=== PATIENT | female | born 1965 | race Caucasian/White ===

== ENCOUNTER 2019-06-18 14:28 | Inpatient (IN) | payer MEDICARE, SELFPAY ==
[2019-06-07 15:10] VITALS: BP 170/88; PULSE 90; RESP 18; TEMP 36.7; O2SAT 96; BMI 37.0
--- NOTE | 2019-06-17 14:01 | WPDANESEPPF ---
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 Patient Data Age: 54 Gender: F Height: 5 ft 6 in Weight: 104.3 kg Last Vital Signs Temp 98.0 F 06/07/19 15:10 Pulse 90 06/07/19 15:10 Resp 18 06/07/19 15:10 BP 170/88 H 06/07/19 15:10 Pulse Ox 96 06/07/19 15:10 Allergies Allergy/AdvReac Type Severity Reaction Status Date / Time No Known Allergies Allergy Verified 06/07/19 14:12 Home Medications Medication Instructions Recorded Confirmed Type baclofen 40 mg PO BID 04/20/19 06/07/19 History gabapentin 300 mg PO BID 04/20/19 06/07/19 History lisinopril 20 mg PO BID 04/20/19 06/07/19 History metoprolol succinate 100 mg PO DAILY 04/20/19 06/07/19 History warfarin 6 mg PO Q6D 04/20/19 06/07/19 History aspirin [Aspir-81] 81 mg PO DAILY 04/23/19 06/07/19 History erythromycin 500 mg tablet 500 mg PO .COMPLEX #6 tablet 05/10/19 06/07/19 Rx neomycin 500 mg tablet 500 mg PO .COMPLEX #6 tablet 05/10/19 06/07/19 Rx cholecalciferol (vitamin D3) 2,000 unit PO DAILY 06/07/19 06/07/19 History cyanocobalamin (vitamin B-12) 500 mcg PO DAILY 06/07/19 06/07/19 History ferrous sulfate 27 mg PO PRN PRN 06/07/19 06/07/19 History warfarin 8 mg PO WEEKLY 06/07/19 06/07/19 History PMFSH Social History Social History Smoking status: Former smoker Tobacco type: cigarettes Alcohol intake: current Gender identity (if verbalized by the patient): Female Anes - Eval Final PreProcedure Day of Procedure 06/17/19 14:01 Informed Consent: The patient's anesthetic plan and its attendant risks and benefits were discussed with the patient/family/POA. Questions were solicited and answers provided to the satisfaction of the patient/family/POA.
[2019-06-18] VITALS (19 sets, daily range): BP systolic 101–184; BP diastolic 59–104; PULSE 82–168; RESP 12–20; TEMP 36.4–37.1; O2SAT 92–100; BMI 35.2
[2019-06-18] MEDS: LACTATED RINGERS 1,000 ML 30 ML IV CONT ×2 (06:45→12:32)
[2019-06-18] MEDS: ALVIMOPAN 12 MG CAPSULE PO ×2 (07:01→17:45)
--- NOTE | 2019-06-18 07:04 | PM.IMHP ---
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 Patient had a colonoscopy with Dr Bass on 04/23/19 due to a postitive cologuard. Patient reports that last year she had done the colograd but when the stool was recieved it was out of date . Patient reports that she never redid it until this past month. It was noted that in the proximal ascending colon,a sessile polyp 3 mm by 4 mm was seen. The polyp was not bleeding, The polyp was benigm in appearance. The polyp was completely excised by snare. In the mid descending colon a partially obstruction large-size fungating, villous 5 cm x 6 cm mass was seen. There was stigmata of bleeding from the mass. In the rectum, multiple large-size uncomplicated internal hemhorrhoid were seen. The internal hemhorrhoids were no bleeding. Pathology showed tubular adenoma. Fragment tubulovillous adenoma with high-grade dysplasia, may pieces, largest 0.3 cm in greatest dimension. Patient had a CT scan of the abdomen and pelvis with contrast on 04/23/19 at [facility] that showed a 4.4 x 2.9 x 3.1 cm intraluminal mass at the proximal sigmoid colon concerning for primary colon cancer. No evident metastatic disease. Bilateral nephrolithiasis with 6 mm stone at the right ureterovesicular junction but without right hydronephrosis. There is however urothelial thickening at the right renal collecting system and would correlate with urinalysis to exclude associated ascening urinary tract infection. Patient reports she currently has no pain. Other medical history includes a pervious cerebral strokes x4 most recent being Dec 2018. Patient reports she also has thyroid disease, a history of kidney stones, afib and hypertension. Patient is currently taking Aspirin 81 mg and Warfarin daily. Patient reports she has been taking the Warfarin for about 5 years. Patient denies any pervious abdominal surgeries. For her heart issues she is followed by [facility] cardiology here at [place]. She had approval to go off her Coumadin for 5 days prior to procedure. She has had a bowel prep and presents today for her left hemicolectomy. Review of Systems Constitutional: Constitutional: Reports no additional constitutional complaints and Denies frequent falls Eyes: Eyes: Reports as per HPI ENT: Reports Normal hearing present, Denies dizziness and Reports other (Mucous membranes moist.) Cardiovascular: Cardiovascular: Denies chest pain, Denies palpitations, Denies dyspnea and Denies dyspnea on exertion Comments: History of atrial fibrillation and has been on Coumadin. Respiratory: Respiratory: Denies hemoptysis, Denies dyspnea, Denies dyspnea on exertion and Denies wheezing Gastrointestinal: Gastrointestinal: Reports no additional gastrointestinal complaints Genitourinary: Genitourinary: Denies hematuria, Denies urinary frequency and Denies nocturia Musculoskeletal: Musculoskeletal: Denies deformity and Reports other ( no clubbing,cyanosis, or edema) Integumentary/Breasts: Skin/Breast: Denies new lesions, Denies rash and Denies unusual bruising Neurologic: Reports Normal hearing present, Denies dizziness, Denies frequent falls, Denies memory loss and Denies seizure-like activity Comments: History of previous strokes. Psychiatric: Psychiatric: Denies memory loss and Reports other ( normal mood and mental status) Endocrine: Endocrine: Denies cold intolerance and Denies palpitations Hematologic/Lymphatic: Hematologic/Lymphatic: Denies easy bleeding and Denies easy bruising Comments: History of anemia however recent blood count was near normal. Allergic/Immunologic: Allergic/Immunologic: Denies wheezing and Reports other ( no lymphadenopathy) [facility] Past Medical History Medical History (Reviewed 06/18/19 @ 07:06 by Efrain
--- NOTE | 2019-06-18 07:06 | WPDANESEPPF ---
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 Patient Data Age: 54 Gender: F Height: 5 ft 6 in Weight: 99.1 kg Last Vital Signs Temp 36.7 C 06/07/19 15:10 Pulse 90 06/07/19 15:10 Resp 18 06/07/19 15:10 BP 170/88 H 06/07/19 15:10 Pulse Ox 96 06/07/19 15:10 Allergies Allergy/AdvReac Type Severity Reaction Status Date / Time No Known Allergies Allergy Verified 06/18/19 06:35 Home Medications Medication Instructions Recorded Confirmed Type baclofen 40 mg PO BID 04/20/19 06/18/19 History gabapentin 300 mg PO BID 04/20/19 06/18/19 History lisinopril 20 mg PO BID 04/20/19 06/18/19 History metoprolol succinate 100 mg PO DAILY 04/20/19 06/18/19 History warfarin 6 mg PO Q6D 04/20/19 06/18/19 History aspirin [Aspir-81] 81 mg PO DAILY 04/23/19 06/18/19 History cholecalciferol (vitamin D3) 2,000 unit PO DAILY 06/07/19 06/18/19 History cyanocobalamin (vitamin B-12) 500 mcg PO DAILY 06/07/19 06/18/19 History ferrous sulfate 27 mg PO PRN PRN 06/07/19 06/18/19 History warfarin 8 mg PO WEEKLY 06/07/19 06/18/19 History Laboratory Tests 06/18/19 06:50 PT Pending INR Pending Patient hx anesthesia problems: none Family hx anesthesia problems: none PMFSH Past Medical History Medical History Afib Brain aneurysm CVA (cerebral vascular accident) History of stroke x2 History of thyroid disease Hx of migraines Hypertension AMMON (obstructive sleep apnea) Surgical History Surgical History History of colonoscopy Family History Family History Father Lung cancer Mother COPD (chronic obstructive pulmonary disease) Diabetes mellitus Hypertension High cholesterol Unknown Diabetes mellitus Heart disease Cancer Hypertension Social History Social History Smoking status: Former smoker Tobacco type: cigarettes Alcohol intake: current Gender identity (if verbalized by the patient): Female Anes - Eval Final PreProcedure Day of Procedure 06/18/19 07:06 Patient weight: obese Heart: irregular rhythm Lungs: clear to auscultation Airway: Mallampati scale class II Neurological: alert and oriented Last oral intake: >/= 8 hours ASA classification: III Emergent: no Anesthetic plan: proceed Anesthesia type and monitoring: general ETT and standard monitoring Informed Consent: The patient's anesthetic plan and its attendant risks including prolonged ventilation and ICU admission and benefits were discussed with the patient/family/POA. Questions were solicited and answers provided to the satisfaction of the patient/family/POA.
[2019-06-18 07:18] LABS: INR 1.2; Prothrombin Time 15.2 Seconds (11.1-14.7)
[2019-06-18] MEDS: ceFAZolin 2 GM/D5W 50 ML 2 GM/50 ML BAG IVPB (07:36)
--- NOTE | 2019-06-18 08:30 | SUR.OPER ---
Addendum entered by López Melo RN 06/18/19 09:09: PRADIP Christie Original Note: Rectal washout performed at 0755 by PRADIP Stevens. 1500 cc of fluid instilled, 1500cc came out. Smith for rectum inserted at 0800.
[2019-06-18] MEDS: BUPIVACAINE/EPINEPHRINE 0.5% 30 ML VIAL INFILTRATE (08:40)
--- NOTE | 2019-06-18 12:54 | PM.PROC ---
Procedure Note - Detailed Date of procedure: 06/18/19 Pre-op diagnosis: Left Tubulovillous Adenoma W/ High Grade Dysplasia Post-op diagnosis: same Procedure performed: Hand assisted laparoscopic sigmoid colectomy with anastomosis distal descending colon to rectum Description of procedure: Patient was seen in the preop area. The suprapubic area marked for the site of possible hand assist incision. I again went over the risks, benefits, and possible complications of surgery with the patient and her family. We went over the results of the prep. I confirmed the patient had received Entereg. Following this the patient was brought to the operating room and placed on the operating table and secured to the table with a clarke bag padding the back. The patioeit was placed in the low lithotomy position with the legs in Cedrick stirrups. Smith catheter was then placed. An OG tube was then placed. Following this 2 L of NS irrigant was used to irrigate out the rectum using a malenkat catheter. Betadine was then infused into this catheter using approximately 500 cc. This was allowed to run back out. The catheter was then left in place in the distal rectum. Following this the abdomen was prepped and draped in usual sterile fashion sterile fashion. The perineum was prepped with Betadine. An under the buttocks and leg drapes were applied followed by 4 towels and then the laparotomy / laparoscopy drape applied. This exposed nicely the entire abdomen. Following this time-out was performed with the OR staff. This confirmed patient and site of proposed surgery as the abdomen. Following this local anesthetic was infiltrated into a transverse incision marked out 2 fingerbreadths above the level of the pubic bone. This was centered on the midline. It was approximately 8.5 cm in length. Following this an incision was made and carried down to the fascia overlying the rectus sheath in this area. The anterior rectus sheath was incised the length of this incision transversely. Following this three Elsy's were placed on the upper side of the cut edge of the rectus. I then carefully dissected the rectus fascia off the underlying rectus muscles up to about half-way from the incision to the umbilicus. This nicely exposed the fatty midline. Following this I also placed the Allis's on the fascia inferiorly and dissected approximately 3 cm inferiorly underneath the rectus sheath. Following this we tented up the midline fat with two DeBakey forceps and carefully entered the midline under direct vision. I then put my finger in the peritoneum and incised the peritoneum cephalad and inferiorly about an 8 cm length. This was our 1st entry into the abdomen and there was no significant adhesions under this incision. I swept my finger completely circumferentially underneath the abdominal wall and there were no significant adhesions. Following this the wound protector of the laparoscopic hand port was placed into the abdomen and then carefully rotated down to secure the hand port in place and protect the edges of the wound. I then placed my hand through wound protector and placed it up in underneath the area of the umbilicus. There were no adhesions in this area. A vertical incision was outlined in the crease just above the umbilicus and local anesthetic infused. Then an 11 blade knife was made to make a 12 mm incision just superior to the umbilicus and a 12 mm laparoscopic port was placed into the abdomen with my hand underneath the anterior abdominal wall. Once this was adequately in place, we then insufflated the abdomen to 15 mmHg pressure CO2 by connecting the insufflation tubing to this periumbilical port. The cover for the hand port was applied and then we carefully placed the 10 mm surgery laparoscope through the umbilical port and observed the inside the abdomen. I placed my right hand in the abdomen while standing on the patient's left side. Using my right hand I exposed the sigmo
--- NOTE | 2019-06-18 13:38 | SUR.PHASEI ---
1255 - large liquid stool noted. skin 1320 - family updated and sent to room
[2019-06-18] MEDS: LACTATED RINGERS 1,000 ML 100 ML IV CONT ×2 (15:58→21:51)
[2019-06-18] MEDS: SODIUM CHLORIDE 0.9% IV 500 ML 250 ML IV CONT (17:30)
[2019-06-18] MEDS: SODIUM CHLORIDE 0.9% IV 500 ML 250 ML (17:30)
[2019-06-18] MEDS: metroNIDAZOLE 500 MG/ISO 100ML 500 MG/100 ML BAG 100 MG IVPB (17:44)
[2019-06-18] MEDS: DIGOXIN TAB 125 MCG TABLET PO (17:45)
[2019-06-18] MEDS: GABAPENTIN 300 MG CAPSULE PO (17:46)
--- NOTE | 2019-06-18 19:33 | PC.NURSE ---
Discussed transfer with daughter Darlin. Informed of being moved to IMU 212.
--- NOTE | 2019-06-18 19:45 | PC.NURSE ---
This patient, Ana Laura Williamson, was transferred to [ IMU] on 06/18/19 at 1946. Personal belongings sent with patient. Belongings list checked and signed with receiving [ UNIT]. Report given to [IMU RN ]. Appropriate documentation sent with patient.
--- NOTE | 2019-06-18 20:13 | PC.NURSE ---
Pt transferred to IMU room 212 from third floor due to Afib RVR. Known hx of Afib. Pt denies SOB or chest pain at this time. HR up to 168 at times. Leanna Aguirre NP notified. Cardizem gtt to be ordered by Leanna.
--- NOTE | 2019-06-18 20:24 | PC.NURSE ---
2009 DR TERAN RETURNED CALL AND REPORTED PT'S CONDITION AND THAT THE PT WAS TRANSFERED TO IMU 212
[2019-06-18] MEDS: lisinopriL 20 MG TABLET PO (20:56)
[2019-06-18] MEDS: FAMOTIDINE 20 MG/2 ML VIAL IV PUSH (20:56)
--- NOTE | 2019-06-18 23:12 | PM.IMCN ---
Assessment and Plan Assessment and plan (1) Afib: Code(s): I48.91 - Unspecified atrial fibrillation Status: Acute Assessment and Plan: The patient currently on is on a Cardizem drip. May resume metoprolol a once the patient is off the drip. It is on hold at this time. May resume tomorrow for heart rate is stable and start to wean off the drip. Patient had been on Coumadin but is currently on hold possibly due to her surgery. Patient will need to be restarted on Coumadin as soon as surgery allows. Patient had been found to be in AFib with RVR. Her heart rate is now in the 90s. 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 Patient is currently on subcu Lovenox. (3) S/P left hemicolectomy: Code(s): Z90.49 - Acquired absence of other specified parts of digestive tract Status: Acute Assessment and Plan: Postop care and DVT prophylaxis per surgery. Pain management per surgery. (4) Hypertension: Code(s): I10 - Essential (primary) hypertension Status: Chronic Assessment and Plan: Her metoprolol and lisinopril on hold while she is on a Cardizem drip. HPI Data of Consult Consult date: 06/18/19 Requesting Physician: Arun Zhu MD Primary Care Provider: Nate OcampoMD Consult Narrative Narrative: Ana Laura Williamson is a 54 year old female who has a history of atrial fibrillation. Her rate is typically controlled but she went with out her medication for about a day. The patient's heart rate went up to the 130s and 140s even the patient was given her metoprolol. I also gave her p.o. digoxin which did nothing for her. Patient stated she can tell when her heart rate is fast. She is not short of breath or diaphoretic having any chest pain. The patient denied any discomfort at this time. She denied any anxiety. Patient was transferred to the IMU and placed on a Cardizem drip. Her heart rate has come down nicely in the 90s. Surgery is ask the hospitalist group to consult for medical management. The patient had surgery today she had a colectomy for colon adenoma with severe dysplasia. Date of service is 06/18/2019 Review of Systems Review of Systems: All systems reviewed & are unremarkable except as noted in HPI and below Constitutional: Constitutional: Reports as per HPI and Reports no additional constitutional complaints Eyes: Eyes: Reports as per HPI and Reports no additional eye complaints ENT: Reports system reviewed and no additional complaints, except as documented and Reports Normal hearing present Cardiovascular: Cardiovascular: Reports as per HPI and Reports no additional cardiovascular complaints Respiratory: Respiratory: Reports no additional respiratory complaints and Reports no additional respiratory complaints Gastrointestinal: Gastrointestinal: Reports as per HPI and Reports no additional gastrointestinal complaints Musculoskeletal: Musculoskeletal: Reports no additional musculoskeletal complaints Integumentary/Breasts: Skin/Breast: Reports system reviewed and no additional complaints, except as docu and Reports as per HPI Neurologic: Reports system reviewed and no additional complaints, except as documented, Reports as per HPI and Reports Normal hearing present Psychiatric: Psychiatric: Reports no additional psychiatric complaints and Reports as per HPI Endocrine: Endocrine: Reports no additional endocrine complaints Hematologic/Lymphatic: Hematologic/Lymphatic: Reports no additional hematologic/lymphatic complaints Allergic/Immunologic: Allergic/Immunologic: Reports no additional allergic/immunologic complaints [facility] Past Medical History Medical History (Updated 06/18/19 @ 23:24 by Leanna Aguirre NP) Afib Brain aneurysm X2 with repair CVA (cerebral vascular accident) X2 History of stroke x
[2019-06-19] VITALS (17 sets, daily range): BP systolic 121–150; BP diastolic 67–85; PULSE 77–106; RESP 16–20; TEMP 36.3–37.2; O2SAT 94–98
[2019-06-19] MEDS: metroNIDAZOLE 500 MG/ISO 100ML 500 MG/100 ML BAG 100 MG IVPB ×3 (00:18→17:02)
[2019-06-19 04:49] LABS: Basophils Percent Auto 0.3 % (0.2-1.2); Eosinophils Percent Auto 0.1 % (0-4.4); Hematocrit 35.3 % (37.0-47.0); Hemoglobin 11.7 g/dL (12.0-15.0); Immature Granulocyte Absolute 0.05 K/mm3 (0.00-0.031); Immature Granulocyte Percent A 0.4 % (0-0.5); Lymphocytes Percent Auto 9.2 % (18.3-44.2); Mean Corpuscular HGB Conc 33.1 g/dl (32-36); Mean Corpuscular Hemoglobin 31.5 pg (26-34); Mean Corpuscular Volume 94.9 fl (80-100); Mean Platelet Volume 12.4 fl (7.4-10.4); Monocytes Absolute Auto 0.8 K/mm3 (0.1-0.6); Monocytes Percent Auto 6.8 % (2.6-8.5); Neutrophils Absolute Auto 9.9 K/mm3 (1.3-6.7); Neutrophils Percent Auto 83.2 % (45.5-73.1); Platelet Count Result 134 k/mm3 (150-375); Red Blood Count 3.72 M/mm3 (4.2-5.4); Red Cell Distribution Width 13.9 % (11.5-14.5); White Blood Count 11.9 K/mm3 (4.5-10.0)
[2019-06-19 05:40] LABS: Blood Urea Nitrogen 17 mg/dL (7-17); Carbon Dioxide 24 mmol/L (22-30); Chloride 105 mmol/L (98-107); Estimated CRCL calculation 106 ml/min; Estimated Glomerular Filt Rate > 60; Glucose 101 mg/dL (65-105); Potassium 4.3 mmol/L (3.4-5.0); Sodium 135 mmol/L (137-145)
[2019-06-19] MEDS: LACTATED RINGERS 1,000 ML 100 ML IV CONT (09:16)
[2019-06-19] MEDS: FAMOTIDINE 20 MG/2 ML VIAL IV PUSH ×2 (09:17→20:43)
[2019-06-19] MEDS: METOPROLOL SUCCINATE EXT REL 100 MG TABCR PO (09:17)
[2019-06-19] MEDS: lisinopriL 20 MG TABLET PO ×2 (09:17→20:43)
[2019-06-19] MEDS: GABAPENTIN 300 MG CAPSULE PO ×2 (09:17→17:03)
[2019-06-19] MEDS: ALVIMOPAN 12 MG CAPSULE PO ×2 (09:17→20:43)
[2019-06-19] MEDS: ENOXAPARIN 40 MG/0.4 ML SYRINGE SUB-Q (09:17)
[2019-06-19] MEDS: ONDANSETRON INJ 4 MG/2 ML VIAL IV PUSH (09:18)
--- NOTE | 2019-06-19 09:28 | P.PNAN_ITS ---
Anes - Prog Note Post-Op Date/Time: 06/19/19 09:28 Cardiovascular status: normal Respiratory status: normal Airway patency: baseline Mental status: baseline Post-Op hydration status: normal Vital Signs: Last Vital Signs Temp 36.8 C 06/19/19 08:23 Pulse 91 06/19/19 09:17 Resp 20 06/19/19 08:23 BP 145/80 H 06/19/19 08:23 Pulse Ox 96 06/19/19 08:23 I/O: Intake & Output 06/18/19 06/19/19 06/19/19 23:59 07:59 15:59 Intake Total 1350 1323.2 395 Output Total 470 700 Balance 880 623.2 395 Laboratory Tests 06/19/19 04:30 06/19/19 04:30 06/19/19 06/19/19 04:30 04:30 WBC 11.9 H RBC 3.72 L Hgb 11.7 L Hct 35.3 L MCV 94.9 MCH 31.5 MCHC 33.1 RDW 13.9 Plt Count 134 L MPV 12.4 H Immature Gran % (Auto) 0.4 Neut % (Auto) 83.2 H Lymph % (Auto) 9.2 L [place] % (Auto) 6.8 Eos % (Auto) 0.1 Baso % (Auto) 0.3 Lymph # (Auto) 1.10 [place] # (Auto) 0.8 H Eos # (Auto) 0.0 Baso # (Auto) 0.0 Abs Immat Gran (auto) 0.05 H Absolute Neuts (auto) 9.9 H Absolute Nucleated RBC 0.0 Nucleated RBC % 0.0 Sodium 135 L Potassium 4.3 Chloride 105 Carbon Dioxide 24 BUN 17 D Creatinine 0.60 L Estim Creat Clear Calc 106 Estimated GFR > 60 Glucose 101 Calcium 10.0 Post-procedural complaints: none Patient Feedback: Patient satisfied with anesthetic care.
--- NOTE | 2019-06-19 10:10 | PM.PNGS ---
Progress Note: A&P Assessment and Plan (1) High grade dysplasia in colonic adenoma: Code(s): D12.6 - Benign neoplasm of colon, unspecified Status: Chronic Assessment and Plan: Looks good this morning. Will start liquids. Up to chair today. Leave Smith till tomorrow. Recheck labs again tomorrow morning. Continued on monitored bed for rapid atrial fibrillation. (2) CVA (cerebral vascular accident): Code(s): I63.9 - Cerebral infarction, unspecified Status: Chronic (3) Afib: Code(s): I48.91 - Unspecified atrial fibrillation Status: Acute Assessment and Plan: Developed rapid AFib last night. Transferred to IMU. Being managed by hospitalist service. 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 (5) Hypertension: Code(s): I10 - Essential (primary) hypertension Status: Chronic Subjective Subjective Date/Time Seen: 06/19/19 10:10 Post Op day: 1 Patient reports: no new complaints, no flatus, no bowel movement and afebrile Review of Systems Review of Systems: All systems reviewed & are unremarkable except as noted in HPI and below Constitutional: Constitutional: Denies headache(s) ENT: Denies headache(s) Cardiovascular: Cardiovascular: Denies chest pain and Denies dyspnea Respiratory: Respiratory: Denies cough and Denies dyspnea Gastrointestinal: Gastrointestinal: Reports as per HPI Neurologic: Denies confusion and Denies headache(s) Psychiatric: Psychiatric: Denies confusion Exam Const: General: comfortable and no acute distress; No confusion Orientation/consciousness: patient oriented x3 and No confusion Resp: Effort & Inspection: normal respiratory effort Auscultation: clear to auscultation bilaterally Cardio: Rate: regular rate Rhythm: regular rhythm GI: Inspection: non-distended and incision (Incisions dry and healing well) GI Palp: Yes Soft to palpation, Yes Tenderness to palpation present (GI), No Guarding due to palpation present (GI) and No Rebound tenderness present Auscultation: Hypoactive bowel sounds present Neuro: General: patient oriented x3, no focal motor deficits and No confusion Extrem: General: no calf tenderness and no edema Psych: Affect: normal affect Insight: Good insight present (Psych) Judgement: Good judgement present (Psych) Objective Data Vital Signs Vital Signs: Vital Signs - 24 hr 06/18/19 12:32 06/18/19 12:45 06/18/19 13:00 Temperature 36.9 C Pulse Rate 98 102 H 110 H Respiratory Rate 13 20 20 Blood Pressure 110/67 108/85 105/70 Pulse Oximetry 98 100 95 06/18/19 13:15 06/18/19 13:30 06/18/19 13:45 Temperature Pulse Rate 102 H 108 H 113 H Respiratory Rate 14 12 15 Blood Pressure 107/67 106/66 106/78 Pulse Oximetry 95 94 94 06/18/19 14:00 06/18/19 14:15 06/18/19 14:28 Temperature Pulse Rate 104 H 102 H 82 Respiratory Rate 12 12 16 Blood Pressure 101/87 113/88 Pulse Oximetry 94 97 95 06/18/19 14:45 06/18/19 15:00 06/18/19 15:30 Temperature 37.1 C Pulse Rate 92 86 84 Respiratory Rate 16 16 16 Blood Pressure 152/59 H 141/82 H 144/81 H Pulse Oximetry 96 92 95 06/18/19 16:00 06/18/19 16:30 06/18/19 19:55 Temperature 37.0 C 36.6 C Pulse Rate 110 H 82 168 H Respiratory Rate 16 18 Blood Pressure 144/83 H 126/78 Pulse Oximetry 95 94 06/18/19 20:00 06/18/19 22:00 06/18/19 23:49 Temperature 36.4 C Pulse Rate 145 H 101 H 137 H Respiratory Rate 16 Blood Pressure 123/69 Pulse Oximetry 94 06/19/19 00:00 06/19/19 02:00 06/19/19 03:56 Temperature 36.3 C L Pulse Rate 94 90 84 Respiratory Rate 16 Blood Pressure 121/69 Pulse Oximetry 94 06/19/19 04:00 06/19/19 06:00 06/19/19 08:23 Temperature 36.8 C Pulse Rate 87 79 89 Respiratory Rate 20 Blood Pressure 145/80 H Pulse Oximetry 96 06/19/19 09:17 Temp
--- NOTE | 2019-06-19 12:39 | PM.IMPN ---
Progress Note: A&P Assessment and Plan (1) Afib: Qualifiers: Atrial fibrillation type: longstanding persistent Qualified Code(s): I48.11 - Longstanding persistent atrial fibrillation Code(s): I48.91 - Unspecified atrial fibrillation Status: Acute Assessment and Plan: Hospitalist service consulted due to atrial fibrillation with RVR after surgery. Patient with known chronic atrial fibrillation. Regularly sees Dr. Roberto. Placed on IV diltiazem drip overnight. Telemetry reviewed on 06/19/2019 with atrial fibrillation with heart rate now well controlled. Discontinue IV diltiazem as has already received oral metoprolol this morning. Will continue to monitor on telemetry. Home warfarin remains on hold postoperatively. Resume when okay with surgery. For now, on prophylactic Lovenox. If any persistent problems with her atrial fibrillation, will consult [facility]. 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 INR 1.2 yesterday. Resume home warfarin when okay with surgery. (3) S/P left hemicolectomy: Code(s): Z90.49 - Acquired absence of other specified parts of digestive tract Status: Acute Assessment and Plan: Colonoscopy in April 2019 with biopsy of colon polyp revealing adenoma with high-grade dysplasia. Now S/P hand assisted laparoscopic left hemicolectomy with reanastomosis on 06/18/[address] Zhu. POD #1. Postoperative care including pain management per surgery. Clear liquids started today. (4) Hypertension: Qualifiers: Hypertension type: essential hypertension Qualified Code(s): I10 - Essential (primary) hypertension Code(s): I10 - Essential (primary) hypertension Status: Chronic Assessment and Plan: Blood pressure reviewed on 06/19/2019 and controlled. Continue to monitor on her home metoprolol and lisinopril. Will adjust treatment as needed. (5) CVA (cerebral vascular accident): Qualifiers: CVA mechanism: unspecified Qualified Code(s): I63.9 - Cerebral infarction, unspecified Code(s): I63.9 - Cerebral infarction, unspecified Status: Chronic Assessment and Plan: Previous history of CVA with right-sided weakness. (6) DVT prophylaxis: Code(s): Z29.9 - Encounter for prophylactic measures, unspecified Status: Acute Assessment and Plan: Lovenox per surgery. Time Spent With Patient Time with patient: 15 - 25 minutes Subjective Date/time seen: 06/19/19 12:39 Interval history: Date of Service: 06/19/2019. Admitted for laparoscopic left hemicolectomy due to high-grade dysplasia in colonic adenoma on recent colonoscopy. Hospitalist service consulted yesterday due to atrial fibrillation RVR. Patient with known atrial fibrillation does see Dr. Roberto regularly. Was placed on IV diltiazem drip last night. Feels much better today. No chest pain or palpitations. No shortness of breath. No abdominal pain. Has had flatus but no bowel movement. No headache or dizziness. Review of Systems Constitutional: Constitutional: Denies chills and Denies fever(s) ENT: Denies nasal congestion and Denies nasal discharge Cardiovascular: Cardiovascular: Denies chest pain and Denies palpitations Respiratory: Respiratory: Denies dyspnea Gastrointestinal: Gastrointestinal: Denies abdominal pain, Denies nausea and Denies vomiting Genitourinary: Comments: Catheter in place Musculoskeletal: Musculoskeletal: Reports no additional musculoskeletal complaints Integumentary/Breasts: Skin/Breast: Denies rash Neurologic: Denies headache(s) Psychiatric: Psychiatric: Denies anxiety and Denies depression Exam Narrative: Exam Narrative: Awake and alert. Const: General: no acute distress HENMT: Mouth: Yes moist mucous membranes Neck: Neck: supple
--- NOTE | 2019-06-19 14:39 | PC.NURSE ---
This patient, Ana Laura Williamson, was received from [facility] on 06/19/19 at 1439. Personal belongings list checked and signed. Patient/family oriented to unit policies and routines
--- NOTE | 2019-06-19 15:06 | PC.NURSE ---
This patient, Ana Laura Williamson, was transferred to [facility] on 06/19/19 at 1507. Personal belongings sent with patient. Belongings list checked and signed with receiving RN. Report given to BRENDAN Lara. Appropriate documentation sent with patient.
[2019-06-20] VITALS (13 sets, daily range): BP systolic 133–178; BP diastolic 87–98; PULSE 80–150; RESP 18–20; TEMP 37–37.4; O2SAT 95–100
[2019-06-20] MEDS: LACTATED RINGERS 1,000 ML 100 ML IV CONT ×2 (00:57→08:40)
[2019-06-20 06:21] LABS: Hematocrit 38.7 % (37.0-47.0); Hemoglobin 12.4 g/dL (12.0-15.0); Mean Corpuscular Hemoglobin 31.3 pg (26-34); Mean Corpuscular Volume 97.7 fl (80-100); Mean Platelet Volume 12.4 fl (7.4-10.4); Platelet Count Result 124 k/mm3 (150-375); Red Blood Count 3.96 M/mm3 (4.2-5.4); White Blood Count 8.6 K/mm3 (4.5-10.0)
[2019-06-20] MEDS: METOPROLOL SUCCINATE EXT REL 100 MG TABCR PO (08:16)
[2019-06-20] MEDS: ALVIMOPAN 12 MG CAPSULE PO (08:39)
[2019-06-20] MEDS: GABAPENTIN 300 MG CAPSULE PO ×2 (08:40→16:33)
[2019-06-20] MEDS: lisinopriL 20 MG TABLET PO ×2 (08:40→20:32)
[2019-06-20] MEDS: ENOXAPARIN 40 MG/0.4 ML SYRINGE SUB-Q (08:40)
[2019-06-20] MEDS: FAMOTIDINE 20 MG/2 ML VIAL IV PUSH (08:40)
--- NOTE | 2019-06-20 11:24 | PM.PNGS ---
Progress Note: A&P Assessment and Plan (1) High grade dysplasia in colonic adenoma: Code(s): D12.6 - Benign neoplasm of colon, unspecified Status: Chronic Assessment and Plan: Healing well after laparoscopic sigmoidectomy with anastomosis. Will advance to straight regular diet. Smith catheter is out and she is voiding well. She is having some loose stools. I will restart her iron. Progressing nicely. Possibly home tomorrow. (2) Afib: Qualifiers: Atrial fibrillation type: longstanding persistent Qualified Code(s): I48.11 - Longstanding persistent atrial fibrillation Code(s): I48.91 - Unspecified atrial fibrillation Status: Acute Assessment and Plan: Rate controlled and back on regular med surg floor. (3) Chronic anticoagulation: Code(s): Z79.01 - care home (current) use of anticoagulants Status: Chronic Assessment and Plan: will restart normal dose of Coumadin today. (4) CVA (cerebral vascular accident): Qualifiers: CVA mechanism: unspecified Qualified Code(s): I63.9 - Cerebral infarction, unspecified Code(s): I63.9 - Cerebral infarction, unspecified Status: Chronic (5) Hypertension: Qualifiers: Hypertension type: essential hypertension Qualified Code(s): I10 - Essential (primary) hypertension Code(s): I10 - Essential (primary) hypertension Status: Chronic Subjective Subjective Date/Time Seen: 06/20/19 11:24 Post Op day: 2 Patient reports: no new complaints, feels better, tolerating a regular diet, bowel movement and diarrhea Exam GI: Inspection: non-distended and incision ( Healing well. FABIENNE drain shows predominantly serous fluid) GI Palp: Yes Soft to palpation and Yes Tenderness to palpation present (GI) Auscultation: normal bowel sounds Objective Data Vital Signs Vital Signs: Vital Signs - 24 hr 06/19/19 12:00 06/19/19 12:10 06/19/19 12:44 Temperature 37.0 C Pulse Rate 97 103 H Respiratory Rate 20 Blood Pressure 126/67 Pulse Oximetry 98 97 06/19/19 14:07 06/19/19 14:45 06/19/19 16:00 Temperature 36.8 C Pulse Rate 98 86 106 H Respiratory Rate 18 Blood Pressure 150/85 H Pulse Oximetry 96 06/19/19 20:00 06/19/19 22:00 06/20/19 00:00 Temperature 37.2 C Pulse Rate 91 99 103 H Respiratory Rate 16 Blood Pressure 123/74 Pulse Oximetry 96 06/20/19 04:00 06/20/19 07:31 06/20/19 08:00 Temperature 37.2 C Pulse Rate 97 93 130 H Respiratory Rate 18 Blood Pressure 178/98 H Pulse Oximetry 95 06/20/19 08:16 06/20/19 10:19 Temperature Pulse Rate 150 H Respiratory Rate Blood Pressure Pulse Oximetry 97 Intake/Output Intake/Output: Intake & Output 06/17/19 06/18/19 06/19/19 06/20/19 23:59 23:59 23:59 23:59 Intake Total 1500 3198.2 1160 Output Total 920 2095 2160 Balance 580 1103.2 -1000 Meds/Results Medications: Active Medications Generic Name Dose Route Start Last Admin Trade Name Freq PRN Reason Stop Dose Admin Acetaminophen 500 mg 06/18/19 14:28 Tylenol Tablet PO Q6H PRN Mild Pain (1-3) or Fever Hydrocodone Bitart/Acetaminophen 1 tab 06/18/19 14:28 [place] 5-325 Mg PO Q4H PRN Pain Rated 4-6 Hydrocodone Bitart/Acetaminophen 1 tab 06/18/19 14:28 [place] 7.5-325 Mg PO Q6H PRN Pain Rated 7-10 Enoxaparin Sodium 40 mg 06/19/19 09:00 06/20/19 08:40 Lovenox SUB-Q 40 mg DAILY BHASKAR Administration Famotidine 20 mg 06/20/19 21:00 Pepcid PO Q12HR BHASKAR Gabapentin 300 mg 06/18/19 17:00 06/20/19 08:40 Neurontin PO 300 mg BID BHASKAR Administration Lisinopril 20 mg 06/18/19 21:00 06/20/19 08:40 Prinivil PO 20 mg Q12HR BHASKAR Administration Metoprolol Succinate 100 mg 06/19/19 09:00 06/20/19 08:16 Toprol Xl PO 100 mg DAILY BHASKAR Administration Morphine Sulfate 2 mg 06/18/19 14:28 Morphine Sulfate Inj IV P
--- NOTE | 2019-06-20 12:17 | PM.IMPN ---
Progress Note: A&P Assessment and Plan (1) Afib: Qualifiers: Atrial fibrillation type: longstanding persistent Qualified Code(s): I48.11 - Longstanding persistent atrial fibrillation Code(s): I48.91 - Unspecified atrial fibrillation Status: Acute Assessment and Plan: Hospitalist service consulted due to atrial fibrillation with RVR after surgery. Patient with known chronic atrial fibrillation. Regularly sees Dr. Roberto. Placed on IV diltiazem drip initially with heart rate remaining controlled. Unfortunately, telemetry reviewed on 06/20/2019 with heart rate now sustaining 120s to 140s. Telemetry does also show had previous bursts of increased to 120s and return to normal quickly. Patient has noticed the increased heart rate but not symptomatic. Discussed with Cardiology with recommendation to give oral metoprolol tartrate 25 mg now. Will monitor. If heart rate does not return to acceptable range, will need to moved to the intermediate care unit and restart IV diltiazem. If needs to return to IMU on IV diltiazem, will need Cardiology consult officially. Warfarin restarted per surgery today. Will need to follow INR. Telemetry reviewed after patient given oral dose of metoprolol tartrate 20 mg. Heart rate now remaining in the low 100s. Will continue monitor telemetry on the medical floor for now. INR 1.3 today. Total time currently spent in critical care is 35 minutes. 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 INR 1.2 on 06/18/2019. Will check INR today as warfarin is being resumed. Will need to follow INR. (3) S/P left hemicolectomy: Code(s): Z90.49 - Acquired absence of other specified parts of digestive tract Status: Acute Assessment and Plan: Colonoscopy in April 2019 with biopsy of colon polyp revealing adenoma with high-grade dysplasia. Now S/P hand assisted laparoscopic left hemicolectomy with reanastomosis on 06/18/[address] Zhu. POD #2. Postoperative care including pain management per surgery. Advanced to regular diet today. Smith catheter removed. Doing well postoperatively. (4) Hypertension: Qualifiers: Hypertension type: essential hypertension Qualified Code(s): I10 - Essential (primary) hypertension Code(s): I10 - Essential (primary) hypertension Status: Chronic Assessment and Plan: Blood pressure reviewed on 06/20/2019. Some elevated readings but acceptably controlled at this time. Continue to monitor on her home metoprolol and lisinopril. Will adjust treatment as needed. (5) CVA (cerebral vascular accident): Qualifiers: CVA mechanism: unspecified Qualified Code(s): I63.9 - Cerebral infarction, unspecified Code(s): I63.9 - Cerebral infarction, unspecified Status: Chronic Assessment and Plan: Previous history of CVA with right-sided weakness. At baseline. (6) DVT prophylaxis: Code(s): Z29.9 - Encounter for prophylactic measures, unspecified Status: Acute Assessment and Plan: Lovenox per surgery. Warfarin also restarted per surgery today. Time Spent With Patient Time with patient: 15 - 25 minutes Subjective Date/time seen: 06/20/19 12:17 Interval history: Date of Service: 06/20/2019. Admitted for laparoscopic left hemicolectomy due to high-grade dysplasia in colonic adenoma on recent colonoscopy. Hospitalist service consulted due to atrial fibrillation RVR. Patient with known atrial fibrillation and does see Dr. Roberto regularly. Sitting in chair currently. Denies chest pain. Does notice her heart beating faster and reports this tends to happen at this time of day at home. No shortness of breath. No abdominal pain. No nausea or vomiting. Review of Systems Constitutional: Constitutional: Denies chills and Denies f
[2019-06-20] MEDS: METOPROLOL TARTRATE 25 MG TABLET PO ×2 (13:08→20:32)
[2019-06-20 14:00] LABS: INR 1.3
[2019-06-20 14:02] LABS: Blood Urea Nitrogen 14 mg/dL (7-17); Calcium 10.2 mg/dL (8.4-10.2); Carbon Dioxide 26 mmol/L (22-30); Chloride 106 mmol/L (98-107); Estimated CRCL calculation 81 ml/min; Estimated Glomerular Filt Rate > 60; Glucose 164 mg/dL (65-105); Magnesium 1.6 mg/dL (1.6-2.3); Potassium 3.4 mmol/L (3.4-5.0); Sodium 139 mmol/L (137-145)
[2019-06-20] MEDS: BACLOFEN 10 MG TABLET 40 MG PO (16:32)
[2019-06-20] MEDS: WARFARIN (*PBKC) 3 MG TABLET 6 MG PO (16:33)
[2019-06-20] MEDS: FAMOTIDINE 20 MG TABLET PO (20:33)
[2019-06-21] VITALS (7 sets, daily range): BP systolic 132–167; BP diastolic 85; PULSE 70–108; RESP 16–18; TEMP 36.9–37.3; O2SAT 98
[2019-06-21 06:23] LABS: Hematocrit 37.1 % (37.0-47.0); Hemoglobin 12.1 g/dL (12.0-15.0); Mean Corpuscular HGB Conc 32.6 g/dl (32-36); Mean Corpuscular Hemoglobin 31.4 pg (26-34); Mean Corpuscular Volume 96.4 fl (80-100); Mean Platelet Volume 12.7 fl (7.4-10.4); Platelet Count Result 125 k/mm3 (150-375); Red Blood Count 3.85 M/mm3 (4.2-5.4); Red Cell Distribution Width 14.1 % (11.5-14.5); White Blood Count 6.6 K/mm3 (4.5-10.0)
[2019-06-21 06:35] LABS: Blood Urea Nitrogen 12 mg/dL (7-17); Calcium 9.7 mg/dL (8.4-10.2); Carbon Dioxide 28 mmol/L (22-30); Chloride 105 mmol/L (98-107); Estimated CRCL calculation 106 ml/min; Estimated Glomerular Filt Rate > 60; Glucose 88 mg/dL (65-105); Potassium 3.3 mmol/L (3.4-5.0); Sodium 139 mmol/L (137-145)
[2019-06-21 06:53] LABS: INR 1.3; Prothrombin Time 15.8 Seconds (11.1-14.7)
[2019-06-21] MEDS: BACLOFEN 10 MG TABLET 40 MG PO (08:05)
[2019-06-21] MEDS: METOPROLOL SUCCINATE EXT REL 100 MG TABCR PO (08:07)
[2019-06-21] MEDS: FAMOTIDINE 20 MG TABLET PO (08:07)
[2019-06-21] MEDS: lisinopriL 20 MG TABLET PO (08:07)
[2019-06-21] MEDS: POTASSIUM CHLORIDE 20 MEQ TABLET 40 MEQ PO (08:08)
[2019-06-21] MEDS: MAGNESIUM OXIDE 400 MG TABLET PO (08:08)
[2019-06-21] MEDS: GABAPENTIN 300 MG CAPSULE PO (08:08)
[2019-06-21] MEDS: ENOXAPARIN 40 MG/0.4 ML SYRINGE SUB-Q (08:09)
--- NOTE | 2019-06-21 12:23 | PM.IMPN ---
Progress Note: A&P Assessment and Plan (1) Afib: Qualifiers: Atrial fibrillation type: longstanding persistent Qualified Code(s): I48.11 - Longstanding persistent atrial fibrillation Code(s): I48.91 - Unspecified atrial fibrillation Status: Acute Assessment and Plan: Hospitalist service consulted due to atrial fibrillation with RVR after surgery. Patient with known chronic atrial fibrillation. Regularly sees Dr. Roberto. Initially placed on IV diltiazem drip with heart rate remaining controlled with IV diltiazem discontinued by 06/19/2019. Patient resumed on oral metoprolol succinate on 06/19/2019. Patient did have some episodes of increased heart rate yesterday with 2 doses of oral metoprolol tartrate given after I was able to discuss with cardiology. Telemetry reviewed now on 06/21/2019 occasional increase in heart rate but asymptomatic and associated with activity. Heart rate generally in the low 100s. Patient reports has already discussed long-term treatment with Dr. Roberto outpatient with plan to only remain on metoprolol succinate at this time. Does not want ablation at any time. Heart rate adequately controlled on her home metoprolol. Some disruption of electrolytes with surgery with correction as noted below. Home warfarin restarted yesterday per surgery with INR 1.3 today. Medically can be discharged with outpatient follow-up when surgically ready for discharge. Will continue to follow while still here. (2) Hypokalemia: Code(s): E87.6 - Hypokalemia Status: Acute Assessment and Plan: Potassium 3.3 today with oral replacement given. Magnesium at low end of normal at 1.6 with oral replacement given. Advised patient would recommend rechecking as outpatient after discharge. 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 Will need to be followed as outpatient. (4) S/P left hemicolectomy: Code(s): Z90.49 - Acquired absence of other specified parts of digestive tract Status: Acute Assessment and Plan: Colonoscopy in April 2019 with biopsy of colon polyp revealing adenoma with high-grade dysplasia. Now S/P hand assisted laparoscopic left hemicolectomy with reanastomosis on 06/18/[address] Zhu. POD #3. Postoperative care including pain management per surgery. Tolerating regular diet. (5) Hypertension: Qualifiers: Hypertension type: essential hypertension Qualified Code(s): I10 - Essential (primary) hypertension Code(s): I10 - Essential (primary) hypertension Status: Chronic Assessment and Plan: Blood pressure reviewed on 06/21/2019. Some elevated readings but remains acceptably controlled at this time. Continue to monitor on her home metoprolol and lisinopril. (6) CVA (cerebral vascular accident): Qualifiers: CVA mechanism: unspecified Qualified Code(s): I63.9 - Cerebral infarction, unspecified Code(s): I63.9 - Cerebral infarction, unspecified Status: Chronic Assessment and Plan: Previous history of CVA with right-sided weakness. At baseline. (7) DVT prophylaxis: Code(s): Z29.9 - Encounter for prophylactic measures, unspecified Status: Acute Assessment and Plan: Now on warfarin alone with INR as noted above. Time Spent With Patient Time with patient: 15 - 25 minutes Subjective Date/time seen: 06/21/19 12:23 Interval history: Date of Service: 06/21/2019. Admitted for laparoscopic left hemicolectomy due to high-grade dysplasia in colonic adenoma on recent colonoscopy. Hospitalist service consulted due to atrial fibrillation RVR. Patient with known atrial fibrillation and does see Dr. Roberto regularly. Doing well today. Hoping to go home today. No chest pain or palpitations. No shortness of breath. No
--- NOTE | 2019-06-21 13:04 | PM.DS ---
DS: Diagnosis Admitting Diagnosis Admitting Diagnosis: Encounter for other preprocedural examination Discharge Diagnosis (1) High grade dysplasia in colonic adenoma: Code(s): D12.6 - Benign neoplasm of colon, unspecified Status: Chronic Assessment and Plan: PATIENT IS STATUS POST HAND ASSISTED LAPAROSCOPIC SIGMOID COLECTOMY 06/18/[address] ADAME. (2) Afib: Qualifiers: Atrial fibrillation type: longstanding persistent Qualified Code(s): I48.11 - Longstanding persistent atrial fibrillation Code(s): I48.91 - Unspecified atrial fibrillation Status: Acute (3) Chronic anticoagulation: Code(s): Z79.01 - emt intermediate (current) use of anticoagulants Status: Chronic Assessment and Plan: Coumadin restarted. (4) Nephrolithiasis: Code(s): N20.0 - Calculus of kidney Status: Acute (5) Hypertension: Qualifiers: Hypertension type: essential hypertension Qualified Code(s): I10 - Essential (primary) hypertension Code(s): I10 - Essential (primary) hypertension Status: Chronic (6) Hypokalemia: Code(s): E87.6 - Hypokalemia Status: Acute (7) Brain aneurysm: Code(s): I67.1 - Cerebral aneurysm, nonruptured Status: Acute Assessment and Plan: History of x 2. DS: Summary Hospital Course Reason for hospitalization: Ana Laura Williamson is a 54 year old female with a history of stroke, a. fib on chronic anticoagulation, hypertension, and history of kidney stones, that presented to the office in late 2018 at the request of Dr Bass for an evaluation of a colon mass. Patient had a colonoscopy with Dr Bass on 04/23/19 due to a postitive cologuard. Patient reports that last year she had done the cologuard but when the stool was received it was out of date . Patient reports that she never redid it until this past month. It was noted that in the proximal ascending colon,a sessile polyp 3 mm by 4 mm was seen. The polyp was not bleeding, The polyp was benign in appearance. The polyp was completely excised by snare. In the mid descending colon a partially obstructing, large-sized, fungating, villous 5 cm x 6 cm mass was seen. There was stigmata of bleeding from the mass. In the rectum, multiple large-size uncomplicated internal hemhorrhoids were seen with no active bleeding. Pathology showed tubular adenoma. Fragment tubulovillous adenoma with high-grade dysplasia, largest 0.3 cm in greatest dimension. Patient then had a CT scan of the abdomen and pelvis with contrast on 04/23/19 at [facility] that showed a 4.4 x 2.9 x 3.1 cm intraluminal mass at the proximal sigmoid colon concerning for primary colon cancer. No evidence of metastatic disease. Patient was evaluated in the office by Dr. Adame and discussed her treatment options. She had approval to go off her Coumadin for 5 days prior to the procedure. The decision was made to proceed with electively scheduling a left hemicolectomy, which is why she presented to the hospital on 06/18/19. Hospital Course: The patient had a hand-assisted laparoscopic sigmoid colectomy on 06/18/[address] Adame. She has a known history of atrial fibrillation, but post-operatively she went into atrial fibrillation with a rapid ventricular response. Hospitalist service was consulted post-operatively for the uncontrolled atrial fibrillation. She was transferred to the IMU floor and placed on a Cardizem drip. The patient responded well to this. Other than the uncontrolled heart rate, she seemed to recover well otherwise. The patient was slowly advanced on a diet as her bowel function was returning. She is now moving her bowels well without any complaints. Smith was removed and she has been voiding well since. Her labs were monitored post-op and WBC down to normal and her H/H is normal post-operatively. She did have some mild hypokalemia that was treated with oral supplementation and hypomagnesia, which was also t
--- NOTE | 2019-06-21 16:12 | PC.NURSE ---
DR ADAME HERE AND REMOVED J-P DRAIN PT TOLERATED WELL. SERIOUSANGUIOUS COLOR NOTED DRESSING APPLIED AND SUPPLIES GIVEN FOR HOME DRESSING CHANGE D/C BOTH IV SITE CLEAN TOLERATED WELL.
== END 2019-06-21 15:50 | disposition home or self-care (01) | DRG 331 ==
LOC: ANH3MEDSUR 14:32 → ANHIMU 20:02 → ANH3MEDSUR 06-19 14:44
PROVIDERS: Anesthesiology; Hospitalist; Surgery; Admitting Provider Surgery; PCP Family Medicine; Visit Provider Surgery
PROC: 0D1E4Z4 Bypass Large Intestine to Cutaneous, Percutaneous Endoscopic Approach (ICD-10-PCS; principal; 2019-06-18 07:30)
DX: D01.0 Carcinoma in situ of colon (principal); Z87.442 Personal history of urinary calculi; I67.1 Cerebral aneurysm, nonruptured; I48.91 Unspecified atrial fibrillation; Z79.01 Long term (current) use of anticoagulants; Z86.73 Personal history of transient ischemic attack (TIA), and cerebral infarction without residual deficits; G47.33 Obstructive sleep apnea (adult) (pediatric); Z98.84 Bariatric surgery status; Z87.19 Personal history of other diseases of the digestive system; E87.6 Hypokalemia; E83.42 Hypomagnesemia
CPT/HCPCS: 36415; 80048; 83735; 85025; 85027; 85610; 88305; 88307; 88309; A9270; C1729; J0131; J0690; J1100; J1170; J1650; J2001; J2250; J2405; J2704; J2710; J3010; J7030; J7040; J7120

== ENCOUNTER 2019-06-30 17:38 | Outpatient (CLI) | payer MEDICARE, SELFPAY ==
[2019-06-30 18:09] LABS: Hematocrit 38.8 % (37.0-47.0); Hemoglobin 12.6 g/dL (12.0-15.0); Mean Corpuscular HGB Conc 32.5 g/dl (32-36); Mean Corpuscular Hemoglobin 31.1 pg (26-34); Mean Corpuscular Volume 95.8 fl (80-100); Mean Platelet Volume 11.9 fl (7.4-10.4); Platelet Count Result 197 k/mm3 (150-375); Red Blood Count 4.05 M/mm3 (4.2-5.4); Red Cell Distribution Width 13.6 % (11.5-14.5); White Blood Count 6.8 K/mm3 (4.5-10.0)
== END 2019-06-30 17:39 | disposition home or self-care (01) ==
PROVIDERS: PCP Family Medicine; Visit Provider Nurse Practitioner Family
DX: D69.6 Thrombocytopenia, unspecified (principal); Z90.49 Acquired absence of other specified parts of digestive tract
CPT/HCPCS: 36415; 85027

== ENCOUNTER 2019-11-23 11:03 | Outpatient (CLI) | payer MEDICARE, SELFPAY ==
[2019-11-23 11:15] LABS: Basophils Percent Auto 0.7 % (0.2-1.2); Eosinophils Absolute Auto 0.1 K/mm3 (0-0.3); Eosinophils Percent Auto 1.2 % (0-4.4); Hematocrit 40.6 % (37.0-47.0); Hemoglobin 12.8 g/dL (12.0-15.0); Immature Granulocyte Absolute 0.01 K/mm3 (0.00-0.031); Immature Granulocyte Percent A 0.2 % (0-0.5); Lymphocytes Absolute Auto 0.98 K/mm3 (0.9-3.2); Lymphocytes Percent Auto 16.9 % (18.3-44.2); Mean Corpuscular HGB Conc 31.5 g/dl (32-36); Mean Corpuscular Hemoglobin 30.5 pg (26-34); Mean Corpuscular Volume 96.7 fl (80-100); Mean Platelet Volume 11.4 fl (7.4-10.4); Monocytes Absolute Auto 0.4 K/mm3 (0.1-0.6); Monocytes Percent Auto 6.4 % (2.6-8.5); Neutrophils Absolute Auto 4.3 K/mm3 (1.3-6.7); Neutrophils Percent Auto 74.6 % (45.5-73.1); Platelet Count Result 150 k/mm3 (150-375); White Blood Count 5.8 K/mm3 (4.5-10.0)
[2019-11-23 16:58] LABS: Alanine Aminotransferase 19 U/L (4-35); Albumin Level 4.4 g/dL (3.5-5.1); Alkaline Phosphatase 97 U/L (38-126); Aspartate Amino Transferase 29 U/L (14-36); Bilirubin,Total 0.5 mg/dL (0.2-1.3); Blood Urea Nitrogen 17 mg/dL (7-17); Calcium 10.3 mg/dL (8.4-10.2); Carbon Dioxide 29 mmol/L (22-30); Chloride 104 mmol/L (98-107); Estimated Glomerular Filt Rate > 60; Glucose 89 mg/dL (65-105); Sodium 139 mmol/L (137-145)
[2019-11-23 17:29] LABS: Carcinoembryonic Antigen 0.8 ng/mL (0.0-3.0)
== END 2019-11-23 11:04 | disposition home or self-care (01) ==
PROVIDERS: PCP Family Medicine; Visit Provider Internal Medicine Hematology & Oncology
DX: D01.0 Carcinoma in situ of colon (principal)
CPT/HCPCS: 36415; 80053; 82378; 85025

== ENCOUNTER 2020-02-05 07:17 | Outpatient (CLI) | payer MEDICARE, SELFPAY ==
--- NOTE | ~2020-02-05 | MM_ITS ---
EXAMINATION: MM screening jeanne BI w [facility] HISTORY: Screening mammogram TECHNIQUE: Craniocaudal and mediolateral oblique 3-D tomosynthesis images were obtained and synthetic 2-D images were generated. CAD analysis was submitted and interpreted. COMPARISON: 12/26/2018, 12/06/2017, 10/26/2016 bilateral digital screening mammogram examinations BREAST PARENCHYMAL COMPOSITION: The breasts are almost entirely fatty. FINDINGS: There is no evidence of suspicious mass, calcification, or architectural distortion to sugg est malignancy in either breast. There has been no suspicious interval change. IMPRESSION: 1. No mammographic evidence of malignancy. 2. Recommend routine screening mammography in one year. BI-RADS Category 1: Negative Reviewed, dictated and finalized at location A.
== END 2020-02-05 07:18 | disposition home or self-care (01) ==
LOC: ANHIMG 07:25
PROVIDERS: PCP Family Medicine; Visit Provider Family Medicine
DX: Z12.31 Encounter for screening mammogram for malignant neoplasm of breast (principal)
CPT/HCPCS: 77063; 77067

== ENCOUNTER 2020-03-25 07:38 | Outpatient (CLI) | payer MEDICARE, SELFPAY ==
--- NOTE | ~2020-03-25 | US_ITS ---
EXAMINATION: US thyroid EXAM DATE: 03/25/2020 08:18 INDICATION: Nontoxic goiter. TECHNIQUE: Multiple grayscale and Doppler images of the thyroid were obtained (by a technologist who performed the scan) and subsequently reviewed. Individual nodules and recommendations may be reporte d in accordance with TI-RADS system as designated by the 2017 ACR White Paper TI-RADS committee. The re is no prior study for comparison. FINDINGS: The right thyroid lobe measures 4.4 x 1.6 x 1.1 cm, the left measuring 4.1 x 1.8 x 1.5 cm. There is h omogeneous thyroid echogenicity with several subcentimeter nodules, largest in the left thyroid lobe category TR 4 measuring 5 x 8 x 7 mm. These are not likely clinically significant. IMPRESSION: 1. Small thyroid nodules. Return to clinical follow-up and if additional palpable abnormality develops a repeat ultrasound can be obtained. Reviewed, dictated and finalized at location A.
[2020-03-25 09:00] LABS: Alanine Aminotransferase 15 U/L (4-35); Alkaline Phosphatase 71 U/L (38-126); Anion Gap 6 mmol/L (8-16); Aspartate Amino Transferase 24 U/L (14-36); Bilirubin,Total 0.8 mg/dL (0.2-1.3); Blood Urea Nitrogen 18 mg/dL (7-17); Calcium 9.8 mg/dL (8.4-10.2); Carbon Dioxide 30 mmol/L (22-30); Chloride 107 mmol/L (98-107); Estimated Glomerular Filt Rate > 60; Glucose 90 mg/dL (65-105); Phosphorus 2.9 mg/dL (2.5-4.5); Potassium 3.5 mmol/L (3.4-5.0); Sodium 143 mmol/L (137-145)
[2020-03-25 09:10] LABS: Parathyroid Intact 152.5 pg/mL (7.5-53.5)
[2020-03-25 09:46] LABS: Vitamin D 25 Hydroxy 44.9 ng/mL
[2020-03-29 03:30] LABS: Thyroid Peroxidase Antibodies 1 IU/mL (<9)
[2020-03-29 11:13] LABS: DHEA-Sulfate 16 mcg/dL (8-188)
[2020-03-30 14:58] LABS: Testosterone Free 3.3 pg/mL (0.1-6.4); Testosterone Total 29 ng/dL (2-45)
[2020-04-02 11:19] LABS: Renin 0.13 ng/mL/h (0.25-5.82)
== END 2020-03-25 07:39 | disposition home or self-care (01) ==
PROVIDERS: PCP Family Medicine; Visit Provider Internal Medicine Endocrinology, Diabetes & Metabolism
DX: E21.0 Primary hyperparathyroidism (principal); N95.0 Postmenopausal bleeding; E04.2 Nontoxic multinodular goiter
CPT/HCPCS: 36415; 76536; 80053; 82088; 82306; 82627; 83970; 84100; 84244; 84402; 84403; 84439; 84443; 86376

== ENCOUNTER 2020-03-28 12:05 | Outpatient (CLI) | payer MEDICARE, SELFPAY ==
[2020-03-28 13:00] LABS: Creatinine Urine 84.4 mg/dL
[2020-03-28 13:11] LABS: Creatinine 24 Hour Urine 1.4 gm/24 (0.8-1.8); Total Volume 24 Hour Urine 1700 ml
[2020-04-01 00:51] LABS: Total Volume 1700 mL; Urine Calcium 37.2 mg/dL
== END 2020-03-28 12:06 | disposition home or self-care (01) ==
LOC: ANHLAB 12:09
PROVIDERS: PCP Family Medicine; Visit Provider Internal Medicine Endocrinology, Diabetes & Metabolism
DX: E21.0 Primary hyperparathyroidism (principal); I10 Essential (primary) hypertension; E04.9 Nontoxic goiter, unspecified; L68.0 Hirsutism
CPT/HCPCS: 81050; 82340; 82570

== ENCOUNTER 2020-04-15 10:29 | Outpatient (CLI) | payer MEDICARE, SELFPAY ==
--- NOTE | ~2020-04-15 | DEXA_ITS ---
Bone Density Report Name: Ana Laura Garrett Age: 54 Sex: Female Ethnicity: White Date of : 1965 Indication: hyperparathyroidism; height loss; Referring Provider: Juan, Sugar Montiel Study: Bone densitometry was performed. Exam Date: April 15, 2020 Accession number: [id number] Bone Density: Region BMD T-score Z-score Classification Total Forearm (Right) 0.406 -3.1 -2.0 1/3 Forearm (Right) 0.520 -2.8 -1.7 UD Forearm (Right) 0.294 -2.3 -1.5 World Health Organization criteria for BMD impression classify patients as: Normal (T-score at or above -1.0), Osteopenia (T-score between -1.0 and -2.5), or Osteoporosis (T-score at or below -2.5). Clinical Information Provided by Patient: Has used the following medications: Vitamin D Has the following medical conditions: Hyperparathyroidism Patient maximum height was 68 Menopause Age: 43 No regular weight bearing exercise Drinks caffeinated beverages Onset of menses at age 16 Number of children 1 Impression: The patient has osteoporosis, based on the Right Third Radius T-score. Discussion: INCREASED RISK OF FRACTURE. BONE DENSITY IS UNDESIRABLY LOW AT ONE OR MORE SKELETAL SITES, CONSISTENT WITH POSTMENOPAUSAL OSTEOPOROSIS. This patient's lowest T-score meets the World Health Organization's (WHO) criteria for osteoporosis at one or more sites (T-score -2.5 or below). In untreated patients, the risk of osteoporotic fracture increases approximately two-fold for each 1.0 SD decrease in T-score. Low bone density is not the only risk factor for fracture; also consider factors such as patient's age, frailty or poor health, risk of falling, risk of injury, previous osteoporotic fracture, family history of osteoporosis, cigarette smoking, low body weight, etc. Not everyone with low bone mineral density has osteoporosis; osteomalacia and other metabolic bone disorders should also be considered. Patients who have osteoporosis should be evaluated for specific diseases and conditions (secondary causes) that may cause or contribute to bone loss. The [place] Association [employer] Endocrinologists (AACE) and National Osteoporosis Foundation (NOF) recommend pharmacologic intervention for all postmenopausal women whose T-score is in this range. The patient should follow a healthful lifestyle (good nutrition with adequate calcium and vitamin D, and appropriate weight-bearing exercise). Follow-Up: Consider a repeat BMD and Vertebral Fracture Assessment (VFA) exam in 2 years or sooner if medically necessary, to reassess this patient's status. Reported by: [facility] on 04/17/2020 10:04:00 AM. Reviewed, dictated and finalized at location A.
== END 2020-04-15 10:30 | disposition home or self-care (01) ==
LOC: ANHIMG 10:30
PROVIDERS: PCP Family Medicine; Visit Provider Internal Medicine Endocrinology, Diabetes & Metabolism
DX: M81.0 Age-related osteoporosis without current pathological fracture (principal)
CPT/HCPCS: 77081

== ENCOUNTER 2020-05-16 12:53 | Outpatient (CLI) | payer MEDICARE, SELFPAY ==
[2020-05-16 13:15] LABS: Basophils Absolute Auto 0.1 K/mm3 (0.0-0.1); Eosinophils Absolute Auto 0.1 K/mm3 (0-0.3); Eosinophils Percent Auto 1.3 % (0-4.4); Hematocrit 41.2 % (37.0-47.0); Hemoglobin 13.2 g/dL (12.0-15.0); Immature Granulocyte Absolute 0.01 K/mm3 (0.00-0.031); Immature Granulocyte Percent A 0.2 % (0-0.5); Lymphocytes Absolute Auto 1.14 K/mm3 (0.9-3.2); Lymphocytes Percent Auto 18.4 % (18.3-44.2); Mean Corpuscular Volume 93.6 fl (80-100); Mean Platelet Volume 11.7 fl (7.4-10.4); Monocytes Absolute Auto 0.3 K/mm3 (0.1-0.6); Monocytes Percent Auto 4.8 % (2.6-8.5); Neutrophils Absolute Auto 4.6 K/mm3 (1.3-6.7); Neutrophils Percent Auto 74.3 % (45.5-73.1); Platelet Count Result 184 k/mm3 (150-375); Red Cell Distribution Width 13.9 % (11.5-14.5); White Blood Count 6.2 K/mm3 (4.5-10.0)
[2020-05-16 13:19] LABS: Blood Urea Nitrogen 28 mg/dL (8-26); Carbon Dioxide 31 mmol/L (22-30); Chloride 104 mmol/L (98-109); Estimated Glomerular Filt Rate > 60; Glucose 122 mg/dL (70-105); Potassium 3.3 mmol/L (3.5-4.9); Sodium 143 mmol/L (138-146)
[2020-05-16 16:35] LABS: Alanine Aminotransferase 19 U/L (4-35); Albumin Level 4.2 g/dL (3.5-5.1); Alkaline Phosphatase 115 U/L (38-126); Anion Gap 4 mmol/L (8-16); Aspartate Amino Transferase 35 U/L (14-36); Bilirubin,Total 0.5 mg/dL (0.2-1.3); Blood Urea Nitrogen 28 mg/dL (7-17); Calcium 11.3 mg/dL (8.4-10.2); Carbon Dioxide 32 mmol/L (22-30); Chloride 105 mmol/L (98-107); Estimated Glomerular Filt Rate > 60; Glucose 125 mg/dL (65-105); Potassium 3.4 mmol/L (3.4-5.0); Sodium 141 mmol/L (137-145)
[2020-05-16 17:06] LABS: Carcinoembryonic Antigen 1.1 ng/mL (0.0-3.0)
== END 2020-05-16 12:54 | disposition home or self-care (01) ==
PROVIDERS: PCP Family Medicine; Visit Provider Internal Medicine Hematology & Oncology
DX: D01.0 Carcinoma in situ of colon (principal)
CPT/HCPCS: 36415; 80048; 80053; 82378; 85025

== ENCOUNTER 2020-07-11 07:22 | Outpatient (CLI) | payer MEDICARE, SELFPAY ==
--- NOTE | ~2020-07-11 | US_ITS ---
EXAMINATION: US FNA w image guidance DATE: 07/11/2020 09:15 INDICATION: Nontoxic single thyroid nodule. TECHNIQUE: The procedure and its benefits, risks, and benefits were discussed with the patient. Risks specifical ly discussed included bleeding. The patient verbalized understanding of the risks and agreed to proce ed. The neck was prepped and draped in the usual sterile manner. 1% lidocaine was used for local ane sthesia. 5 passes were made with a 25G needle into the lesion. Appropriate needle location was docu mented with continuous sonographic guidance. There were no immediate complications. The patient unde rstood to call the ordering physician for results after a week and a half and verbalized that underst anding. FINDINGS: Grayscale ultrasound images demonstrate needles advanced into an 8 mm nodule in left thyroid lobe for biopsy. IMPRESSION: 1. Ultrasound-guided fine needle aspiration of a left thyroid nodule. Reviewed, dictated and finalized at location A. 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
[2020-07-11 08:21] LABS: Basophils Percent Auto 0.8 % (0.2-1.2); Eosinophils Absolute Auto 0.1 K/mm3 (0-0.3); Eosinophils Percent Auto 1.4 % (0-4.4); Hemoglobin 12.7 g/dL (12.0-15.0); Immature Granulocyte Absolute 0.01 K/mm3 (0.00-0.031); Immature Granulocyte Percent A 0.2 % (0-0.5); Lymphocytes Absolute Auto 1.07 K/mm3 (0.9-3.2); Lymphocytes Percent Auto 20.8 % (18.3-44.2); Mean Corpuscular HGB Conc 32.6 g/dl (32-36); Mean Corpuscular Hemoglobin 31.1 pg (26-34); Mean Corpuscular Volume 95.6 fl (80-100); Mean Platelet Volume 11.3 fl (7.4-10.4); Monocytes Absolute Auto 0.3 K/mm3 (0.1-0.6); Neutrophils Absolute Auto 3.6 K/mm3 (1.3-6.7); Neutrophils Percent Auto 70.8 % (45.5-73.1); Platelet Count Result 147 k/mm3 (150-375); Red Blood Count 4.08 M/mm3 (4.2-5.4); White Blood Count 5.1 K/mm3 (4.5-10.0)
[2020-07-11 08:31] LABS: INR 1.1; Prothrombin Time 14.8 Seconds (11.1-14.7)
[2020-07-11 08:40] LABS: Alanine Aminotransferase 17 U/L (4-35); Albumin Level 3.9 g/dL (3.5-5.1); Alkaline Phosphatase 67 U/L (38-126); Anion Gap 4 mmol/L (8-16); Aspartate Amino Transferase 28 U/L (14-36); Bilirubin,Total 0.8 mg/dL (0.2-1.3); Blood Urea Nitrogen 21 mg/dL (7-17); Calcium 10.3 mg/dL (8.4-10.2); Carbon Dioxide 31 mmol/L (22-30); Chloride 106 mmol/L (98-107); Estimated Glomerular Filt Rate > 60; Glucose 92 mg/dL (65-105); Sodium 141 mmol/L (137-145)
[2020-07-11 08:44] LABS: Potassium 3.6 mmol/L (3.4-5.0)
[2020-07-11 08:59] LABS: Parathyroid Intact 108.8 pg/mL (7.5-53.5)
[2020-07-11 09:15] LABS: Vitamin D 25 Hydroxy 43.9 ng/mL
== END 2020-07-11 07:23 | disposition home or self-care (01) ==
PROVIDERS: PCP Family Medicine; Visit Provider Internal Medicine Endocrinology, Diabetes & Metabolism
DX: E04.1 Nontoxic single thyroid nodule (principal); E21.0 Primary hyperparathyroidism; R82.994 Hypercalciuria
CPT/HCPCS: 10005; 36415; 80053; 82306; 83970; 85025; 85610; 88173; 88305

== ENCOUNTER 2020-07-13 14:09 | Outpatient (NON) | payer MEDICARE, SELFPAY ==
[2020-07-13 18:24] LABS: Creatinine Urine 117.1 mg/dL
[2020-07-13 18:25] LABS: Creatinine 24 Hour Urine 1.2 gm/24 (0.8-1.8); Total Volume 24 Hour Urine 1100 ml
[2020-07-19 21:23] LABS: Total Volume 1000 mL; Urine Calcium 27.5 mg/dL
== END 2020-07-13 14:10 ==
PROVIDERS: PCP Family Medicine; Visit Provider Internal Medicine Endocrinology, Diabetes & Metabolism
DX: E21.0 Primary hyperparathyroidism (principal); R82.994 Hypercalciuria
CPT/HCPCS: 81050; 82340; 82570

== ENCOUNTER 2020-10-14 07:20 | Outpatient (CLI) | payer MEDICARE, SELFPAY ==
[2020-10-14 08:32] LABS: Anion Gap 6 mmol/L (8-16); Blood Urea Nitrogen 20 mg/dL (7-17); Calcium 11.3 mg/dL (8.4-10.2); Carbon Dioxide 32 mmol/L (22-30); Chloride 105 mmol/L (98-107); Estimated Glomerular Filt Rate > 60; Glucose 87 mg/dL (65-105); Sodium 143 mmol/L (137-145)
== END 2020-10-14 07:21 | disposition home or self-care (01) ==
PROVIDERS: PCP Family Medicine; Visit Provider Family Medicine
DX: E87.6 Hypokalemia (principal)
CPT/HCPCS: 36415; 80048

== ENCOUNTER 2020-10-21 07:12 | Outpatient (CLI) | payer MEDICARE, SELFPAY ==
[2020-10-21 08:23] LABS: Alanine Aminotransferase 18 U/L (4-35); Albumin Level 3.7 g/dL (3.5-5.1); Alkaline Phosphatase 76 U/L (38-126); Anion Gap 2 mmol/L (8-16); Aspartate Amino Transferase 27 U/L (14-36); Bilirubin,Total 0.5 mg/dL (0.2-1.3); Blood Urea Nitrogen 21 mg/dL (7-17); Calcium 9.9 mg/dL (8.4-10.2); Carbon Dioxide 32 mmol/L (22-30); Chloride 107 mmol/L (98-107); Estimated Glomerular Filt Rate > 60; Glucose 87 mg/dL (65-105); Phosphorus 2.8 mg/dL (2.5-4.5); Potassium 3.6 mmol/L (3.4-5.0); Sodium 141 mmol/L (137-145)
[2020-10-21 08:29] LABS: Parathyroid Intact 153.3 pg/mL (7.5-53.5)
[2020-10-21 09:16] LABS: Vitamin D 25 Hydroxy 47.3 ng/mL
[2020-10-25 04:13] LABS: Thyroid Peroxidase Antibodies <1 IU/mL (<9)
[2020-10-25 16:03] LABS: Calcitonin <2 pg/mL (<=5)
[2020-10-26 08:04] LABS: Triiodothyronine T3 Free 2.7 pg/mL (2.3-4.2)
== END 2020-10-21 07:13 | disposition home or self-care (01) ==
PROVIDERS: PCP Family Medicine; Referring Provider Otolaryngology; Visit Provider Internal Medicine Endocrinology, Diabetes & Metabolism
DX: E21.0 Primary hyperparathyroidism (principal); E04.1 Nontoxic single thyroid nodule
CPT/HCPCS: 36415; 80053; 82306; 82308; 83970; 84100; 84439; 84443; 84481; 86376

== ENCOUNTER 2020-10-31 13:20 | Outpatient (CLI) | payer MEDICARE, SELFPAY ==
--- NOTE | ~2020-10-31 | US_ITS ---
EXAMINATION: US thyroid DATE: 10/31/2020 14:07 INDICATION: Thyroid nodule. TECHNIQUE: Multiple ultrasound images of the thyroid were obtained. COMPARISON: Ultrasound 03/25/2020 FINDINGS: The right thyroid lobe measures 4.3 x 1.5 x 1.0 cm. The left thyroid lobe measures 4.2 x 1.7 x 1.2 c m. In the right thyroid lobe, there is a 5 mm solid, hypoechoic, lbhsr-mxev-ljan nodule with smooth margin without echogenic foci (TI-RADS TR4). In the right thyroid lobe, there is a 2.3 cm solid, hypo echoic, hldbr-xhsg-ehbv nodule with smooth margin without echogenic foci (TR4), not seen on 03/25/20. In the left thyroid lobe, there is a 7 mm solid, hypoechoic, kaebp-dgkm-hlot nodule with smooth kimberly in without echogenic foci (TR4), stable from 07/11/2020 when fine-needle aspiration demonstrated benign pathology. IMPRESSION: 1. Thyroid nodules. Ultrasound-guided fine-needle aspiration of the 2.3 cm right thyroid nodule is re commended. Reviewed, dictated and finalized at location A. IMPRESSION: 1. Thyroid nodules. Ultrasound-guided fine-needle aspiration of the 2.3 cm righ t thyroid nodule is recommended.
== END 2020-10-31 13:21 | disposition home or self-care (01) ==
PROVIDERS: PCP Family Medicine; Visit Provider Internal Medicine Endocrinology, Diabetes & Metabolism
DX: E04.2 Nontoxic multinodular goiter (principal)
CPT/HCPCS: 76536

== ENCOUNTER 2021-01-05 07:44 | Outpatient (CLI) | payer MEDICARE, SELFPAY ==
[2021-01-05 08:09] LABS: Basophils Percent Auto 0.8 % (0.2-1.2); Eosinophils Absolute Auto 0.1 K/mm3 (0-0.3); Eosinophils Percent Auto 1.5 % (0-4.4); Hematocrit 39.5 % (37.0-47.0); Hemoglobin 12.6 g/dL (12.0-15.0); Immature Granulocyte Absolute 0.01 K/mm3 (0.00-0.031); Immature Granulocyte Percent A 0.2 % (0-0.5); Lymphocytes Absolute Auto 1.16 K/mm3 (0.9-3.2); Lymphocytes Percent Auto 24.6 % (18.3-44.2); Mean Corpuscular HGB Conc 31.9 g/dl (32-36); Mean Corpuscular Volume 97.1 fl (80-100); Mean Platelet Volume 11.9 fl (7.4-10.4); Monocytes Absolute Auto 0.3 K/mm3 (0.1-0.6); Monocytes Percent Auto 5.3 % (2.6-8.5); Neutrophils Absolute Auto 3.2 K/mm3 (1.3-6.7); Neutrophils Percent Auto 67.6 % (45.5-73.1); Platelet Count Result 175 k/mm3 (150-375); Red Blood Count 4.07 M/mm3 (4.2-5.4); Red Cell Distribution Width 13.7 % (11.5-14.5); White Blood Count 4.7 K/mm3 (4.5-10.0)
[2021-01-05 08:21] LABS: Alanine Aminotransferase 20 U/L (4-35); Albumin Level 3.9 g/dL (3.5-5.1); Alkaline Phosphatase 76 U/L (38-126); Anion Gap 4 mmol/L (8-16); Aspartate Amino Transferase 26 U/L (14-36); Bilirubin,Total 0.6 mg/dL (0.2-1.3); Blood Urea Nitrogen 21 mg/dL (7-17); Calcium 10.7 mg/dL (8.4-10.2); Carbon Dioxide 30 mmol/L (22-30); Chloride 108 mmol/L (98-107); Cholesterol 136 mg/dL (0-200); Estimated Glomerular Filt Rate > 60; Glucose 79 mg/dL (65-110); HDL Direct 55 mg/dL; Hemoglobin A1C 5.3 % (<5.7); Magnesium 1.7 mg/dL (1.6-2.3); Potassium 3.6 mmol/L (3.4-5.0); Sodium 142 mmol/L (137-145); Triglycerides 107 mg/dL (<150); Uric Acid 5.7 mg/dL (2.5-7.5)
[2021-01-05 08:32] LABS: LDL Cholesterol Direct 54 mg/dL
[2021-01-05 09:00] LABS: Vitamin D 25 Hydroxy 52.6 ng/mL
[2021-01-05 09:26] LABS: Folic Acid 10.8 ng/mL (2.76->20); Vitamin B12 > 1000.0 pg/mL (239-931)
== END 2021-01-05 07:45 | disposition home or self-care (01) ==
LOC: ANHLAB 07:45
PROVIDERS: PCP Family Medicine; Visit Provider Family Medicine
DX: M17.9 Osteoarthritis of knee, unspecified (principal); I48.91 Unspecified atrial fibrillation; E55.9 Vitamin D deficiency, unspecified; I10 Essential (primary) hypertension; Z51.81 Encounter for therapeutic drug level monitoring; Z79.899 Other long term (current) drug therapy
CPT/HCPCS: 36415; 80053; 80061; 82306; 82607; 82746; 83036; 83735; 84443; 84550; 85025

== ENCOUNTER → 2021-02-10 09:03 | Outpatient (CLI) | payer MEDICARE, SELFPAY ==
--- NOTE | ~2021-02-10 | MM_ITS ---
EXAMINATION: MM screening [facility] HISTORY: Screening TECHNIQUE: Craniocaudal and mediolateral oblique 3-D tomosynthesis images were obtained and synthetic 2-D images were generated. CAD analysis was submitted and interpreted. COMPARISON: Comparison to multiple prior studies sequentially, with oldest reviewed study dated 04/02. BREAST PARENCHYMAL COMPOSITION: There are scattered areas of fibroglandular density. FINDINGS: There is no evidence of suspicious mass, calcification, or architectural distortion to sugg est malignancy in either breast. There has been no suspicious interval change. IMPRESSION: 1. No mammographic evidence of malignancy. 2. Recommend routine screening mammography in one year. BI-RADS Category 1: Negative Reviewed, dictated and finalized at location A.
== END ==
PROVIDERS: PCP Family Medicine; Visit Provider Family Medicine
DX: Z12.31 Encounter for screening mammogram for malignant neoplasm of breast (principal)
CPT/HCPCS: 77063; 77067

== ENCOUNTER 2021-04-06 01:02 | Day surgery (SDC) | payer MEDICARE, SELFPAY ==
[2021-03-19 13:21] VITALS: BMI 37.3
[2021-04-06] MEDS: LACTATED RINGERS 1,000 ML 150 ML IV CONT (10:27)
[2021-04-06 10:29] VITALS: BP 124/79; PULSE 106; RESP 20; TEMP 37.1; O2SAT 99; BMI 36.6
--- NOTE | 2021-04-06 10:52 | WPDGICN ---
Assessment and Plan Assessment and plan (1) History of colon cancer: Code(s): Z85.038 - Personal history of other malignant neoplasm of large intestine Status: Acute Assessment and Plan: Patient has history of partial colectomy for colon cancer April 2019. She presents today for surveillance examination. Anticipate follow-up colonoscopy at 3 year intervals. High-fiber diet advised. Anticoagulation will be helped briefly prior to procedure. (2) Chronic anticoagulation: Code(s): Z79.01 - penitentiary (current) use of anticoagulants Status: Chronic (3) Brain aneurysm: Code(s): I67.1 - Cerebral aneurysm, nonruptured Status: Acute GI Consult Note Consult date/time: 04/06/21 10:52 HPI: Ana Laura Williamson is a 55 year old female Presents for colonoscopy. Patient was found to have colon cancer in April 2019. She presents today for follow-up examination. She states that her current weight appetite and bowel movements are normal. She denies abdominal pain. She has had no bleeding. Family history noncontributory. She does have a history of gastric banding for weight control. Review of Systems Review of Systems: All systems reviewed & are unremarkable except as noted in HPI and below PMFSH Past Medical History Medical History (Updated 04/06/21 @ 10:54 by Jorje Bass MD) Afib Brain aneurysm X2 with repair CVA (cerebral vascular accident) X2 History of stroke x2 History of thyroid disease Hyperparathyroidism Hypertension AMMON (obstructive sleep apnea) intolerable of a CPAP machine Surgical History Surgical History (System 08/11/19 @ 13:39 by Denice Sierra) H/O lithotripsy H/O rectal polypectomy History of colonoscopy History of parathyroidectomy Hx of laparoscopic gastric banding S/P left hemicolectomy Family History Family History Father Lung cancer Mother COPD (chronic obstructive pulmonary disease) Diabetes mellitus Hypertension High cholesterol Unknown Diabetes mellitus Heart disease Cancer Hypertension Social History Social History Social History: The patient is . She has 1 daughter. She is disabled. She desires to be a full code. The daughters durable power commercial attorney for healthcare. Smoking status: Former smoker Tobacco type: cigarettes Alcohol intake: current Drinks per week: 5 Substance use: never Living arrangements: alone Gender identity (if verbalized by the patient): Female Spiritual care concerns: No Meds Home Medications and Allergies Home Medications Medication Instructions Recorded Confirmed Type lisinopril 10 mg PO DAILY 04/20/19 03/19/21 History metoprolol succinate 100 mg PO DAILY 04/20/19 03/19/21 History warfarin 7.5 mg PO 6XW 04/20/19 03/19/21 History aspirin [Aspir-81] 81 mg PO DAILY 04/23/19 03/19/21 History cholecalciferol (vitamin D3) 2,000 unit PO DAILY 06/07/19 03/19/21 History cyanocobalamin (vitamin B-12) 500 mcg PO DAILY 06/07/19 03/19/21 History ferrous sulfate 27 mg PO PRN PRN 06/07/19 03/19/21 History baclofen 20 mg tablet 20 mg PO DAILY 10/19/20 03/19/21 History hydrochlorothiazide 25 mg tablet 25 mg PO DAILY 10/19/20 03/19/21 History warfarin 11.5 mg PO WEEKLY 03/19/21 03/19/21 History Allergies Allergy/AdvReac Type Severity Reaction Status Date / Time No Known Allergies Allergy Verified 04/06/21 10:28 Vital Signs Vital Signs - 24 hr 04/06/21 10:29 Temperature 98.8 F Pulse Rate 106 H Respiratory Rate 20 Blood Pressure 124/79 Pulse Oximetry 99 Exam Narrative: Physical exam reveals patient be alert. Vital signs stable. HEENT exam is unremarkable. Patient is anicteric. Lungs are clear to auscultation and percussion. Heart is without murmur or extra sounds. Abdominal exam bowel sounds present soft nontender
--- NOTE | 2021-04-06 10:52 | SUR.PREOP ---
Pt noted to have HR ranging from upper 80's to low 120's. hx of afib. took am meds. denies complaints, anesthesia made aware.
--- NOTE | 2021-04-06 10:59 | WPDANESEPPF ---
Anes - Initial Pre Proc Eval Procedure: Operation Date: 04/06/21 11:15 Proposed Procedures p Screening Colonoscopy - Jorje Bass MD Date/Time: 04/06/21 10:59 Surgeon: Jorje Bass MD Pre Op Diagnosis: hx of colon ca Patient Data Age: 55 Gender: F Height: 1.68 m Weight: 103 kg Last Vital Signs Temp 37.1 C 04/06/21 10:29 Pulse 106 H 04/06/21 10:29 Resp 20 04/06/21 10:29 BP 124/79 04/06/21 10:29 Pulse Ox 99 04/06/21 10:29 Allergies Allergy/AdvReac Type Severity Reaction Status Date / Time No Known Allergies Allergy Verified 04/06/21 10:28 Home Medications Medication Instructions Recorded Confirmed Type lisinopril 10 mg PO DAILY 04/20/19 03/19/21 History metoprolol succinate 100 mg PO DAILY 04/20/19 03/19/21 History warfarin 7.5 mg PO 6XW 04/20/19 03/19/21 History aspirin [Aspir-81] 81 mg PO DAILY 04/23/19 03/19/21 History cholecalciferol (vitamin D3) 2,000 unit PO DAILY 06/07/19 03/19/21 History cyanocobalamin (vitamin B-12) 500 mcg PO DAILY 06/07/19 03/19/21 History ferrous sulfate 27 mg PO PRN PRN 06/07/19 03/19/21 History baclofen 20 mg tablet 20 mg PO DAILY 10/19/20 03/19/21 History hydrochlorothiazide 25 mg tablet 25 mg PO DAILY 10/19/20 03/19/21 History warfarin 11.5 mg PO WEEKLY 03/19/21 03/19/21 History Laboratory Tests 04/06/21 10:16 PT Pending INR Pending Patient hx anesthesia problems: none Family hx anesthesia problems: none Results Review: All pre-operative results and documents have been reviewed as part of the pre-operative evaluation. [facility] Past Medical History Medical History Afib Brain aneurysm X2 with repair CVA (cerebral vascular accident) X2 History of stroke x2 History of thyroid disease Hyperparathyroidism Hypertension AMMON (obstructive sleep apnea) intolerable of a CPAP machine Surgical History Surgical History H/O lithotripsy H/O rectal polypectomy History of colonoscopy History of parathyroidectomy Hx of laparoscopic gastric banding S/P left hemicolectomy Family History Family History Father Lung cancer Mother COPD (chronic obstructive pulmonary disease) Diabetes mellitus Hypertension High cholesterol Unknown Diabetes mellitus Heart disease Cancer Hypertension Social History Social History Social History: The patient is . She has 1 daughter. She is disabled. She desires to be a full code. The daughters durable power securities attorney for healthcare. Smoking status: Former smoker Tobacco type: cigarettes Alcohol intake: current Drinks per week: 5 Substance use: never Living arrangements: alone Gender identity (if verbalized by the patient): Female Spiritual care concerns: No Anes - Eval Final PreProcedure Day of Procedure 04/06/21 10:59 Patient weight: obese Heart: regular rate and rhythm Lungs: clear to auscultation Airway: Mallampati scale class II Neurological: hemiparesis and other (alert) Last oral intake: >/= 8 hours ASA classification: III Emergent: no Anesthetic plan: proceed Anesthesia type and monitoring: general GIVS and standard monitoring Results Review: All pre-operative results and documents have been reviewed as part of the pre-operative evaluation. Informed Consent: The patient's anesthetic plan and its attendant risks and benefits were discussed with the patient/family/POA. Questions were solicited and answers provided to the satisfaction of the patient/family/POA.
[2021-04-06 11:05] LABS: INR 1.1; Prothrombin Time 14.5 Seconds (11.1-14.7)
[2021-04-06 11:16] VITALS: BP 108/53; PULSE 98; RESP 16; O2SAT 99
[2021-04-06 11:26] VITALS: BP 113/84; PULSE 100; RESP 18; O2SAT 100
[2021-04-06 11:36] VITALS: BP 130/75; PULSE 98; RESP 20; O2SAT 100
== END 2021-04-06 11:50 | disposition home or self-care (01) ==
PROVIDERS: PCP Family Medicine; Visit Provider Internal Medicine Gastroenterology
PROC: 0DJD8ZZ Inspection of Lower Intestinal Tract, Via Natural or Artificial Opening Endoscopic (ICD-10-PCS; CPT 45378; principal; 2021-04-06 11:15)
DX: Z12.11 Encounter for screening for malignant neoplasm of colon (principal); K64.8 Other hemorrhoids; Z85.038 Personal history of other malignant neoplasm of large intestine; Z79.01 Long term (current) use of anticoagulants; Z79.82 Long term (current) use of aspirin; I48.91 Unspecified atrial fibrillation; Z86.73 Personal history of transient ischemic attack (TIA), and cerebral infarction without residual deficits; E21.3 Hyperparathyroidism, unspecified; G47.33 Obstructive sleep apnea (adult) (pediatric); Z87.891 Personal history of nicotine dependence; E66.9 Obesity, unspecified; Z68.36 Body mass index [BMI] 36.0-36.9, adult; Z51.81 Encounter for therapeutic drug level monitoring; I67.1 Cerebral aneurysm, nonruptured
CPT/HCPCS: G0105; 36415; 85610; J2704; J7120

== ENCOUNTER 2021-11-28 09:12 | Day surgery (SDC) | payer MEDICARE, SELFPAY ==
--- NOTE | 2021-11-15 13:27 | SUR.PREOP ---
1315; CALLED DR MONTSERRAT MORENO'S OFFICE, LEFT A VM REGARDING WHAT MEDICATION INSTRUCTIONS WERE GIVEN TO THE PATIENT. MAINLY REGARDING WARFARIN. 1320; CALLED PT FOR PREOP INTERVIEW. LEFT VM
--- NOTE | 2021-11-15 13:55 | SUR.PREOP ---
5405; SPOKE WITH JOSE ALBERTO AT DR MORENO'S OFFICE. SHE STATED PT'S ARE ALLOWED TO TAKE ALL HOME MEDICATIONS DOS WITH A SIP OF WATER, EXCEPT DIABETIC MEDS. DUE TO NPO AFTER MN STATUS. NO LAB WORK ORDERED.
[2021-11-16 08:26] VITALS: BMI 37.3
--- NOTE | 2021-11-28 08:56 | WPDHPUPDATE1 ---
History and Physical Update Update Date/Time: 11/28/21 08:56 History and Physical has been reviewed, including an updated exam of the patient. There are NO changes in the patient's condition. Risks, benefits, and alternatives have been discussed and questions answered. Patient agrees to proceed with procedure.
--- NOTE | 2021-11-28 08:59 | WPDHPUPDATE1 ---
History and Physical Update Update Date/Time: 11/28/21 08:59 History and Physical has been reviewed, including an updated exam of the patient. There are NO changes in the patient's condition. Risks, benefits, and alternatives have been discussed and questions answered. Patient agrees to proceed with procedure.
[2021-11-28 09:30] VITALS: BP 166/90; PULSE 87; RESP 18; TEMP 36.9; O2SAT 100
--- NOTE | 2021-11-28 09:53 | WPDANESEPPF ---
Anes - Initial Pre Proc Eval Procedure: Operation Date: 11/28/21 10:45 Proposed Procedures p Cataract Extraction with Lens Implant-Left Eye - Prasad Lieberman MD Date/Time: 11/28/21 09:53 Surgeon: Prasad Lieberman MD Pre Op Diagnosis: Cataract - Left Eye Patient Data Age: 56 Gender: F Height: 1.68 m Weight: 107 kg Last Vital Signs Temp 36.9 C 11/28/21 09:30 Pulse 87 11/28/21 09:30 Resp 18 11/28/21 09:30 BP 166/90 H 11/28/21 09:30 Pulse Ox 100 11/28/21 09:30 O2 Del Method Room Air 11/28/21 09:30 Allergies Allergy/AdvReac Type Severity Reaction Status Date / Time No Known Allergies Allergy Verified 11/28/21 09:36 Home Medications Medication Instructions Recorded Confirmed Type lisinopril 20 mg tablet 10 mg PO DAILY 04/20/19 11/28/21 History metoprolol succinate 100 mg 100 mg PO DAILY 04/20/19 11/28/21 History tablet,extended release 24 hr aspirin 81 mg tablet,delayed 81 mg PO DAILY 04/23/19 11/28/21 History release (Aspir-) cholecalciferol (vitamin D3) 50 2,000 unit PO DAILY 06/07/19 11/28/21 History mcg (2,000 unit) tablet cyanocobalamin (vitamin B-12) 500 500 mcg PO DAILY 06/07/19 11/28/21 History mcg tablet ferrous sulfate 27 mg iron tablet 27 mg PO DAILY 06/07/19 11/28/21 History baclofen 20 mg tablet 20 mg PO DAILY 10/19/20 11/28/21 History hydrochlorothiazide 25 mg tablet 25 mg PO DAILY 10/19/20 11/28/21 History trazodone 100 mg tablet 200 mg PO PRN PRN Sleep 11/16/21 11/28/21 History warfarin 7.5 mg tablet 7.5 tablet PO 6XW 11/16/21 11/28/21 History Patient hx anesthesia problems: none Family hx anesthesia problems: none Results Review: All pre-operative results and documents have been reviewed as part of the pre-operative evaluation. [facility] Past Medical History Medical History Afib Brain aneurysm X2 with repair CVA (cerebral vascular accident) X2 History of stroke x2 History of thyroid disease Hyperparathyroidism Hypertension AMMON (obstructive sleep apnea) intolerable of a CPAP machine Surgical History Surgical History H/O lithotripsy H/O rectal polypectomy History of colonoscopy History of parathyroidectomy Hx of laparoscopic gastric banding S/P left hemicolectomy Family History Family History Father Lung cancer Mother COPD (chronic obstructive pulmonary disease) Diabetes mellitus Hypertension High cholesterol Unknown Diabetes mellitus Heart disease Cancer Hypertension Social History Social History Social History: The patient is . She has 1 daughter. She is disabled. She desires to be a full code. The daughters durable power managing attorney for healthcare. Smoking status: Never smoker Tobacco type: cigarettes Alcohol intake: current Drinks per week: 5 Alcohol use details: socially Substance use: never Living arrangements: alone Gender identity (if verbalized by the patient): Female Spiritual care concerns: No Anes - Eval Final PreProcedure Day of Procedure 11/28/21 09:53 Patient weight: obese Heart: irregular rhythm Lungs: decreased breath sounds Neurological: other (alert) Last oral intake: >/= 8 hours ASA classification: III Emergent: no Anesthetic plan: proceed Anesthesia type and monitoring: monitored anesthesia care and standard monitoring Results Review: All pre-operative results and documents have been reviewed as part of the pre-operative evaluation. Informed Consent: The patient's anesthetic plan and its attendant risks and benefits were discussed with the patient/family/POA. Questions were solicited and answers provided to the satisfaction of the patient/family/POA.
[2021-11-28] MEDS: OFLOXACIN 0.3% OPHTH SOLN 5 ML BTL 1 DROP AFFCTD EYE (10:06)
[2021-11-28] MEDS: TETRACAINE HCL 0.5% OPHTH SOLN 4 ML BTL 1 DROP AFFCTD EYE ×3 (10:06→10:16)
[2021-11-28] MEDS: LIDOCAINE HCL 2% JELLY 5 ML TUBE 1 APPLIC AFFCTD EYE (10:06)
--- NOTE | 2021-11-28 11:42 | WPDANESPN ---
Anes - Prog Note Post-Op Date/Time: 11/28/21 11:42 Cardiovascular status: normal Respiratory status: normal Airway patency: baseline Mental status: baseline Post-Op hydration status: normal Vital Signs: Last Vital Signs Temp 36.9 C 11/28/21 09:30 Pulse 87 11/28/21 09:30 Resp 18 11/28/21 09:30 BP 166/90 H 11/28/21 09:30 Pulse Ox 100 11/28/21 09:30 O2 Del Method Room Air 11/28/21 09:30 Pain Score (VAS): 0 Patient Feedback: Patient satisfied with anesthetic care.
[2021-11-28 11:43] VITALS: BP 144/92; PULSE 85; RESP 20; O2SAT 99
[2021-11-28] MEDS: acetaZOLAMIDE TAB 250 MG TABLET PO (11:52)
--- NOTE | 2021-11-28 12:17 | P.OP_ITS ---
Procedure Note - Detailed Date of Procedure 11/28/21 Pre-op Diagnosis Cataract - Left Eye Post-op Diagnosis Same Procedure Performed Cataract Extraction (by Phacoemulsification) and lntraocular Lens Implant Surgeon Prasad Lieberman MD Description of Procedure The eye was anesthetized with topical 0.75% bupivacaine. After intravenous sedat ion and placement of monitors, the patient was prepped and draped in the usual sterile manner. A lid speculum was placed. A paracentesis was made, and preservative free 1% lidocaine was instilled in the anterior chamber. The anterior chamber was then filled with Viscoat viscoelastic. A jose keratome was used to create the wound. Continuous tear anterior capsulotomy was performed. The lens was hydro dissected before being removed with phacoemulsification. The remaining lenticular cortex was removed with aspiration. The capsular bag was polished and filled with viscoelastic material. An intraocular lens was chosen, inspected, irrigated and placed within the capsular bag where it was seen to be centered and stable. The viscoelastic material was aspirated. The wound was closed and found to be watertight. Ciloxan drops were placed in the eye. The speculum was removed. A Conner shield was applied. The patient tolerated the procedure well and left the operating room in satisfactory condition. Implants See chart Complications None Condition Stable Disposition Same day
== END 2021-11-28 12:13 | disposition home or self-care (01) ==
PROVIDERS: PCP Family Medicine
PROC: (CPT 66983; principal; 2021-11-28 10:45)
DX: H25.12 Age-related nuclear cataract, left eye (principal)
CPT/HCPCS: 66984

== ENCOUNTER → 2022-04-03 13:23 | Outpatient (CLI) | payer MEDICARE, SELFPAY ==
--- NOTE | ~2022-04-03 | MM_ITS ---
EXAMINATION: MM screening [facility] HISTORY: Screening TECHNIQUE: Craniocaudal and mediolateral oblique 3-D tomosynthesis images were obtained and synthetic 2-D images were generated. CAD analysis was submitted and interpreted. COMPARISON: Comparison to multiple prior studies sequentially, with oldest reviewed study dated 10/26. BREAST PARENCHYMAL COMPOSITION: The breasts are almost entirely fatty. FINDINGS: There is no evidence of suspicious mass, calcification, or architectural distortion to sugg est malignancy in either breast. There has been no suspicious interval change. IMPRESSION: 1. No mammographic evidence of malignancy. 2. Recommend routine screening mammography in one year. BI-RADS Category 1: Negative Reviewed, dictated and finalized at location D.
== END ==
PROVIDERS: PCP Family Medicine; Visit Provider Family Medicine
DX: Z12.31 Encounter for screening mammogram for malignant neoplasm of breast (principal)
CPT/HCPCS: 77063; 77067

== ENCOUNTER 2022-11-11 09:45 | Outpatient (CLI) | payer MEDICARE, SELFPAY ==
--- NOTE | ~2022-11-11 | XR_ITS ---
XR knee RT min 4V 11/11/2022 10:18 Indication: Knee pain Procedure: 4 views right knee Comparison: No prior studies for comparison. Findings: No fracture, subluxation or dislocation. No significant joint effusion. No foreign bodies. There is anatomic alignment. No joint space narrowing. Impression: 1: No significant bone or joint abnormality. Reviewed, dictated and finalized at location [] Impression: 1: No significant bone or joint abnormality.
--- NOTE | ~2022-11-11 | XR_ITS ---
EXAMINATION: XR knee LT min 4V DATE: 11/11/2022 10:18 INDICATION: Left knee pain TECHNIQUE: Four views of the left knee were obtained. COMPARISON: 05/13/2019 FINDINGS: Alignment is normal. No fracture or osteochondral lesion. There is mild tricompartmental os teoarthritis characterized by tiny marginal osteophytes. No joint effusion/synovitis. Soft tissues a re unremarkable. IMPRESSION: 1. Unchanged mild osteoarthritis without acute osseous abnormality. Reviewed, dictated and finalized at location A.
== END 2022-11-11 09:46 | disposition home or self-care (01) ==
PROVIDERS: PCP Family Medicine; Visit Provider Family Medicine
DX: M25.561 Pain in right knee (principal); M17.12 Unilateral primary osteoarthritis, left knee
CPT/HCPCS: 73564

== ENCOUNTER 2023-01-23 08:45 | Outpatient (CLI) | payer MEDICARE, SELFPAY ==
[2023-01-23 09:25] LABS: Basophils Percent Auto 0.6 % (0.2-1.2); Eosinophils Absolute Auto 0.1 K/mm3 (0-0.3); Hemoglobin 11.9 g/dL (12.0-15.0); Immature Granulocyte Absolute 0.02 K/mm3 (0.00-0.031); Immature Granulocyte Percent A 0.3 % (0-0.5); Lymphocytes Absolute Auto 1.52 K/mm3 (0.9-3.2); Lymphocytes Percent Auto 22.7 % (18.3-44.2); Mean Corpuscular HGB Conc 30.5 g/dl (32-36); Mean Corpuscular Hemoglobin 29.2 pg (26-34); Mean Corpuscular Volume 95.6 fl (80-100); Mean Platelet Volume 12.1 fl (7.4-10.4); Monocytes Absolute Auto 0.4 K/mm3 (0.1-0.6); Monocytes Percent Auto 5.4 % (2.6-8.5); Neutrophils Absolute Auto 4.7 K/mm3 (1.3-6.7); Platelet Count Result 199 k/mm3 (150-375); Red Blood Count 4.08 M/mm3 (4.2-5.4); Red Cell Distribution Width 15.9 % (11.5-14.5); White Blood Count 6.7 K/mm3 (4.5-10.0)
[2023-01-23 09:38] LABS: Alanine Aminotransferase 28 U/L (6-35); Albumin Level 4.1 g/dL (3.5-5.1); Alkaline Phosphatase 93 U/L (38-126); Anion Gap 3 mmol/L (8-16); Aspartate Amino Transferase 30 U/L (14-36); Bilirubin,Total 0.4 mg/dL (0.2-1.3); Blood Urea Nitrogen 26 mg/dL (7-17); Calcium 10.5 mg/dL (8.4-10.2); Carbon Dioxide 33 mmol/L (22-30); Chloride 104 mmol/L (98-107); Cholesterol 166 mg/dL (0-200); Estimated Glomerular Filt Rate > 60; Glucose 89 mg/dL (65-110); HDL Direct 60 mg/dL; Magnesium 1.9 mg/dL (1.6-2.3); Potassium 3.8 mmol/L (3.4-5.0); Sodium 140 mmol/L (137-145); Triglycerides 109 mg/dL (<150)
[2023-01-23 09:49] LABS: LDL Cholesterol Direct 83 mg/dL
[2023-01-23 10:38] LABS: Appearance Urine Cloudy (Clear); Bacteria Urine 4+ /hpf; Bilirubin Urine Negative (Negative); Blood Urine 1+ (Negative); Color Urine Yellow (Yellow); Glucose Urine UA Negative (Negative); Ketones Urine Negative (Negative); Leukocyte Esterase Ur 2+ LEU/UL (Negative); Nitrate Urine Negative (Negative); Non Pathogenic Casts 0-2; Protein Urine Negative (Negative); Specific Grav Ur 1.019 (1.001-1.035); Squamous Epithelial Cell Urine Moderate /hpf (Few); WBC Urine 21-50 /hpf; pH Urine 7.5 (5.0-9.0)
[2023-01-23 10:39] LABS: Add Urine Microscopic? YES
[2023-01-23 10:47] LABS: Folic Acid > 20.0 ng/mL (2.76->20)
[2023-01-23 11:02] LABS: Vitamin D 25 Hydroxy 42.6 ng/mL
== END 2023-01-23 08:46 | disposition home or self-care (01) ==
LOC: ANHLAB 08:47
PROVIDERS: PCP Family Medicine; Visit Provider Family Medicine
DX: I10 Essential (primary) hypertension (principal); G89.29 Other chronic pain; M10.09 Idiopathic gout, multiple sites; E66.9 Obesity, unspecified; I63.9 Cerebral infarction, unspecified; I48.91 Unspecified atrial fibrillation; E55.9 Vitamin D deficiency, unspecified
CPT/HCPCS: 36415; 80053; 80061; 81001; 82306; 82607; 82746; 83735; 84443; 84550; 85025; 87077; 87086; 87186

== ENCOUNTER 2023-03-03 11:05 | Outpatient (CLI) | payer MEDICARE, SELFPAY ==
[2023-03-03 11:54] LABS: Appearance Urine Clear (Clear); Bacteria Urine 2+ /hpf; Bilirubin Urine Negative (Negative); Blood Urine 1+ (Negative); Color Urine Yellow (Yellow); Glucose Urine UA Negative (Negative); Ketones Urine Negative (Negative); Leukocyte Esterase Ur 1+ LEU/UL (Negative); Nitrate Urine Negative (Negative); Non Pathogenic Casts 0-2; Protein Urine Negative (Negative); Specific Grav Ur 1.019 (1.001-1.035); Squamous Epithelial Cell Urine Occasional /hpf (Few); pH Urine 6.5 (5.0-9.0)
[2023-03-03 11:57] LABS: Add Urine Microscopic? YES
== END 2023-03-03 11:06 | disposition home or self-care (01) ==
PROVIDERS: PCP Family Medicine; Visit Provider Family Medicine
DX: R31.29 Other microscopic hematuria (principal); R82.71 Bacteriuria
CPT/HCPCS: 81001; 87077; 87086; 87186; 88108

== ENCOUNTER 2023-05-20 09:45 | Outpatient (CLI) | payer MEDICARE, SELFPAY ==
--- NOTE | 2023-06-11 10:36 | WPDHOMESLEEP ---
Sleep Study - Home Unattended Date of Study: 05/20/23 Ordering Provider: Nate Ocampo, Interpreting Provider: Alia Sullivan MD Home Sleep Study Type: Watch PAT Height: 1.68 m Weight: 113.398 kg Body Mass Index: 40.3 Neck Circumference (inches): 15.5 Sharon: 2 Reason for Sleep Study History of sleep apnea, used CPAP, stopped using it, wants reassessment Has had insomnia Sleep History Ana Laura Williamson is a 58-year-old woman with history of obstructive sleep apnea, use CPAP in the past. She now has difficulty falling asleep and staying asleep. She wakes up during the night.. She never awakens from sleep short of breath. She never wakes at night with heartburn, belching or coughing.??She occasionally snores, rarely snores loudly enough that others complain. She occasionally has trouble sleeping when she has a cold. She rarely wakes up gasping for breath during the night. She occasionally has breathing problems at night. She rarely sweats excessively at night. She frequently notices her heart pounding or beating irregularly during the night, has atrial fibrillation. She frequently falls asleep during the day. She rarely falls asleep involuntarily, never falls asleep while driving. She never experiences loss of muscle tone with strong emotion. She never feels paralyzed on waking or falling asleep. She occasionally experiences vivid dreams upon waking or falling asleep. She occasionally feels afraid of going to sleep. She never has nightmares. She occasionally recalls her dreams. She occasionally has thoughts racing through her mind. She never feels sad or depressed. She never feels anxiety. She never notices parts of her body jerk. She never kicks during the night. She never feels crawling or aching feelings in her legs. She never feels leg pain at night. She never has morning jaw pain, and never grinds her teeth at night. She occasionally feels bothered by pain during the day, and she attributes this to a stroke 25 years ago. She rarely is awakened by pain at night. She never wakes up feeling stiff in the morning or wakes up with sore achy muscles. She rarely wakes up with pain in the neck and spine.She has fatigue. Normal bedtime is 6:00 p.m., falling asleep in a variable amount of time. She wakes up during the night but not a consistent number of times. She may stay awake a short amount of time or longer, it is unpredictable. She wakes up after 11:00 p.m. and stays awake for much of the time after that. She takes naps in the afternoon or evening. She may feel refreshed after a short nap lasting 10-15 minutes. She is usually drowsy for an hour after waking. She feels better in the morning compared to other times of day. Habits:??Tobacco: quit 25 years ago Caffeine: tea Alcohol: 3 beers on Fridays Recreational substances: none PMFSH Past Medical History Medical History (Updated 06/11/23 @ 10:57 by Alia Sullivan MD) Afib Brain aneurysm X2 with repair CVA (cerebral vascular accident) X2 History of stroke x2 History of thyroid disease Hyperparathyroidism Hypertension AMMON (obstructive sleep apnea) intolerable of a CPAP machine Surgical History Surgical History H/O lithotripsy H/O rectal polypectomy History of colonoscopy History of parathyroidectomy Hx of laparoscopic gastric banding S/P left hemicolectomy Family History Family History Father Lung cancer Mother COPD (chronic obstructive pulmonary disease) Diabetes mellitus Hypertension High cholesterol Unknown Diabetes mellitus Heart disease Cancer Hypertension Social History Social History Social History: The patient is . She has 1 daughter. She is disabled. She desires to be a full code. The daughters durable power collections attorney for healthcare.
[2023-06-11 10:58] VITALS: BMI 40.3
== END 2023-05-21 08:00 | disposition home or self-care (01) ==
LOC: ANHCSM 09:47
PROVIDERS: PCP Family Medicine; Visit Provider Family Medicine
DX: G47.33 Obstructive sleep apnea (adult) (pediatric) (principal); G47.22 Circadian rhythm sleep disorder, advanced sleep phase type
CPT/HCPCS: 95800

== ENCOUNTER 2023-06-24 10:33 | Outpatient (CLI) | payer MEDICARE, SELFPAY ==
[2023-06-24 11:10] LABS: Appearance Urine Clear (Clear); Bacteria Urine Rare /hpf; Bilirubin Urine Negative (Negative); Blood Urine Negative (Negative); Color Urine Yellow (Yellow); Glucose Urine UA Negative (Negative); Ketones Urine Negative (Negative); Leukocyte Esterase Ur Trace LEU/UL (NEGATIVE); Nitrate Urine Negative (Negative); Non Pathogenic Casts 0-2; Protein Urine Negative (Negative); RBC Urine 0-2 /hpf (0-2); Specific Grav Ur 1.022 (1.001-1.035); Squamous Epithelial Cell Urine Occasional /hpf (Few); pH Urine 5.5 (5.0-9.0)
[2023-06-24 11:48] LABS: Add Urine Microscopic? YES
== END 2023-06-24 10:34 | disposition home or self-care (01) ==
LOC: ANHLAB 10:38
PROVIDERS: PCP Family Medicine; Visit Provider Urology
DX: R31.29 Other microscopic hematuria (principal)
CPT/HCPCS: 81001

== ENCOUNTER 2023-07-01 08:28 | Outpatient (CLI) | payer MEDICARE, SELFPAY ==
--- NOTE | 2023-07-10 20:34 | WPDSLEEPSTUD ---
Sleep Study Date of Study: 07/01/23 Ordering Provider: Nate Ocampo, Interpreting Physician: Alia Sullivan MD Sleep Study Type: BiPAP Titration Height: 1.68 m Weight: 115.666 kg Body Mass Index: 41.1 Neck Circumference (inches): 20 [place]: 2 Reason for Sleep Study * Homes sleep test 05/20/2023 - obstructive sleep apnea with AHI 11.9 snoring and desaturation to 84%. Sleep History History of sleep apnea, used CPAP, stopped using it, has a home sleep test 05/20/2023 showing need for PAP titration. Ana Laura Williamson is a 58-year-old woman with history of obstructive sleep apnea, use CPAP in the past.? She now has difficulty falling asleep and staying asleep.? She wakes up during the night..? She never awakens from sleep short of breath.? She never wakes at night with heartburn, belching or coughing.??She occasionally snores, rarely snores loudly enough that others complain. She occasionally has trouble sleeping when she has a cold.? She rarely wakes up gasping for breath during the night. She occasionally has breathing problems at night. She rarely sweats excessively at night. She frequently notices her heart pounding or beating irregularly during the night,? has atrial fibrillation.? She frequently falls asleep during the day.? She rarely falls asleep involuntarily, never falls asleep while driving. She never experiences loss of muscle tone with strong emotion.? She never feels paralyzed on waking or falling asleep. She occasionally experiences vivid dreams upon waking or falling asleep. She occasionally feels afraid of going to sleep. She? never has nightmares. She occasionally? recalls her dreams. She occasionally has thoughts racing through her mind. She never feels sad or depressed. She never feels anxiety. She never notices parts of her body jerk.? She never kicks during the night. She never feels crawling or aching feelings in her legs. She never feels leg pain at night. She never has morning jaw pain, and? never grinds her teeth at night.? She occasionally feels bothered by pain during the day,? and she attributes this to a stroke 25 years ago.? She rarely is awakened by pain at night.? She never wakes up feeling stiff in the morning or wakes up with sore achy muscles.? She rarely wakes up with pain in the neck and spine.She has fatigue. Normal bedtime is 6:00 p.m., falling asleep in a variable amount of time.? She wakes up during the night but not a consistent number of times.? She may stay awake a short amount of time or longer, it is unpredictable. She wakes up after 11:00 p.m. and stays awake for much of the time after that.? She takes naps in the afternoon or evening.? She may feel refreshed after a short nap lasting 10-15 minutes.? She is usually drowsy for an hour after waking.? She feels better in the morning compared to other times of day. Habits:??Tobacco: quit 25 years ago? ? ? Caffeine: tea ? Alcohol: 3 beers on Fridays ? ? Recreational substances: none PMFSH Past Medical History Medical History Afib Brain aneurysm X2 with repair CVA (cerebral vascular accident) X2 History of stroke x2 History of thyroid disease Hyperparathyroidism Hypertension AMMON (obstructive sleep apnea) Surgical History Surgical History H/O lithotripsy H/O rectal polypectomy History of colonoscopy History of parathyroidectomy Hx of laparoscopic gastric banding S/P left hemicolectomy Family History Family History Father Lung cancer Mother COPD (chronic obstructive pulmonary disease) Diabetes mellitus Hypertension High cholesterol Unknown Diabetes mellitus Heart disease Cancer Hypertension Social History Social History Social History: The patient is . She has 1 daughter. She is disabled. She d
[2023-07-10 21:19] VITALS: BMI 41.1
--- NOTE | 2023-07-31 11:48 | SLEEP ---
updated call back in [facility]. pt called back and she was informed the results were sent to her Dr and to [facility] on 07/11/23. She was informed of the process that the DME completes before they call the patient. She states her dr does not have results. They were faxed and they are also sent by mail/fax from medical records.
== END 2023-07-02 06:29 | disposition home or self-care (01) ==
LOC: ANHCSM 08:31
PROVIDERS: PCP Family Medicine; Visit Provider Family Medicine
DX: G47.33 Obstructive sleep apnea (adult) (pediatric) (principal); Z68.41 Body mass index [BMI] 40.0-44.9, adult
CPT/HCPCS: 95811

== ENCOUNTER → 2023-07-07 06:57 | Outpatient (CLI) | payer MEDICARE, SELFPAY ==
--- NOTE | ~2023-07-07 | MM_ITS ---
EXAMINATION: MM screening [facility] HISTORY: Screening mammogram TECHNIQUE: Craniocaudal and mediolateral oblique 3-D tomosynthesis images were obtained and synthetic 2-D images were generated. CAD analysis was submitted and interpreted. COMPARISON: 04/03/2022, 02/10/2021, 02/05/2020 BREAST PARENCHYMAL COMPOSITION: The breasts are almost entirely fatty. FINDINGS: No suspicious mass, calcification, or architectural distortion are identified in either aretha ast to suggest malignancy. There has been no suspicious interval change. IMPRESSION: 1. No mammographic evidence of malignancy. 2. Recommend routine screening mammography in one year. BI-RADS Category 1: Negative Reviewed, dictated and finalized at location A. COMMISSIONER
== END ==
PROVIDERS: PCP Family Medicine; Visit Provider Family Medicine
DX: Z12.31 Encounter for screening mammogram for malignant neoplasm of breast (principal)
CPT/HCPCS: 77063; 77067

== ENCOUNTER 2023-08-06 06:53 | Outpatient (CLI) | payer MEDICARE, SELFPAY ==
[2023-08-06 07:49] LABS: Basophils Percent Auto 0.2 % (0.2-1.2); Hematocrit 35.2 % (37.0-47.0); Hemoglobin 10.7 g/dL (12.0-15.0); Immature Granulocyte Absolute 0.05 K/mm3 (0.00-0.031); Immature Granulocyte Percent A 0.4 % (0-0.5); Lymphocytes Absolute Auto 1.16 K/mm3 (0.9-3.2); Mean Corpuscular HGB Conc 30.4 g/dl (32-36); Mean Corpuscular Hemoglobin 27.7 pg (26-34); Mean Corpuscular Volume 91.2 fl (80-100); Mean Platelet Volume 12.9 fl (7.4-10.4); Monocytes Absolute Auto 0.5 K/mm3 (0.1-0.6); Neutrophils Absolute Auto 9.9 K/mm3 (1.3-6.7); Neutrophils Percent Auto 85.4 % (45.5-73.1); Platelet Count Result 196 k/mm3 (150-375); Red Blood Count 3.86 M/mm3 (4.2-5.4); Red Cell Distribution Width 16.1 % (11.5-14.5); White Blood Count 11.6 K/mm3 (4.5-10.0)
[2023-08-06 08:05] LABS: Alanine Aminotransferase 25 U/L (6-35); Alkaline Phosphatase 98 U/L (38-126); Anion Gap 4 mmol/L (8-16); Aspartate Amino Transferase 31 U/L (14-36); Bilirubin,Total 0.4 mg/dL (0.2-1.3); Blood Urea Nitrogen 24 mg/dL (7-17); Calcium 10.9 mg/dL (8.4-10.2); Carbon Dioxide 26 mmol/L (22-30); Chloride 109 mmol/L (98-107); Cholesterol 156 mg/dL (0-200); Estimated Glomerular Filt Rate > 60; Glucose 111 mg/dL (65-110); HDL Direct 57 mg/dL; Potassium 3.7 mmol/L (3.4-5.0); Sodium 139 mmol/L (137-145); Triglycerides 86 mg/dL (<150)
[2023-08-06 08:16] LABS: LDL Cholesterol Direct 84 mg/dL
[2023-08-06 08:34] LABS: Thyroid Stimulating Hormone 0.247 uIU/mL (0.465-4.680)
[2023-08-06 08:35] LABS: Vitamin D 25 Hydroxy 43.3 ng/mL
[2023-08-06 09:35] LABS: Hemoglobin A1C 5.6 % (<5.7)
[2023-08-06 11:38] LABS: Iron 34 ug/dL (37-170)
[2023-08-06 11:48] LABS: Percent Iron Saturation 7 % (20-50)
== END 2023-08-06 06:54 | disposition home or self-care (01) ==
PROVIDERS: PCP Family Medicine
DX: Z01.818 Encounter for other preprocedural examination (principal); R63.5 Abnormal weight gain; Z98.84 Bariatric surgery status; R73.03 Prediabetes; D50.8 Other iron deficiency anemias
CPT/HCPCS: 36415; 80053; 80061; 82306; 83036; 83540; 83550; 84443; 85025

== ENCOUNTER 2023-08-11 15:22 | Outpatient (CLI) | payer MEDICARE, SELFPAY ==
--- NOTE | ~2023-08-11 | XR_ITS ---
AP and oblique views of the right ribs, and PA chest radiograph Clinical History: Pain Findings: No rib fracture is seen. Osseous alignment is anatomic. Lungs are clear, without focal cons olidation or pleural effusion. Cardiomediastinal contour is within normal limits. Soft tissues are un remarkable. Impression: No rib fracture is seen. Reviewed, dictated and finalized at [facility]. Impression: No rib fracture is seen.
--- NOTE | ~2023-08-11 | XR_ITS ---
EXAM: XR thoracic spine 3V DATE: 08/11/2023 15:48 HISTORY: CHRONIC THORACIC BACK PAIN . COMPARISON: X-ray chest 01/08/2019. FINDINGS: Hilar node calcification. Surgical clip over the GE junction. Vertebral body alignment inta ct. Stable mild anterior wedge deformity and superior endplate deformity at T7. Stable superior endpl ate deformity at T8. Multilevel moderate disc space narrowing and marginal osteophytosis including la rge bridging lateral osteophytes. No traumatic malalignment or fracture. Visualized lung parenchyma i s clear. IMPRESSION: Stable mild multilevel anterior wedge compression fractures. Multilevel moderate degenera tive disc disease. Reviewed, dictated and finalized at location K. IMPRESSION: Stable mild multilevel anterior wedge compression fractures. Multil evel moderate degenerative disc disease.
== END 2023-08-11 15:23 | disposition home or self-care (01) ==
LOC: ANHIMG 15:23
PROVIDERS: PCP Family Medicine; Visit Provider Family Medicine
DX: M51.34 Other intervertebral disc degeneration, thoracic region (principal); S22.060A Wedge compression fracture of T7-T8 vertebra, initial encounter for closed fracture; X58.XXXA Exposure to other specified factors, initial encounter
CPT/HCPCS: 71101; 72072

== ENCOUNTER 2023-08-30 10:50 | Outpatient (CLI) | payer MEDICARE, SELFPAY ==
--- NOTE | ~2023-08-30 | MR_ITS ---
MRI of the lumbar spine Clinical History: Back pain Technique: Axial T2-weighted images, and sagittal T1-weighted, T2-weighted, and T2 fat-sat images wer e acquired. Findings: There is no fracture or subluxation of the lumbar spine. Vertebral bodies maintain normal h eight and alignment. No suspicious bone marrow signal abnormality seen. At L1-L2, there is no significant disc bulge or herniation. There is mild facet arthropathy. No centr al canal stenosis or neural foraminal narrowing. At L2-L3, there is minimal disc bulge and mild facet arthropathy. No central canal stenosis or neural foraminal narrowing. L3-L4, there is minimal disc bulge and mild facet arthropathy. No central canal stenosis or neural fo raminal narrowing. At L4-L5, there is mild to moderate degenerative disc narrowing. There is disc bulge and moderate fac et arthropathy. There is no central canal stenosis. There is moderate left neural foraminal narrowing , and minimal right neural foraminal narrowing. At L5-S1, there is minimal disc bulge and moderate to advanced facet arthropathy. No central canal st enosis. There is mild left neural foraminal narrowing. Right neural foramen preserved. Paravertebral soft tissues are unremarkable. Impression: Mild degenerative spondylosis, as above. Reviewed, dictated and finalized at location . Impression: Mild degenerative spondylosis, as above.
== END 2023-08-30 10:51 ==
LOC: MICIMG 10:51
PROVIDERS: PCP Family Medicine; Visit Provider Nurse Practitioner Family
DX: M54.50 Low back pain, unspecified (principal); M43.06 Spondylolysis, lumbar region
CPT/HCPCS: 72148

== ENCOUNTER 2023-09-23 06:48 | Outpatient (CLI) | payer MEDICARE, SELFPAY ==
[2023-09-23 07:19] LABS: INR 1.2; Prothrombin Time 15.5 Seconds (11.1-14.7)
== END 2023-09-23 06:49 | disposition home or self-care (01) ==
LOC: ANHLAB 06:51
PROVIDERS: PCP Family Medicine; Visit Provider Pain Medicine Pain Medicine
DX: Z79.01 Long term (current) use of anticoagulants (principal)
CPT/HCPCS: 36415; 85610

== ENCOUNTER 2023-10-31 12:38 | Outpatient (CLI) | payer MEDICARE, SELFPAY ==
--- NOTE | ~2023-10-31 | DEXA_ITS ---
Bone Density Report Name: TOSHIA WADE Age: 58 Sex: Female Ethnicity: White Date of : 1965 Indication: postmenopausal; screening for osteoporosis; height loss; history of glucocorticoids; Referring Provider: BRICE, [employer] Study: Bone densitometry was performed. Exam Date: October 31, 2023 Accession number: [id number] Bone Density: Region BMD T-score Z-score Classification AP Spine(L1-L4) 1.059 0.1 1.6 Normal Femoral Neck (Left) 0.734 -1.0 0.3 Normal Total Hip (Left) 0.910 -0.3 0.7 Normal Femoral Neck (Right) 0.690 -1.4 -0.1 Osteopenia Total Hip (Right) 0.909 -0.3 0.7 Normal Total Hip Mean 0.910 -0.3 0.7 Normal World Health Organization criteria for BMD impression classify patients as: Normal (T-score at or above -1.0), Osteopenia (T-score between -1.0 and -2.5), or Osteoporosis (T-score at or below -2.5). 10-year Fracture Risk(1): Major Osteoporotic Fracture 11% Hip Fracture 0.9% Reported Risk Factors: [place] (), Neck BMD=0.690, BMI=41.2, glucocorticoids (1) FRAX(R) Version 3.08. Fracture probability calculated for an untreated patient. Fracture probability may be lower if the patient has received treatment. Clinical Information Provided by Patient: Has taken Glucocorticoids Has used the following medications: Vitamin D, Calcium Patient maximum height was 68 Menopause Age: 43 No regular weight bearing exercise Onset of menses at age 16 Number of children 2 Impression: The patient has low bone mass, based on the Right Femoral Neck T-score. The patient has an estimated ten-year risk of hip fracture of 0.9% and an estimated ten-year risk of major fracture of 11%, based on the WHO FRAX algorithm. The patient has risk factors, including: history of glucocorticoid therapy. Discussion: BONE DENSITY IS LOW AT ONE OR MORE SKELETAL SITES. This patient's lowest T-score is low at one or more skeletal sites. It meets the World Health Organization's (WHO) criteria for ?low bone mass? (T-score between -1.0 and -2.5). The patient's 10-year risk of fracture as calculated by FRAX is less than the threshold where pharmacological therapy is recommended by the National Osteoporosis Foundation (NOF). However, all treatment decisions require clinical judgment and consideration of individual patient factors, including patient preferences, comorbidities, previous drug use, risk factors not captured in the FRAX model (e.g., frailty, falls, vitamin D deficiency, increased bone turnover, interval significant decline in bone density) and possible under or overestimation of fracture risk by FRAX. The patient should follow a healthful lifestyle (good nutrition with adequate calcium and vitamin D, and appropriate weight-bearing exercise). Follow-Up: Consider repeating this study
== END 2023-10-31 12:39 | disposition home or self-care (01) ==
LOC: ANHIMG 12:39
PROVIDERS: PCP Family Medicine; Visit Provider Family Medicine
DX: M85.89 Other specified disorders of bone density and structure, multiple sites (principal); Z13.820 Encounter for screening for osteoporosis
CPT/HCPCS: 77080

== ENCOUNTER 2024-01-29 12:27 | Outpatient (CLI) | payer MEDICARE, SELFPAY ==
--- NOTE | ~2024-01-29 | US_ITS ---
EXAMINATION: US thyroid DATE: 01/29/2024 13:24 INDICATION: Thyroid nodule. TECHNIQUE: Multiple ultrasound images of the thyroid were obtained. COMPARISON: Ultrasound 10/31/2020, 03/25/20 FINDINGS: The right thyroid lobe measures 4.5 x 3.3 x 3.7 cm. The left thyroid lobe measures 4.2 x 2.5 x 1.2 c m. In the left thyroid lobe, there is 11 mm solid, hypoechoic, wider than tall nodule with smooth ma rgin without echogenic foci (TI-RADS TR4) that measured 8 mm on 03/25/20. Biopsy on 07/11/2020 was jessika gn. In the right thyroid lobe, there is a 4.2 cm mixed cystic and solid, isoechoic, wider than tall n odule with smooth margins without echogenic foci (TR2). In the right thyroid lobe, there is a 3 mm no dule. IMPRESSION: 1. Thyroid nodules, likely not clinically significant. Reviewed, dictated and finalized at location A.
== END 2024-01-29 12:28 | disposition home or self-care (01) ==
LOC: ANHIMG 12:29
PROVIDERS: PCP Family Medicine; Visit Provider Family Medicine
DX: E04.2 Nontoxic multinodular goiter (principal)
CPT/HCPCS: 76536

== ENCOUNTER 2024-04-09 10:37 | Outpatient (CLI) | payer MEDICARE, SELFPAY ==
--- NOTE | ~2024-04-09 | US_ITS ---
EXAMINATION: US soft tissue head and neck DATE: 04/09/2024 11:00 INDICATION: Localized swelling, mass and lump, neck. TECHNIQUE: Multiple ultrasound images of the thyroid were obtained. COMPARISON: Ultrasound 01/29/2024 FINDINGS: The right thyroid lobe measures 5.7 x 3.9 x 3.7 cm. The left thyroid lobe measures 4.7 x 2.1 x 1.3 c m. In the left thyroid lobe, there is an 8 mm solid, hypoechoic, wider than tall nodule with smooth margin without echogenic foci (TI-RADS TR4). In the right thyroid lobe, there is a 4.4 cm mixed cysti c and solid, isoechoic, wider than tall nodule with ill-defined margin without echogenic foci (TR2), which correlates with the patient's palpable abnormality. IMPRESSION: 1. Stable thyroid nodules, likely not clinically significant. No follow-up is needed. Reviewed, dictated and finalized at location A. HERIZATION AND HOUSING INSPECTOR IMPRESSION: 1. Stable thyroid nodules, likely not clinically significant. No follow-up is n eeded.
== END 2024-04-09 10:38 | disposition home or self-care (01) ==
LOC: MICIMG 10:38
PROVIDERS: PCP Family Medicine; Visit Provider Family Medicine
DX: R22.1 Localized swelling, mass and lump, neck (principal); E04.2 Nontoxic multinodular goiter
CPT/HCPCS: 76536

== ENCOUNTER 2024-05-19 10:16 | Outpatient (CLI) | payer MEDICARE, SELFPAY ==
--- NOTE | ~2024-05-19 | XR_ITS ---
XR knee RT 3V Ordering provider: Nate Ocampo, History: . PAIN OF R KNEE AND R LOWER LIMB . Comparison: None. FINDINGS: BONES: No acute fracture or dislocation. JOINT SPACES: Normal. SOFT TISSUES: Normal. IMPRESSION: No acute osseous abnormality right knee. Reviewed, dictated and finalized at location A. MOTIVE SERVICE ASSISTANT
--- NOTE | ~2024-05-19 | XR_ITS ---
XR tibia fibula RT 2V Ordering provider: Nate Ocampo, History: . PAIN OF R KNEE AND R LOWER LIMB . Comparison: None. FINDINGS: BONES: No acute fracture or dislocation. JOINT SPACES: Normal. SOFT TISSUES: Normal. IMPRESSION: No acute osseous abnormality right leg. Reviewed, dictated and finalized at location A. RWEAR FINISHER
== END 2024-05-19 10:17 | disposition home or self-care (01) ==
PROVIDERS: PCP Family Medicine; Visit Provider Family Medicine
DX: M25.561 Pain in right knee (principal); M79.604 Pain in right leg
CPT/HCPCS: 73562; 73590

== ENCOUNTER 2024-07-09 00:31 | Day surgery (SDC) | payer MEDICARE, SELFPAY ==
[2024-07-02 10:45] VITALS: BMI 38.7
--- NOTE | 2024-07-02 11:01 | SUR.PREOP ---
Spoke with patient regarding medication Warfarin. Patient verbalizes understanding that the last dose is to be taken on 07/03/2024 and the Endoscopist will instruct them when to restart after the procedure.
--- OUTSIDE RECORDS SUMMARY | 2024-07-09 00:34 | XMS_ITS | Referral Summary ---
Author Organization [facility] [address] [place] [address] [address] [facility] [address] [place] [address] Care Team Providers Care Lamp Shade Sewer Name Role Phone Fran Roberto MD Unavailable [phone] Nate Ocampo MD Primary Care Provider [phone] Encounters Date Type Department Care Team Description 06/30/2024 Telephone [facility] Cardiology [address] [place] [address] Fran Roberto MD cardiac clearance 06/24/2024 Anticoagulation Visit [facility] Cardiology [address] [place] [address] Syed Ochoa RN Atrial fibrillation (CMS/HCC) [I48.91] (Primary Dx) 06/10/2024 Documentation [facility] Gastroenterology [address] [place] [address] Medical [address] [place] [address] Miryam Liu CRTT Patient requested next 2 planned return office visits to be 06/08/2024 Anticoagulation Visit [facility] Cardiology [address] [facility] [address] [place] [address] Norah Elliott RN Atrial fibrillation (CMS/HCC) [I48.91] (Primary Dx) 04/23/2024 Anticoagulation Visit [facility] Cardiology [address] [place] [address] Syed Ochoa RN Atrial fibrillation (CMS/HCC) [I48.91] (Primary Dx) from Last 3 Months Allergies Active Allergy Reactions Criticality Noted Date Comments Gabapentin Mental status changes High 05/16/2020 Medications pyridoxine (vitamin B-6) 25 mg tablet 25 mg. 0 2 Active cyanocobalamin (Vitamin B-12) 500 mcg tabletIndicatio ns:Prevention of Vitamin B12 Deficiency Take 1 tablet (500 mcg total) by mouth daily Active cholecalciferol (VITAMIN D-3) 1,000 unit Take 1 tablet/capsule (1,000 Units total) by mouth 2 (two) times a day Active metoprolol XL (TOPROL-XL) 100 mg 24 hr tablet Take 1 tablet (100 mg total) by mouth daily 9 Active aspirin 81 mg chewable tablet Take 1 tablet (81 mg total) by mouth daily Active potassium chloride ER 10 mEq CR capsule 1 Active allopurinoL (ZYLOPRIM) 100 mg tablet 2 Active lisinopril-hydr oCHLOROthiazide (ZESTORETIC) 20-25 mg per tablet Take 1 tablet by mouth daily 4 Active omeprazole (PriLOSEC) 40 mg capsuleIndicati ons:Treatment of Non-Bleeding Gastric Disorder Take 1 capsule (40 mg total) by mouth 2 (two) times a day before breakfast and dinner 60 capsule 2 4 Active warfarin (COUMADIN) 7.5 mg tablet Take 1 tablet (7.5 mg total) by mouth as directed Take one tab PO every day of the week EXCEPT FRIDAY 72 tablet 2 4 Active warfarin (COUMADIN) 4 mg tablet TAKE 1 TABLET BY MOUTH ON MONDAYS 10 tablet 4 4 Active Active Problems Problem Noted Date Diagnosed Date Class 3 severe obesity in adult 10/30/2023 History of weight loss surgery 06/05/2023 Atrial fibrillation (CMS/HCC) [I48.91] 7 Social History Tobacco Use Types Packs/Day Years Used Date Smoking Tobacco: Former Smokeless Tobacco: Never Alcohol Use Standard Drinks/Week Comments Yes 0 (1 standard drink = 0.6 oz pur e alcohol) AUDIT-C Answer Date Recorded Q1: How often do you have a drink containing alc ohol? 2-4 times a month 12/25/2023 Q2: How many drinks containi ng alcohol do you have on a typical day when you are drinking? 1 or 2 12/25/2023 Q3: How often do you have si x or more drinks on one occasion? Never 12/25/2023 Personal Safety Answer Date Recorded Have you ever been in or are you currently in a harmful physical or emotional relationship or is someone making you feel afraid or unsafe? 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 Gender Identity Not on file Sexual Orientation Not on file Last Filed Vital Signs Vital Sign Reading Time Taken Comments Blood Pressure 105/80 12/25/2023 10:58 AM CDT Pulse 71 12/25/2023 10:58 AM CDT Temperature 36 C (96.8 F) 12/25/2023 8:38 AM CDT Respiratory Rate 16 12/25/2023 10:58 AM CDT Oxygen Saturation 95% 12/25/2023 10:58 AM CDT Inhaled Oxygen Concentration - - Weight 109.3 kg (241 lb) 02/04/2024 2:16 PM CDT Height 167.6 cm (5' 6 ) 12/25/2023 7:30 AM CDT Body Mass Index 38.9 12/25/2023 7:30 AM CDT Plan of Treatment Not on file Procedures Procedure Name Priority Date/Time Associated Diagnosis Comments PROTIME-INR Routine 06/24/2024 PROTIME-INR Routine 06/05/2024 PROTIME-INR Routine 04/23/2024 from Last 3 Months Results * (ABNORMAL) Protime-INR (06/24/2024) INR 1.80(A) 0.90 - 1.10 EXTERNAL LAB Blood Historical Provider MD LAB BLOOD ORDERABLES Rosa l Result EXTERNAL LAB * (ABNORMAL) Protime-INR (06/05/2024) INR 3.30(A) 0.90 - 1.10 EXTERNAL LAB Blood Historical Provider MD LAB BLOOD ORDERABLES Rosa l Result EXTERNAL LAB * (ABNORMAL) Protime-INR (04/23/2024) INR 2.50(A) 0.90 - 1.10 EXTERNAL LAB Blood [facility] Provider MD LAB BLOOD ORDERABLES Rosa l Result EXTERNAL LAB from Last 3 Months Insurance MEDICARE SOLUTIONS MEDICARE SOLUTIONS MEDICARE SOLUTIONS Advance Directives For more information, please contact: [phone] * Full Code (Latest Code Status on File) Date Activated Date Inactivated Comments 12/25/2023 7:14 AM 12/25/2023 3:27 PM * Full Code Date Activated Date Inactivated Comments 07/22/2023 10:16 AM 07/22/2023 4:01 PM Care Teams Lamp Shade Sewer Relationship Specialty Start Date End Date Nate Ocampo MD [address] [address] PCP - General Family Medicine 02/05/19 Fran Roberto MD [address] [facility] [address] [place] [address] Cardiology 11/06/16
--- OUTSIDE RECORDS SUMMARY | 2024-07-09 00:34 | XMS_ITS | Clinical Summary ---
Author Organization [facility] [address] [place] [address] Care Team Providers Care Sand Bobber Name Role Phone Fran Roberto MD Unavailable Nate Ocampo MD Primary Care Provider [phone] Allergies Active Allergy Reactions Criticality Noted Date [...] surgery 06/05/2023 Atrial fibrillation (CMS/HCC) [I48.91] 7 Encounters Date Type Department Care Team Description 06/30/2024 Telephone [facility] Cardiology [address] [place] [address] Fran Roberto MD cardiac clearance 06/24/2024 Anticoagulation Visit [address] [address] Syed Ochoa RN Atrial fibrillation (CMS/HCC) [I48.91] (Primary Dx) 06/10/2024 Documentation [facility] Gastroenterology [address] [place] [address] [address] [place] [address] Miryam Liu, SCHOOL COUNSELOR Patient requested next 2 planned return office visits to be 06/08/2024 Anticoagulation Visit [address] [address] Norah Elliott RN Atrial fibrillation (CMS/HCC) [I48.91] (Primary Dx) 04/23/2024 Anticoagulation Visit [address] [address] Syed Ochoa RN Atrial fibrillation (CMS/HCC) [I48.91] (Primary Dx) from Last 3 Months Surgical History Surgery Date Site/Laterality Comments COLONOSCOPY POLYPECTOMY STOMACH SURGERY COLON SURGERY BRAIN SURGERY aneursym Medical History Medical History Date Comments Hypertension Hypertension Hx Other Medical 1998 CVA hemorrhagic stroke Sleep apnea Sleep Apnea Hyperlipidemia Colon polyp Atrial fibrillation (CMS/HCC) (HCC) Idiopathic parathyroidism (HCC) Stroke (HCC) Family History Medical History Relation Name Comments Heart attack Maternal Grandfather 2 Myoca rdial Infarction; Cause of : Myocardial Infarction Heart attack Maternal Grandmother 2 Myoca rdial Infarction; Cause of : Myocardial Infarction Relation Name Status Comments Maternal Grandfather 1 (Age 50) Maternal Grandfather 2 Maternal Grandmother 1 (Age 52) Maternal Grandmother 2 Social History Tobacco Use Types Packs/Day Years [...] on file Legal Sex Female 1:57 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 Gender Identity Not on file Sexual Orientation Not on file Obstetrics History Last Filed Vital Signs Vital Sign Reading [...] 12/25/2023 7:30 AM CDT Plan of Treatment Health Maintenance Due Date Last Done Comments Cervical Cancer Screening 1965 Colon Cancer Screening-Colonoscopy 1965 Depression Screening 1965 Hepatitis C Screening 1965 Hepatitis B Screening 1981 Regular Well Visit/Exam 18-64 1981 Zoster Vaccine (2 of 2) 05/03/2023 03/08/2023 Covid-19 Vaccine (2023- season) 2024 03/08/2023, 05/01/2022, 05/03/2021, Additional history exists Breast Cancer Screening-Mammogram 07/07/2024 07/07/2023, 04/03/2022, 02/12/2021 DTaP/Tdap/Td Vaccine (4 - Td or Tdap) 01/03/2030 01/04/2020, 03/17/2010, 06/02/2009 Pneumococcal vaccine <65 Aged Out 10/16/2023, 06/03 No longer eligible based on patient's age to complete this topic Influenza Vaccine Completed 04/06/2024, , 04/22/2022, Additional history exists Procedures Procedure Name Priority Date/Time Associated Diagnosis [...] 2.50(A) 0.90 - 1.10 EXTERNAL LAB Blood Historical Provider MD LAB BLOOD ORDERABLES Rosa l Result EXTERNAL LAB from Last 3 Months Insurance MEDICARE SOLUTIONS MEDICARE SOLUTIONS MEDICARE SOLUTIONS Advance Directives For more information, please contact: [phone] * Full Code (Latest Code Status on File) Date Activated Date Inactivated Comments 12/25/2023 7:14 AM 12/25/2023 3:27 PM * Full Code Date Activated Date Inactivated Comments 07/22/2023 10:16 AM 07/22/2023 4:01 PM Care Teams Sand Bobber Relationship Specialty Start Date End Date Nate Ocampo MD [address] [address] PCP - General Family Medicine 02/05/19 Fran Roberto MD [address] [facility] [address] [place] [address] Cardiology 11/06/16
--- OUTSIDE RECORDS SUMMARY | 2024-07-09 00:34 | XMS_ITS | Continuity of Care Document ---
Author Organization [id number] - [facility],[place] Address [address] [place] [address] Phone Care Team Providers Care Balance Wheel Arm Burnisher Name Role Phone Maya Neal Unavailable Unavailable Procedures Procedure Date POSTOP FOLLOW UP VISIT RELATED TO ORIGIN AL PX POSTOP FOLLOW UP VISIT RELATED TO ORIGIN AL PX HOSPITAL INITIAL EM DETAILED/STRFWD OR L OW 30 MINS HOSPITAL SUBSQ EM EXP PROB FOCUS/MODERAT E 25 MINS LAPAROSCOPY GASTRIC RESTRICTIVE PRC RMV DEVC& PORT LAPARSCP RPR PARAESPHGL HRNA INCL FUNDPL STY BIOPSY LIVER NEEDLE DURING OTHR MAJOR CT CSEP Laparoscopy surgicla gastric restrictive procedure INSERT DRUG IMPLANT DEVICE OFFICE/OUTPT EM EST DETAILED/MODERATE 25 MINS OFFICE/OUTPT EM EST DETAILED/MODERATE 25 MINS OFFICE/OUTPT EM EST DETAILED/MODERATE 25 MINS OFFICE/OUTPT EM EST PROB FOCUS/STRFWD 10 MINS UNLISTED PROCEDURE STOMACH UNLISTED PROCEDURE STOMACH OFFICE/OUTPT EM NEW COMPREH/MODERATE 45 MINS Advance Directives Directive Yes / No Effective Date File Name No Information Encounters Encounter Description Practice Location Reason(s) For Visit Diagnoses Date Provider Providers Copied on Encounter [id number] - [facility], [address], [place], [address], [place] tel:[phone] [facility] No Information Geremias Trejo. [address] , [address], [place], [place], [id number], [place]. tel:[phone] Referring Provider: Maya Geremias Acosta, [address], [place], [address] . tel:[phone] [id number] - [facility], [address] [facility] [address], [place], [address], [place] tel:[phone] [facility] No Information Leeroy Allen. [facility], [address] [facility] [address], [place], [place], [address]. tel:[phone] Referring Provider: Alejandro Becerra, [facility] [address] [facility] [address], [place], [address] . tel:[phone] HOSPITAL INITIAL EM DETAILED/STRF WD OR LOW 30 MINS [id number] - [facility], [address] [facility] [address], [place], [address], [place] tel:[phone] PMS Cardiology No Information 5 Aleah Phillips. [address] [facility], [place], [place], [place], [address]. tel:[phone] Referring Provider: Alejandro Becerra, [facility] [address] [facility] [address], [place], [address] . tel:[phone] [id number] - [facility], [address] [facility] [address], [place], [address], [place] tel:[phone] [facility] No Information 5 Leeroy Allen. [facility], [address] [facility] [address], [place], [place], [address]. tel:[phone] Referring Provider: Alejandro Becerra, [facility] [address] [facility] [address], [place], [address] . tel:[phone] [id number] - [facility], [address], [place], [address], [place] tel:[phone] [facility] No Information 5 Leeroy Allen. [facility], [address], [place], [place], [address]. tel:[phone] Referring Provider: Alejandro Becerra, [facility] [address], [place], [address] . tel:[phone] OFFICE/OUTPT EM EST DETAILED/MODE RATE 25 MINS [id number] - [facility], [address], [place], [address], [place] tel:[phone] [facility] No Information 5 Leeroy Alejandro. [facility], [address], [place], [place], [address]. tel:[phone] Referring Provider: Alejandro Becerra, [facility] [address], [place], [address] . tel:[phone] OFFICE/OUTPT EM EST DETAILED/MODE RATE 25 MINS [id number] - [facility], [address], [place], [address], [place] tel:[phone] [facility] No Information 4 Leeroy Allen. [facility], [address], [place], [place], [address]. tel:[phone] Referring Provider: Alejandro Becerra, [facility] [address], [place], [address] . tel:[phone] OFFICE/OUTPT EM EST DETAILED/MODE RATE 25 MINS [id number] - [facility], [address], [place], [address], [place] tel:[phone] [facility] No Information 4 Leeroy Allen. [facility], [address], [place], [place], [address]. tel:[phone] Referring Provider: Alejandro Becerra, [facility] [address], [place], [address] . tel:[phone] OFFICE/OUTPT EM EST PROB FOCUS/STRFWD 10 MINS [id number] - [facility], [address], [place], [address], [place] tel:[phone] [facility] No Information 4 Leeroy Allen. [facility], [address], [place], [place], [address]. tel:[phone] Referring Provider: Alejandro Becerra, [facility] [address] [facility] [address], [place], [address] . tel:[phone] [id number] - [facility], [address], [place], [address], [place] tel:[phone] P[facility] No Information 4 Leeroy Allen. [facility], [address], [place], [place], [address]. tel:[phone] Referring Provider: Alejandro Becerra, [facility] [address] [facility] [address], [place], [address] . tel:[phone] [id number] - [facility], [address], [place], [address], [place] tel:[phone] [facility] No Information 4 Leeroy Allen. [facility], [address], [place], [place], [address]. tel:[phone] Referring Provider: Alejandro Becerra, [facility] [address] [facility] [address], [place], [address] . tel:[phone] OFFICE/OUTPT EM NEW COMPREH/MODER ATE 45 MINS [id number] - [facility], [address], [place], [address], [place] tel:[phone] [facility] No Information 201 4 Leeroy Allen. [facility], [address], [place], [place], [address]. tel:[phone] Referring Provider: Alejandro Becerra, [facility] [address], [place], [address] . tel:[phone] Family History Family Member Type Diagnosis Age At Onset No Information Payers Payer name Insurance type Covered republican ID Authoriza mehreen(s) [place] [id number] Social History Type Description Quantity Date Captured Comments Sex Female Smoking Status No Information Chief Complaint And Reason For Visit No Information Reason For Referral Reason For Referral No Information History Of Present Illness Encounter Date Complaint History Of Prese nt Illness No Information Functional Status Date Functional Assessmen t No Information Instructions Date Instruction Additional Infor mation No Information Assessments Type Assessment Date No Information Patient Care Teams Name Effective Dates (start - stop) Status Members No Information
--- OUTSIDE RECORDS SUMMARY | 2024-07-09 00:34 | XMS_ITS | Clinical Summary ---
Author Organization [facility] Address [facility] [place] [address] Care Team Providers Care Operator Weapon Locating Radar Name Role Phone Nate Ocampo MD Primary Care Provider [phone] Allergies No known active allergies Medications warfarin 6 MG tablet Take 6 mg by mouth Every /// at 5pm. Active warfarin 7.5 MG tabletIndicati ons:Friday and Take 7.5 mg by mouth see administration instructions. Indications: Friday and 0 Active lisinopril 40 MG tablet Take 40 mg by mouth daily. Active metoprolol succinate ER 100 MG 24 hr tablet Take 100 mg by mouth daily. Active aspirin 81 MG chewable tablet Chew 81 mg by mouth daily. Active vitamin B-12 500 MCG tablet Take 500 mcg by mouth daily. Active vitamin D3, cholecalcifero l, 75 MCG (3000 UT) Tab tablet Take 2,000 Units by mouth daily. Active ferrous sulfate, 65 mg elemental, 325 (65 FE) MG tablet Take 27 mg by mouth daily with breakfast. Active baclofen 20 MG tablet Take 20 mg by mouth daily. Active traZODone 50 MG tablet Take 50 mg by mouth nightly at bedtime. Active atorvastatin 10 MG tablet Take 10 mg by mouth nightly at bedtime. Active Family History Medical History Relation Comments COPD Mother Relation Status Comments Mother Social History Tobacco Use Types Packs/Day Years Used Date Smoking Tobacco: Never Smokeless Tobacco: Never Alcohol Use Standard Drinks/Week Comments Yes 0 (1 standard drink = 0.6 oz pur e alcohol) occasional Comments Unknown Sex and Gender Information Value Date Recorded Sex Assigned at Not on file Legal Sex Female 5:13 PM CDT Gender Identity Not on file Sexual Orientation Not on file Last Filed Vital Signs Vital Sign Reading Time Taken Comments Blood Pressure 115/74 12/30/2021 10:30 PM CDT Pulse 69 12/30/2021 10:30 PM CDT Temperature 36.7 C (98 F) 12/30/2021 6:02 PM CDT Respiratory Rate 17 12/30/2021 10:30 PM CDT Oxygen Saturation 98% 12/30/2021 10:30 PM CDT Inhaled Oxygen Concentration - - Weight 108 kg (238 lb) 12/30/2021 6:02 PM CDT Height 167.6 cm (5' 6 ) 12/30/2021 6:02 PM CDT Body Mass Index 38.41 12/30/2021 6:02 PM CDT Plan of Treatment Health Maintenance Due Date Last Done Comments Cervical Cancer Screening Pap Smear (Age 30 to 64) Every 3 Years 1963 Colorectal Cancer Screening Colonoscopy (10 Years) 1963 Annual Physical 1966 Hepatitis C 1981 Cervical Cancer Screening Pap with HPV Testing (Age 30 to 64) Every 5 Years 1993 Cervical Cancer Screening with HPV 1993 Mammogram Screening 2003 Zoster Vaccines (1 of 2) 2013 COVID-19 Vaccine (2023- season) 2024 Influenza Adult (#1) 2024 03/15/2021, 04/17/2020, 03/25/2019, Additional history exists DTaP, Tdap and Td Vaccines (4 - Td or Tdap) 01/03/2030 01/04/2020, 03/17/2010, 03/17/2010 RSV Immunization or 60+ Years (1 - 1-dose 75+ series) 2038 Pneumococcal Vaccine: Pediatrics (0 to 5 Years) and At-Risk Patients (6 to 64 Years) Aged Out 06/22/2018 No longer eligible based on patient's age to complete this topic Meningococcal B Vaccine Aged Out No l onger eligible based on patient's age to complete this topic Meningococcal Vaccine Aged Out No tesfaye anais eligible based on patient's age to complete this topic RSV Immunizations Under 20 Months Aged Out No longer eligible based on patient's age to complete this topic Insurance [facility] Care Teams Operator Weapon Locating Radar Relationship Specialty Start Date End Date Nate Ocampo MD PCP - General FAMILY PRACTICE 01/30/20
--- OUTSIDE RECORDS SUMMARY | 2024-07-09 00:34 | XMS_ITS | Clinical Summary ---
Author Organization [facility] Amber Samano Address [address] [place] [address] Care Team Providers Care Mechanic Foreman Name Role Phone Nate Ocampo MD Primary Care Provider Allergies Active Allergy Reactions Criticality Noted Date Comments Gabapentin Confusion High 05/16/2020 Medications warfarin (COUMADIN) 6 mg tablet every 24 hours. Acti ve metoprolol succinate (TOPROL XL) 100 mg Extended Release 24 hour tablet metoprolol succinate ER 100 mg tablet,extended release 24 hr 02/02/20 19 Active lisinopriL (PRINIVIL) 40 mg tablet lisinopril 40 mg tablet Active Iron Amino Acid [id number] A 27-100-400 mg-mcg-mcg Capsule Take by mouth. Activ e cyanocobalami n (VITAMIN B-12) 500 mcg tablet Take 500 mcg by mouth. Active cholecalcifer ol, Vitamin D3, (VITAMIN D3) 25 mcg (1,000 unit) Capsule every 24 hours. Acti ve baclofen (LIORESAL) 20 mg tablet baclofen 20 mg tablet TAKE 1 TABLET BY MOUTH EVERY 8 HOURS DIRECTED NEEDED. 12/30/19 19 Active aspirin (JANETTE CHEWABLE) 81 mg Tablet, Chewable every 24 hours. Acti ve hydroCHLOROth iazide 25 mg tablet hydrochlorothiazide 25 mg tablet Active ferrous sulfate 325 mg (65 mg iron) tablet Take 27 mg by mouth. 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 Family History Medical History Relation Name Comments Cancer Father Heart Disease Mother Relation Name Status Comments Father Mother Social History Tobacco Use Types Packs/Day Years Used Date Smoking Tobacco: Former Cigarettes 2 20 0 11/22/1977 - 11/22/1997 Smokeless Tobacco: Never Tobacco Cessation:Counseling Given: No Alcohol Use Standard Drinks/Week Comments Yes 0 (1 standard drink = 0.6 oz pur e alcohol) OCCASSIONLLY Comments No Sex and Gender Information Value Date Recorded Sex Assigned at Not on file Legal Sex Female 7:51 AM HUMAN RESOURCES FILE CLERK Gender Identity Not on file Sexual Orientation Not on file Last Filed Vital Signs Vital Sign Reading Time Taken Comments Blood Pressure 154/93 11/23/2019 10:05 AM CDT 1ST BP TAKE 168/101 HR 94 Pulse 86 11/23/2019 10:05 AM CDT Temperature 36.7 C (98.1 F) 11/23/2019 10:05 AM CDT Respiratory Rate - - Oxygen Saturation 97% 11/23/2019 10: 05 AM CDT Inhaled Oxygen Concentration - - Weight 101.6 kg (223 lb 14.4 oz) 05/16/2020 1:42 PM HUMAN RESOURCES FILE CLERK Height 167.6 cm (5' 6 ) 05/16/2020 1:42 PM HUMAN RESOURCES FILE CLERK Body Mass Index 36.14 05/16/2020 1:42 PM HUMAN RESOURCES FILE CLERK Plan of Treatment Health Maintenance Due Date Last Done Comments CERVICAL CANCER SCREENING 1993 BREAST CANCER SCREENING 2003 COLORECTAL SCREENING 2008 Colorectal Cancer Screening 2008 FIT-DNA Q 3 years 2008 FIT/FOBT Q 1 year 2008 Flex Sig/CT Colonography Q 5 years 2008 ZOSTER VACCINE (1 of 2) 2013 INFLUENZA VACCINE (#1) 2024 0, 03/25/2019, 03/09/2018, Additional history exists DTAP/TDAP/TD VACCINES (3 - T d or Tdap) 01/03/2030 01/04/2020, 03/17/2010 RSV VACCINE (60+ or ) (1 - 1-dose 75+ series) 2038 Care Teams Mechanic Foreman Relationship Specialty Start Date End Date Nate Ocampo MD PCP - General Student in an Organized Health Care Education/Training Program 07/05/19
--- OUTSIDE RECORDS SUMMARY | 2024-07-09 00:34 | XMS_ITS | Encounter Summary ---
Author Organization [facility] Healthcare Address [address] [place] [address] Care Team Providers Care Dozer Operator Name Role Phone Fran Roberto MD Unavailable [phone] Nate Ocampo MD Primary Care Provider [phone] Encounter Details Date Type Department Care Team (Late st Contact Info) Description 07/31/2023 Orders Only [facility] [place] Information Management [address] [place] [address] Scanning, Provider Social History Tobacco Use Types Packs/Day Years Used Date Smoking Tobacco: Former Smokeless Tobacco: Never Alcohol Use Standard Drinks/Week Comments Yes 0 (1 standard drink = 0.6 oz pur e alcohol) AUDIT-C Answer Date Recorded Q1: How often do you have a drink containing alc ohol? Monthly or less 07/22/2023 Q2: How many drinks containi ng alcohol do you have on a typical day when you are drinking? 3 or 4 07/22/2023 Q3: How often do you have si x or more drinks on one occasion? Never 07/22/2023 Personal Safety Answer Date Recorded Have you ever been in or are you currently in a harmful physical or emotional relationship or is someone making you feel afraid or unsafe? 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 Gender Identity Not on file Sexual Orientation Not on file documented as of this encounter Plan of Treatment Not on file documented as of this encounter Procedures Procedure Name Priority Date/Time Associated Diagnosis Comments SCAN - LABS 07/31/2023 documented in this encounter Results * SCAN - LABS (07/31/2023) us Provider Scanning Final Result documented in this encounter Visit Diagnoses Not on filedocumented in this encounter Care Teams Dozer Operator Relationship Specialty Start Date End Date Nate Ocampo MD [address] [address] PCP - General Family Medicine 02/05/19 Fran Roberto MD [address] [id number] Cardiology 11/06/16 documented as of this encounter
--- OUTSIDE RECORDS SUMMARY | 2024-07-09 00:34 | XMS_ITS | Encounter Summary ---
Author Organization [facility] Healthcare Address [address] [place] [address] Care Team Providers Care Track Repair Supervisor Name Role Phone Fran Roberto MD Unavailable [phone] Nate Ocampo MD Primary Care Provider [phone] Reason for Visit * Reason Onset Date Comments cardiac clearance 06/30/2024 Encounter Details Date Type Department Care Team (Late st Contact Info) Description 06/30/2024 Telephone [facility] Medical Group Cardiology [address] [place] [address] Fran Roberto MD [address] [place] [address] cardiac clearance Social History Tobacco Use Types Packs/Day Years [...] on file Legal Sex Female 1:57 AM STRATEGIC COMMUNICATIONS MANAGER Gender Identity Not on file Sexual Orientation Not on file documented as of this encounter Miscellaneous Notes * Telephone Encounter - Syed Ochoa RN - 06/30/2024 2:32 PM STRATEGIC COMMUNICATIONS MANAGER Spoke with Ling. Informed that SERGIO is in the [place] office this week and that the clearance has been faxed over to him for his review. TEGIC COMMUNICATIONS MANAGER * Telephone Encounter - Kendy Archuleta - 06/30/2024 2:12 PM CST Inés brothers Archie Endo calling to get a status on the cardiac clearance sent on 06/25. Please advise. Thank you. Contact [phone] TEGIC COMMUNICATIONS MANAGER documented in this encounter Plan of Treatment Not on file documented as of this encounter Visit Diagnoses Not on filedocumented in this encounter Care Teams Track Repair Supervisor Relationship Specialty Start Date End Date Nate Ocampo MD [address] [facility] [address] [place] [address] PCP - General Family Medicine 02/05/19 Fran Roberto MD [address] [address] Cardiology 11/06/16 documented as of this encounter
--- OUTSIDE RECORDS SUMMARY | 2024-07-09 00:34 | XMS_ITS | Continuity of Care Document ---
Author Organization [facility] Address [address] [place] [address] Phone Care Team Providers Care Valve Inspector Name Role Phone Onofre Low Unavailable Unavailable Advance Directives Directive Yes / No Effective Date File Name No Information Encounters Encounter Description Practice Location Reason(s) For Visit Diagnoses Date Provider Providers Copied on Encounter [facility], [address], [place], [place], [address], [place] tel:[phone] [facility] No Information Dec-0 5-200 3 Doisy Edward. [address] , [address], [place], [address], [place]. tel:[phone] Family History Family Member Type Diagnosis Age At Onset No Information Payers Payer name Insurance type Covered democrat ID Authoriza tion(s) No Information Social History Type Description Quantity Date Captured [...]
--- OUTSIDE RECORDS SUMMARY | 2024-07-09 00:34 | XMS_ITS | Encounter Summary ---
Author Organization 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 Gender Identity Not on file Sexual Orientation Not on file documented as of this encounter Plan of Treatment Not on file documented as of this encounter Procedures Procedure Name Priority Date/Time Associated Diagnosis Comments SCAN - LABS 08/18/2023 documented in this encounter Results * SCAN - LABS (08/18/2023) us Provider Scanning Final Result documented in this encounter Visit Diagnoses Not on filedocumented in this encounter Care Teams Terrazzo Mechanic Helper Relationship Specialty Start Date End Date Nate Ocampo MD [address] [address] PCP - General Family Medicine 02/05/19 Fran Roberto MD [address] [facility] [address] [place], [place] [id number] Cardiology 11/06/16 documented as of this encounter
--- OUTSIDE RECORDS SUMMARY | 2024-07-09 00:34 | XMS_ITS | Encounter Summary ---
Author Organization [facility] Address [address] [place] [address] Phone Care Team Providers Care Brim Stretching Machine Operator Name Role Phone Fran Roberto MD Unavailable [phone] Nate Ocampo MD Primary Care Provider [phone] Encounter Details Date Type Department Care Team (Latest Contact Info) Description 08/06/2023 Orders Only [facility] Scanning, Provider Social History Tobacco Use Types [...] on file Legal Sex Female 1:57 AM TRAFFIC I MANAGER Gender Identity Not on file Sexual Orientation Not on file documented as of this encounter Plan of Treatment Not on file documented as of this encounter Procedures Procedure Name Priority Date/Time Associated Diagnosis Comments SCAN - LABS 08/06/2023 documented in this encounter Results * SCAN - LABS (08/06/2023) us Provider Scanning Final Result documented in this encounter Visit Diagnoses Not on filedocumented in this encounter Care Teams Brim Stretching Machine Operator Relationship Specialty Start Date End Date Nate Ocampo MD [address] [address] PCP - General Family Medicine 02/05/19 Fran Roberto MD [address] [facility] [address] [place] [address] Cardiology 11/06/16 documented as of this encounter
--- OUTSIDE RECORDS SUMMARY | 2024-07-09 00:34 | XMS_ITS | Encounter Summary ---
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 Gender Identity Not on file Sexual Orientation Not on file documented as of this encounter Plan of Treatment Not on file documented as of this encounter Procedures Procedure Name Priority Date/Time Associated Diagnosis Comments SCAN - LABS 08/03/2023 documented in this encounter Results * SCAN - LABS (08/03/2023) us Provider Scanning Final Result documented in this encounter Visit Diagnoses Not on filedocumented in this encounter Care Teams Ordnance Keeper Relationship Specialty Start Date End Date Nate Ocampo MD [address] [address] PCP - General Family Medicine 02/05/19 Fran Roberto MD [address] [id number] Cardiology 11/06/16 documented as of this encounter
--- OUTSIDE RECORDS SUMMARY | 2024-07-09 00:35 | XMS_ITS | Data Portability ---
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 Recorded Body height Body mass index (BMI) Body weight Body temperature Systolic blood pressure Diastolic blood pressure Provider Name and Address Organization Details Last Updated DateTime 4 167.64 cm 38.5 kg/m2 891456. 43 g 97.6 [degF] 120 mm[Hg] 76 mm[Hg] Pippa Zamarripa RN [facility] [employer] [facility] 4 09:55:18 Date Recorded Oxygen saturation Oxygen saturation in Arterial blood by Pulse oximetry Heart rate Provider Name and Address Organization Details Last Updated DateTime 05/05/2024 95 % 95 % 90 /min Nate Ocampo MD [address] [place] [address], [address], [facility] [employer] [facility] 05/05/2024 10:48:13 Date Recorded Body height Body mass index (BMI) Body weight Body temperature Oxygen saturation Oxygen saturation in Arterial blood by Pulse oximetry Heart rate Systolic blood pressure Diastolic blood pressure Provider Name and Address Organization Details Last Updated DateTime 5 167.64 cm 39.1 kg/m2 128558. 35 g 97.5 [degF] 98 % 98 % 73 /min 130 mm[Hg] 80 mm[Hg] Pippa Zamarripa RN [facility] [employer] [facility] 5 09:10:29 Social History Question Answer Notes LastModified by Organization Details LastModified Time Tobacco Smoking Status Former Smoker Quin Jaciel segura, [facility] [employer] [facility] 12/12/2022 09:45:18 Do You Have An Advance Directive? Yes Has A Living Will [id number] Information not available 07/31/2022 What Is Your Level Of Alcohol Consumption? Occasional [id number] Information not available 07/31/2022 Do You Wear A Helmet When Biking? No Information not available 12/12/2022 Is Blood Transfusion Acceptable In An Emergency? Yes Information not available 12/12/2022 What Is Your Level Of Caffeine Consumption? Heavy [id number] Information not available 07/31/2022 How Much Tobacco Do You Chew? None [id number] Information not available 07/31/2022 In The 14 Days Before Symptom Onset, Have You Had Close Contact With A Laboratory-confi rmed COVID-19 While That Case Was Ill? No Information not available 12/12/2022 In The 14 Days Before Symptom Onset, Have You Had Close Contact With A Person Who Is Under Investigation For COVID-19 While That Person Was Ill? No Information not available 12/12/2022 What Type Of Diet Are You Following? CARDIAC Baked Food Instead Of Fried [id number] Information not available 07/31/2022 Which Illicit Or Recreational Drugs Have You Used? None Information not available 12/12/2022 Do You Or Have You Ever Used E-cigarettes Or Vape? Never Used Electronic Cigarettes Information not available 12/12/2022 What Is The Highest Grade Or Level Of School You Have Completed Or The Highest Degree You Have Received? [id number] Information not available 12/12/2022 Do You Have An Electrostatic Air Filter? No [email or web address] Information not available 02/25/2024 What Is Your Occupation? Disabled Information not available 12/12/2022 Have There Been Any Changes To Your Family Or Social Situation? No Information not available 12/12/2022 What Is The Fluoride Status Of Your Home? Fluoridated Information not available 12/12/2022 Are There Any Guns Present In Your Home? Yes Information not available 12/12/2022 Do You Have A Humidifier? No [email or web address] Information not available 02/25/2024 Do You Use Insect Repellent Routinely? Yes Information not available 12/12/2022 Where Do You Live? SingleLevelHouse Information not available 12/12/2022 Do You Have A Medical Power Of Supervisory Training Specialist? No Information not available 12/12/2022 Do You Have Moisture Problems In Your Home? No [email or web address] Information not available 02/25/2024 Have You Ever Been Counseled For Unhealthy Alcohol Use? No Information not available 12/12/2022 Do You Have Any Pets? Yes Information not available 12/12/2022 What Is Your Relationship Status? [id number] Information not available 07/31/2022 Do You Use Your Seat Belt Or Car Seat Routinely? Yes Information not available 12/12/2022 Do You Have Smoke And Carbon Monoxide Detectors In Your Home? Yes Information not available 12/12/2022 Are You Passively Exposed To Smoke? No Information not available 12/12/2022 Are There Any Smokers In Your House? No Information not available 12/12/2022 Do You Participate In Social Media? Yes Information not available 12/12/2022 Do You Feel Stressed (tense, Restless, Nervous, Or Anxious, Or Unable To Sleep At Night)? [id number] Information not available 12/12/2022 Do You Use Any Illicit Or Recreational Drugs? No Information not available 12/12/2022 Do You Use Sunscreen Routinely? Yes Information not available 12/12/2022 Has Tobacco Cessation Counseling Been Provided? No [email or web address] Information not available 02/25/2024 Have You Recently Traveled Abroad? No Information not available 12/12/2022 Are You Currently In School? No Information not available 12/12/2022 Do You Have Any Dietary Restrictions? Yes Nothing Fried Information not available 12/12/2022 Do You Or Have You Ever Used Any Other Forms Of Tobacco Or Nicotine? No Information not available 02/25/2024 Sex: Female Functional Status Question Answer Note LastModified by Organizat ion Details LastModified Time What is your exercise level? Occasional [id number] Information not available 07/31/2022 Mental Status None recorded. Family History Relationship Description Onset Age of this Age Resolved Age Notes LastModified by Organization Details LastModified Time Mother Hypertensive disorder [email or web address] Not available 11/30 10:02:10 Mother Diabetes mellitus [email or web address] Not available 11/30 10:02:20 Medical History Condition Response ARTHRITIS Y CANCER: SPECIFY Y USE OF BLOOD THINNERS Y OBESITY Y ANEMIA/BLOOD DISORDER Y BLOOD CLOTS Y ATRIAL FIBRILLATION Y HEART DISEASE/HEART PROBLEMS Y HYPERTENSION Y STROKE/TIA Y Gynecological History Statement/Question Response Date of Last Pap Smear Date of Last Colonoscopy 03/02/2022 Most Recent Mammogram Most Recent Bone Density Obstetrics History GPAL:G 1 P 1 0 0 1 Type Value Full Term 1 Living 1 Total 1 Immunizations Vaccine Type Date Status Note Provider Nam e and Address Organization Details Recorded Time zoster recombinant 3 completed Nate Ocampo MD [address], [address], [place], [address], [facility] [employer] [facility] 05/22/2023 14:18:38 COVID-19, mRNA, LNP-S, PF, alejandro-sucrose, 30 mcg/0.3 mL 3 completed Nate Ocampo MD [address], [address], [place], [address], [facility] [employer] [facility] 05/22/2023 14:18:38 Influenza, split virus, quadrivalent, PF 3 completed Ben Connolly null, [facility] [employer] [facility] 02/12/2023 08:37:56 pneumococcal polysaccharide PPV23 4 completed Ben segura, [facility] [employer] [facility] 10/16/2023 12:10:39 COVID-19, mRNA, LNP-S, bivalent, PF, 30 mcg/0.3 mL dose 2 completed Nate Ocampo MD [address], [address], [place], [address], [facility] [employer] [facility] 05/22/2023 14:18:38 Influenza, split virus, trivalent, preservative 5 completed Nate Ocampo MD [address], [address], [place], [address], [facility] [employer] [facility] 05/22/2023 14:18:38 Influenza, split virus, trivalent, preservative 4 completed Nate Ocampo MD [address], [address], [place], [address], [facility] [employer] [facility] [employer] [facility] 05/22/2023 14:18:38 DTaP 0 completed Nate Ocampo MD [address], [address], [place], [address], [facility] [employer] [facility] [employer] [facility] 05/22/2023 14:18:38 Influenza, split virus, quadrivalent, PF 1 completed Nate Ocampo MD [address], [address], [place], [address], [facility] [employer] [facility] [employer] [facility] 05/22/2023 14:18:38 Influenza, split virus, quadrivalent, PF 0 completed Nate Ocampo MD [address], [address], [place], [address], [facility] [employer] [facility] [employer] [facility] 05/22/2023 14:18:38 Tdap 0 completed Nate Ocampo MD [address], [place], [address], [facility] [employer] [facility] [employer] [facility] 05/22/2023 14:18:38 Influenza, split virus, quadrivalent, PF 9 completed Nate Ocampo MD [address], [place], [address], [facility] [employer] [facility] [employer] [facility] 05/22/2023 14:18:38 pneumococcal polysaccharide PPV23 9 completed Nate Ocampo MD [address], [place], [address], [facility] [employer] [facility] [employer] [facility] 05/22/2023 14:18:38 Influenza, split virus, quadrivalent, PF 8 completed Nate Ocampo MD [address], [place], [address], [facility] [employer] [facility] [employer] [facility] 05/22/2023 14:18:38 Influenza, split virus, quadrivalent, PF 2 completed Nate Ocampo MD [address], [place], [address], [facility] [employer] [facility] [employer] 05/22/2023 14:18:38 COVID-19 IV Non-US Vaccine (COVAXIN) 1 completed Nate Ocampo MD [address] [facility], [address], [place], [address], [facility] [employer] [facility] [employer] [facility] 05/22/2023 14:18:38 COVID-19, mRNA, LNP-S, PF, 30 mcg/0.3 mL dose 1 completed Nate Ocampo MD [address], [address], [place], [address], [facility] [employer] [facility] [employer] 05/22/2023 14:18:38 Influenza, split virus, trivalent, PF 4 completed Pippa Zamarripa RN [facility], [employer] [facility] [employer] 04/06/2024 13:48:16 Past Encounters Encounter ID Performer Location Encounter Start Date Encounter Closed Date Diagnosis/Indication Diagnosis SNOMED-CT Code Diagnosis ICD10 Code Diagnosis Note [id number] [facility] [address] [address] 08/02/2020 00:00:00 08/02/2020 14:46:20 [id number] [facility] [address] [place] [address] 09/25/2020 00:00:00 09/25/2020 17:38:59 [id number] [facility] [address] [address] 11/01/2020 00:00:00 11/01/2020 17:58:41 [id number] [facility] [address] [address] 01/03/2021 00:00:00 01/03/2021 17:59:56 [id number] [facility] [address] [address] 01/09/2021 00:00:00 01/09/2021 17:47:59 [id number] [facility] [address] [place] [address] 03/15/2021 00:00:00 03/15/2021 14:08:21 [id number] [facility] [address] [place] [address] 04/11/2021 00:00:00 04/11/2021 11:07:42 [id number] [facility] [address] [place] [address] 08/08/2021 00:00:00 08/08/2021 11:00:14 [id number] [facility] [address] [place] [address] 09/19/2021 00:00:00 09/19/2021 11:10:10 [id number] [facility] [address] [place] [address] 11/21/2021 00:00:00 11/21/2021 11:04:06 [id number] [facility] [address] [place] [address] 01/01/2022 00:00:00 01/01/2022 15:03:37 [id number] [facility] [address] [place] [address] 01/16/2022 00:00:00 01/16/2022 11:02:11 [id number] [facility] [address] [place] [address] 02/07/2022 00:00:00 02/07/2022 12:43:29 [id number] [facility] [address] [place] [address] 04/22/2022 00:00:00 04/22/2022 17:46:35 [id number] [facility] [address] [place] [address] 05/02/2022 00:00:00 05/02/2022 14:04:[id number] [address] 05/14/2022 00:00:00 05/14/2022 16:18:40 [id number] Nate Ocampo MD [address] [address] 08/12/2022 10:00:13 08/12/2022 10:32:54 Chronic back pain 261336423 G89.29 Gouty arthropathy 421258 008 M10.09 Hypertensive disorder 38 899144 I10 Obesity 815683793 E66.9 Hypokalemia 90208979 E87 .6 [id number] Nate Ocampo MD [address] [address] 11/11/2022 09:54:09 11/11/2022 10:21:30 Hypertensive disorder 11288426 I10 Chronic back pain 753466 002 G89.29 Gouty arthropathy 930432 008 M10.09 Obesity 454790570 E66.9 Hypokalemia 28678331 E87 .6 Pain of bi lateral knee joints 6763459752 75692 M25.561 Coronary arteriosclerosis 99763468 I25.10 Cerebrovas cular accident 686239407 I63.9 Atrial fibrillation 4943 6004 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 69918365 M47.817 [id number] Nate Ocampo MD [address] [address] 12/04/2022 09:37:02 12/04/2022 10:00:59 Hypertensive disorder 30084402 I10 Chronic back pain 550254 002 G89.29 Gouty arthropathy 794981 008 M10.09 Obesity 777502638 E66.9 Hypokalemia 28144381 E87 .6 Pain of bi lateral knee joints 1797127449 96231 M25.561 Coronary arteriosclerosis 90874698 I25.10 Cerebrovas cular accident 136492822 I63.9 Atrial fibrillation 4943 6004 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 58083983 M47.817 [id number] Johny Jimenez MD [facility] [address] [place] [address] 12/12/2022 09:43:06 12/12/2022 11:07:55 Pain of bilateral knee joints 3365811664 64874 M25.561 M25.562 [id number] Nate Ocampo MD [address] [address] 01/20/2023 09:47:58 01/20/2023 10:19:26 Pain of bilateral knee joints 6739483187 05634 M25.561 Hypertensive disorder 38 870889 I10 Chronic back pain 673321 002 G89.29 Gouty arthropathy 488563 008 M10.09 Obesity 611499025 E66.9 Hypokalemia 25612998 E87 .6 Coronary arteriosclerosis 80028941 I25.10 Cerebrovas cular accident 341335201 I63.9 Atrial fibrillation 4943 6004 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 45628556 M47.817 Vitamin D deficiency 347 07600 E55.9 [id number] Nate Ocampo MD [address] [address] 02/11/2023 09:48:02 02/11/2023 10:30:18 Pain of bilateral knee joints 5173235721 57611 M25.561 Hypertensive disorder 38 489150 I10 Chronic back pain 111734 002 G89.29 Gouty arthropathy 191534 008 M10.09 Obesity 199558628 E66.9 Hypokalemia 64502765 E87 .6 Coronary arteriosclerosis 95896875 I25.10 Cerebrovas cular accident 916391453 I63.9 Atrial fibrillation 4943 6004 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 01699025 M47.817 Vitamin D deficiency 347 76356 E55.9 Microscopic hematuria 19 2792453 R31.29 Administra tion of influenza vaccine 69384431 Z23 Idiopathic hypercalcemia 698283705 E83.52 [id number] Nate Ocampo MD [address] [place] [address] 03/18/2023 10:50:11 03/18/2023 12:22:03 Pain of bilateral knee joints 8721615165 32911 M25.561 Hypertensive disorder 38 994691 I10 Chronic back pain 477884 002 G89.29 Gouty arthropathy 770405 008 M10.09 Obesity 972865420 E66.9 Hypokalemia 92239964 E87 .6 Coronary arteriosclerosis 53752094 I25.10 Cerebrovas cular accident 013001202 I63.9 Atrial fibrillation 4943 6004 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 72963538 M47.817 Microscopic hematuria 19 1895577 R31.29 Idiopathic hypercalcemia 391048545 E83.52 Screening mammography 24 932154 Z12.31 [id number] Nate Ocampo MD [address] [address] 05/22/2023 14:00:29 05/22/2023 14:32:13 Sensation of irritation of eye proper 259456653 H57.89 Lt Blephariti s of left eyelid 6892172234 95975 H01.725 [id number] Nate Ocampo MD [address] [address] 06/18/2023 10:45:06 06/18/2023 11:19:30 Microscopic hematuria 923538244 R31.29 Pain of bi lateral knee joints 2911095199 68576 M25.561 Hypertensive disorder 38 887576 I10 Chronic back pain 564992 002 G89.29 Gouty arthropathy 712866 008 M10.09 Obesity 188077095 E66.9 Hypokalemia 77633413 E87 .6 Coronary arteriosclerosis 10017927 I25.10 Cerebrovas cular accident 653312089 I63.9 Atrial fibrillation 4943 6004 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 09267459 M47.817 Idiopathic hypercalcemia 553212377 E83.52 Sleep apnea 97367622 G47 .30 [id number] Nate Ocampo MD [address] [place] [address] 08/11/2023 15:42:07 08/11/2023 16:10:05 Chronic thoracic back pain 9419518741 92590 M54.6 Rib pain 806926504 R07.8 1 Rt Obesity 129018421 E66.9 [id number] Nate Ocampo MD [address] [address] 10/16/2023 10:44:47 10/16/2023 11:12:38 Hypertensive disorder 96876076 I10 Microscopic hematuria 19 7489633 R31.29 Pain of bi lateral knee joints 3960650558 58082 M25.561 Chronic back pain 357844 002 G89.29 Gouty arthropathy 516451 008 M10.09 Obesity 506741298 E66.9 Hypokalemia 36910528 E87 .6 Coronary arteriosclerosis 41539787 I25.10 Cerebrovas cular accident 384813208 I63.9 Atrial fibrillation 4943 6004 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 48669647 M47.817 Idiopathic hypercalcemia 502329346 E83.52 Sleep apnea 45057708 G47 .30 Screening for osteoporosis 633177120 Z13.820 Active or passive immunization 476060735 Z23 Osteoporosis 71470335 M8 1.0 [id number] Nate Ocampo MD [address] [address] 01/21/2024 08:51:52 01/21/2024 09:42:40 Gouty arthropathy 392142345 M10.09 Pain of bi lateral knee joints 2588742448 06085 M25.561 Hypertensive disorder 38 169948 I10 Microscopic hematuria 19 6155067 R31.29 Chronic back pain 190517 002 G89.29 Obesity 381956886 E66.9 Hypokalemia 41527327 E87 .6 Coronary arteriosclerosis 03550967 I25.10 Cerebrovas cular accident 059135291 I63.9 Atrial fibrillation 4943 6004 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 69359332 M47.817 Idiopathic hypercalcemia 995546107 E83.52 Sleep apnea 33083454 G47 .30 Osteopenia 746398364 M85 .80 Thyroid nodule 425613593 E04.1 [id number] Nate Ocampo MD [address] [address] 02/10/2024 08:46:29 02/10/2024 09:25:42 Hypertensive disorder 47255034 I10 Chronic back pain 074509 002 G89.29 Gouty arthropathy 608147 008 M10.09 Pain of bi lateral knee joints 9035916018 74770 M25.561 Microscopic hematuria 19 9268607 R31.29 Obesity 552699041 E66.9 Hypokalemia 15903192 E87 .6 Coronary arteriosclerosis 66802298 I25.10 Cerebrovas cular accident 186207466 I63.9 Atrial fibrillation 4943 6004 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 00205549 M47.817 Idiopathic hypercalcemia 119701745 E83.52 Sleep apnea 51265155 G47 .30 Osteopenia 681490170 M85 .80 Thyroid nodule 580202824 E04.1 [id number] Nate Ocampo MD [address] [address] 02/17/2024 13:59:36 02/17/2024 14:53:09 Gouty arthropathy 589467069 M10.09 Hypertensive disorder 38 376823 I10 Chronic back pain 108494 002 G89.29 Pain of bi lateral knee joints 1398976063 46450 M25.561 Microscopic hematuria 19 8437325 R31.29 Obesity 447449897 E66.9 Hypokalemia 43961426 E87 .6 Coronary arteriosclerosis 04809913 I25.10 Cerebrovas cular accident 540679255 I63.9 Atrial fibrillation 4943 6004 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 95448843 M47.817 Idiopathic hypercalcemia 102297054 E83.52 Sleep apnea 35325151 G47 .30 Osteopenia 336389430 M85 .80 Thyroid nodule 771454659 E04.1 [id number] Niya Egan NP [facility] [address], [address] [address] 02/25/2024 11:16:31 02/26/2024 14:52:04 Obstructive sleep apnea syndrome 41491602 G47.33 G47.37 Patient has Airsense 11-since 07/2022, [facility] with use of greater than 4 hoursPAP is set at 7 cm U0DXxjm/sl eep study while on PAP reviewed-s he benefits from CPAPAHI was 9.7 with Central apnea of 2.1-will change setting to auto 7 to 15 cm B2K-btvaud s made today-will follow-up in 1 monthCongertrude chaidez 100% compliance with all sleepFollo w with Primary for labsDiscus sed sleep hygeineAdv ised good sleep habits and patterns:- Set a goal for at least 7 to 8 hours of sleep time per day-Use the bed mainly for sleep and to go to bed only when tired. If unable to fall asleep after 30 minutes, patient should get out of bed but should not engage in any activity that requires sustained mental alertness. -Maintain a regular bedtime and wake-up time even on weekends or day off of work.-Avoi d excessive naps during the daytime. If a nap is necessary, limit to no more than 30 minutes.-M inimize enviroment al noise, bright lights, and extremitie s in bedroom temperatur es.-Avoid alcohol, caffeinate d beverages, and nicotine products for at least 6 hours prior to bedtime.-A void strenuous exercise and large meals for at least 4 hours prior to bedtime.-D iscussed reportable signs and symptoms of concernRec ommend new machine at 5 year sue, plans to repeat home sleep study as needed with changes in condition. Body mass index 30+ - obesity 002329333 Z68.39 Encourage healthy diet and exercise to improve weightdisc ussed weight effect on sleep and sleep apnea [id number] ERNESTINA [facility] [address], [address] [address] 03/25/2024 09:10:32 03/25/2024 11:57:00 Obstructive sleep apnea syndrome 37674002 G47.33 G47.37 ESS-2Patie nt has Airsense 11-since own load shows 100% compliance with use of greater than 4 hoursPAP is set at 7-15 cm W1MHglo/sl eep study while on PAP reviewed-s he benefits from CPAPAHI was 4.9-will continue setting to auto 7 to 15 cm S0OLsjywgv benefits from CPAPContin ue 100% compliance with all sleepFollo w with Primary for labsDiscus sed sleep hygeineAdv ised good sleep habits and patterns:- Set a goal for at least 7 to 8 hours of sleep time per day-Use the bed mainly for sleep and to go to bed only when tired. If unable to fall asleep after 30 minutes, patient should get out of bed but should not engage in any activity that requires sustained mental alertness. -Maintain a regular bedtime and wake-up time even on weekends or day off of work.-Avoi d excessive naps during the daytime. If a nap is necessary, limit to no more than 30 minutes.-M inimize enviroment al noise, bright lights, and extremitie s in bedroom temperatur es.-Avoid alcohol, caffeinate d beverages, and nicotine products for at least 6 hours prior to bedtime.-A void strenuous exercise and large meals for at least 4 hours prior to bedtime.-D iscussed reportable signs and symptoms of concernRec ommend new machine at 5 year sue, plans to repeat home sleep study as needed with changes in condition. Follow-up in one year-soone r if any new concerns or issues discussed [id number] Nate Ocampo MD [facility] [address] [place] [address] 04/06/2024 10:57:10 04/06/2024 12:06:57 Cyst of neck [id number] R22.1 Rt Administra tion of influenza vaccine 12484002 Z23 Thyroid nodule 183604490 E04.1 History of parathyroidectomy 8813255487 99199 Z90.89 Advised pt to contact her ENT about this too. [id number] Nate Ocampo MD [address] [place] [address] 04/15/2024 11:50:10 04/15/2024 12:11:23 Cyst of neck 791293000 R22.1 Rt Thyroid nodule 879346590 E04.1 B/L History of parathyroidectomy 2549194704 16433 Z90.89 [id number] Nate Ocampo MD [address] [address] 05/05/2024 09:44:31 05/05/2024 10:19:52 Pain of right knee joint 4544766717 38524 M25.561 Use OTC knee sleeve as directed prn. Pain in ri ght lower limb 581768793 M79.604 Obesity 149660279 E66.9 [id number] Nate Ocampo MD [facility]_[address] [address] 06/29/2024 08:56:30 06/29/2024 09:20:49 Sleep apnea 30202410 G47.30 Gouty arthropathy 146824 008 M10.09 Hypertensive disorder 38 280733 I10 Chronic back pain 548480 002 G89.29 Pain of bi lateral knee joints 1233769952 53654 M25.561 Microscopic hematuria 19 8231906 R31.29 Obesity 173610083 E66.9 Hypokalemia 14157170 E87 .6 Coronary arteriosclerosis 31655163 I25.10 Cerebrovas cular accident 594465242 I63.9 Atrial fibrillation 4943 6004 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 38899311 M47.817 Idiopathic hypercalcemia 593280148 E83.52 Osteopenia 293824238 M85 .80 Thyroid nodule 385407650 E04.1 B/L Screening mammography 24 122707 Z12.31 Health Concerns Section Related Observation LastModified by Organization Detai ls LastModified Time None Recorded Concern Status LastModified by Organization Details LastModified Time None Recorded Advance Directives Directive Y: has a living will Payers Encounter Date Sequence Insurance Name Policy Number Policy Leija Covered Member ID Leija Member ID Guarantor Name 03/25/2024 1 [employer] (MEDICARE REPLACEMENT/A DVANTAGE - HMO) [id number] Ana Laura Williamson [id number] Ana Laura Williamson 04/06/2024 1 [facility] (MEDICARE REPLACEMENT/A DVANTAGE - HMO) [id number] Ana Laura Williamson [id number] Ana Laura Williamson 04/15/2024 1 [facility] (MEDICARE REPLACEMENT/A DVANTAGE - HMO) [id number] Ana Laura Kingthomas [id number] Ana Laura Williamson 05/05/2024 1 [facility] (MEDICARE REPLACEMENT/A DVANTAGE - HMO) [id number] Ana Laura Williamson [id number] Ana Laura Williamson 06/29/2024 1 [facility] (MEDICARE REPLACEMENT/A DVANTAGE - HMO) [id number] Ana Laura Kingthomas [id number] Ana Laura Williamson Notes Date Note Type Note Provider Name and Address Organization Details Recorded Time text/html Sleep ProblemsReported bypatient.Hand Dominance:left General Sleep:not sleepy during the day (daytime somnolence); 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;snoring;sleep apnea;witnessed apnea;insomnia: awakening in the middle of the night; naps Onset/Timing:improved with CPAP Severity:does not interfere with daily activities; no drowsiness while driving; drowsiness not affecting work Quality:no loud snoring; no gasping for air; no hyponasal speech; no frequent breathing through the mouth; improving (with CPAP) Location of sleep apnea:no enlarged tonsils; no nasal passage blockage; no throat pain; no feeling of tightness in throat; no dryness of mouth; no chest congestion; mallampati 3 Narcolepsy Symptoms:no cataplexy Prescribed sleep medications:not taking medication to help sleep CPAP:uses CPAP every night Associated Symptoms:no sleep problems; no hypertension; no history of stroke; no heart disease; no automobile accidents as a result of sleepiness; no increased motor activity at night; does not act out dreams; no history of sleep disorder; no family history of sleep disorder; no restless leg symptoms; good sleep hygiene;hypertension;his tory of stroke;heart disease; epworth sleepiness scale total score (6)Notes:last visit [facility] 9.7-made adjustments to 7-15cm L6H-mew notes she feels her sleep is even better and more energy since changes Niya Egan NP [address], [address], [place], [address], [employer] [facility] [employer] 03/25/2024 09:48:06 4 text/html ACV: C/o Rt anterior lower neck area lump for last 2 days. Since today morning, its getting smaller. Denies any neck trauma. No sore throat/congestion/swallo wing issue/sob/fever/chills. Pt has h/o thyroid nodules and 1 of her parathyroid gland was removed several years ago. Pt was seeing ENT for this, but has not seen them for last few yrs. Pt wants flushot today. No other concern. Nate Ocampo MD [address], [facility] [address], [place], [address], [employer] [facility] [employer] 04/06/2024 11:48:31 4 text/html Pt is here for f/u on her US. Feeling overall better. Denies any new concern. C/o Rt anterior lower neck area lump for last 2 days. Since today morning, its getting smaller. Denies any neck trauma. No sore throat/congestion/swallo wing issue/sob/fever/chills. Pt has h/o thyroid nodules and 1 of her parathyroid gland was removed several years ago. Pt was seeing ENT for this, but has not seen them for last few yrs. Nate Ocampo MD [address] [facility] [address], [place], [address], [employer] 04/15/2024 12:11:08 4 text/html ACV: C/o Rt lower knee area clicking sound when she walks, started couple days ago. Denies any fall/trauma/injury. Denies any pain with walking/wt bearing. No other concern. Nate Ocampo MD [address], [facility] [address], [place], [address], [employer] [facility] [employer] 05/05/2024 10:50:49 5 text/html Pt is here for f/u on her x-rays, meds and chronic conditions. Doing overall better. Denies any problem with meds. Denies any new concern. Pt is f/u with Wt loss clinic at [place] and got the revision surgery done with them in 12/23. Pt is f/u with Pain clinic at [place] for her chronic back pain and got 2 rounds of epidural shots with them. Pt will be seeing Neurosurgeon by them. Still c/o chronic low back pain as before. Denies any fall/trauma. No incontinence. Pt got s/e from Gabapentin in the past. Lyrica is too costly for pt.Pt has talked with her Endo and ENT about her thyroid nodule and hyperparathyroidism and nothing extra to be done as per them.Pt is f/u with Endo and had biopsy of her thyroid nodule done and it came back benign as per pt.Pt is f/u with colorectal surgeon at [place] and got about 2 feet of her colon removed. Doing overall well with it.Pt says her Insomnia is improved now. She is able to sleep about 6-7 hrs per night.Pt has b/l kidney stones and is f/u with Uro at [place].Pt is on Coumadin by her Cardio and they are managing its dose and f/u on INR results. Nate Ocampo MD [address] [place] [address], [place] [address], [place], [address], [place] [facility] [employer] 06/29/2024 09:19:32 OBGyn Episode No OBEpisode recorded.
[2024-07-09 10:10] VITALS: BP 140/99; PULSE 87; RESP 20; TEMP 36.6; O2SAT 100; BMI 38.5
--- NOTE | 2024-07-09 10:33 | SUR.PREOP ---
Notified of patient having cabbage yesterday at 1100, dr will proceed with procedure
--- NOTE | 2024-07-09 10:36 | PM.IMHP ---
H&P: [facility] History of Present Illness Date/Time: 07/09/24 10:36 Chief Complaint: history of malignant polyp Narrative: Pt had sigmoid colectomy with anastomosis distal descending colon to rectum on 06/18/19. 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 She is here for her 3 year interval colonoscopy. Review of Systems Review of Systems: All systems reviewed & are unremarkable except as noted in HPI and below PMFSH Past Medical History Medical History Afib Brain aneurysm X2 with repair CVA (cerebral vascular accident) X2 History of stroke x2 History of thyroid disease Hyperparathyroidism Hypertension AMMON (obstructive sleep apnea) Surgical History Surgical History H/O lithotripsy H/O rectal polypectomy History of colonoscopy History of parathyroidectomy Hx of laparoscopic gastric banding S/P left hemicolectomy Family History Family History Father Lung cancer Mother COPD (chronic obstructive pulmonary disease) Diabetes mellitus Hypertension High cholesterol Unknown Diabetes mellitus Heart disease Cancer Hypertension Social History Social History (Updated 05/06/24 @ 10:00 by Mireya Mao CMA) Social History: The patient is . She has 1 daughter. She is disabled. She desires to be a full code. The daughters durable power workers compensation defense attorney for healthcare. Smoking status: Never smoker Tobacco type: cigarettes Smoking end date: 01/31/98 Alcohol intake: current Drinks per week: 5 Alcohol use details: beer socially Substance use: never Do You Feel Safe in your Home?: Yes Lack of Transportation: No Lack of Food: Never True Current Housing: I Have Housing Concerned About Future Housing: No Difficulty Paying Gas/Electric Bills: No Difficulty Paying for Meds: No Currently Unemployed: No Education: Associate Degree Difficulty w/ Childcare or Family Care: No Living arrangements: alone Occupation/Education: other Gender identity (if verbalized by the patient): Female Spiritual care concerns: No Meds Home Medications and Allergies Home Medications ?Medication ?Instructions ?Recorded ?Confirmed ?Type lisinopril 20 mg tablet 10 mg PO DAILY 04/20/19 07/09/24 History metoprolol succinate 100 mg 100 mg PO DAILY 04/20/19 07/09/24 History tablet,extended release 24 hr aspirin 81 mg tablet,delayed 81 mg PO DAILY 04/23/19 07/09/24 History release (Aspir-) cholecalciferol (vitamin D3) 50 2,000 unit PO DAILY 06/07/19 07/09/24 History mcg (2,000 unit) tablet cyanocobalamin (vitamin B-12) 500 500 mcg PO DAILY 06/07/19 07/09/24 History mcg tablet ferrous sulfate 27 mg iron tablet 27 mg PO DAILY 06/07/19 07/09/24 History baclofen 20 mg tablet 20 mg PO DAILY 10/19/20 11/28/21 History trazodone 100 mg tablet 200 mg PO PRN PRN Sleep 11/16/21 07/02/24 History warfarin 7.5 mg tablet 7.5 tablet PO 6XW 11/16/21 07/09/24 History allopurinol 100 mg tablet 100 mg PO DAILY 05/06/24 07/09/24 History atorvastatin 10 mg tablet 10 mg PO DAILY 05/06/24 07/09/24 History flaxseed oil 1,000 mg capsule 1,000 mg PO DAILY 05/06/24 History meloxicam 7.5 mg tablet 7.5 mg PO DAILY 05/06/24 07/02/24 History lxezbawychpq-mniuhyck-ahsslr tablet 1 tablet PO DAILY 05/06/24 07/09/24 History omega-3s 300 mu-ltg-gke-other 2 cap PO DAILY 05/06/24 07/09/24 History aidar6j-wtli oil 1,000 mg capsule (Slater-3 Fish Oil) potassium chloride 10 mEq 10 meq PO DAILY 05/06/24 07/09/24 History tablet,extended release(part/cryst) Allergies Allergy/AdvReac Type Severity Reaction Status Date / Time No Known Allergies Allergy Verified 07/09/24 10:20 Vital Signs Vital Signs - 24 hr 07/09/24 10:10 Temperature 97.9 F Pulse Rate 87 Respiratory Rate 20 Blood Pressure 140/99 H Pulse Oximetry 100 Oxygen Delivery Room Air Exam Const: General: cooperative and healthy appearing Resp: Effort & Inspection: normal respiratory effort and able to speak in complete sentences Auscultation: clear to auscultation bilaterally Cardio: Rate: regular rate Rhythm: regular rhythm GI: Inspection: normal to inspection GI Palp: No No hepatosplenomegaly present Auscultation: normal bowel sounds Rectal Exam: deferred Skin: General skin exam: normal color Psych: Appearance: grossly normal Mental Status: mental status grossly normal Assessment and Plan Assessment and plan (1) High grade dysplasia in colonic adenoma: Code(s): D12.6 - Benign neoplasm of colon, unspecified Status: Chronic Assessment and Plan: The patient is deemed a good candidate for the procedure. Consent signed. Will proceed.
[2024-07-09] MEDS: LACTATED RINGERS 1,000 ML 150 ML IV CONT (10:52)
--- NOTE | 2024-07-09 11:23 | WPDANESEPPF ---
Anes - Initial Pre Proc Eval Procedure: Operation Date: 07/09/24 11:00 Proposed Procedures p Colonoscopy - Michael Rosen MD Date/Time: 07/09/24 11:23 Surgeon: Michael Rosen MD Pre Op Diagnosis: Personal history of other malignant neoplasm Patient Data Age: 59 Gender: F Height: 1.68 m Weight: 108.2 kg Last Vital Signs Temp 36.6 C 07/09/24 10:10 Pulse 87 07/09/24 10:10 Resp 20 07/09/24 10:10 BP 140/99 H 07/09/24 10:10 Pulse Ox 100 07/09/24 10:10 O2 Del Method Room Air 07/09/24 10:10 Allergies Allergy/AdvReac Type Severity Reaction Status Date / Time No Known Allergies Allergy Verified 07/09/24 10:20 Home Medications ?Medication ?Instructions ?Recorded ?Confirmed ?Type lisinopril 20 mg tablet 10 mg PO DAILY 04/20/19 07/09/24 History metoprolol succinate 100 mg 100 mg PO DAILY 04/20/19 07/09/24 History tablet,extended release 24 hr aspirin 81 mg tablet,delayed 81 mg PO DAILY 04/23/19 07/09/24 History release (Aspir-) cholecalciferol (vitamin D3) 50 2,000 unit PO DAILY 06/07/19 07/09/24 History mcg (2,000 unit) tablet cyanocobalamin (vitamin B-12) 500 500 mcg PO DAILY 06/07/19 07/09/24 History mcg tablet ferrous sulfate 27 mg iron tablet 27 mg PO DAILY 06/07/19 07/09/24 History baclofen 20 mg tablet 20 mg PO DAILY 10/19/20 11/28/21 History trazodone 100 mg tablet 200 mg PO PRN PRN Sleep 11/16/21 07/02/24 History warfarin 7.5 mg tablet 7.5 tablet PO 6XW 11/16/21 07/09/24 History allopurinol 100 mg tablet 100 mg PO DAILY 05/06/24 07/09/24 History atorvastatin 10 mg tablet 10 mg PO DAILY 05/06/24 07/09/24 History flaxseed oil 1,000 mg capsule 1,000 mg PO DAILY 05/06/24 History meloxicam 7.5 mg tablet 7.5 mg PO DAILY 05/06/24 07/02/24 History wwgtyygjhtpc-povfxgxa-fffbng tablet 1 tablet PO DAILY 05/06/24 07/09/24 History omega-3s 300 kp-hxh-eex-other 2 cap PO DAILY 05/06/24 07/09/24 History tmles7s-niag oil 1,000 mg capsule (Lincoln-3 Fish Oil) potassium chloride 10 mEq 10 meq PO DAILY 05/06/24 07/09/24 History tablet,extended release(part/cryst) Patient hx anesthesia problems: none Family hx anesthesia problems: none Results Review: All pre-operative results and documents have been reviewed as part of the pre-operative evaluation. [facility] Past Medical History Medical History Hyperparathyroidism History of thyroid disease History of stroke x2 Brain aneurysm X2 with repair AMMON (obstructive sleep apnea) Hypertension CVA (cerebral vascular accident) X2 Afib Surgical History Surgical History Hx of laparoscopic gastric banding H/O lithotripsy History of parathyroidectomy H/O rectal polypectomy S/P left hemicolectomy History of colonoscopy Family History Family History Father Lung cancer Mother COPD (chronic obstructive pulmonary disease) Diabetes mellitus Hypertension High cholesterol Unknown Diabetes mellitus Heart disease Cancer Hypertension Social History Social History Social History: The patient is . She has 1 daughter. She is disabled. She desires to be a full code. The daughters durable power patent prosecution attorney for healthcare. Smoking status: Never smoker Tobacco type: cigarettes Smoking end date: 01/31/98 Alcohol intake: current Drinks per week: 5 Alcohol use details: beer socially Substance use: never Do You Feel Safe in your Home?: Yes Lack of Transportation: No Lack of Food: Never True Current Housing: I Have Housing Concerned About Future Housing: No Difficulty Paying Gas/Electric Bills: No Difficulty Paying for Meds: No Currently Unemployed: No Education: Associate Degree Difficulty w/ Childcare or Family Care: No Living arrangements: alone Occupation/Education: other Gender identity (if verbalized by the patient): Female Spiritual care concerns: No Anes - Eval Final PreProcedure Day of Procedure 07/09/24 11:23 Patient weight: obese Heart: regular rate and rhythm Lungs: clear to auscultation Airway: Mallampati scale class III Neurological: alert and oriented Last oral intake: >/= 8 hours ASA classification: IV Emergent: no Anesthetic plan: proceed Anesthesia type and monitoring: general GIVS and standard monitoring Results Review: All pre-operative results and documents have been reviewed as part of the pre-operative evaluation. Informed Consent: The patient's anesthetic plan and its attendant risks and benefits were discussed with the patient/family/POA. Questions were solicited and answers provided to the satisfaction of the patient/family/POA.
[2024-07-09 11:52] VITALS: BP 101/62; PULSE 86; RESP 21; O2SAT 99
[2024-07-09 12:02] VITALS: BP 122/65; PULSE 91; RESP 20; O2SAT 100
[2024-07-09 12:12] VITALS: BP 132/91; PULSE 84; RESP 20; O2SAT 100
== END 2024-07-09 12:32 | disposition home or self-care (01) ==
PROVIDERS: PCP Family Medicine; Referring Provider Internal Medicine Gastroenterology; Visit Provider Internal Medicine Gastroenterology
PROC: 0DJD8ZZ Inspection of Lower Intestinal Tract, Via Natural or Artificial Opening Endoscopic (ICD-10-PCS; CPT 45378; principal; 2024-07-09 11:00)
DX: Z08 Encounter for follow-up examination after completed treatment for malignant neoplasm (principal); D12.2 Benign neoplasm of ascending colon; Z90.49 Acquired absence of other specified parts of digestive tract; Z98.0 Intestinal bypass and anastomosis status; Z85.038 Personal history of other malignant neoplasm of large intestine; E66.9 Obesity, unspecified; Z68.38 Body mass index [BMI] 38.0-38.9, adult
CPT/HCPCS: 45385; 88305; J2003; J2704; J7120

== ENCOUNTER 2024-09-01 13:27 | Outpatient (CLI) | payer MEDICARE, SELFPAY ==
--- NOTE | ~2024-09-01 | MM_ITS ---
EXAMINATION: MM screening jeanne BI w mey HISTORY: Screening TECHNIQUE: Craniocaudal and mediolateral oblique 3-D tomosynthesis images were obtained and synthetic 2-D images were generated. CAD analysis was submitted and interpreted. COMPARISON: Comparison to multiple prior studies sequentially, with oldest reviewed study dated 11/2017. BREAST PARENCHYMAL COMPOSITION: Not dense: There are scattered areas of fibroglandular density. FINDINGS: There is no evidence of suspicious mass, calcification, or architectural distortion to sugg est malignancy in either breast. There has been no suspicious interval change. IMPRESSION: 1. No mammographic evidence of malignancy. 2. Recommend routine screening mammography in one year. BI-RADS Category 1: Negative Reviewed, dictated and finalized at location A.
== END 2024-09-01 13:28 | disposition home or self-care (01) ==
LOC: MICIMG 13:27
PROVIDERS: PCP Family Medicine; Visit Provider Family Medicine
DX: Z12.31 Encounter for screening mammogram for malignant neoplasm of breast (principal)
CPT/HCPCS: 77063; 77067

== ENCOUNTER 2024-10-14 10:47 | Outpatient (CLI) | payer MEDICARE, SELFPAY ==
--- NOTE | ~2024-10-14 | XR_ITS ---
XR abdomen/kub 1V 10/14/2024 11:05 Indication: Ureteral stone Procedure: KUB Comparison: 05/13/2019 Findings: There are bilateral renal stones, largest in the lower pole the right kidney measuring 8 mm . There are left pelvic phleboliths. Bowel gas pattern nonobstructive. There are surgical changes in the epigastric region. Moderate lumbar spondylosis. Mild osteoarthritis of the hips. Impression: 1: Bilateral nephrolithiasis. Reviewed, dictated and finalized at location A. Impression: 1: Bilateral nephrolithiasis.
--- OUTSIDE RECORDS SUMMARY | 2024-10-14 10:53 | XMS_ITS | Clinical Summary ---
Author Organization [facility] Amber Samano Address [address] [place] [address] Care Team Providers Care Larriman Name Role Phone Nate Ocampo MD Primary Care Provider [phone] Allergies Active Allergy Reactions Criticality Noted Date Comments Gabapentin Confusion High 05/16/2020 Medications warfarin (COUMADIN) 6 mg tablet every 24 hours. Acti ve metoprolol succinate (TOPROL XL) 100 mg Extended Release 24 hour tablet metoprolol succinate ER 100 mg tablet,extended release 24 hr 02/02/20 19 Active lisinopriL (PRINIVIL) 40 mg tablet lisinopril 40 mg tablet Active Iron Amino Acid Gkgvyrj-S74-L A 27-100-400 mg-mcg-mcg Capsule Take by mouth. 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 Gender Identity Not on file Sexual Orientation [...] (223 lb 14.4 oz) 05/16/2020 1:42 PM CIGAR SORTER Height 167.6 cm (5' 6 ) 05/16/2020 1:42 PM CIGAR SORTER Body Mass Index 36.14 05/16/2020 1:42 PM CIGAR SORTER Plan of Treatment Health Maintenance Due Date Last Done Comments HPV/Cotest (21-29) 1984 CERVICAL CANCER SCREENING 1993 HPV/Cotest (30-65) 1993 PAP SMEAR 1993 BREAST CANCER SCREENING 2003 COLORECTAL SCREENING [...] - 1-dose 75+ series) 2038 Care Teams Larriman Relationship Specialty Start Date End Date Nate Ocampo MD PCP - General Student in an Organized Health Care Education/Training Program 07/05/19
--- OUTSIDE RECORDS SUMMARY | 2024-10-14 10:53 | XMS_ITS | Clinical Summary ---
Author Organization [facility] [address] Address [address] [place] [address] Care Team Providers Care Narrow Fabric Calenderer Name Role Phone Fran Roberto MD Unavailable [phone] Nate Ocampo MD Primary Care Provider [phone] Allergies Active Allergy Reactions Criticality Noted Date [...] Encounters Date Type Department Care Team Description 09/20/2024 Anticoagulation Visit [facility] Cardiology [address] [place] [address] Arely Asencio RN Atrial fibrillation (CMS/HCC) [I48.91] (Primary Dx) 08/27/2024 Anticoagulation Visit [facility] Cardiology [address] [place] [address] Arely Asencio RN 08/04/2024 Anticoagulation Visit [facility] Cardiology [address] [facility] [address] [place] [address] Syed Ochoa RN Atrial fibrillation (CMS/HCC) [I48.91] (Primary Dx) from Last 3 Months Surgical History Surgery Date Site/Laterality Comments COLONOSCOPY POLYPECTOMY STOMACH SURGERY COLON SURGERY BRAIN SURGERY aneursym Medical History Medical History Date Comments Hypertension Hypertension Hx Other Medical 1998 CVA hemorrhagic stroke Sleep apnea Sleep Apnea Hyperlipidemia Colon polyp Atrial fibrillation (HCC) Idiopathic parathyroidism Stroke (HCC) Family History Medical History Relation [...] on file 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 Gender Identity Not on file Sexual Orientation [...] (2 of 2) 05/03/2023 03/08/2023 Covid-19 Vaccine ( season) 2024 03/08/2023, 05/01/2022, 05/03/2021, Additional history exists Breast Cancer Screening-Mammogram 07/07/2024 07/07/2023, 04/03/2022, 02/12/2021 DTaP/Tdap/Td Vaccine (4 - Td or Tdap) 01/03/2030 01/04/2020, 03/17/2010, 06/02/2009 Pneumococcal vaccine <65 Aged Out 10/16/2023, 06/03 No longer eligible based on patient's age to complete this topic Influenza Vaccine Completed 04/06/2024, , 04/22/2022, Additional history exists Procedures Procedure Name Priority Date/Time Associated Diagnosis Comments PROTIME-INR Routine 09/18/2024 PROTIME-INR Routine 08/27/2024 PROTIME-INR Routine 08/04/2024 from Last 3 Months Results * (ABNORMAL) Protime-INR (09/18/2024) INR 2.50(A) 0.90 - 1.10 EXTERNAL LAB Blood Result [facility] Provider MD LAB BLOOD ORDERABLES Rosa l Result EXTERNAL LAB * (ABNORMAL) Protime-INR (08/27/2024) INR 1.90(A) 0.90 - 1.10 EXTERNAL LAB Blood Result [facility] Provider MD LAB BLOOD ORDERABLES Rosa l Result EXTERNAL LAB * (ABNORMAL) Protime-INR (08/04/2024) INR 2.00(A) 0.90 - 1.10 EXTERNAL LAB Blood 08/04/2024 Result [facility] Historical Provider MD LAB BLOOD ORDERABLES Rosa l Result EXTERNAL LAB from Last 3 Months Insurance [facility] Address: [address] [address] [place] [address] [facility] Address: [address] [address] [place] [address] [facility] Address: [facility] [address] [place] [address] Advance Directives For more information, please contact: [phone] * Full Code (Latest Code Status on File) Date Activated Date Inactivated Comments 12/25/2023 7:14 AM 12/25/2023 3:27 PM * Full Code Date Activated Date Inactivated Comments 07/22/2023 10:16 AM 07/22/2023 4:01 PM Care Teams Narrow Fabric Calenderer Relationship Specialty Start Date End Date Nate Ocampo MD [address] [address] PCP - General Family Medicine 02/05/19 Fran Roberto MD [address] [facility] [address] [place] [address] Cardiology 11/06/16
--- OUTSIDE RECORDS SUMMARY | 2024-10-14 10:53 | XMS_ITS | Encounter Summary ---
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
--- OUTSIDE RECORDS SUMMARY | 2024-10-14 10:53 | XMS_ITS | Referral Summary ---
Author Organization [facility] [address] [place] [address] [address] [facility] [address] [place] [address] Care Team Providers Care Tube Builder Name Role Phone Fran Roberto MD Unavailable [phone] Nate Ocampo MD Primary Care Provider [phone] Encounters Date Type Department Care Team Description 09/20/2024 Anticoagulation Visit [facility] Cardiology [address] [place] [address] Arely Asencio RN Atrial fibrillation ([facility]/HCC) [I48.91] (Primary Dx) 08/27/2024 Anticoagulation Visit [facility] Cardiology [address] [facility] [address] [place] [address] Arely Asencio RN 08/04/2024 Anticoagulation Visit [facility] Cardiology [address] [place] [address] [address] [place] [address] Syed Ochoa RN Atrial fibrillation ([facility]/HCC) [I48.91] (Primary Dx) from Last 3 Months [...] on file Legal Sex Female 1:57 AM [employer] Gender Identity Not on file Sexual Orientation [...] 1.90(A) 0.90 - 1.10 EXTERNAL LAB Blood Historical Provider MD LAB BLOOD ORDERABLES Rosa l Result EXTERNAL LAB * (ABNORMAL) Protime-INR (08/04/2024) INR 2.00(A) 0.90 - 1.10 EXTERNAL LAB Blood 08/04/2024 us Historical Provider LAB BLOOD ORDERABLES Rosa johnny Result EXTERNAL LAB from Last 3 Months Insurance [facility] [employer] Advance Directives For more information, please contact: [phone] * Full Code (Latest Code Status on File) Date Activated Date Inactivated Comments 12/25/2023 7:14 AM 12/25/2023 3:27 PM * Full Code Date Activated Date Inactivated Comments 07/22/2023 10:16 AM 07/22/2023 4:01 PM Care Teams Tube Builder Relationship Specialty Start Date End Date Nate Ocampo MD [address] [address] PCP - General Family Medicine 02/05/19 Fran Roberto MD [address] [facility] [address] [place] [address] Cardiology 11/06/16
--- OUTSIDE RECORDS SUMMARY | 2024-10-14 10:53 | XMS_ITS | Clinical Summary ---
Author Organization [facility] Address [facility] [place] [address] Care Team Providers Care Director Of Student Aid Name Role Phone Nate Ocampo MD Primary Care Provider [phone] Allergies No known active allergies Medications warfarin [...] Date Last Done Comments Cervical Cancer Screening Pa p Smear (Age 30 to 64) Every 3 Years 1963 Colorectal Cancer Screening Colonoscopy (10 Years) 1963 Annual Physical 1966 Hepatitis C 1981 Cervical Cancer Screening Pa p with HPV Testing (Age 30 to 64) Every 5 Years 1993 Cervical Cancer Screening wi th HPV 1993 Mammogram Screening 2003 Zoster Vaccines (1 of 2) 2013 Pneumococcal Vaccine: 50+ Years (2 of 2 - PCV) 06/22/2019 06/22/2018 COVID-19 Vaccine ( - 2023-2 5 season) 2024 DTaP, Tdap and Td Vaccines ( 4 - Td or Tdap) 01/03/2030 01/04/2020, 03/17/2010, 03/17/2010 RSV Immunization or 60+ Years (1 - 1-dose 75+ series) 2038 Meningococcal B Vaccine Aged Out No l onger eligible based on patient's age to complete this topic Meningococcal Vaccine Aged Out No tesfaye anais eligible based on patient's age to complete this topic RSV Immunizations Under 20 Months Aged Out No longer eligible b ased on patient's age to complete this topic Insurance [facility] Member Subscriber Plan / Payer (Ef fective 2020-Present) Name:TOSHIA WADE Relation to Subscriber:Self Name:Toshia Isaac Payer ID:[id number] (NAIC) Type:Not on file Address: [place] [phone] Care Teams Director Of Student Aid Relationship Specialty Start Date End Date Nate Ocampo MD PCP - General FAMILY PRACTICE 01/30/20
--- OUTSIDE RECORDS SUMMARY | 2024-10-14 10:54 | XMS_ITS | Data Portability ---
Author Organization [place] [facility], Main Office Address [address] [place] [address] Care Team Providers Care Marketing Producer Name Role Phone OCAMPOONIELNATE Primary Care Provider Assessment Encounter Date Assessment Date Assessment LastModified by Organization Details LastModified Time 04/15/2024 04/15/2024 Advised pt to f/ u with her ENT (Dr. Senior) if any concern with her thyroid nodule. [email or web address] Not available 04/15/2024 12:10:34 06/29/2024 06/29/2024 59 [...] per schedule. Cont f/u with ENT at [facility] as per schedule. Cont f/u with Endo as per schedule. Cont f/u with Colorectal Surg at [facility] as per schedule. Cont f/u with GI as per schedule. Cont f/u with Uro at [facility] as per schedule. Cont f/u with Neuro at [facility] as per schedule. Cont f/u with Cardio at [facility] as per schedule. Cont f/u with Pulmo at as per schedule. Cont f/u with Ophtho as per schedule. Cont f/u with Gyne at [facility] as per schedule. Cont f/u with Wt loss clinic at [place] as per schedule. Advised to refer to [...] months. Annual labs, US thyroid in 01/24. [email or web address] Not available 06/29/2024 09:18:54 09/29/2024 09/29/2024 59 yo F with - CHRONIC LOW [...] Coumadin education given to pt. F/u with Derm as per schedule. Cont f/u with Spine surgeon as per schedule. Cont f/u with Uro as per schedule. Cont f/u with Pain clinic as per schedule. Cont f/u with Ortho as per schedule. Cont f/u with ENT at [facility] as per schedule. Cont f/u with Endo as per schedule. Cont f/u with Colorectal Surg at [facility] as per schedule. Cont f/u with GI as per schedule. Cont f/u with Uro at [facility] as per schedule. Cont f/u with Neuro at [facility] as per schedule. Cont f/u with Cardio at [facility] as per schedule. Cont f/u with Pulmo at as per schedule. Cont f/u with Ophtho as per schedule. Cont f/u with Gyne at [facility] as per schedule. Cont f/u with Wt loss clinic at [place] as per schedule. Advised to refer to PT; but pt declined. Pt got s/e from Gabapentin in the past. Pt's insurance did not approve Lidocaine patch, Wegovy. Celebrex, Lyrica are too costly for pt. HM: WWE - 2 yrs ago, normal as per pt. Cont f/u with Gyne as per schedule. Mammo - 09/01/24, normal. Colonoscopy - 07/09/24, normal as per pt. S/p colectomy in 06/21. Cont to f/u with Surg as per their recommendations. DEXA - 10/31/23, osteopenia ++. Tdap - 01/04/20. Flu - 04/25. Pneumo - 06/22/18, 10/16/23. Shingrix - At [facility]. F/u in 4 months. Annual labs, US thyroid in 01/24. [email or web address] Not available 09/29/2024 09:19:21 Plan of Treatment Reminders Order Date Submit Date Provider Last Modified By Organization Details Last Modified Time Details Appointments Physical/ Annual Wellness 2024 08:15A Dave Ocampo MD Not available Not available Not available Lab None recorded. Referral None recorded. Procedures None recorded. Surgeries None recorded. Imaging MAMMO, screening , bilateral - Please call patient to schedule. 2024 025 [facility], [facility] [address] [place] [address], [address], 09/01/2024 16:12:40 XR, knee, 3 view [address] (Imaging), [address] [place] [address] [place] [address], [phone], 05/19/2024 08:59:58 XR, tibia + fibula, 2 view [address] (Imaging), [address] [place] [address] [address], [address], 05/19/2024 08:59:58 US, neck, soft tissue - Rt anterior neck cyst for last few days that is getting bigger. [email or web address] [place] [address] (Imaging), [address] [facility] [address], [place], [address], 05/06/2024 08:58:14 Medication Orders lisinopri l 20 mg-hydroc hlorothia zide 25 mg tablet 2024 025 [facility], [address], [address], [place], [place], [id number], 09/29/2024 09:20:03 metoprolo l succinate ER 100 mg tablet,ex tended release 24 hr 2024 025 [facility], [address], [address], [place], [place], [id number], 09/29/2024 09:20:02 diclofena c sodium 75 mg tablet,de layed release 2024 025 SHIM[facility], [address], [address], [place], [place], [id number], 09/29/2024 09:20:04 allopurin ol 100 mg tablet 2024 025 [email or web address] [facility], [address], [address], [place], [id number], 09/29/2024 09:20:20 Wegovy 0.25 mg/0.5 mL subcutane ous pen injector 2024 025 [email or web address] [id number], [address] [facility], [place], [place], [id number], 09/29/2024 09:10:49 lisinopri l 20 mg-hydroc hlorothia zide 25 mg tablet 2024 025 SHIMA [facility], [address], [address], [place], [place], [id number], 06/29/2024 09:15:49 metoprolo l succinate ER 100 mg tablet,ex tended release 24 hr 2024 025 SHIMA [facility], [address], [address], [place], [place], [id number], 06/29/2024 09:15:49 diclofena c sodium 75 mg tablet,de layed release 2024 025 [email or web address], [address], [address], [place], [place], [id number], 09/29/2024 09:11:33 allopurin ol 100 mg tablet 2024 025 SHIMA [facility], [address] [place] [address], [address], [place], [place], [id number], 06/29/2024 09:15:52 Patient TargetsNo targets recorded. Patient Instructions Encounter Date Encounter Id Patient Instructions Last Modified By Organization Details Last Modified Time 05/05/2024 [id number] When You Want to Lose Weight: Care Instructions [email or web address] Not available 05/05/2024 10:50:07 09/29/2024 [id number] When You Want to Lose Weight: Care Instructions [email or web address] Not available 09/29/2024 09:27:40 Reason for Referral None Reported. Results Created Date Observation Date Name Description Value Unit Range Abnormal Flag Note LastModifiedBy Organization Detail LastModifiedTime 03/25/2003/23/2024 CPAP compl iance * No observ ation record ed. [email or web address] [facility] [address] [facility] [address], [place], [address], 03/25/2024 15:04:05 04/09/2004/09/2024 US, thyro id No observ ation record ed. [email or web address] [facility] [address] [facility] [address], [place], [address], 04/15/2024 11:57:57 05/19/2005/19/2024 XR, knee, 3 view No observ ation record ed. [email or web address] [facility] [address], [place], [address], 06/29/2024 09:17:57 05/19/20 24 05/19/2024 XR, tibia + fibul a, 2 view No observ ation record ed. [email or web address] [facility] [address], [place], [address], 06/29/2024 09:17:57 09/02/19 25 09/01/2024 MAMMO , scree kiera, bilat eral No observ ation record ed. [email or web address] [place] [address] Imaging [address], [place], [address], 09/29/2024 09:16:50 Result Notes None recorded. Problems Name Problem SNOMED Code Status Onset Date Resolution Date Notes Provider Name and Address Organization Details Recorded Time Chronic back pain 951914754 Active 2021 Not Available [facility] 3 11:58:13 Gouty arthropat hy 845935545 Active 2021 Not Available [facility] 3 11:58:13 Idiopathi c hypercalc emia 877458472 Active 2017 Not Available [facility] 3 11:58:13 Persisten t insomnia 124595562 Active 2018 Not Available [facility] 3 11:58:13 Cataract 410554475 Active 2021 Not Available [facility] 3 11:58:13 Cerebrova scular accident 790401136 Active Not Available [facility] 3 11:58:13 Thyroid nodule 639214722 Active 2020 Not Available [facility] 3 11:58:13 Osteoarth ritis of knee 781248404 Active 2018 Not Available [facility] 3 11:58:13 Syncope 763967895 Active 2021 Not Available [facility] 3 11:58:13 Eruption 461837395 Completed Not Available [facility] 3 01:10:15 Disturban ce in speech 37830828 Active 2021 Not Available [facility] 3 11:58:13 Rib pain 613145337 Completed Nate Ocampo MD [address] [facility], [address], [place], [address] , [facility] [employer] [facility] 4 16:03:13 Excessive growth of facial hair 574915380 Active 2021 Not Available [facility] 3 11:58:13 Blood in urine 78863704 Completed Not Available [facility] 3 01:10:16 Vitamin D deficienc y 39317438 Active Not Available [facility] 3 11:58:13 Seasonal allergic rhinitis 753551632 Active 2019 Not Available [facility] 3 11:58:13 Hypertens jada disorder 18014855 Active Not Available [facility] 3 11:58:13 Hordeolum 784633657 Completed Not Available [facility] 3 01:10:16 Obesity 219002975 Active 2017 Not Available [facility] 3 11:58:13 Mass of colon 285388516 Active 2018 Not Available [facility] 3 11:58:13 Hypokalem ia 16966359 Active Not Available [facility] 3 11:58:13 Microcalc ification s of the breast 14417294 Completed Not Available [facility] 3 01:10:17 Low blood pressure 26095259 Completed Not Available [facility] 3 01:10:17 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 26376190 Active 2017 Not Available [facility] 3 11:58:13 Atrial fibrillat ion 45985019 Active Not Available [facility] 3 11:58:13 Coronary arteriosc lerosis 74088214 Active Not Available [facility] 3 11:58:13 Essential hypertens ion 07978671 Completed Not Available [facility] 3 01:10:18 Hyperpara thyroidis m 02117451 Active Not Available [facility] 3 11:58:13 Colorecta l cancer detected by DNA-based stool screening 702626935 Active 2018 Not Available [facility] 3 11:58:13 Obstructi ve sleep apnea syndrome 44974609 Active Not Available [facility] 3 11:58:13 Postgastr ic surgery syndrome 86022453 Active Not Available [facility] 3 11:58:13 Ex-smoker 9080978 Active 2017 Not Available [facility] 3 11:58:13 Kidney stone 06057986 Active 2018 Not Available [facility] 3 11:58:13 Bilateral cataracts 81216387 Active 2021 Not Available [facility] 3 11:58:13 Pain of bilateral knee joints 69878959298 4104 Active 2022 Not Available [facility] 3 11:58:13 Microscop ic hematuria 169206248 Active 2022 Not Available [facility] 3 11:58:13 Urinary tract infectiou s disease 49790101 Active 2022 Not Available [facility] 3 11:58:13 Sleep apnea 89305882 Active 2022 Nate Ocampo MD [address], [address], [place], [address] , [facility] 3 15:39:27 Sensation of irritatio n of eye proper 764683431 Active 2022 Nate Ocampo MD [address], [address], [place], [address] , [facility] 3 14:14:40 Blepharit is of left eyelid 22571764860 9102 Active 2022 Nate Ocampo MD [address], [address], [place], [address] , [employer] 3 14:15:05 Chronic thoracic back pain 67379117887 9103 Active 2023 Nate Ocampo MD [address], [address], [place], [address] , [facility] 4 16:02:43 Rib pain 877253076 Active 2023 Nate Ocampo MD [address], [address], [place], [address] , [facility] 4 16:03:12 Osteoporo sis 12674907 Active 2023 Nate Ocampo MD [address], [address], [place], [address] , [facility] 4 09:00:10 Osteopeni a 387961855 Active 2023 Nate Ocampo MD [address], [address], [place], [address] , [facility] 4 09:02:07 Hypersomn ia with sleep apnea 02838909 Active 2023 Niya Egan NP [address], [address], [place], [address] , [facility] 4 13:02:11 Hypersomn ia 96755850 Active 2023 Niya Egan NP [address], [address], [place], [address] , [facility] 4 13:02:11 Cyst of neck 574126942 Active 2023 Nate Ocampo MD [address], [address], [place], [address] , [facility] 4 11:32:29 Pain of right knee joint 93071198288 4100 Active 2023 Nate Ocampo MD [address], [address], [place], [address] , [facility] 4 10:03:24 Pain in right lower limb 042015084 Active 2023 Nate Ocampo MD [address] [facility] [address], [place], [address] , [email or web address] [facility] [employer] [facility] 10:03:39 Problem Notes None recorded. Procedures Surgical History Date Name Laterality Status Provider Name and Address Organization Details Recorded Time Ortho - Cortisone Injection completed Johny Jimenez MD [address], [facility] [address], [place], [address], [facility] [employer] [facility] [employer] [facility] 12/12/2022 11:08:53 Date of Last Colonoscopy completed Sagrario Booth [facility] [employer] [facility] 08/12/2022 10:13:22 Cataract Surgery completed Sagrario Booth [facility] [employer] [facility] 08/12/2022 10:12:30 Colon Surgery completed Not Available [facility] 07/31/2022 00:55:17 colonoscopy completed Not Available [facility] 07/31/2022 00:55:17 parathyroidectomy completed Not Available [facility] 07/31/2022 00:55:17 Gastric Bypass completed Not Available [facility] 07/31/2022 00:55:17 Kidney Stones completed Not Available [facility] 07/31/2022 00:55:17 Brain Surgery completed Not Available [facility] 07/31/2022 00:55:17 Imaging Results Imaging Date Name Status LastModified by Organiz ation Details LastModified Time 03/23/2024 CPAP compliance* completed [email or web address] [facility] [address] [facility] [address], [place], [address], 03/25/2024 15:04:05 04/09/2024 US, thyroid completed [email or web address] [facility] [address] [facility] [address], [place], [address], 04/15/2024 11:57:57 05/19/2024 XR, knee, 3 view completed [email or web address] [facility] [address], [place], [address], 06/29/2024 09:17:57 05/19/2024 XR, tibia + fibula, 2 view completed [email or web address] [facility] [address], [place], [address], 06/29/2024 09:17:57 09/01/2024 MAMMO, screening, bilateral completed [facility] [address], [place], [address], 09/29/2024 09:16:50 Procedure Notes None recorded. Medical Equipment None Reported. Allergies Allergen ID Allergen Name Allergen Category Reaction Reaction Severity Criticality Documentation Date Start Date Code Code System Note Provider Name and Address Organization Details Recorded Time 2656 gabapenti n medicatio n confusion severe Not available 07/31/2022 64267 RxNorm Not Available [facility] 01:32:14 Medications Name Sig Start Date Stop [...] 1 tablet every day by oral route. 09/29 completed Not Available Not Available Not Available atorvasta tin 10 mg tablet Take [...] 1 tablet every day by oral route. 09/29 completed Not Available Not Available Not Available warfarin 6 mg tablet Take 1 [...] mg by injectio n route. 01/20 completed [facility]: [phone] 4-20 Not Available Not Available Not [...] e 50 mcg/actua tion nasal spray,lash[employer] pension [place] 2 sprays every day by intranas al route as directed for 30 days. active Use into both nostrils , as needed. Not Available Not Available Not Available enoxapari n 60 mg/0.6 mL subcutane ous syringe INJECT CONTENTS OF SYRINGE SUBCUTAN EOUS BID FOR 5 DAYS.06/02 11/14-2 015 08/01 completed Not Available Not Available Not [...] active Not Available Not Available No t Availab [id number]|2024-10-14 10:57:00|2024-10-14 10:56:00|XMS_ITS|ACACIA MATHEW|External Medical Summaries|[id number]|" Continuity of Care Document (C-CDA R2.1) (Encounter date: 03/22/2010 09:45 AM) Created on: October 14, 2024 Jerica Benito : 02/17/1944 Sex: Female Author Organization [employer] [facility] Address [address] [place] [address] Phone Care Team Providers Care Marketing Producer Name Role Phone Perez OD, Jorje Unavailable Unavailable Procedures Procedure Date Office/outpatient Visit, Est Eye Exam Established Pt Visual Field Examination-Professional Oc Visual Field Examination(s) Office/outpatient Visit, Est Post-op Follow-up Visit Laser Surgery Of Eye No Charge Screening Visit Office/outpatient Visit, Est Optic Nerve Head Eval IOP Red Less Than 15% W Plan Of Care Jul Office/outpatient Visit, Est Optic Nerve Head Eval IOP Red Less Than 15% W Plan Of Care Mar IOP Red Less That 15% W Plan Of Care Mar - Dilated Retinal Exam W Interpretation Oc No Script Fundus Photography W/ Report Visual Field Examination-Professional Ju Visual Field Examination(s) Eye Exam Established Pt Optic Nerve Head Eval Script Printed/Phoned Pt Requ Or Pharm N ot Availab Office/outpatient Visit, Est Optic Nerve Head Eval Dilated Retinal Exam W Interpretation Oc Fundus Photography W/ Report Office/outpatient Visit, Est Optic Nerve Head Eval Eye Exam Established Pt Optic Nerve Head Eval Visual Field Examination-Professional Ap -2007 Visual Field Examination(s) Office/outpatient Visit, Est Optic Nerve Head Eval Refraction Office/outpatient Visit, Est Optic Nerve Head Eval Visual Functional Status Assessed Optic Nerve Topography Optic Nerve Topography Office/outpatient Visit, Est Corneal Pachymetry Fundus Photography W/ Report Advance Directives Directive Yes / No Effective Date File Name No Information Encounters Encounter Description Practice Location Reason(s) For Visit Diagnoses Date Provider Providers Copied on Encounter Office/outpat ient Visit, [facility], [id number] [place] [address] [address], [place], [place], [address], [place] tel:[phone] [facility] No Information Oct-2 1-201 0 Perez OD Jorje. [address] [facility] , [address], [place], [place], Formerly named [facility], . tel:[phone] [facility], [address], [place], [place], [address], [place] tel:[phone] [facility] No Information Oct-1 5-201 0 Perez OD Jorje. [address] , [address], [place], Formerly named [facility], [place]. tel:[phone] [facility], [address], [place], [place], [address], [place] tel:[phone] [facility] No Information Oct-0 6-201 0 Maranda Adhikari. [address] , [address], [place], Formerly named [facility], [place]. tel:[phone] Referring Provider: Onofre Paulino, [address], [place], Formerly named [facility]. tel:[phone] [facility], [address], [place], [place], [address], [place] tel:[phone] [facility] No Information Sep-2 7-201 0 Maranda Adhikari. [address] [facility] , [address], [place], Formerly named [facility], [place]. tel:[phone] Referring Provider: Onofre Paulino, [address] [facility] [address], [place], Formerly named [facility]. tel:[phone] Office/outpat ient Visit, [facility], [address], [place], [place], [address], [place] tel:[phone] [facility] No Information 2 6-201 0 Maranda Adhikari. [address] [facility] , [address], [place], Formerly named [facility], [place]. tel:[phone] [facility], [address], [place], [place], [address], [place] tel:[phone] [facility] No Information 2-201 0 Maranda Adhikari. [address] [facility] , [address], [place], Formerly named [facility], [place]. tel:[phone] [facility], [address], [place], [place], [address], [place] tel:[phone] [facility] No Information September-0 4-201 0 Maranda Adhikari. [address] [facility] [address], [address], [place], Formerly named [facility], [place]. tel:[phone] [facility], [address], [place], [place], [address], [place] tel:[phone] [facility] No Information 9-201 0 Maranda Adhikari. [address] [facility] , [address], [place], [address], [place]. tel:[phone] Office/outpat ient Visit, Est [facility], [address], [place], [place], [address], [place] tel:[phone] [facility] No Information 5-201 0 Maranda Adhikari. [address] , [address], [place], [address], [place]. tel:[phone] Office/outpat ient Visit, Est [facility], [address], [place], [place], [address], [place] tel:[phone] [facility] No Information 6-200 9 Maranda Adhikari. [address] , [address], [place], [address], [place]. tel:[phone] Referring Provider: Onofre Paulino, [address], [place], Formerly named [facility]. tel:[phone] [facility], [address], [place], [place], [address], [place] tel:[phone] [facility] No Information 4-200 9 Maranda Adhikari. [address], [address], [place], [address], [place]. tel:[phone] Referring Provider: Onofre Paulino, [address], [place], Formerly named [facility]. tel:[phone] [facility], [address], [place], [place], [address], [place] tel:[phone] [facility] No Information 2 2-200 9 Maranda Adhikari. [address], [address], [place], [address], [place]. tel:[phone] Referring Provider: [address], [place], Formerly named [facility]. tel:[phone] [facility], [address], [place], [place], [address], [place] tel:[phone] [facility] No Information 9[address] 9 Maranda Adhikari. [address] , [address], [place], [address], [place]. tel:[phone] Office/outpat ient Visit, [facility], [address], [place], [place], [address], [place] tel:[phone] [facility] No Information 3-200 8 Maranda Adhikari. [address], [address], [place], Formerly named [facility], [place]. tel:[phone] Referring Provider: Onofre Paulino, [address], [place], [place], Formerly named [facility]. tel:[phone] Office/outpat ient Visit, [facility], [address] [place] [address] [address], [place], [place], [id number], [place] tel:[phone] [facility] No Information 8-200 8 Maranda Adhikari. [facility] [address], [address], [place], [address], [place]. tel:[phone] [facility], [address], [place], [place], [address], [place] tel:[phone] [facility] No Information 1-200 8 Maranda Adhikari. [address], [address], [place], [address], [place]. tel:[phone] [facility], [address], [place], [place], [address], [place] tel:[phone] [facility] No Information 3 0-200 8 Maranda Adhikari. [address], [address], [place], [address], [place]. tel:[phone] Referring Provider: Onofre Paulino, [address], [place], [address]. tel:[phone] [facility], [address], [place], [place], [id number], [place] tel:[phone] [facility] No Information 2 2-200 8 Maranda Adhikari. [address] , [address], [place], [address], [place]. tel:[phone] Referring Provider: Onofre Paulino, [facility] [address], [place], Formerly named [facility]. tel:[phone] [facility], [address], [place], [place], [id number], [place] tel:[phone] [facility] No Information Melvin-0 9-200 8 Maranda Adhikari. [address] , [address], [place], Formerly named [facility], [place]. tel:[phone] Office/outpat ient Visit, [facility], [address], [place], [place], [address], [place] tel:[phone] [facility] No Information 1 7-200 7 Maranda Adhikari. [facility] [address] , [address], [place], Formerly named [facility], [place]. tel:[phone] [facility], [address], [place], [place], [address], [place] tel:[phone] [facility] No Information Nov-1 0-200 7 Maranda Adhikari. [address] , [address], [place], [address], [place]. tel:[phone] Referring Provider: Onofre Paulino, [address], [place], [address]. tel:[phone] Office/outpat ient Visit, [facility], [address], [place], [place], [id number], tel:[phone] [facility] No Information 7 Maranda Adhikari. [facility] [place] , [address], [place], [address], [place]. tel:[phone] Referring Provider: Onofre Paulino [address] [facility] [address], [place], [address]. tel:[phone] Family History Family Member Type Diagnosis Age At Onset No Information Payers Payer name Insurance type Covered libertarian ID Authoriza tion(s) [place] [id number] [place] [id number] Social History Type Description Quantity Date Captured [...] (start - stop) Status Members No Information "
== END 2024-10-14 10:48 | disposition home or self-care (01) ==
PROVIDERS: PCP Family Medicine; Visit Provider Urology
DX: N20.0 Calculus of kidney (principal)
CPT/HCPCS: 74018

== ENCOUNTER 2024-11-22 11:08 | Outpatient (CLI) | payer MEDICARE, SELFPAY ==
--- NOTE | 2024-11-22 11:25 | ECG_ITS ---
Test Date: 2024-11-22 11:32:11 Measurements Intervals [place] Rate: 84 P: 0 AL: 0 QRS: 19 QRSD: 89 T: 17 QT: 331 QTc: 391 Interpretive Statements ATRIAL FIBRILLATION BASELINE ARTIFACT- I, II, III, AVL, AVF ABNORMAL ECG No previous ECG available for comparison Electronically Signed On 11-22-2024 11:52:26 CDT by Cayetano Baldwin D.O.
[2024-11-22 11:45] LABS: Hematocrit 39.9 % (37.0-47.0)
== END 2024-11-22 11:09 | disposition home or self-care (01) ==
LOC: ANHLAB 11:09
PROVIDERS: PCP Family Medicine; Visit Provider Anesthesiology
DX: Z01.818 Encounter for other preprocedural examination (principal); R94.31 Abnormal electrocardiogram [ECG] [EKG]; N20.0 Calculus of kidney; D64.9 Anemia, unspecified
CPT/HCPCS: 36415; 85014; 85018; 87086; 93005

== ENCOUNTER 2024-11-26 00:15 | Day surgery (SDC) | payer MEDICARE, SELFPAY ==
--- NOTE | 2024-11-16 07:38 | P.HP_ITS ---
History of Present Illness History of Present Illness Consent: Risks, benefits, and alternatives have been discussed and questions answered. Patient agrees to proceed with procedure. Chief complaint: right kidney stone Narrative: Ana Laura Williamson is a 59 year old female has had no flank pain but KUB shows a stone in her right kidney has grown from 5 mm ( by renal ultrasound last fall ) to 8 mm. ?I see no stones in her left kidney. ?After discussion of opt ions she would like to proceed with right ESWL but defer until after school returns (as she watches her grandchildren during the summer) Review of Systems Review of Systems: All systems reviewed & are unremarkable except as noted in HPI and below PMFSH Past Medical History Medical History Hyperparathyroidism History of thyroid disease History of stroke x2 Brain aneurysm X2 with repair AMMON (obstructive sleep apnea) Hypertension CVA (cerebral vascular accident) X2 Afib Surgical History Surgical History Hx of laparoscopic gastric banding H/O lithotripsy History of parathyroidectomy H/O rectal polypectomy S/P left hemicolectomy History of colonoscopy Family History Family History Father Lung cancer Mother COPD (chronic obstructive pulmonary disease) Diabetes mellitus Hypertension High cholesterol Unknown Diabetes mellitus Heart disease Cancer Hypertension Social History Social History Social History: The patient is . She has 1 daughter. She is disabled. She desires to be a full code. The daughters durable power civil litigation attorney for healthcare. Smoking status: Never smoker Tobacco type: cigarettes Smoking end date: 01/31/98 Alcohol intake: current Drinks per week: 5 Alcohol use details: beer socially Substance use: never Substance use type: does not use Do You Feel Safe in your Home?: Yes Lack of Transportation: No Lack of Food: Never True Current Housing: I Have Housing Concerned About Future Housing: No Difficulty Paying Gas/Electric Bills: No Difficulty Paying for Meds: No Currently Unemployed: No Education: Associate Degree Difficulty w/ Childcare or Family Care: No Living arrangements: alone Occupation/Education: other Gender identity (if verbalized by the patient): Female Spiritual care concerns: No Meds Home Medications and Allergies Home Medications ?Medication ?Instructions ?Recorded ?Confirmed ?Type lisinopril 20 mg tablet 10 mg PO DAILY 04/20/19 07/09/24 History metoprolol succinate 100 mg 100 mg PO DAILY 04/20/19 07/09/24 History tablet,extended release 24 hr aspirin 81 mg tablet,delayed 81 mg PO DAILY 04/23/19 07/09/24 History release (Aspir-) cholecalciferol (vitamin D3) 50 2,000 unit PO DAILY 06/07/19 07/09/24 History mcg (2,000 unit) tablet cyanocobalamin (vitamin B-12) 500 500 mcg PO DAILY 06/07/19 07/09/24 History mcg tablet ferrous sulfate 27 mg iron tablet 27 mg PO DAILY 06/07/19 07/09/24 History baclofen 20 mg tablet 20 mg PO DAILY 10/19/20 11/28/21 History trazodone 100 mg tablet 200 mg PO PRN PRN Sleep 11/16/21 07/02/24 History warfarin 7.5 mg tablet 7.5 tablet PO 6XW 11/16/21 07/09/24 History allopurinol 100 mg tablet 100 mg PO DAILY 05/06/24 07/09/24 History atorvastatin 10 mg tablet 10 mg PO DAILY 05/06/24 07/09/24 History flaxseed oil 1,000 mg capsule 1,000 mg PO DAILY 05/06/24 History meloxicam 7.5 mg tablet 7.5 mg PO DAILY 05/06/24 07/02/24 History cznakcqyenzn-dffudkqn-sosqsf tablet 1 tablet PO DAILY 05/06/24 07/09/24 History omega-3s 300 ku-ngj-vbi-other 2 cap PO DAILY 05/06/24 07/09/24 History fqxvk9w-wocs oil 1,000 mg capsule ([place]-3 Fish Oil) potassium chloride 10 mEq 10 meq PO DAILY 05/06/24 07/09/24 History tablet,extended release(part/cryst) Allergies Allergy/AdvReac Type Severity Reaction Status Date / Time No Known Allergies Allergy Verified 07/09/24 10:20 Exam Const: General: no acute distress Resp: Effort & Inspection: normal respiratory effort GI: Inspection: non-distended GI Palp: No abdominal tenderness and No Guarding due to palpation present (GI) Auscultation: normal bowel sounds Assessment and Plan Assessment and plan (1) Nephrolithiasis: Code(s): N20.0 - Calculus of kidney Status: Acute Assessment and Plan: * Right ESWL
[2024-11-22 09:58] VITALS: BMI 40.0
--- NOTE | 2024-11-22 10:36 | PC.NURSE ---
Report to the Outpatient Waiting Room, entrance under the green pavilion located off [facility], at time _0800 on date _11/26/24 . Planned Procedure Time: _1000 .? Time changes happen often and if your time is changed the preop area will call you the afternoon before. - You and your visitor will be asked to self-screen and do not enter if you have any COVID symptoms. Please call surgeon if you need to reschedule. - A mask is optional within the hospital at this time. Patients may have clear liquids (water, carbonated beverages, clear teas, apple juice) until 3 hours prior to surgery with a maximum of 20 ounces. - No food from midnight until time of surgery and no smoking, or chewing tobacco (or any form of nicotine). No chewing gum, candy or mints. - Infants may have breast milk until 4 hours before surgery, infant formula 6 hours prior to surgery. - Children will be allowed to drink immediately following surgery.? If applicable, please bring a bottle or sippy cup to assist with drinking. Juice, water, soda, and popsicles are readily available.? For infants on formula, please bring formula the day of surgery.? Pacifiers are allowed. Take only the following medications with a SIP of water on the morning of surgery: ___Metoprolol DO NOT STOP ANY OF YOUR OTHER PRESCRIPTION MEDICATIONS PRIOR TO SURGERY EXCEPT THE FOLLOWING Hold all vitamins and supplements for 3 days per anesthesiologist. Medications to discontinue per physician _Patients states stop Warfarin and Aspirin [address] Hicks Please no make-up, nail russian, hairspray, perfume, deodorant, or body powder the day of surgery.? No jewelry (including any body piercings) or valuables the day of surgery, leave them at home.? Please take a shower or bath the night before, or the morning of, surgery with an antibacterial soap.? Wear comfortable, loose fitting clothing.? Children are encouraged to wear pajamas. - Jewelry must be removed prior to entering the operating room.? Rings and piercings that are not removed may be cut off. - The hospital will not accept responsibility for valuables.? - Please leave all valuables, including medications, at home the day of surgery. If you are going home after surgery, a licensed front end loader driver must drive you home.? - NO public transportation without another adult if you receive anesthesia. - We recommend that an adult stay with you for 24 hours following discharge. - We also recommend that you do not drive, make important decision, drink alcoholic beverages, or take any drugs that were not prescribed by your health care provider for at least 24 hours after your discharge time. For Pediatric surgeries, we recommend two adults accompany the child home. Follow any additional instructions given to you from your surgeon. Telephone instructions given to __Ana Laura Garza and asked if any additional questions and then verbalized understanding. Patient advised to call surgeon office or pre surgery nurse liaison [phone] if any additional questions.
[2024-11-26] VITALS (7 sets, daily range): BP systolic 107–150; BP diastolic 65–90; PULSE 67–86; RESP 16–24; TEMP 36.1–36.5; O2SAT 95–100
--- NOTE | ~2024-11-26 | XR_ITS ---
XR abdomen/kub 1V Ordering provider: Kelvin Hicks MD History: . ESWL . Comparison: None. FINDINGS: BOWEL: Nonobstructive bowel gas pattern. ORGANOMEGALY: None. SIGNIFICANT PATHOLOGIC CALCIFICATIONS: Stone is seen in the right kidney lower pole measuring 1 cm. P ossible tiny stones in the left kidney lower pole. OTHER: No free air is seen under the diaphragm. Degenerative changes of the spine. IMPRESSION: NO ACUTE ABDOMINAL FINDINGS. Stone in the right kidney lower pole. Possible tiny stone in the left kidney lower pole. Reviewed, dictated and finalized at location A. IMPRESSION: NO ACUTE ABDOMINAL FINDINGS. Stone in the right kidney lower pole. Possible tiny stone in the left kidney lo wer pole.
--- NOTE | 2024-11-26 06:21 | WPDHPUPDATE1 ---
History and Physical Update Update Date/Time: 11/26/24 06:21 History and Physical has been reviewed, including an updated exam of the patient. There are NO changes in the patient's condition. Risks, benefits, and alternatives have been discussed and questions answered. Patient agrees to proceed with procedure.
[2024-11-26] MEDS: LACTATED RINGERS 1,000 ML 30 ML IV CONT (08:40)
--- NOTE | 2024-11-26 08:56 | P.PNAN_ITS ---
Anes - Initial Pre Proc Eval Procedure: Operation Date: 11/26/24 10:00 Proposed Procedures p Right Extracorporeal Shock Wave Lithotripsy - Kelvin Hicks MD Date/Time: 11/26/24 08:56 Surgeon: Kelvin Hicks MD Pre Op Diagnosis: right kidney stone Patient Data Age: 59 Gender: F Height: 1.68 m Weight: 112.1 kg Last Vital Signs Temp 36.1 C L 11/26/24 08:30 Pulse 81 11/26/24 08:30 Resp 18 11/26/24 08:30 BP 150/90 H 11/26/24 08:30 Pulse Ox 99 11/26/24 08:30 O2 Del Method Room Air 11/26/24 08:30 Allergies Allergy/AdvReac Type Severity Reaction Status Date / Time No Known Allergies Allergy Verified 11/26/24 08:51 Home Medications ?Medication ?Instructions ?Recorded ?Confirmed ?Type lisinopril 20 mg tablet 10 mg PO DAILY 04/20/19 11/26/24 History metoprolol succinate 100 mg 100 mg PO DAILY 04/20/19 11/26/24 History tablet,extended release 24 hr aspirin 81 mg tablet,delayed 81 mg PO DAILY 04/23/19 11/26/24 History release (Aspir-) cholecalciferol (vitamin D3) 50 2,000 unit PO DAILY 06/07/19 11/26/24 History mcg (2,000 unit) tablet cyanocobalamin (vitamin B-12) 500 500 mcg PO DAILY 06/07/19 11/26/24 History mcg tablet warfarin 7.5 mg tablet 7.5 tablet PO 6XW 11/16/21 11/22/24 History allopurinol 100 mg tablet 100 mg PO DAILY 05/06/24 11/26/24 History dfyuvpuhcyro-gvflwgcg-fpysuk tablet 1 tablet PO DAILY 05/06/24 11/26/24 History omega-3s 300 rm-iie-ocv-other 2 cap PO DAILY 05/06/24 11/26/24 History jvyao5k-hwjl oil 1,000 mg capsule ([place]-3 Fish Oil) potassium chloride 10 mEq 10 meq PO DAILY 05/06/24 11/26/24 History tablet,extended release(part/cryst) Laboratory Tests 11/26/24 08:30 PT Pending INR Pending APTT Pending Patient hx anesthesia problems: none Family hx anesthesia problems: none Results Review: All pre-operative results and documents have been reviewed as part of the pre- operative evaluation. [facility] Past Medical History Medical History Hyperparathyroidism History of thyroid disease History of stroke x2 Brain aneurysm X2 with repair AMMON (obstructive sleep apnea) Hypertension CVA (cerebral vascular accident) X2 Afib Surgical History Surgical History Hx of laparoscopic gastric banding H/O lithotripsy History of parathyroidectomy H/O rectal polypectomy S/P left hemicolectomy History of colonoscopy Family History Family History Father Lung cancer Mother COPD (chronic obstructive pulmonary disease) Diabetes mellitus Hypertension High cholesterol Unknown Diabetes mellitus Heart disease Cancer Hypertension Social History Social History Social History: The patient is . She has 1 daughter. She is disabled. She desires to be a full code. The daughters durable power admitted attorneys for healthcare. Smoking status: Former smoker Tobacco type: cigarettes Smoking end date: 01/31/98 Alcohol intake: current Drinks per week: 5 Alcohol use details: beer socially Substance use: never Substance use type: does not use Do You Feel Safe in your Home?: Yes Lack of Transportation: No Lack of Food: Never True Current Housing: I Have Housing Concerned About Future Housing: No Difficulty Paying Gas/Electric Bills: No Difficulty Paying for Meds: No Currently Unemployed: No Education: Associate Degree Difficulty w/ Childcare or Family Care: No Living arrangements: alone Occupation/Education: other Gender identity (if verbalized by the patient): Female Spiritual care concerns: No Anes - Eval Final PreProcedure Day of Procedure 11/26/24 08:56 Patient weight: morbidly obese Heart: irregular rhythm Lungs: decreased breath sounds Airway: Mallampati scale class III Neurological: other (alert) Last oral intake: >/= 8 hours ASA classification: IV Emergent: no Anesthetic plan: proceed Anesthesia type and monitoring: general LMA and standard monitoring Results Review: All pre-operative results and documents have been reviewed as part of the pre- operative evaluation. Informed Consent: The patient's anesthetic plan and its attendant risks and benefits were discussed with the patient/family/POA. Questions were solicited and answers provided to the satisfaction of the patient/family/POA.
[2024-11-26 08:57] LABS: INR 1.2; Prothrombin Time 14.8 Seconds (11.1-14.7)
[2024-11-26 08:58] LABS: Partial Thromboplastin Time 25.8 Seconds (22.3-36.8)
[2024-11-26] MEDS: ceFAZolin 2 GM/D5W 50 ML 2 GM/50 ML BAG IVPB (09:36)
--- NOTE | 2024-11-26 09:57 | W.PM.PROC2 ---
Procedure Note - Detailed Date of Procedure 11/26/24 Pre-op Diagnosis Right kidney stone Post-op Diagnosis Same Procedure Performed Right ESWL Surgeon Kelvin Hicks MD Anesthesia General Description of Procedure The patient was brought to the operative suite where she was placed in the supine position on the Dornier lithotripsy table. The focal point of the lithotripter was placed at a 8-9mm right renal calculus. A total of 2500 shocks were delivered at a power setting of 4. There appeared to be good fragmentation of the stone. The patient tolerated the procedure well and was taken to the recovery room in good condition. Drains No Packing No Pathology None sent Complications No immediate complications Condition Stable
== END 2024-11-26 11:54 | disposition home or self-care (01) ==
PROVIDERS: PCP Family Medicine; Visit Provider Urology
PROC: (CPT 50590; principal; 2024-11-26 10:00)
DX: N20.0 Calculus of kidney (principal); I10 Essential (primary) hypertension; E21.3 Hyperparathyroidism, unspecified; G47.33 Obstructive sleep apnea (adult) (pediatric); I48.91 Unspecified atrial fibrillation; E66.01 Morbid (severe) obesity due to excess calories; Z68.39 Body mass index [BMI] 39.0-39.9, adult; Z79.82 Long term (current) use of aspirin; Z79.01 Long term (current) use of anticoagulants; Z98.890 Other specified postprocedural states; Z98.84 Bariatric surgery status; Z90.49 Acquired absence of other specified parts of digestive tract; Z87.891 Personal history of nicotine dependence; Z86.79 Personal history of other diseases of the circulatory system; Z86.73 Personal history of transient ischemic attack (TIA), and cerebral infarction without residual deficits; Z80.1 Family history of malignant neoplasm of trachea, bronchus and lung; Z82.49 Family history of ischemic heart disease and other diseases of the circulatory system
CPT/HCPCS: 50590; 36415; 74018; 85610; 85730; J0690; J2003; J2405; J2704; J3010; J7120

== ENCOUNTER 2024-12-03 11:51 | Emergency (ER) | payer MEDICARE, SELFPAY ==
[2024-12-03] VITALS (9 sets, daily range): BP systolic 129–160; BP diastolic 86–116; PULSE 87–98; RESP 11–29; TEMP 36.7–36.9; O2SAT 95–99
--- NOTE | ~2024-12-03 | XR_ITS ---
CHEST RADIOGRAPH CLINICAL HISTORY: confusion . COMPARISON: 01/08/2019 TECHNIQUE: Single portable view of the chest. FINDINGS The cardiomediastinal silhouette is unremarkable. The lungs are clear. IMPRESSION: No focal infiltrate or effusion. Reviewed, dictated and finalized at location A.
--- NOTE | ~2024-12-03 | CT_ITS ---
History: Confusion, history of CVA and TIA PROCEDURE: CT head without contrast. COMPARISON: 01/08/2019 TECHNIQUE: Axial imaging of the head performed from the skull base to the vertex without IV contrast. Sagittal a nd coronal reformations obtained. DLP: 681 mGy-cm FINDINGS: The ventricles are enlarged. The dilatation of the ventricles is proportional to the degree of sulcal prominence, not uncommon in the senescent brain. Decreased attenuation is identified within the periventricular white matter, likely secondary to micr ovascular ischemic disease, in a patient of this age. Decreased attenuation with encephalomalacia and gliosis in the left frontoparietal lobe with ex vacuo dilatation of the anterior horn of the left lateral ventricle, consistent with patient's history of prior cerebral infarction, largely unchanged from 2019. Left frontoparietal postcraniotomy change as well as multiple aneurysm clips projecting over the left suprasellar cistern and left sylvian fissure, unchanged from 2019. Interval development of a focus of acute intraparenchymal hemorrhage within the right posterior parie robson lobe, within the distribution of the posterior branches of the right middle cerebral artery measu ring 2.9 x 2.6 x 3.1 cm, with surrounding vasogenic edema and mass effect on the posterior horn of th e right lateral ventricle. Decreased attenuation within the posterior lobe of the right cerebellum, unchanged from 2019 examinat ion, likely secondary to prior cerebral infarction within the distribution of the posterior inferior cerebellar artery (PICA). There is no midline shift at this time. Visualized paranasal sinuses are clear. The mastoid air cells are well aerated. Impression: Acute intracranial hemorrhage within the right posterior parietal lobe, within the distribution of th e posterior branches of the right middle cerebral artery with surrounding vasogenic edema and mass ef fect on the posterior horn of the right lateral ventricle. No midline shift is identified at this time. Prior cerebral infarction within the distribution of the left middle cerebral artery as well as right PICA, unchanged from prior. These findings were discussed with Dr. Hernandes at 12:22 PM on 12/03/2024 Reviewed, dictated and finalized at location A. Impression: Acute intracranial hemorrhage within the right posterior parietal lobe, within the distribution of the posterior branches of the right middle cerebral artery with surrounding vasogenic edema and mass effect on the posterior horn of the r ight lateral ventricle. No midline shift is identified at this time. Prior cerebral infarction within the distribution of the left middle cerebral a rtery as well as right PICA, unchanged from prior. These findings were discussed with Dr. Hernandes at 12:22 PM on 12/03/2024
--- OUTSIDE RECORDS SUMMARY | 2024-12-03 11:54 | XMS_ITS | Clinical Summary ---
Author Organization [facility] Address [facility] [place] [address] Care Team Providers Care Golf Tournament Consultant Name Role Phone Nate Ocampo MD Primary Care Provider [phone] Allergies No known active allergies Medications warfarin [...] 6:02 PM CDT Height 167.6 cm (5' 6) 12/30/2021 6:02 PM CDT Body Mass Index [...] patient's age to complete this topic Insurance [facility] Member Subscriber Plan / Payer (Ef fective 2020-Present) Name:TOSHIA WADE Relation to Subscriber:Self Name:Toshia Isaac Payer ID:[id number] (NAIC) Type:Not on file Address: [place] [id number] Care Teams Golf Tournament Consultant Relationship Specialty Start Date End Date Nate Ocampo MD PCP - General FAMILY PRACTICE 01/30/20
--- OUTSIDE RECORDS SUMMARY | 2024-12-03 11:55 | XMS_ITS | Referral Summary ---
Author Organization [facility] [address] [facility] [address] Address [address] [place] [address] Care Team Providers Care Communications Administrator Name Role Phone Fran Roberto MD Unavailable [phone] Nate Ocampo MD Primary Care Provider Encounters Date Type Department Care Team Description 11/23/2024 Anticoagulation Visit [facility] Card[facility] [address] [place] [address] Dyan Lacy RN Atrial fibrillation ([facility]) [I48.91] (Primary Dx) 10/26/2024 Anticoagulation Visit [facility] [address] [place] [address] Syed Ochoa RN Atrial fibrillation ([facility]) [I48.91] (Primary Dx) 09/20/2024 Anticoagulation Visit [facility] Cardiology [address] [place] [address] Arely Asencio RN Atrial fibrillation ([facility]) [I48.91] (Primary Dx) from Last 3 Months [...] on file Legal Sex Female 1:57 AM 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 Gender Identity Not on file Sexual [...] 2:16 PM CDT Height 167.6 cm (5' 6) 12/25/2023 7:30 AM CDT Body Mass Index 38.9 12/25/2023 7:30 AM CDT Plan of Treatment Not on file Procedures Procedure Name Priority Date/Time Associated Diagnosis Comments PROTIME-INR Routine 11/23/2024 PROTIME-INR Routine 10/23/2024 PROTIME-INR Routine 09/18/2024 from Last 3 Months Results * (ABNORMAL) Protime-INR (11/23/2024) INR 2.30(A) 0.90 - 1.10 EXTERNAL LAB Blood Historical Provider MD LAB BLOOD ORDERABLES Rosa l Result EXTERNAL LAB * (ABNORMAL) Protime-INR (10/23/2024) INR 2.00(A) 0.90 - 1.10 EXTERNAL LAB Blood 10/23/2024 Historical Provider LAB BLOOD ORDERABLES Rosa l Result EXTERNAL LAB * (ABNORMAL) Protime-INR (09/18/2024) INR 2.50(A) 0.90 - 1.10 EXTERNAL LAB Blood Historical Provider MD LAB BLOOD ORDERABLES Rosa johnny Result EXTERNAL LAB from Last 3 Months Insurance [facility] MEDICARE ADVANTAGE [facility] MEDICARE ADVANTAGE [facility] MEDICARE ADVANTAGE Advance Directives For more information, please contact: [phone] * Full Code (Latest Code Status on File) Date Activated Date Inactivated Comments 12/25/2023 7:14 AM 12/25/2023 3:27 PM * Full Code Date Activated Date Inactivated Comments 07/22/2023 10:16 AM 07/22/2023 4:01 PM Care Teams Communications Administrator Relationship Specialty Start Date End Date Nate Ocampo MD [address] [address] PCP - General Family Medicine 02/05/19 Fran Roberto MD [address] [facility] [address] [place] [address] Cardiology 11/06/16
--- OUTSIDE RECORDS SUMMARY | 2024-12-03 11:55 | XMS_ITS | Data Portability ---
Author Organization [place] - [place] [employer], Main Office Address [address] [place] [address] Care Team Providers Care Clean Room Technician Name Role Phone NATE OCAMPO Primary Care Provider [phone] Assessment Encounter Date Assessment Date Assessment LastModified by Organization Details LastModified Time 04/15/2024 04/15/2024 Advised pt to f/ u with her ENT (Dr. Senior) if any concern with her thyroid nodule. [email or web address] Not available 04/15/2024 12:10:34 06/29/2024 06/29/2024 59 [...] per schedule. Cont f/u with ENT at [place] as per schedule. Cont f/u with Endo as per schedule. Cont f/u with Colorectal Surg at [place] as per schedule. Cont f/u with GI as per schedule. Cont f/u with Uro at [place] as per schedule. Cont f/u with Neuro at [place] as per schedule. Cont f/u with Cardio at [facility] as per schedule. Cont f/u with Pulmo at as per schedule. Cont f/u with Ophtho as per schedule. Cont f/u with Gyne at [facility] as per schedule. Cont f/u with Wt loss clinic at [place] as per schedule. Advised to refer to [...] months. Annual labs, US thyroid in 01/24. Not available 06/29/2024 09:18:54 09/29/2024 09/29/2024 59 [...] per schedule. Cont f/u with ENT at [place] as per schedule. Cont f/u with Endo as per schedule. Cont f/u with Colorectal Surg at [place] as per schedule. Cont f/u with GI as per schedule. Cont f/u with Uro at [place] as per schedule. Cont f/u with Neuro at [place] as per schedule. Cont f/u with Cardio at [facility] as per schedule. Cont f/u with Pulmo at as per schedule. Cont f/u with Ophtho as per schedule. Cont f/u with Gyne at [facility] as per schedule. Cont f/u with Wt loss clinic at [place] as per schedule. Advised to refer to [...] months. Annual labs, US thyroid in 01/24. [email or web address] Not available 09/29/2024 09:19:21 Plan of Treatment Reminders Order Date Submit Date Provider Last Modified By Organization Details Last Modified Time Details Appointments Physical/ Annual Wellness 2024 08:15A M Nate Ocampo MD Not available Not available Not available Lab None recorded. Referral None recorded. Procedures None recorded. Surgeries None recorded. Imaging MAMMO, screening , bilateral - Please call patient to schedule. 2024 025 [facility], [facility] [address] [place] [address], [address], 09/01/2024 16:12:40 XR, knee, 3 view [address] (Imaging), [address] [place] [address] [place] [address], [address], 05/19/2024 08:59:58 XR, tibia + fibula, 2 view [address] (Imaging), [address] [place] [address] [address], [place], [address], 05/19/2024 08:59:58 US, neck, soft tissue - Rt anterior neck cyst for last few days that is getting bigger. [address] [place] [address] (Imaging), [address], [place], [address], 05/06/2024 08:58:14 Medication Orders lisinopri l 20 mg-hydroc hlorothia zide 25 mg tablet 2024 025 [facility], [address], [address], [place], [place], [id number], 09/29/2024 09:20:03 metoprolo l succinate ER 100 mg tablet,ex tended release 24 hr 2024 025 [facility], [address], [address], [place], [place], [id number], 09/29/2024 09:20:02 diclofena c sodium 75 mg tablet,de layed release 2024 025 [facility], [address], [address], [place], [place], [id number], 09/29/2024 09:20:04 allopurin ol 100 mg tablet 2024 025 [email or web address] [facility], [address], [address], [place], [place], [id number], 09/29/2024 09:20:20 Wegovy 0.25 mg/0.5 mL subcutane ous pen injector 2024 025 [email or web address] [id number], [address] [place], [place], [id number], 09/29/2024 09:10:49 lisinopri l 20 mg-hydroc hlorothia zide 25 mg tablet 2024 025 [facility], [address], [address], [place], [place], [id number], 06/29/2024 09:15:49 metoprolo l succinate ER 100 mg tablet,ex tended release 24 hr 2024 025 [facility], [address], [address], [place], [place], [id number], 06/29/2024 09:15:49 diclofena c sodium 75 mg tablet,de layed release 2024 025 [email or web address] [facility], [address], [address], [place], [place], [id number], 09/29/2024 09:11:33 allopurin ol 100 mg tablet 2024 025 [facility], [address] [place] [address], [address], [place], [place], [id number], 06/29/2024 09:15:52 Patient TargetsNo targets recorded. Patient Instructions Encounter Date Encounter Id Patient Instructions Last Modified By Organization Details Last Modified Time 05/05/2024 [id number] When You Want to Lose Weight: Care Instructions [email or web address] Not available 05/05/2024 10:50:07 09/29/2024 [id number] When You Want to Lose Weight: Care Instructions [email or web address] Not available 09/29/2024 09:27:40 Reason for Referral None Reported. Results Created Date Observation Date Name Description Value Unit Range Abnormal Flag Note LastModifiedBy Organization Detail LastModifiedTime 03/25/2003/23/2024 CPAP compl iance * No observ ation record ed. [email or web address] [facility] [address] [facility] [address], [place], [address], 03/25/2024 15:04:05 04/09/2004/09/2024 US, thyro id No observ ation record ed. [email or web address] [facility] [address] [facility] [address], [place], [address], 04/15/2024 11:57:57 05/19/202024 XR, knee, 3 view No observ ation record ed. [address], [place], [address], 06/29/2024 09:17:57 05/19/20 24 05/19/2024 XR, tibia + fibul a, 2 view No observ ation record ed. [id number] [facility] [address], [place], [address], 06/29/2024 09:17:57 09/02/19 25 09/01/2024 MAMMO , scree kiera, bilat eral No observ ation record ed. [address], [place], [address], 09/29/2024 09:16:50 10/15/19 25 10/14/2024 XR, kidne y + urete r + bladd er No observ ation record ed. [address], [place], [address], 10/14/2024 15:03:05 Result Notes None recorded. Problems Name Problem SNOMED Code Status Onset Date Resolution Date Notes Provider Name and Address Organization Details Recorded Time Chronic back pain 403811353 Active 2021 Not Available [facility] 3 11:58:13 Gouty arthropat hy 555291201 Active 2021 Not Available [employer] 3 11:58:13 Idiopathi c hypercalc emia 524460835 Active 2017 Not Available [employer] 3 11:58:13 Persisten t insomnia 647017616 Active 2018 Not Available [facility] 3 11:58:13 Cataract 158931808 Active 2021 Not Available [facility] 3 11:58:13 Cerebrova scular accident 614631087 Active Not Available [facility] 3 11:58:13 Thyroid nodule 195165838 Active 2020 Not Available [facility] 3 11:58:13 Osteoarth ritis of knee 726933402 Active 2018 Not Available [facility] 3 11:58:13 Syncope 126302030 Active 2021 Not Available [facility] 3 11:58:13 Eruption 647877884 Completed Not Available [facility] 3 01:10:15 Disturban ce in speech 16692531 Active 2021 Not Available [facility] 3 11:58:13 Rib pain 778712900 Completed Nate Ocampo MD [address] [facility], [address] [address], [place], [address] , [facility] [employer] [facility] 4 16:03:13 Excessive growth of facial hair 786838027 Active 2021 Not Available [facility] 3 11:58:13 Blood in urine 30943339 Completed Not Available [facility] 3 01:10:16 Vitamin D deficienc y 82361326 Active Not Available [facility] 3 11:58:13 Seasonal allergic rhinitis 439269667 Active 2019 Not Available [facility] 3 11:58:13 Hypertens jada disorder 73018071 Active Not Available [facility] 3 11:58:13 Hordeolum 462587911 Completed Not Available [facility] 3 01:10:16 Obesity 849071008 Active 2017 Not Available [facility] 3 11:58:13 Mass of colon 243761265 Active 2018 Not Available [facility] 3 11:58:13 Hypokalem ia 50726326 Active Not Available [facility] 3 11:58:13 Microcalc ification s of the breast 76760148 Completed Not Available [facility] 3 01:10:17 Low blood pressure 37614562 Completed Not Available [facility] 3 01:10:17 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 94048872 Active 2017 Not Available [facility] 3 11:58:13 Atrial fibrillat ion 18373210 Active Not Available [facility] 3 11:58:13 Coronary arteriosc lerosis 25083669 Active Not Available [facility] 3 11:58:13 Essential hypertens ion 08861947 Completed Not Available [facility] 3 01:10:18 Hyperpara thyroidis m 91676771 Active Not Available [facility] 3 11:58:13 Colorecta l cancer detected by DNA-based stool screening 757868851 Active 2018 Not Available [facility] 3 11:58:13 Obstructi ve sleep apnea syndrome 12423933 Active Not Available [facility] 3 11:58:13 Postgastr ic surgery syndrome 66056936 Active Not Available [facility] 3 11:58:13 Ex-smoker 1048408 Active 2017 Not Available [facility] 3 11:58:13 Kidney stone 95415675 Active 2018 Not Available [facility] 3 11:58:13 Bilateral cataracts 28468176 Active 2021 Not Available [facility] 3 11:58:13 Pain of bilateral knee joints 50706145157 4104 Active 2022 Not Available [facility] 3 11:58:13 Microscop ic hematuria 243035609 Active 2022 Not Available [facility] 3 11:58:13 Urinary tract infectiou s disease 88968518 Active 2022 Not Available [facility] 3 11:58:13 Sleep apnea 33515183 Active 2022 Nate Ocampo MD [address], [place], [address] , [employer] [facility] [employer] 3 15:39:27 Sensation of irritatio n of eye proper 124483504 Active 2022 Nate Ocampo MD [address], [place], [address] , [employer] [facility] 3 14:14:40 Blepharit is of left eyelid 58693867635 9102 Active 2022 Nate Ocampo MD [address], [address], [place], [address] , [facility] 3 14:15:05 Chronic thoracic back pain 14017248368 9103 Active 2023 Nate Ocampo MD [address], [address], [place], [address] , [employer] [facility] [email or web address] [facility] 4 16:02:43 Rib pain 680075179 Active 2023 Nate Ocampo MD [address], [address], [place], [address] , [facility] [employer] [facility] 4 16:03:12 Osteoporo sis 07942067 Active 2023 Nate Ocampo MD [address], [address], [place], [address] , [facility] [employer] [facility] [email or web address] [facility] 4 09:00:10 Osteopeni a 598676312 Active 2023 Nate Ocampo MD [address], [place], [address] , [facility] [employer] [facility] 4 09:02:07 Hypersomn ia with sleep apnea 69154032 Active 2023 Niya Egan NP [address], [place], [address] , [facility] [employer] [facility] 4 13:02:11 Hypersomn ia 39561117 Active 2023 Niya Egan NP [address], [address], [place], [address] , [facility] [employer] [facility] 4 13:02:11 Cyst of neck 777528456 Active 2023 Nate Ocampo MD [address], [place], [address] , [facility] [employer] [facility] [employer] [facility] 4 11:32:29 Pain of right knee joint 56758713739 4100 Active 2023 Nate Ocampo MD [address], [address] , [facility] [employer] [facility] 4 10:03:24 Pain in right lower limb 172154462 Active 2023 Nate Ocampo MD [address], [address] , [facility] [employer] [facility] [employer] [facility] 4 10:03:39 Problem Notes None recorded. Procedures Surgical History Date Name Laterality Status Provider Name and Address Organization Details Recorded Time Ortho - Cortisone Injection completed Johny Jimenez MD [address] [address], [place], [address], [facility] [employer] [facility] 12/12/2022 11:08:53 Date of Last Colonoscopy completed Sagrario Booth [facility] [employer] [facility] 08/12/2022 10:13:22 022 Cataract Surgery completed Sagrarioperi Booth [facility] [employer] [facility] 08/12/2022 10:12:30 Colon Surgery completed Not Available [facility] 07/31/2022 00:55:17 colonoscopy completed Not Available [facility] 07/31/2022 00:55:17 parathyroidectomy completed Not Available [facility] 07/31/2022 00:55:17 Gastric Bypass completed Not Available [facility] 07/31/2022 00:55:17 Kidney Stones completed Not Available [facility] 07/31/2022 00:55:17 Brain Surgery completed Not Available [facility] 07/31/2022 00:55:17 Imaging Results None recorded. Procedure Notes None recorded. Medical Equipment None Reported. Allergies Allergen ID Allergen Name Allergen Category Reaction Reaction Severity Criticality Documentation Date Start Date Code Code System Note Provider Name and Address Organization Details Recorded Time 265 gabapenti n medicatio n confusion severe Not available 07/31/2022 95185 RxNorm Not Available [facility] 01:32:14 Medications Name Sig Start Date Stop [...] mg by injectio n route. 01/20 completed [facility]: [id number] 4-20 Not Available Not [...] e 50 mcg/actua tion nasal spray,[employer] [place] 2 sprays every day by intranas al route as directed for 30 days. active Use into both nostrils , as needed. Not Available Not Available Not Available enoxapari n 60 mg/0.6 mL subcutane ous syringe INJECT CONTENTS OF SYRINGE SUBCUTAN EOUS BID FOR 5 DAYS.06/02 11/14-2 08/01 completed Not Available Not Available Not [...] mg by injectio n route. 02/09 completed [facility] [id number] 08-31 Not Available Not Available Not Available [...] mg/0.5 mL subcutane ous pen injector Inject 0.25 mg every week by subcutan eous route as directed for 30 days. 09/29 completed Not Available Not Available Not Available Vitals Date Recorded Body height Body mass index (BMI) Body weight Body temperature Oxygen saturation Oxygen saturation in Arterial blood by Pulse oximetry Heart rate Systolic And Diastolic Provider Name and Address Organization Details Last Updated DateTime 167.64 cm 39.1 kg/m2 835163. 35 g 97.5 [degF] 98 % 98 % 73 /min 130/80 mm[Hg] Pippa Zamarripa RN [facility] [employer] [facility] 5 09:10:29 Date Recorded Body height Body mass index (BMI) Body weight Body temperature Heart rate Oxygen saturation Oxygen saturation in Arterial blood by Pulse oximetry Systolic And Diastolic Provider Name and Address Organization Details Last Updated DateTime 5 167.64 cm 39.7 kg/m2 597707. 72 g 97.4 [degF] 90 /min 95 % 95 % 126/80 mm[Hg] Lucrecia Roth Lora [facility] [employer] [facility] 5 09:15:11 Date Recorded Body height Body mass index (BMI) Body weight Body temperature Oxygen saturation Oxygen saturation in Arterial blood by Pulse oximetry Heart rate Systolic And Diastolic Provider Name and Address Organization Details Last Updated DateTime 4 167.64 cm 38.7 kg/m2 027603. 52 g 97.3 [degF] 99 % 99 % 69 /min 130/80 mm[Hg] Pippa Zamarripa RN [facility] [employer] [facility] 4 11:14:41 Date Recorded Body height Body mass index (BMI) Body weight Body temperature Heart rate Oxygen saturation Oxygen saturation in Arterial blood by Pulse oximetry Systolic And Diastolic Provider Name and Address Organization Details Last Updated DateTime 4 167.64 cm 38.8 kg/m2 737566. 25 g 97.5 [degF] 75 /min 96 % 96 % 132/80 mm[Hg] Deb Rodriguez RN [facility] [employer] [facility] 4 11:56:10 Date Recorded Oxygen saturation Oxygen saturation in Arterial blood by Pulse oximetry Heart rate Provider Name and Address Organization Details Last Updated DateTime 05/05/2024 95 % 95 % 90 /min Nate Ocampo MD [address] [facility], [address] [address], [place], [address], [facility] [employer] [facility] 05/05/2024 10:48:13 Date Recorded Body height Body mass index (BMI) Body weight Body temperature Systolic And Diastolic Provider Name and Address Organization Details Last Updated DateTime 05/05/2024 167.64 cm 38.5 kg/m2 899924. 43 g 97.6 [degF] 120/76 mm[Hg] Pippa Zamarripa RN [place] [facility] [employer] 09:55:18 Social History Question Answer Notes LastModified by Organization Details LastModified Time Tobacco Smoking Status Former Smoker Quin Jaciel segura [employer] 12/12/2022 09:45:18 Do You Have An Advance Directive? Yes Has A Living Will [id number] Information not available 07/31/2022 Do You Wear A Helmet When Biking? No Information not available 12/12/2022 Is Blood Transfusion Acceptable In An Emergency? Yes Information not available 12/12/2022 What Is Your Level Of Caffeine Consumption? Heavy [id number] [id number] Information not available 07/31/2022 How Much Tobacco Do You Chew? None [id number] Information not available 07/31/2022 In The 14 [...] CARDIAC Baked Food Instead Of Fried [id number].[id number] [id number] Information not available 07/31/2022 Which Illicit Or Recreational Drugs Have You Used? None Information not available 12/12/2022 What Is The Highest Grade Or Level Of School You Have Completed Or The Highest Degree You Have Received? [id number] Information not available 12/12/2022 Do You Have An Electrostatic Air Filter? No [email or web address] Information not available 02/25/2024 Have There Been Any Changes To Your Family Or Social Situation? No Information not available 12/12/2022 What Is The Fluoride Status Of Your Home? Fluoridated Information not available 12/12/2022 Are There Any Guns Present In Your Home? Yes Information not available 12/12/2022 Do You Have A Humidifier? No [email or web address] Information not available 02/25/2024 Do You Use Insect Repellent Routinely? Yes Information not available 12/12/2022 Where Do You Live? SingleLevelHouse Information not available 12/12/2022 Do You Have A Medical Power Of Tire Buster? No Information not available 12/12/2022 Do You Have Moisture Problems In Your Home? No [email or web address] Information not available 02/25/2024 Have You Ever Been Counseled For Unhealthy Alcohol Use? No Information not available 12/12/2022 Do You Have Any Pets? Yes Information not available 12/12/2022 What Is Your Relationship Status? [id number].[id number] [id number] Information not available 07/31/2022 Do You Use [...] Yes Information not available 12/12/2022 Do You Use Sunscreen Routinely? Yes Information not available 12/12/2022 Has Tobacco Cessation Counseling Been Provided? No [email or web address] Information not available 02/25/2024 Have You Recently Traveled Abroad? No Information not available 12/12/2022 Are You Currently In School? No Information not available 12/12/2022 Do You Have Any Dietary Restrictions? Yes Nothing Fried Information not available 12/12/2022 Sex: Female Functional Status Question Answer Note LastModified by Organizat ion Details LastModified Time Do you use any illicit or recreational drugs? No Information not available 12/12/2022 Do you or have you ever used any other forms of tobacco or nicotine? No [email or web address] Information not available 02/25/2024 What is your level of alcohol consumption? Occasional [id number] Information not available 07/31/2022 What is your occupation? disabled Information not available 12/12/2022 Do you or have you ever used e-cigarettes or vape? Never used electronic cigarettes Information not available 12/12/2022 What is your exercise level? Occasional [id number] Information not available 07/31/2022 Mental Status Question Answer Note LastModified by Organization D etails LastModified Time Do you feel stressed (tense, restless, nervous, or anxious, or unable to sleep at night)? [id number] Information not available 12/12/2022 Family History Relationship Description Onset Age of this Age Resolved Age Notes LastModified by Organization Details LastModified Time Mother Hypertensive disorder [email or web address] Not available 11/30 10:02:10 Mother Diabetes mellitus [email or web address] Not available 11/30 10:02:20 Medical History Condition Response STROKE/TIA Y OBESITY Y ARTHRITIS Y USE OF BLOOD THINNERS Y BLOOD CLOTS Y HEART DISEASE/HEART PROBLEMS Y HYPERTENSION Y CANCER: SPECIFY Y ANEMIA/BLOOD DISORDER Y ATRIAL FIBRILLATION Y Gynecological History Statement/Question Response Date of Last Pap Smear Date of Last Colonoscopy 03/02/2022 Most Recent Mammogram Most Recent Bone Density Obstetrics History GPAL:G 1 P 1 0 0 1 Type Value Full Term 1 Living 1 Total 1 Immunizations Vaccine Type Date Status Note Provider Nam e and Address Organization Details Recorded Time zoster recombinant 3 completed Nate Ocampo MD [address] [address], [place], [address], [facility] [employer] [facility] 05/22/2023 14:18:38 COVID-19, mRNA, LNP-S, PF, alejandro-sucrose, 30 mcg/0.3 mL 3 completed Nate Ocampo MD [address] [facility], [facility] [address], [place], [address], [facility] [employer] [facility] 05/22/2023 14:18:38 Influenza, split virus, quadrivalent, PF 3 completed [facility] [facility] 02/12/2023 08:37:56 pneumococcal polysaccharide PPV23 4 completed [facility] [facility] 10/16/2023 12:10:39 COVID-19, mRNA, LNP-S, bivalent, PF, 30 mcg/0.3 mL dose 2 completed Nate Ocampo MD [address], [place], [address], [employer] [facility] [employer] [facility] 05/22/2023 14:18:38 Influenza, split virus, trivalent, preservative 5 completed Nate Ocampo MD [address], [place], [address], [employer] [facility] [employer] [facility] 05/22/2023 14:18:38 Influenza, split virus, trivalent, preservative 4 completed Nate Ocampo MD [address], [place], [address], [employer] [facility] [employer] [facility] 05/22/2023 14:18:38 DTaP 0 completed Nate Ocampo MD [address], [place], [address], [employer] [facility] [employer] [facility] 05/22/2023 14:18:38 Influenza, split virus, quadrivalent, PF 1 completed Nate Ocampo MD [address], [place], [address], [employer] [facility] [employer] [facility] 05/22/2023 14:18:38 Influenza, split virus, quadrivalent, PF 0 completed Nate Ocampo MD [address], [place], [address], [employer] [facility] [employer] [facility] 05/22/2023 14:18:38 Tdap 0 completed Nate Ocampo MD [address], [place], [address], [employer] [facility] [employer] [facility] 05/22/2023 14:18:38 Influenza, split virus, quadrivalent, PF 9 completed Nate Ocampo MD [address], [place], [address], [employer] [facility] [employer] [facility] 05/22/2023 14:18:38 pneumococcal polysaccharide PPV23 9 completed Nate Ocampo MD [address], [place], [address], [facility] [employer] [facility] 05/22/2023 14:18:38 Influenza, split virus, quadrivalent, PF 8 completed Nate Ocampo MD [address], [place], [address], [facility] [employer] [facility] [employer] [facility] 05/22/2023 14:18:38 Influenza, split virus, quadrivalent, PF 2 completed Nate Ocampo MD [address], [place], [address], [facility] [employer] [facility] 05/22/2023 14:18:38 COVID-19 IV Non-US Vaccine (COVAXIN) 1 completed Nate Ocampo MD [address], [place], [address], [facility] [employer] [facility] [employer] [facility] 05/22/2023 14:18:38 COVID-19, mRNA, LNP-S, PF, 30 mcg/0.3 mL dose 1 completed Nate Ocampo MD [address], [place], [address], [facility] [employer] [facility] 05/22/2023 14:18:38 Influenza, split virus, trivalent, PF 4 completed Pippa Zamarripa RN [facility], [facility] [employer] [facility] 04/06/2024 13:48:16 Past Encounters Encounter ID Performer Location Encounter Start Date Encounter Closed Date Diagnosis/Indication Diagnosis SNOMED-CT Code Diagnosis ICD10 Code Diagnosis Note [id number] Nate Ocampo MD S_[address] [address] 08/02/2020 00:00:00 08/02/2020 14:46:20 [id number] Sugar Martinez MD [facility] End[facility] Darinel Sorto [address] [place] [address] 09/25/2020 00:00:00 09/25/2020 17:38:59 [id number] Nate Ocampo MD [facility] [address] [place] [address] 11/01/2020 00:00:00 11/01/2020 17:58:41 [id number] Nate Ocampo MD [facility] [address] [place] [address] 01/03/2021 00:00:00 01/03/2021 17:59:56 [id number] Nate Ocampo MD [facility] [address] [place] [address] 01/09/2021 00:00:00 01/09/2021 17:47:59 [id number] Nate Ocampo MD [facility] [address] [place] [address] 03/15/2021 00:00:00 03/15/2021 14:08:21 [id number] Nate Ocampo MD [facility] [address] [place] [address] 04/11/2021 00:00:00 04/11/2021 11:07:42 [id number] Nate Ocampo MD [facility] [address] [place] [address] 08/08/2021 00:00:00 08/08/2021 11:00:14 [id number] Nate Ocampo MD [facility] [address] [place] [address] 09/19/2021 00:00:00 09/19/2021 11:10:10 [id number] Nate Ocampo MD [facility] [address] [place] [address] 11/21/2021 00:00:00 11/21/2021 11:04:06 [id number] Nate Ocampo MD [facility] [address] [place] [address] 01/01/2022 00:00:00 01/01/2022 15:03:37 [id number] Nate Ocampo MD [facility] [address] [place] [address] 01/16/2022 00:00:00 01/16/2022 11:02:11 [id number] Nate Ocampo MD [facility] [address] [place] [address] 02/07/2022 00:00:00 02/07/2022 12:43:29 [id number] Nate Ocampo MD [facility] [address] [facility] [place] [address] 04/22/2022 00:00:00 04/22/2022 17:46:35 [id number] Nate Ocampo MD [facility] [address] [facility] [place] [address] 05/02/2022 00:00:00 05/02/2022 14:04:35 [id number] Nate Ocampo MD [facility] [address] [facility] [place] [address] 05/14/2022 00:00:00 05/14/2022 16:18:40 [id number] Nate Ocampo MD [facility] [address] [facility] [place] [address] 08/12/2022 10:00:13 08/12/2022 10:32:54 Chronic back pain 485896825 G89.29 Gouty arthropathy 722405 008 M10.09 Hypertensive disorder 38 682966 I10 Obesity 640096330 E66.9 Hypokalemia 14515808 E87 .6 [id number] Nate Ocampo MD [facility] [address] [place] [address] 11/11/2022 09:54:09 11/11/2022 10:21:30 Hypertensive disorder 14239373 I10 Chronic back pain 583966 002 G89.29 Gouty arthropathy 877427 008 M10.09 Obesity 857014887 E66.9 Hypokalemia 54640813 E87 .6 Pain of bi lateral knee joints 4174961655 72353 M25.561 Coronary arteriosclerosis 14072590 I25.10 Cerebrovas cular accident 892650210 I63.9 Atrial fibrillation 4943 6004 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 55003806 M47.817 [id number] Nate Ocampo MD [facility] [address] [place] [address] 12/04/2022 09:37:02 12/04/2022 10:00:59 Hypertensive disorder 07549938 I10 Chronic back pain 891454 002 G89.29 Gouty arthropathy 562008 008 M10.09 Obesity 311054000 E66.9 Hypokalemia 15708320 E87 .6 Pain of bi lateral knee joints 2765897547 61929 M25.561 Coronary arteriosclerosis 64915964 I25.10 Cerebrovas cular accident 432028989 I63.9 Atrial fibrillation 4943 6004 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 62754236 M47.817 [id number] Johny Jimenez MD [facility] [address] [facility] [address] [place] [address] 12/12/2022 09:43:06 12/12/2022 11:07:55 Pain of bilateral knee joints 6761192619 49111 M25.561 M25.562 [id number] Nate Ocampo MD [facility] [address] [place] [address] 01/20/2023 09:47:58 01/20/2023 10:19:26 Pain of bilateral knee joints 5992910627 99631 M25.561 Hypertensive disorder 38 537222 I10 Chronic back pain 801975 002 G89.29 Gouty arthropathy 571850 008 M10.09 Obesity 517018572 E66.9 Hypokalemia 22106525 E87 .6 Coronary arteriosclerosis 57220046 I25.10 Cerebrovas cular accident 246373768 I63.9 Atrial fibrillation 4943 6004 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 87074172 M47.817 Vitamin D deficiency 347 13749 E55.9 [id number] Nate Ocampo MD [address] [address] 02/11/2023 09:48:02 02/11/2023 10:30:18 Pain of bilateral knee joints 1103602647 78304 M25.561 Hypertensive disorder 38 433920 I10 Chronic back pain 566820 002 G89.29 Gouty arthropathy 606858 008 M10.09 Obesity 729595163 E66.9 Hypokalemia 47373945 E87 .6 Coronary arteriosclerosis 30475597 I25.10 Cerebrovas cular accident 643629817 I63.9 Atrial fibrillation 4943 6004 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 32733702 M47.817 Vitamin D deficiency 347 29207 E55.9 Microscopic hematuria 19 0726501 R31.29 Administra tion of influenza vaccine 45446723 Z23 Idiopathic hypercalcemia 302636427 E83.52 [id number] Nate Ocampo MD [address] [address] 03/18/2023 10:50:11 03/18/2023 12:22:03 Pain of bilateral knee joints 3404083000 12147 M25.561 Hypertensive disorder 38 618524 I10 Chronic back pain 504704 002 G89.29 Gouty arthropathy 614386 008 M10.09 Obesity 193221275 E66.9 Hypokalemia 86994737 E87 .6 Coronary arteriosclerosis 22352867 I25.10 Cerebrovas cular accident 170312393 I63.9 Atrial fibrillation 4943 6004 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 52350942 M47.817 Microscopic hematuria 19 3298956 R31.29 Idiopathic hypercalcemia 332922670 E83.52 Screening mammography 24 936782 Z12.31 [id number] Nate Ocampo MD [address] [address] 05/22/2023 14:00:29 05/22/2023 14:32:13 Sensation of irritation of eye proper 681680307 H57.89 Lt Blephariti s of left eyelid 4341081074 12843 H01.754 [id number] Nate Ocampo MD [address] [address] 06/18/2023 10:45:06 06/18/2023 11:19:30 Microscopic hematuria 137876401 R31.29 Pain of bi lateral knee joints 2403266730 04557 M25.561 Hypertensive disorder 38 308305 I10 Chronic back pain 307336 002 G89.29 Gouty arthropathy 701422 008 M10.09 Obesity 744527933 E66.9 Hypokalemia 78698907 E87 .6 Coronary arteriosclerosis 10972158 I25.10 Cerebrovas cular accident 439046647 I63.9 Atrial fibrillation 4943 6004 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 18524908 M47.817 Idiopathic hypercalcemia 923864739 E83.52 Sleep apnea 42420470 G47 .30 [id number] Nate Ocampo MD [address] [address] 08/11/2023 15:42:07 08/11/2023 16:10:05 Chronic thoracic back pain 2935011864 88200 M54.6 Rib pain 450799408 R07.8 1 Rt Obesity 480841167 E66.9 [id number] Nate Ocampo MD [address] [address] 10/16/2023 10:44:47 10/16/2023 11:12:38 Hypertensive disorder 39828246 I10 Microscopic hematuria 19 5029233 R31.29 Pain of bi lateral knee joints 2193905878 21523 M25.561 Chronic back pain 219798 002 G89.29 Gouty arthropathy 202962 008 M10.09 Obesity 570576356 E66.9 Hypokalemia 52853244 E87 .6 Coronary arteriosclerosis 70781659 I25.10 Cerebrovas cular accident 322174155 I63.9 Atrial fibrillation 4943 6004 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 58111044 M47.817 Idiopathic hypercalcemia 350874828 E83.52 Sleep apnea 19823524 G47 .30 Screening for osteoporosis 270956026 Z13.820 Active or passive immunization 669152614 Z23 Osteoporosis 09931086 M8 1.0 [id number] Nate Ocampo MD [address] [address] 01/21/2024 08:51:52 01/21/2024 09:42:40 Gouty arthropathy 860633377 M10.09 Pain of bi lateral knee joints 6398253963 73611 M25.561 Hypertensive disorder 38 807430 I10 Microscopic hematuria 19 1147650 R31.29 Chronic back pain 387602 002 G89.29 Obesity 214424867 E66.9 Hypokalemia 48576552 E87 .6 Coronary arteriosclerosis 53324524 I25.10 Cerebrovas cular accident 392889201 I63.9 Atrial fibrillation 4943 6004 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 29948342 M47.817 Idiopathic hypercalcemia 670254129 E83.52 Sleep apnea 11678332 G47 .30 Osteopenia 383902684 M85 .80 Thyroid nodule 377612083 E04.1 [id number] Nate Ocampo MD [address] [address] 02/10/2024 08:46:29 02/10/2024 09:25:42 Hypertensive disorder 30276553 I10 Chronic back pain 072746 002 G89.29 Gouty arthropathy 209377 008 M10.09 Pain of bi lateral knee joints 8154422395 36232 M25.561 Microscopic hematuria 19 1596124 R31.29 Obesity 140384790 E66.9 Hypokalemia 39701685 E87 .6 Coronary arteriosclerosis 22146411 I25.10 Cerebrovas cular accident 302106595 I63.9 Atrial fibrillation 4943 6004 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 25295544 M47.817 Idiopathic hypercalcemia 705497363 E83.52 Sleep apnea 05419135 G47 .30 Osteopenia 949639565 M85 .80 Thyroid nodule 073477840 E04.1 [id number] Nate Ocampo MD [facility] [address] [address] 02/17/2024 13:59:36 02/17/2024 14:53:09 Gouty arthropathy 176608021 M10.09 Hypertensive disorder 38 408053 I10 Chronic back pain 349732 002 G89.29 Pain of bi lateral knee joints 2467048499 20778 M25.561 Microscopic hematuria 19 1084670 R31.29 Obesity 700450006 E66.9 Hypokalemia 24143840 E87 .6 Coronary arteriosclerosis 21436412 I25.10 Cerebrovas cular accident 308422993 I63.9 Atrial fibrillation 4943 6004 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 70929879 M47.817 Idiopathic hypercalcemia 102393622 E83.52 Sleep apnea 12218552 G47 .30 Osteopenia 433142773 M85 .80 Thyroid nodule 242200972 E04.1 [id number] Niya Egan NP [facility] Pulmonolo gy [address] [address] 02/25/2024 11:16:31 02/26/2024 14:52:04 Obstructive sleep apnea syndrome 78538396 G47.33 G47.37 Patient has Airsense 11-since 07/2022, [facility] with use of greater than 4 hoursPAP is set at 7 cm K6FOsbi/sl eep study while on PAP reviewed-s he benefits from CPAPAHI was 9.7 with Central apnea of 2.1-will change setting to auto 7 to 15 cm I5G-xuzzvx s made today-will follow-up in 1 monthConti gunnare 100% compliance with all sleepFollo w with [...] iscussed reportable signs and symptoms of concernRec omcedric new machine at 5 year sue, plans to repeat home sleep study as needed with changes in condition. Body mass index 30+ - obesity 318284583 Z68.39 Encourage healthy diet and exercise to improve weightdisc ussed weight effect on sleep and sleep apnea [id number] Niya Egan NP [facility] [address] [address] 03/25/2024 09:10:32 03/25/2024 11:57:00 Obstructive sleep apnea syndrome 85962939 G47.33 G47.37 ESS-2Patie nt has Airsense 11-since 3Down load shows 100% compliance with use of greater than 4 hoursPAP is set at 7-15 cm Y5FQmpl/sl eep study while on PAP reviewed-s he benefits from CPAPAHI was 4.9-will continue setting to auto 7 to 15 cm J6YOrpwkff benefits from CPAPContin ue 100% compliance with [...] if any new concerns or issues discussed [id number] Nate Ocampo MD [address] [address] 04/06/2024 10:57:10 04/06/2024 12:06:57 Cyst of neck 105924054 R22.1 Rt Administra tion of influenza vaccine 59422287 Z23 Thyroid nodule 445808740 E04.1 History of parathyroidectomy 3106190433 86070 Z90.89 Advised pt to contact her ENT about this too. [id number] Nate Ocampo MD [address] [address] 04/15/2024 11:50:10 04/15/2024 12:11:23 Cyst of neck 053443613 R22.1 Rt Thyroid nodule 294171207 E04.1 B/L History of parathyroidectomy 7574081487 38415 Z90.89 [id number] Nate Ocampo MD [address] [address] 05/05/2024 09:44:31 05/05/2024 10:19:52 Pain of right knee joint 9476271899 18212 M25.561 Use OTC knee sleeve as directed prn. Pain in ri ght lower limb 643409787 M79.604 Obesity 390030364 E66.9 [id number] Nate Ocampo MD [address] [address] 06/29/2024 08:56:30 06/29/2024 09:20:49 Sleep apnea 69658811 G47.30 Gouty arthropathy 924737 008 M10.09 Hypertensive disorder 38 907349 I10 Chronic back pain 282961 002 G89.29 Pain of bi lateral knee joints 0338408966 08216 M25.561 Microscopic hematuria 19 8120016 R31.29 Obesity 283961771 E66.9 Hypokalemia 65584661 E87 .6 Coronary arteriosclerosis 36289301 I25.10 Cerebrovas cular accident 309741084 I63.9 Atrial fibrillation 4943 6004 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 24427701 M47.817 Idiopathic hypercalcemia 620495066 E83.52 Osteopenia 680299211 M85 .80 Thyroid nodule 952815102 E04.1 B/L Screening mammography 24 536583 Z12.31 [id number] Nate Ocampo MD [facility] [address] [address] 09/29/2024 09:01:45 09/29/2024 09:23:30 Gouty arthropathy 573229325 M10.09 Hypertensive disorder 38 582361 I10 Sleep apnea 70320900 G47 .30 Chronic back pain 023042 002 G89.29 Pain of bi lateral knee joints 5873413605 53101 M25.561 Microscopic hematuria 19 8942579 R31.29 Obesity 639743754 E66.9 Hypokalemia 33604523 E87 .6 Coronary arteriosclerosis 94133182 I25.10 Cerebrovas cular accident 618643928 I63.9 Atrial fibrillation 4943 6004 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 23295433 M47.817 Idiopathic hypercalcemia 820692785 E83.52 Osteopenia 841978231 M85 .80 Thyroid nodule 948826566 E04.1 B/L Health Concerns Section Related Observation LastModified by Organization Detai ls LastModified Time None Recorded Concern Status LastModified by Organization Details LastModified Time None Recorded Advance Directives Directive Y: has a living will Payers Insurance Date Sequence Insurance Name Policy Number Policy Leija Covered Member ID Leija Member ID Guarantor Name 09/30/2024 1 [facility] (MEDICARE REPLACEMENT/ ADVANTAGE - HMO) [id number] Ana Laura Williamson [id number] Ana Laura Williamson Notes Date Note Type Note Provider Name and Address Organization Details Recorded Time 4 text/html ACV: C/o Rt anterior lower [...] other concern. Nate Ocampo MD [address] [place] [address], [place], [address], [facility] 04/06/2024 11:48:31 4 text/html Pt is here [...] yrs. Nate Ocampo MD [address] [place] [address], [place], [address], [facility] 04/15/2024 12:11:08 4 text/html ACV: C/o Rt lower knee area clicking sound when she walks, started couple days ago. Denies any fall/trauma/injury. Denies any pain with walking/wt bearing. No other concern. Nate Ocampo MD [address] [place] [address], [place], [address], [facility] 05/05/2024 10:50:49 5 text/html Pt is here for f/u on her x-rays, meds and chronic conditions. Doing overall better. Denies any problem with meds. Denies any new concern. Pt is f/u with Wt loss clinic at [place] and got the revision surgery done with them in 12/23. Pt is f/u with Pain clinic at [place] for her chronic back pain and got [...] pt.Pt is f/u with colorectal surgeon at [place] and got about 2 feet of her colon removed. Doing overall well with it.Pt says her Insomnia is improved now. She is able to sleep about 6-7 hrs per night.Pt has b/l kidney stones and is f/u with Uro at [place].Pt is on Coumadin by her Cardio and they are managing its dose and f/u on INR results. Nate Ocampo MD [address] [facility], [facility] [address], [place], [address], [facility] [email or web address] 06/29/2024 09:19:32 5 text/html Pt is here for f/u on her meds and chronic conditions. Doing overall well. Denies any problem with meds. Denies any new concern. Pt is f/u with Wt loss clinic at [place] and got the revision surgery done with them in 12/23. Pt is f/u with Pain clinic at [place] for her chronic back pain and got 2 rounds of epidural shots with them. Pt has seen Neurosurgeon by them too and no need for any surgery as per pt.Pt has talked with her Endo and ENT about her thyroid nodule and hyperparathyroidism and nothing extra to be done as per them.Pt is f/u with Endo and had biopsy of her thyroid nodule done and it came back benign as per pt.Pt is f/u with colorectal surgeon at [place] and got about 2 feet of her colon removed. Doing overall well with it.Pt says her Insomnia is improved now. She is able to sleep about 6-7 hrs per night.Pt has b/l kidney stones and is f/u with Uro at [place].Pt is on Coumadin by her Cardio and they are managing its dose and f/u on INR results. Nate Ocampo MD [address] [place] [address], [facility] [address], [place], [address], [facility] 09/29/2024 09:28:21 OBGyn Episode No OBEpisode recorded.
--- OUTSIDE RECORDS SUMMARY | 2024-12-03 11:55 | XMS_ITS | Encounter Summary ---
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
--- OUTSIDE RECORDS SUMMARY | 2024-12-03 11:55 | XMS_ITS | Clinical Summary ---
Author Organization [facility] [address] Address [address] [place] [address] Care Team Providers Care Dairy Cattle Farm Worker Name Role Phone Fran Roberto MD Unavailable [phone] Nate Ocampo MD Primary Care Provider [phone] Allergies Active Allergy Reactions Criticality Noted Date [...] Department Care Team Description 11/23/2024 Anticoagulation Visit [facility] Cardiology [address] [place] [address] Dyan Lacy RN Atrial fibrillation (CMS/HCC) [I48.91] (Primary Dx) 10/26/2024 Anticoagulation Visit [facility] Cardiology [address] [place] [address] Syed Ochoa RN Atrial fibrillation (CMS/HCC) [I48.91] (Primary Dx) 09/20/2024 Anticoagulation Visit 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 Gender Identity Not on file Sexual Orientation [...] Breast Cancer Screening-Mammogram 07/07/2024 07/07/2023, 04/03/2022, 02/12/2021 Influenza Vaccine (#1) 2025 , 02/12/2023, 04/22/2022, Additional history exists DTaP/Tdap/Td Vaccine (4 - Td or Tdap) 01/03/2030 01/04/2020, 03/17/2010, 06/02/2009 Pneumococcal vaccine <65 Aged Out 10/16/2023, 06/03 No longer eligible based on patient's age to complete this topic Procedures Procedure Name Priority Date/Time Associated Diagnosis Comments PROTIME-INR Routine 11/23/2024 PROTIME-INR Routine 10/23/2024 PROTIME-INR Routine 09/18/2024 from Last 3 Months Results * (ABNORMAL) Protime-INR (11/23/2024) INR 2.30(A) 0.90 - 1.10 EXTERNAL LAB Blood Result [facility] Historical Provider MD LAB BLOOD ORDERABLES Rosa l Result EXTERNAL LAB * (ABNORMAL) Protime-INR (10/23/2024) INR 2.00(A) 0.90 - 1.10 EXTERNAL LAB Blood 10/23/2024 Result [facility] Historical Provider MD LAB BLOOD ORDERABLES Rosa l Result EXTERNAL LAB * (ABNORMAL) Protime-INR (09/18/2024) INR 2.50(A) 0.90 - 1.10 EXTERNAL LAB Blood Historical Provider MD LAB BLOOD ORDERABLES Rosa l Result EXTERNAL LAB from Last 3 Months Insurance [facility] MEDICARE ADVANTAGE [facility] MEDICARE ADVANTAGE [place] [id number] [facility] MEDIC[facility] ADV[facility]AGE Advance Directives For more information, please contact: [phone] * Full Code (Latest Code Status on File) Date Activated Date Inactivated Comments 12/25/2023 7:14 AM 12/25/2023 3:27 PM * Full Code Date Activated Date Inactivated Comments 07/22/2023 10:16 AM 07/22/2023 4:01 PM Care Teams Dairy Cattle Farm Worker Relationship Specialty Start Date End Date Nate Ocampo MD [address] [address] PCP - General Family Medicine 02/05/19 Fran Roberto MD [address] [address] Cardiology 11/06/16
--- OUTSIDE RECORDS SUMMARY | 2024-12-03 11:55 | XMS_ITS | Clinical Summary ---
Author Organization [facility] Amber Samano Address [address] [place] [address] Care Team Providers Care Extractor Puller Name Role Phone Nate Ocampo MD Primary Care Provider [phone] Allergies Active Allergy Reactions Criticality Noted Date Comments Gabapentin Confusion High 05/16/2020 Medications warfarin (COUMADIN) 6 mg tablet every 24 hours. Acti ve metoprolol succinate (TOPROL XL) 100 mg Extended Release 24 hour tablet metoprolol succinate ER 100 mg tablet,extended release 24 hr 02/02/20 19 Active lisinopriL (PRINIVIL) 40 mg tablet lisinopril 40 mg tablet Active Iron Amino Acid [id number] A 27-100-400 mg-mcg-mcg Capsule Take by mouth. 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
--- NOTE | 2024-12-03 12:01 | ECG_ITS ---
Test Date: 2024-12-03 12:25:28 Measurements Intervals [place] Rate: 93 P: 0 LA: 0 QRS: 10 QRSD: 90 T: 18 QT: 346 QTc: 431 Interpretive Statements ATRIAL FIBRILLATION ABNORMAL RHYTHM ECG Compared to ECG 11/22/2024 11:32:11 No significant changes Electronically Signed On 12-03-2024 12:53:22 CDT by Ciro Higginbotham M.D.
--- NOTE | 2024-12-03 12:07 | ED.AMS ---
HPI - Altered Mental Status General Chief Complaint: Altered Mental Status Stated Complaint: CONFUSION SINCE LAST NIGHT Time Seen by Provider: 12/03/24 12:06 Source: patient and family Mode of arrival: ambulatory History of Present Illness HPI narrative: 59 years old white female came to the ED from home with her daughter complaining of confusion, not feeling well, does not make sense, 1-2 days. She denies any fever, chills, nausea, vomiting, chest pain or shortness of breath or headache. History of CVA and cerebral aneurysm home with right hemiplegia and right facial drooping and a aphasia. History of atrial fibrillation on Coumadin. Patient denies any trauma. Related Data Home Medications ?Medication ?Instructions ?Recorded ?Confirmed ?Last Taken ?Type lisinopril 20 mg tablet 10 mg PO DAILY 04/20/19 11/26/24 11/25/24 History metoprolol succinate 100 mg 100 mg PO DAILY 04/20/19 11/26/24 11/26/24 History tablet,extended release 24 hr aspirin 81 mg tablet,delayed 81 mg PO DAILY 04/23/19 11/26/24 11/20/24 History release (Aspir-) cholecalciferol (vitamin D3) 50 2,000 unit PO DAILY 06/07/19 11/26/24 11/23/24 History mcg (2,000 unit) tablet cyanocobalamin (vitamin B-12) 500 500 mcg PO DAILY 06/07/19 11/26/24 11/23/24 History mcg tablet warfarin 7.5 mg tablet 7.5 tablet PO 6XW 11/16/21 11/22/24 11/20/24 History allopurinol 100 mg tablet 100 mg PO DAILY 05/06/24 11/26/24 11/25/24 History pkvydhuuooff-juvysamy-updhtv tablet 1 tablet PO DAILY 05/06/24 11/26/24 11/23/24 History omega-3s 300 wf-prw-axh-other 2 cap PO DAILY 05/06/24 11/26/24 11/23/24 History shube8l-mvij oil 1,000 mg capsule ([place]-3 Fish Oil) potassium chloride 10 mEq 10 meq PO DAILY 05/06/24 11/26/24 11/23/24 History tablet,extended release(part/cryst) Allergies Allergy/AdvReac Type Severity Reaction Status Date / Time No Known Allergies Allergy Verified 12/03/24 12:02 Review of Systems Review of Systems: All systems reviewed & are unremarkable except as noted in HPI and below PMFSH Past Medical History Medical History Hyperparathyroidism History of thyroid disease History of stroke x2 Brain aneurysm X2 with repair AMMON (obstructive sleep apnea) Hypertension CVA (cerebral vascular accident) X2 Afib Surgical History Surgical History Hx of laparoscopic gastric banding H/O lithotripsy History of parathyroidectomy H/O rectal polypectomy S/P left hemicolectomy History of colonoscopy Family History Family History Father Lung cancer Mother COPD (chronic obstructive pulmonary disease) Diabetes mellitus Hypertension High cholesterol Unknown Diabetes mellitus Heart disease Cancer Hypertension Social History Social History Social History: The patient is . She has 1 daughter. She is disabled. She desires to be a full code. 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 Smoking status: Former smoker Tobacco type: cigarettes Smoking end date: 01/31/98 Alcohol intake: current Drinks per week: 5 Alcohol use details: beer socially Substance use: never Substance use type: does not use Do You Feel Safe in your Home?: Yes Lack of Transportation: No Lack of Food: Never True Current Housing: I Have Housing Concerned About Future Housing: No Difficulty Paying Gas/Electric Bills: No Difficulty Paying for Meds: No Currently Unemployed: No Education: Associate Degree Difficulty w/ Childcare or Family Care: No Living arrangements: alone Occupation/Education: other Gender identity (if verbalized by the patient): Female Spiritual care concerns: No Exam Narrative: General appearance: Well-developed, well-nourished Skin: Normal color Head: Normocephalic, nontraumatic Eyes: Clear conjunctiva ENT: Oropharynx normal, ears normal, nose normal Neck: Supple, nontender Chest and respiratory: Airway patent, no respiratory distress, no accessory muscle use Heart: Regular rate/rhythm Abdomen: Soft, nontender, no organomegaly, quiet bowel sounds Vascular: Normal peripheral pulses, normal capillary refill. Musculoskeletal: Normal range of motion, nontender back Neurologic: Alert and oriented ?3, BUSINESS MANAGEMENT CONSULTANT is normal as tested, no gross motor deficit Course Consultations Consultation #1: [facility] AT [facility] WHO ACCEPTED PATIENT TRANSFER Date: 12/03/24 Vital Signs Vital signs: Vital Signs Temperature 36.7 C 12/03/24 11:57 Pulse Rate 98 12/03/24 11:57 Respiratory Rate 18 12/03/24 11:57 Blood Pressure 158/98 H 12/03/24 11:57 Pulse Oximetry 97 12/03/24 11:57 Oxygen Delivery Room Air 12/03/24 11:57 Temperature 36.8 C 12/03/24 16:27 Pulse Rate 92 12/03/24 16:27 Respiratory Rate 22 H 12/03/24 16:27 Blood Pressure 159/86 H 12/03/24 16:27 Pulse Oximetry 99 12/03/24 16:27 Oxygen Delivery Room Air 12/03/24 11:57 MDM - Altered Mental Status Lab Data 12/03/24 12:20 12/03/24 12:20 Labs: Lab Results 12/03/24 12/03/24 12/03/24 Range/Units 12:20 12:20 13:04 WBC 7.7 (4.5-10.0) K/mm3 RBC 4.04 L (4.2-5.4) M/mm3 Hgb 12.8 (12.0-15.0) g/dL Hct 40.0 (37.0-47.0) % MCV 99.0 (80-100) fl MCH 31.7 (26-34) pg MCHC 32.0 (32-36) g/dl RDW 14.0 (11.5-14.5) % Plt Count 168 (150-375) k/mm3 MPV 11.9 H (7.4-10.4) fl Immature Gran % (Auto) 0.3 (0-0.5) % Neut % (Auto) 73.3 H (45.5-73.1) % Lymph % (Auto) 18.0 L (18.3-44.2) % [place] % (Auto) 6.4 (2.6-8.5) % Eos % (Auto) 1.2 (0-4.4) % Baso % (Auto) 0.8 (0.2-1.2) % Lymph # (Auto) 1.38 (0.9-3.2) K/mm3 [place] # (Auto) 0.5 (0.1-0.6) K/mm3 Eos # (Auto) 0.1 (0-0.3) K/mm3 Baso # (Auto) 0.1 (0.0-0.1) K/mm3 Abs Immat Gran (auto) 0.02 (0.00-0.031) K/mm3 Absolute Neuts (auto) 5.6 (1.3-6.7) K/mm3 Absolute Nucleated RBC 0.000 (0.0-0.012) K/mm3 Nucleated RBC % 0.0 (0.0-0.2) % PT 24.5 H (11.1-14.7) Seconds INR 2.3 APTT 33.1 (22.3-36.8) Seconds Sodium 141 (137-145) mmol/L Potassium 3.9 (3.4-5.0) mmol/L Chloride 108 H (98-107) mmol/L Carbon Dioxide 25 (22-30) mmol/L Anion Gap 8 (4-12) mmol/L BUN 15 D (7-17) mg/dL Creatinine 0.65 L (0.7-1.0) mg/dL Estim Creat Clear Calc Not Reportable Estimated GFR > 60 (59 - ) Glucose 96 (65-110) mg/dL Calcium 10.5 H (8.4-10.2) mg/dL Total Bilirubin 0.6 (0.2-1.3) mg/dL AST 32 (14-36) U/L ALT 21 (6-35) U/L Alkaline Phosphatase 91 (38-126) U/L Ammonia 15 (9-30) umol/L Total Creatine Kinase 39 Cancelled (30-135) U/L Troponin I < 0.012 (0.000-0.034) ng/mL Total Protein 7.2 (6.3-8.2) g/dL Albumin 3.9 (3.5-5.1) g/dL Urine Color (Yellow) Urine Appearance (Clear) Urine pH (5.0-9.0) Ur Specific [place] (1.001-1.035) Urine Protein (Negative) mg/dL Urine Glucose (UA) (Negative) mg/dL Urine Ketones (Negative) mg/dL Ur Blood (Man) (Negative) Urine Nitrate (Negative) Urine Bilirubin (Negative) Urine Urobilinogen (<2.0) mg/dL Add Ur Microanalysis Leukocyte Esterase Rfl (Negative) ROSAURA/UL Urine RBC (0-2) /hpf Urine WBC (0-3) /hpf Ur Squamous Epith Cells (Few) /hpf Urine Bacteria /hpf Urine Casts Blood Type O Positive Antibody Screen Negative 12/03/24 Range/Units 13:06 WBC (4.5-10.0) K/mm3 RBC (4.2-5.4) M/mm3 Hgb (12.0-15.0) g/dL Hct (37.0-47.0) % MCV (80-100) fl MCH (26-34) pg MCHC (32-36) g/dl RDW (11.5-14.5) % Plt Count (150-375) k/mm3 MPV (7.4-10.4) fl Immature Gran % (Auto) (0-0.5) % Neut % (Auto) (45.5-73.1) % Lymph % (Auto) (18.3-44.2) % [place] % (Auto) (2.6-8.5) % Eos % (Auto) (0-4.4) % Baso % (Auto) (0.2-1.2) % Lymph # (Auto) (0.9-3.2) K/mm3 [place] # (Auto) (0.1-0.6) K/mm3 Eos # (Auto) (0-0.3) K/mm3 Baso # (Auto) (0.0-0.1) K/mm3 Abs Immat Gran (auto) (0.00-0.031) K/mm3 Absolute Neuts (auto) (1.3-6.7) K/mm3 Absolute Nucleated RBC (0.0-0.012) K/mm3 Nucleated RBC % (0.0-0.2) % PT (11.1-14.7) Seconds INR APTT (22.3-36.8) Seconds Sodium (137-145) mmol/L Potassium (3.4-5.0) mmol/L Chloride (98-107) mmol/L Carbon Dioxide (22-30) mmol/L Anion Gap (4-12) mmol/L BUN (7-17) mg/dL Creatinine (0.7-1.0) mg/dL Estim Creat Clear Calc Estimated GFR (59 - ) Glucose (65-110) mg/dL Calcium (8.4-10.2) mg/dL Total Bilirubin (0.2-1.3) mg/dL AST (14-36) U/L ALT (6-35) U/L Alkaline Phosphatase (38-126) U/L Ammonia (9-30) umol/L Total Creatine Kinase (30-135) U/L Troponin I (0.000-0.034) ng/mL Total Protein (6.3-8.2) g/dL Albumin (3.5-5.1) g/dL Urine Color Yellow (Yellow) Urine Appearance Clear (Clear) Urine pH 6.5 (5.0-9.0) Ur Specific [place] 1.017 (1.001-1.035) Urine Protein Negative (Negative) mg/dL Urine Glucose (UA) Negative (Negative) mg/dL Urine Ketones Negative (Negative) mg/dL Ur Blood (Man) Negative (Negative) Urine Nitrate Negative (Negative) Urine Bilirubin Negative (Negative) Urine Urobilinogen 1.0 (<2.0) mg/dL Add Ur Microanalysis Reviewed Leukocyte Esterase Rfl 1+ H (Negative) ROSAURA/UL Urine RBC 0-2 (0-2) /hpf Urine WBC 0-5 (0-3) /hpf Ur Squamous Epith Cells Occasional (Few) /hpf Urine Bacteria None seen /hpf Urine Casts 0-2 Blood Type Antibody Screen Imaging Data Radiologist's impression: Impressions Head CT 12/03/24 12:20 Impression: Acute intracranial hemorrhage within the right posterior parietal lobe, within the distribution of the posterior branches of the right middle cerebral artery with surrounding vasogenic edema and mass effect on the posterior horn of the right lateral ventricle. No midline shift is identified at this time. Prior cerebral infarction within the distribution of the left middle cerebral artery as well as right PICA, unchanged from prior. These findings were discussed with Dr. Hernandes at 12:22 PM on 12/03/2024 Critical Care Time Critical Care Time Critical Care Time: No Discharge Plan Discharge Clinical Impression: Intracranial hemorrhage Patient Disposition: Acute Care Hospital Condition: Stable Patient Language: Dominican Prescriptions: No Action icrdpfenejad-rselravg-mnjepa Tablet 1 tablet PO DAILY potassium chloride 10 mEq tablet,ER particles/crystals 10 meq PO DAILY allopurinol 100 mg tablet 100 mg PO DAILY [place]-3 Fish Oil 300-1,000 mg capsule 2 cap PO DAILY hydrocodone-acetaminophen 5-325 mg tablet 1 - 2 tablet PO Q6H PRN (Reason: pain) Qty: 20 0RF lisinopril 20 mg tablet 10 mg PO DAILY metoprolol succinate 100 mg tablet extended release 24 hr 100 mg PO DAILY aspirin [Aspir-81] 81 mg Tablet,Delayed Release (Dr/Ec) 81 mg PO DAILY cyanocobalamin (vitamin B-12) 500 mcg Tablet 500 mcg PO DAILY cholecalciferol (vitamin D3) 2,000 unit Tablet 2,000 unit PO DAILY warfarin 7.5 mg tablet 7.5 tablet PO 6XW Rx Instructions: 7.5 MG Fri / 4 MG Fri Follow-up/Referrals: Terrence,MD Nate [Primary Care Provider] -
[2024-12-03 12:26] LABS: Hematocrit 40.0 % (37.0-47.0); Hemoglobin 12.8 g/dL (12.0-15.0); Immature Granulocyte Percent A 0.3 % (0-0.5); Lymphocytes Absolute Auto 1.38 K/mm3 (0.9-3.2); Mean Corpuscular HGB Conc 32.0 g/dl (32-36); Mean Corpuscular Hemoglobin 31.7 pg (26-34); Mean Corpuscular Volume 99.0 fl (80-100); Nucleated Red Blood Cells Absolute Auto 0.000 K/mm3 (0.0-0.012); Nucleated Red Blood Cells Perc 0.0 % (0.0-0.2); Platelet Count Result 168 k/mm3 (150-375); Red Blood Count 4.04 M/mm3 (4.2-5.4); White Blood Count 7.7 K/mm3 (4.5-10.0)
[2024-12-03 12:35] LABS: Alanine Aminotransferase 21 U/L (6-35); Albumin Level 3.9 g/dL (3.5-5.1); Alkaline Phosphatase 91 U/L (38-126); Anion Gap 8 mmol/L (4-12); Aspartate Amino Transferase 32 U/L (14-36); Bilirubin,Total 0.6 mg/dL (0.2-1.3); Blood Urea Nitrogen 15 mg/dL (7-17); Calcium 10.5 mg/dL (8.4-10.2); Carbon Dioxide 25 mmol/L (22-30); Chloride 108 mmol/L (98-107); Creatine Kinase 39 U/L (30-135); Estimated Glomerular Filt Rate > 60; Glucose 96 mg/dL (65-110); Potassium 3.9 mmol/L (3.4-5.0); Sodium 141 mmol/L (137-145); Total Protein 7.2 g/dL (6.3-8.2)
[2024-12-03 12:39] LABS: INR 2.3; Prothrombin Time 24.5 Seconds (11.1-14.7)
[2024-12-03 12:40] LABS: Partial Thromboplastin Time 33.1 Seconds (22.3-36.8)
[2024-12-03 12:46] LABS: Troponin I < 0.012 ng/mL (0.000-0.034)
[2024-12-03] MEDS: PHYTONADIONE 5 MG TABLET 10 MG PO (13:04)
[2024-12-03] MEDS: levETIRAcetam 500MG/NACL 100ML 500 MG/100 ML BAG 400 MG IVPB (13:06)
[2024-12-03] MEDS: HUMAN PROTHROMBIN COMPLEX(PCC) 500 UNITS, HUMAN PROTHROMBIN COMPLEX(PCC) 2,000 UNITS in... 504 UNITS IV CONT (13:16)
[2024-12-03 13:24] LABS: Ammonia 15 umol/L (9-30)
[2024-12-03 13:27] LABS: Add Urine Microscopic? YES; Appearance Urine Clear (Clear); Glucose Urine UA Negative (Negative); Leukocyte Esterase Ur 1+ LEU/UL (Negative); Need Manual Microscopic Reviewed; Nitrate Urine Negative (Negative); Non Pathogenic Casts 0-2; Specific Grav Ur 1.017 (1.001-1.035)
--- NOTE | 2024-12-03 13:27 | PC.NURSE ---
Spoke with [facility] transfer. Pt has been accepted to neuro ICU. They will call when bed becomes available.
[2024-12-03] MEDS: SODIUM CHLORIDE 0.9% IV 250 ML 30 ML IV CONT (14:50)
[2024-12-03] MEDS: TUBING, BLOOD SET 1 EACH XX (14:50)
== END 2024-12-03 16:30 | disposition short-term general hospital (02) ==
PROVIDERS: Emergency Provider Emergency Medicine; PCP Family Medicine
DX: I62.9 Nontraumatic intracranial hemorrhage, unspecified (principal); I48.91 Unspecified atrial fibrillation; Z79.01 Long term (current) use of anticoagulants; I69.351 Hemiplegia and hemiparesis following cerebral infarction affecting right dominant side; I69.392 Facial weakness following cerebral infarction; I69.320 Aphasia following cerebral infarction; Z79.82 Long term (current) use of aspirin; E21.3 Hyperparathyroidism, unspecified; G47.33 Obstructive sleep apnea (adult) (pediatric); I10 Essential (primary) hypertension; Z87.891 Personal history of nicotine dependence
CPT/HCPCS: 36415; 36430; 70450; 71045; 80053; 81001; 82140; 82550; 84484; 85025; 85610; 85730; 86850; 86900; 86901; 87086; 93005; 96365; 99285; A9270; J1953; J7050; J7168; P9034

== ENCOUNTER 2024-12-18 09:51 | Outpatient (CLI) | payer MEDICARE, SELFPAY ==
--- NOTE | ~2024-12-18 | XR_ITS ---
XR abdomen/kub 1V 12/18/2024 11:04 INDICATION: Renal stone TECHNIQUE: KUB COMPARISON: 11/26/2024 FINDINGS: Bowel gas pattern is normal. There is no evidence of free air, mass, organomegaly, ascites or obstruction. Stable appearance to stone in the lower pole of the right kidney. There are smaller bilateral renal stones. The bones appear intact. IMPRESSION: 1: Bilateral nephrolithiasis. Reviewed, dictated and finalized at location A.
--- OUTSIDE RECORDS SUMMARY | 2024-12-18 09:55 | XMS_ITS | Encounter Summary ---
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
--- OUTSIDE RECORDS SUMMARY | 2024-12-18 09:55 | XMS_ITS | Clinical Summary ---
Author Organization [facility] Address [address] [place] [address] Care Team Providers Care Assistant Director Of Financial Aid Name Role Phone Nate Ocampo MD Primary Care Provider [phone] Allergies Active Allergy Reactions Criticality Noted Date Comments Gabapentin Confusion High 05/16/2020 Medications warfarin (COUMADIN) 6 mg tablet every 24 hours. Acti ve metoprolol succinate (TOPROL XL) 100 mg Extended Release 24 hour tablet metoprolol succinate ER 100 mg tablet,extended release 24 hr 02/02/20 19 Active lisinopriL (PRINIVIL) 40 mg tablet lisinopril 40 mg tablet Active Iron Amino Acid Athicou-T65-X A 27-100-400 mg-mcg-mcg Capsule Take by mouth. 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
--- OUTSIDE RECORDS SUMMARY | 2024-12-18 09:55 | XMS_ITS | Clinical Summary ---
Author Organization [facility] Address [facility] [place] [address] Care Team Providers Care Drafting Detailer Name Role Phone Nate Ocampo MD Primary Care Provider [phone] Allergies No known active allergies Medications warfarin [...] patient's age to complete this topic Insurance [facility] Member Subscriber Plan / Payer (Ef fective 2020-Present) Name:TOSHIA WADE Relation to Subscriber:Self Name:Toshia Isaac Payer ID:[id number] (NAIC) Type:Not on file Address: [place] [id number] Care Teams Drafting Detailer Relationship Specialty Start Date End Date Nate Ocampo MD PCP - General FAMILY PRACTICE 01/30/20
--- OUTSIDE RECORDS SUMMARY | 2024-12-18 09:55 | XMS_ITS | Clinical Summary ---
Author Organization [facility] [address] Address [address] [place] [address] Care Team Providers Care Galley Cook Name Role Phone Fran Roberto MD Unavailable [phone] Nate Ocampo MD Primary Care Provider [phone] Allergies No known active allergies Medications cyanocobalamin (Vitamin B-12) 500 mcg tabletIndicatio ns:Prevention of Vitamin B12 Deficiency Take 1 tablet (500 mcg total) by mouth daily Active cholecalciferol (VITAMIN D-3) 1,000 unit Take 2 tablet/capsul e (2,000 Units total) by mouth daily Active metoprolol XL (TOPROL-XL) 100 mg 24 hr tablet Take 1 tablet (100 mg total) by mouth daily 9 Active potassium chloride ER 10 mEq CR capsule 1 Active allopurinoL (ZYLOPRIM) 100 mg tablet 2 Active lisinopriL (PRINIVIL,ZESTR IL) 20 mg tablet Take 1 tablet (20 mg total) by mouth daily Active multivitamin tabletIndicatio ns:Vitamin Deficiency Prevention Take 1 tablet by mouth daily Active omega 9-jbl-lwv-fish oil 300-1,000 mg capsule Take 2 capsules by mouth daily Active pyridoxine (vitamin B-6) 25 mg tablet 25 mg. 0 2 12/04/19 25 Discontinu ed(Error) aspirin 81 mg chewable tablet Take 1 tablet (81 mg total) by mouth daily 12/06/19 Discontinu ed(Stop Taking at Discharge) lisinopril-hydr oCHLOROthiazide (ZESTORETIC) 20-25 mg per tablet Take 1 tablet by mouth daily 4 12/04/19 25 Discontinu ed(Error) omeprazole (PriLOSEC) 40 mg capsuleIndicati ons:Treatment of Non-Bleeding Gastric Disorder Take 1 capsule (40 mg total) by mouth 2 (two) times a day before breakfast and dinner 60 capsule 2 4 12/04/19 25 Discontinu ed(Error) warfarin (COUMADIN) 7.5 mg tablet Take 1 tablet (7.5 mg total) by mouth as directed Take one tab PO every day of the week EXCEPT FRIDAY 72 tablet 2 4 12/06/19 25 Discontinu ed(Stop Taking at Discharge) warfarin (COUMADIN) 4 mg tablet TAKE 1 TABLET BY MOUTH ON MONDAYS 10 tablet 4 4 12/04/19 25 Discontinu ed(Error) apixaban (ELIQUIS) 5 mg tablet Take 1 tablet (5 mg total) by mouth 2 (two) times a day 60 tablet 5 12/06/19 Discontinu ed(Stop Taking at Discharge) Active Problems Problem Noted Date Diagnosed Date Brain bleed 12/03/2024 Class 3 severe obesity in adult 10/30/2023 History of weight loss surgery 06/05/2023 Atrial fibrillation (CMS/HCC) [I48.91] 7 Encounters Date Type Department Care Team Description 12/13/2024 12:48 PM CDT - 12/13/2024 11:59 PM CDT Hospital Encounter [facility] [address] [place] [address] Pb Cook MD Brain bleed (HCC) Discharge Disposition: Discharge to home or self care 12/10/2024 [facility] Post Discharge Follow up phone call [facility] [address] [place] [address] Adriel Lee RN 12/03/2024 5:12 PM CDT - 12/05/2024 6:57 PM CDT Hospital Encounter [facility] [address] [place] [address] Pb Cook MD Brain bleed (HCC) (Primary Dx) Discharge Disposition: Discharge to home or self care 11/23/2024 Orders Only [facility] [place] Health Information Management [address] [place] [address] Scanning, Provider 11/23/2024 Anticoagulation Visit [facility] [address] [place] [id number] Dyan Lacy RN Atrial fibrillation (CMS/HCC) [I48.91] (Primary Dx) 10/26/2024 Anticoagulation Visit [facility] [address] [place] [address] Syed Ochoa RN Atrial fibrillation (CMS/HCC) [I48.91] (Primary Dx) 09/20/2024 Anticoagulation Visit [facility] [address] [place] [address] Arely Asencio RN Atrial fibrillation (CMS/HCC) [I48.91] (Primary Dx) from Last 3 Months Surgical History Surgery Date Site/Laterality Comments COLONOSCOPY POLYPECTOMY STOMACH SURGERY COLON SURGERY BRAIN SURGERY aneursym PARATHYROIDECTOMY COLON SURGERY Left left hemicolectomy LAPAROSCOPIC GASTRIC BANDING Medical History Medical History Date Comments Hypertension Hypertension Hx 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 Gender Identity Not on file Sexual Orientation Not on file Obstetrics History Last Filed Vital Signs Vital Sign Reading Time Taken Comments Blood Pressure 134/88 12/05/2024 3:42 PM CDT Pulse 90 12/05/2024 3:42 PM CDT Temperature 36.6 C (97.9 F) 12/05/2024 3:42 PM CDT Respiratory Rate 16 12/05/2024 3:42 PM CDT Oxygen Saturation 95% 12/05/2024 3:42 PM CDT Inhaled Oxygen Concentration - - Weight 112.9 kg (248 lb 14.4 oz) 12/03/2024 5:18 PM CDT Height 167.6 cm (5' 6) 12/03/2024 5:18 PM CDT Body Mass Index 40.17 12/03/2024 5:18 PM CDT Plan of Treatment Health Maintenance [...] on patient's age to complete this topic Medical Devices Implanted Type Area Seam Sewer Device Identifier Shelf Expiration Date Model / Serial / Lot Yasagril Clip 11mm-02/08/1998 Implanted:02/08 (Quantity not on file) Clip Brain virtual tweens [employer] Yasargil 7mm Clip-02/08/1998 Implanted:02/08 by Fran Gomez MD (Quantity not on file) Clip Brain [employer] Yasargil Aneurysm Clip 15mm-02/08/1998 Implanted:02/08 by Fran Gomez MD (Quantity not on file) Brain virtual tweens [employer] Procedures Procedure Name Priority Date/Time Associated Diagnosis Comments MRI BRAIN W WO CONTRAST Schedule Routine, Read Routine (OP Routine) 12/13/2024 4:01 PM CDT Brain bleed (HCC) EGFR Timed 12/04/2024 8:10 PM CDT CBC WITHOUT DIFFERENTIAL Routine 12/04/2024 8:10 PM CDT PHOSPHORUS Timed 12/04/2024 8:10 PM CDT MAGNESIUM Timed 12/04/2024 8:10 PM CDT COMPREHENSIVE METABOLIC PANEL Timed 12/04/2024 8:10 PM CDT CTA HEAD NECK W WO CONTRAST ED Urgent/IP Urgent 12/03/2024 10:55 PM CDT EGFR Timed 12/03/2024 8:31 PM CDT PHOSPHORUS Timed 12/03/2024 8:31 PM CDT MAGNESIUM Timed 12/03/2024 8:31 PM CDT COMPREHENSIVE METABOLIC PANEL Timed 12/03/2024 8:31 PM CDT XR CHEST 1 VIEW IP Routine 12/03/2024 6:59 PM CDT B CHECK SAMPLE STAT 12/03/2024 6:19 PM CDT EGFR STAT 12/03/2024 5:36 PM CDT TROPONIN I HIGH-SENSITIVITY SERIES (BASELINE, 2HR, 4HR, 6HR) Routine 12/03/2024 5:36 PM CDT PROTIME-INR STAT 12/03/2024 5:36 PM CDT APTT STAT 12/03/2024 5:36 PM CDT TYPE AND SCREEN STAT 12/03/2024 5:36 PM CDT CBC WITHOUT DIFFERENTIAL STAT 12/03/2024 5:36 PM CDT PHOSPHORUS STAT 12/03/2024 5:36 PM CDT MAGNESIUM STAT 12/03/2024 5:36 PM CDT COMPREHENSIVE METABOLIC PANEL STAT 12/03/2024 5:[address] OUTSIDE CONSULT Routine 12/03/2024 5:29 PM CDT ECG 12-LEAD STAT 12/03/2024 5:23 PM CDT POCT GLUCOSE DEVICE Routine 12/03/2024 5 :20 PM CDT SCAN - LABS 11/23/2024 PROTIME-INR Routine 11/23/2024 PROTIME-INR Routine 10/23/2024 PROTIME-INR Routine 09/18/2024 from Last 3 Months Results * MRI Brain W WO Contrast (12/13/2024 4:01 PM CDT) Anatomical Region Laterality Modality Head and Neck N/A Magnetic Resonan ce 12/13/2024 4:59 PM CDT Impressions 12/13/2024 5:10 PM CDT 1. Evolving subacute hematoma in the right parietal lobe with perilesional edema and mild mass effect on the right lateral ventricle. No underlying mass lesion or other etiology for hemorrhage. Recommend follow-up imaging. 2. Encephalomalacia in the left frontal lobe. Dictated by: Ira Duckworth M.D. The radiology attending physician has personally reviewed this study, and had reviewed and/or edited this written report and agrees with it. Electronically signed by: Alan Ramirez M.D. Narrative 12/13/2024 5:10 PM CDT EXAMINATION: Magnetic resonance imaging (MRI) of the brain and brainstem without and with contrast HISTORY: Evolving intraparenchymal hemorrhage. Patient on warfarin TECHNIQUE: Multiplanar multi-weighted MRI of the brain and brainstem was performed without and with intravenous contrast using the general brain protocol. Contrast information: 20 mL Gadoterate Meglumine IV COMPARISON: CTA dated 12/19/2024 FINDINGS: There is a evolving intraparenchymal hematoma in the right parietal lobe which measures 3 x 3 cm and demonstrate susceptibility and T1 hyperintensity. Additionally there are areas of T1 hyperintensity in the adjacent right parietal lobe. There is surrounding edema with mass effect on the posterior horn of right lateral ventricle. Evaluation for enhancement is suboptimal due to precontrast T1 hyperintense signal. Area of encephalomalacia in the left frontal lobe. Aneurysm clip in the left frontal lobe is causing artifact with suboptimal visualization. Confluent and scattered hyperintensities in periventricular white matter consistent with chronic microvascular ischemic changes. The scalp and calvarium are normal. The superior sagittal sinus demonstrates normal venous flow. The corpus callosum is normal in shape and signal intensity. The posterior fossa is unremarkable. The pituitary and sella are normal. The brainstem and craniocervical junction are unremarkable. Diffusion weighted images reveal no hyperintensities to suggest acute cerebral infarction. The susceptibility weighted sequences reveal no evidence of acute or chronic hemorrhage. The ventricles are normal in size and position without evidence of hydrocephalus. The paranasal sinuses are normal. The visualized portions of the mastoids are unremarkable. The orbits appear normal. Normal flow voids are demonstrated in the carotid arteries and basilar artery. Procedure Note Alan Ramirez III, MD PhD - 12/13/2024 EXAMINATION: Magnetic resonance imaging (MRI) of the brain and brainstem without and with contrast HISTORY: Evolving intraparenchymal hemorrhage. Patient on warfarin TECHNIQUE: Multiplanar multi-weighted MRI of the brain and brainstem was performed without and with intravenous contrast using the general brain protocol. Contrast information: 20 mL Gadoterate Meglumine IV COMPARISON: CTA dated 12/19/2024 FINDINGS: There is a evolving intraparenchymal hematoma in the right parietal lobe which measures 3 x 3 cm and demonstrate susceptibility and T1 hyperintensity. Additionally there are areas of T1 hyperintensity in the adjacent right parietal lobe. There is surrounding edema with mass effect on the posterior horn of right lateral ventricle. Evaluation for enhancement is suboptimal due to precontrast T1 hyperintense signal. Area of encephalomalacia in the left frontal lobe. Aneurysm clip in the left frontal lobe is causing artifact with suboptimal visualization. Confluent and scattered hyperintensities in periventricular white matter consistent with chronic microvascular ischemic changes. The scalp and calvarium are normal. The superior sagittal sinus demonstrates normal venous flow. The corpus callosum is normal in shape and signal intensity. The posterior fossa is unremarkable. The pituitary and sella are normal. The brainstem and craniocervical junction are unremarkable. Diffusion weighted images reveal no hyperintensities to suggest acute cerebral infarction. The susceptibility weighted sequences reveal no evidence of acute or chronic hemorrhage. The ventricles are normal in size and position without evidence of hydrocephalus. The paranasal sinuses are normal. The visualized portions of the mastoids are unremarkable. The orbits appear normal. Normal flow voids are demonstrated in the carotid arteries and basilar artery. IMPRESSION: 1. Evolving subacute hematoma in the right parietal lobe with perilesional edema and mild mass effect on the right lateral ventricle. No underlying mass lesion or other etiology for hemorrhage. Recommend follow-up imaging. 2. Encephalomalacia in the left frontal lobe. Dictated by: Ira Gucci, M.D. The radiology attending physician has personally reviewed this study, and had reviewed and/or edited this written report and agrees with it. Electronically signed by: Alan Ramirez M.D. us Pb Cook MD IMG MRI PROCEDURES Final R esult * eGFR (12/04/2024 8:10 PM CDT) eGFR 79 >=60 mL/min/1. 73 m2 Comment: Interpretive Data Reference Interval Normal >/= 90 mL/min/1.73m2 Mildly decreased* 60 - 89 mL/min/1.73m2 Mildly to moderately decreased 45 - 59 mL/min/1.73m2 Moderately to severely decreased 30 - 44 mL/min/1.73m2 Severely decreased 15 - 29 mL/min/1.73m2 Kidney Failure < 15 mL/min/1.73m2 *Relative to young adult level Estimated glomerular filtration rate is determined by the 2020 CKD-EPI equation recommended by the National Kidney Foundation (A Unifying Approach to GFR Estimation: Recommendations of the NKF-ASK Task Force on Reassessing the Inclusion of Race in Diagnosing Kidney Disease, JASN 2020). The CKD-EPI equation should not be used for patients with unstable renal function and has not been validated in children and those over 70. Current interpretive data was last reviewed 2021. Blood 12/04/2024 8:10 PM CDT 12/04/2024 8:18 PM CDT Isabel Queen NP LAB BLOOD ORDERABLES Final R esult [facility] Department [place] [address] * (ABNORMAL) CBC without differential (12/04/2024 8:10 PM CDT) WBC 6.59 3.80 - 9.90 K/cumm Hgb 11.1(L) 11.9 - 15.5 g/dL [facility] Hct 34.0(L) 35.6 - 45.5 % [facility] Plt 191 150 - 400 K/cumm [facility] MPV 11.6 9.1 - 12.3 fL [facility] RBC 3.50(L) 3.90 - 5.20 M/cumm [facility] MCV 97.1(H) 81.3 - 96.4 fL [facility] MCH 31.7 27.1 - 33.3 pg [facility] MCHC 32.6 32.3 - 35.7 g/dL [facility] RDW CV 14.1 11.1 - 14.9 % [facility] RDW SD 50.1(H) 35.7 - 48.1 fL [facility] NRBC abs 0.00 0.00 - 0.01 K/cumm [facility] Blood 12/04/2024 8:10 PM CDT 12/04/2024 8:18 PM CDT Pb Cook MD LAB BLOOD ORDERABLES Final Result Performing Organization Address City/[facility]/ZIP Co de Phone Number [facility] Department [place] [address] * (ABNORMAL) Phosphorus (12/04/2024 8:10 PM CDT) Phosphorus, pl 2.1(L) 2.3 - 4.5 mg/dL Blood 12/04/2024 8:10 PM CDT 12/04/2024 8:18 PM CDT Isabel Queen NP LAB BLOOD ORDERABLES Final R esult [facility] [place] [address] * Magnesium (12/04/2024 8:10 PM CDT) Magnesium 1.8 1.4 - 2.5 mg/dL Blood 12/04/2024 8:10 PM CDT 12/04/2024 8:18 PM CDT us Isabel Kaylenlazaro Queen SOCIAL SERVICE ASSISTANT LAB BLOOD ORDERABLES Final R esult [facility] [place] [address] * (ABNORMAL) Comprehensive metabolic panel (12/04/2024 8:10 PM CDT) Sodium 143 135 - 145 mmol/L Potassium, pl 3.9 3.3 - 4.9 mmol/L [facility] Chloride 110 97 - 110 mmol/L [facility] CO2 25 22 - 32 mmol/L [facility] Anion gap 8 2 - 15 mmol/L [facility] BUN 16 6 - 25 mg/dL [facility] Creatinine 0.84 0.60 - 1.10 mg/dL [facility] Glucose 200(H) 70 - 199 mg/dL [facility] Comment: Interpretive Data Fasting glucose >/= 126 mg/dl is diagnostic for diabetes. Fasting is defined as no caloric intake for at least 8 hours. Fasting glucose between 100 mg/dl to 125 mg/dl is diagnostic of prediabetes. In a patient with classic symptoms of hyperglycemia or hyperglycemic crisis, a random glucose >/= 200 mg/dl is diagnostic for diabetes. In the absence of unequivocal hyperglycemia, results should be confirmed by repeat testing. The classification and Diagnosis of Diabetes Diabetes Care 202; 46: S19-S40. Current interpretive data was last revised 2022. Calcium 10.8(H) 8.5 - 10.3 mg/dL [facility] Bilirubin, total 0.4 0.1 - 1.2 mg/dL [facility] Protein, pl 7.0 6.5 - 8.5 g/dL [facility] Albumin 3.9 3.5 - 5.0 g/dL [facility] Alk phos 96 40 - 130 Units/L [facility] ALT 15 7 - 45 Units/L [facility] AST 27 10 - 45 Units/L [facility] Blood 12/04/2024 8:10 PM CDT 12/04/2024 8:18 PM CDT us Isabel Abdullahi Medinamehreen ERNESTINA LAB BLOOD ORDERABLES Final R esult YANI Marmolejo [facility] Department [place] [address] * CTA Head Neck W WO Contrast (12/03/2024 10:55 PM CDT) Anatomical Region Laterality Modality Head and Neck N/A Computed Tomogra phy 12/04/2024 1:57 AM CDT Impressions 12/04/2024 8:43 AM CDT 1. Stable 2.9 cm right parietal intraparenchymal hemorrhage with associated vasogenic edema and trace subarachnoid blood products. No CT evidence of active arterial extravasation is seen associated with this lesion. 2. No new intracranial aneurysms identified. Postsurgical changes of prior aneurysm clipping in the suprasellar region and left M1 distribution. 3. Mild atherosclerotic calcifications of the carotid bulbs. Otherwise unremarkable CT angiogram of the neck. Recommend follow up of the incidental thyroid nodule Additional Imaging less than 1 month (when clinically appropriate)with thyroid US. Dictated by: Prachi Martinez M.D. The radiology attending physician has personally reviewed this study, and had reviewed and/or edited this written report and agrees with it. Electronically signed by: Jovita Dallas M.D. Narrative 12/04/2024 8:43 AM CDT EXAMINATION: 1. Computed tomography angiography (CTA) of the head without and with contrast 2. Computed tomography angiography (CTA) of the neck with contrast HISTORY: Intraparenchymal hemorrhage TECHNIQUE: CT of the head was performed with images acquired from skull base to vertex without intravenous contrast. Computed tomographic angiography was obtained from the aortic arch to the vertex following the uneventful administration of intravenous contrast. 3D images of the CTA were generated on a dedicated workstation/senior sql server dba. Contrast information: 93 mL Optiray-350 IV COMPARISON: Same-day head CT without contrast at 12:14 PM. FINDINGS: HEAD: Again seen is intraparenchymal hemorrhage in the right parietal lobe measuring 2.3 x 2.6 x 2.9 cm, unchanged from same date comparison at 12:14 PM. There is associated edema with subjacent mass effect on the posterior horn of the right lateral ventricle. There are trace associated subarachnoid blood products. No new foci of intracranial hemorrhage are appreciated. Redemonstrated region of encephalomalacia in the left frontal and left temporal lobes, with aneurysm clip in the suprasellar region. Unchanged encephalomalacia in the right occipital lobe. Scattered foci of intraparenchymal calcification in the right frontal lobe. Ventricles are of normal size and morphology. No mass effect or midline shift is present. The woodward-white matter differentiation is normal. The visualized portions of the orbits are normal. The visualized portions of the mastoids are normal. The visualized portions of the paranasal sinuses are normal. No fractures are identified. NECK: Scattered subcentimeter lymph nodes are seen in the neck. None are pathologically enlarged. The muscles of the neck are normal. Fascial planes are preserved and the deep spaces of the neck are normal. The visualized airway is widely patent. The base of the skull and the temporal bones are normal. Limited views of the brain including the cerebellum and brainstem are normal. The visualized portions of the orbits are normal. The spinal canal is normal in caliber. Intervertebral disk heights are normal. Neural foramina are normal. Limited examination of the superior thorax shows no pulmonary infiltrate, suspicious nodules, or pleural effusions. Large, 4.3 cm right thyroid nodule with mass effect on the trachea. CTA: Streak artifact from aneurysm clips in the left M1 and suprasellar region evaluation. No CT evidence of active extravasation is seen associated with the right parietal intraparenchymal hemorrhage. The visualized aortic arch appears normal with normal configuration of the great vessels. The innominate artery and both subclavian arteries are normal in course and caliber. The common carotid arteries are normal in course and caliber with normal carotid bifurcations bilaterally. The course and caliber of the internal carotid arteries in the neck are normal. The visualized course and caliber of the internal carotid arteries in the head are normal. Scattered areas of multifocal narrowing, in keeping with atherosclerotic calcification. The left vertebral artery is dominant.. The basilar artery is normal. The posterior cerebral arteries are normal. There is no aneurysm or vascular malformation identified. Procedure Note Jovita Dallas MD - 12/04/2024 EXAMINATION: 1. Computed tomography angiography (CTA) of the head without and with contrast 2. Computed tomography angiography (CTA) of the neck with contrast HISTORY: Intraparenchymal hemorrhage TECHNIQUE: CT of the head was performed with images acquired from skull base to vertex without intravenous contrast. Computed tomographic angiography was obtained from the aortic arch to the vertex following the uneventful administration of intravenous contrast. 3D images of the CTA were generated on a dedicated workstation/senior sql server [email or web address]. Contrast information: 93 mL Optiray-350 IV COMPARISON: Same-day head CT without contrast at 12:14 PM. FINDINGS: HEAD: Again seen is intraparenchymal hemorrhage in the right parietal lobe measuring 2.3 x 2.6 x 2.9 cm, unchanged from same date comparison at 12:14 PM. There is associated edema with subjacent mass effect on the posterior horn of the right lateral ventricle. There are trace associated subarachnoid blood products. No new foci of intracranial hemorrhage are appreciated. Redemonstrated region of encephalomalacia in the left frontal and left temporal lobes, with aneurysm clip in the suprasellar region. Unchanged encephalomalacia in the right occipital lobe. Scattered foci of intraparenchymal calcification in the right frontal lobe. Ventricles are of normal size and morphology. No mass effect or midline shift is present. The woodward-white matter differentiation is normal. The visualized portions of the orbits are normal. The visualized portions of the mastoids are normal. The visualized portions of the paranasal sinuses are normal. No fractures are identified. NECK: Scattered subcentimeter lymph nodes are seen in the neck. None are pathologically enlarged. The muscles of the neck are normal. Fascial planes are preserved and the deep spaces of the neck are normal. The visualized airway is widely patent. The base of the skull and the temporal bones are normal. Limited views of the brain including the cerebellum and brainstem are normal. The visualized portions of the orbits are normal. The spinal canal is normal in caliber. Intervertebral disk heights are normal. Neural foramina are normal. Limited examination of the superior thorax shows no pulmonary infiltrate, suspicious nodules, or pleural effusions. Large, 4.3 cm right thyroid nodule with mass effect on the trachea. CTA: Streak artifact from aneurysm clips in the left M1 and suprasellar region evaluation. No CT evidence of active extravasation is seen associated with the right parietal intraparenchymal hemorrhage. The visualized aortic arch appears normal with normal configuration of the great vessels. The innominate artery and both subclavian arteries are normal in course and caliber. The common carotid arteries are normal in course and caliber with normal carotid bifurcations bilaterally. The course and caliber of the internal carotid arteries in the neck are normal. The visualized course and caliber of the internal carotid arteries in the head are normal. Scattered areas of multifocal narrowing, in keeping with atherosclerotic calcification. The left vertebral artery is dominant.. The basilar artery is normal. The posterior cerebral arteries are normal. There is no aneurysm or vascular malformation identified. IMPRESSION: 1. Stable 2.9 cm right parietal intraparenchymal hemorrhage with associated vasogenic edema and trace subarachnoid blood products. No CT evidence of active arterial extravasation is seen associated with this lesion. 2. No new intracranial aneurysms identified. Postsurgical changes of prior aneurysm clipping in the suprasellar region and left M1 distribution. 3. Mild atherosclerotic calcifications of the carotid bulbs. Otherwise unremarkable CT angiogram of the neck. Recommend follow up of the incidental thyroid nodule Additional Imaging less than 1 month (when clinically appropriate)with thyroid US. Dictated by: Prachi Martinez M.D. The radiology attending physician has personally reviewed this study, and had reviewed and/or edited this written report and agrees with it. Electronically signed by: Jovita Dallas M.D. Isabel Queen NP IMG CT PROCEDURES Final Resu lt * eGFR (12/03/2024 8:31 PM CDT) eGFR >90 >=60 mL/min/1. 73 m2 Comment: Interpretive Data Reference Interval Normal >/= 90 mL/min/1.73m2 Mildly decreased* 60 - 89 mL/min/1.73m2 Mildly to moderately decreased 45 - 59 mL/min/1.73m2 Moderately to severely decreased 30 - 44 mL/min/1.73m2 Severely decreased 15 - 29 mL/min/1.73m2 Kidney Failure < 15 mL/min/1.73m2 *Relative to young adult level Estimated glomerular filtration rate is determined by the 2020 CKD-EPI equation recommended by the National Kidney Foundation (A Unifying Approach to GFR Estimation: Recommendations of the NKF-ASK Task Force on Reassessing the Inclusion of Race in Diagnosing Kidney Disease, JASN 2020). The CKD-EPI equation should not be used for patients with unstable renal function and has not been validated in children and those over 70. Current interpretive data was last reviewed 2021. Blood 12/03/2024 8:31 PM CDT 12/03/2024 9:56 PM CDT Isabel Queen NP LAB BLOOD ORDERABLES Final R esult Performing Organization Address City/[facility] Co de Phone Number [facility] [place] [address] * (ABNORMAL) Phosphorus (12/03/2024 8:31 PM CDT) Phosphorus, pl 2.0(L) 2.3 - 4.5 mg/dL Blood 12/03/2024 8:31 PM CDT 12/03/2024 9:56 PM CDT Isabel Queen NP LAB BLOOD ORDERABLES Final R esult Performing Organization Address [facility] [place] [address] * Magnesium (12/03/2024 8:31 PM CDT) Magnesium 1.7 1.4 - 2.5 mg/dL Blood 12/03/2024 8:31 PM CDT 12/03/2024 9:56 PM CDT Isabel Queen NP LAB BLOOD ORDERABLES Final R esult Performing Organization Address [facility] Co de Phone Number [place] [address] * (ABNORMAL) Comprehensive metabolic panel (12/03/2024 8:31 PM CDT) Sodium 143 135 - 145 mmol/L Potassium, pl 3.5 3.3 - 4.9 mmol/L [facility] Chloride 106 97 - 110 mmol/L [facility] CO2 29 22 - 32 mmol/L [facility] Anion gap 8 2 - 15 mmol/L [facility] BUN 11 6 - 25 mg/dL [facility] Creatinine 0.62 0.60 - 1.10 mg/dL [facility] Glucose 89 70 - 199 mg/dL [facility] Comment: Interpretive Data Fasting glucose >/= 126 mg/dl is diagnostic for diabetes. Fasting is defined as no caloric intake for at least 8 hours. Fasting glucose between 100 mg/dl to 125 mg/dl is diagnostic of prediabetes. In a patient with classic symptoms of hyperglycemia or hyperglycemic crisis, a random glucose >/= 200 mg/dl is diagnostic for diabetes. In the absence of unequivocal hyperglycemia, results should be confirmed by repeat testing. The classification and Diagnosis of Diabetes Diabetes Care 2021; 46: S19-S40. Current interpretive data was last revised 2022. Calcium 10.6(H) 8.5 - 10.3 mg/dL [facility] Bilirubin, total 0.6 0.1 - 1.2 mg/dL [facility] Protein, pl 7.2 6.5 - 8.5 g/dL [facility] Albumin 3.9 3.5 - 5.0 g/dL [facility] Alk phos 93 40 - 130 Units/L [facility] ALT 18 7 - 45 Units/L [facility] AST 23 10 - 45 Units/L [facility] Blood 12/03/2024 8:31 PM CDT 12/03/2024 9:56 PM CDT us Isabel Queen NP LAB BLOOD ORDERABLES Final R esult [facility] [place] [address] * XR chest 1 view (Portable) (12/03/2024 6:59 PM CDT) Anatomical Region Laterality Modality Body, Chest N/A Computed Radiogr aphy 12/03/2024 8:49 PM CDT Impressions 12/03/2024 8:49 PM CDT There are no prior chest radiographs for comparison. The heart is moderately enlarged but there is no mass or lymphadenopathy There is no pneumothorax.. No definite effusions. Tiny portion of the left costophrenic angle not imaged Electronically signed by: Taylor Trevino M.D. Narrative 12/03/2024 8:49 PM CDT EXAMINATION: 1 view chest radiograph Procedure Note Taylor Trevino MD - 12/03/2024 EXAMINATION: 1 view chest radiograph IMPRESSION: There are no prior chest radiographs for comparison. The heart is moderately enlarged but there is no mass or lymphadenopathy There is no pneumothorax.. No definite effusions. Tiny portion of the left costophrenic angle not imaged Electronically signed by: Taylor Trevino M.D. Isabel Queen NP IMG XR PROCEDURES Final Resu lt * Check Sample (12/03/2024 6:19 PM CDT) ABO Rh O Positive [facility] OTHER 12/03/2024 6:19 PM CDT 12/03/2024 6:31 PM CDT us Pb Cook MD LAB BLOOD ORDERABLES Final Result [facility] [place] [address] [facility] * Troponin I high-sensitivity series (baseline, 2hr, 4hr, 6hr) (12/03/2024 5:36 PM CDT) Trop I hs <4 <=17 ng/L Comment: Interpretive Data For further [facility] resources including the diagnostic algorithm and an aid in interpretation, copy and paste this link: [email or web address] Current Interpretive Data last revised 2019. Blood 12/03/2024 5:36 PM CDT 12/03/2024 5:58 PM CDT Isabel Queen NP LAB BLOOD ORDERABLES Final R esult Performing Organization Address City/[facility] Co de Phone Number [facility] L[facility] Department [place] [address] * eGFR (12/03/2024 5:36 PM CDT) eGFR >90 >=60 mL/min/1. 73 m2 Comment: Interpretive Data Reference Interval Normal >/= 90 mL/min/1.73m2 Mildly decreased* 60 - 89 mL/min/1.73m2 Mildly to moderately decreased 45 - 59 mL/min/1.73m2 Moderately to severely decreased 30 - 44 mL/min/1.73m2 Severely decreased 15 - 29 mL/min/1.73m2 Kidney Failure < 15 mL/min/1.73m2 *Relative to young adult level Estimated glomerular filtration rate is determined by the 2020 CKD-EPI equation recommended by the National Kidney Foundation (A Unifying Approach to GFR Estimation: Recommendations of the NKF-ASK Task Force on Reassessing the Inclusion of Race in Diagnosing Kidney Disease, JASN 2020). The CKD-EPI equation should not be used for patients with unstable renal function and has not been validated in children and those over 70. Current interpretive data was last reviewed 2021. Blood 12/03/2024 5:36 PM CDT 12/03/2024 5:58 PM CDT Isabel Queen NP LAB BLOOD ORDERABLES Final R esult Performing Organization Address City/[facility]/ZIP Co de Phone Number [facility] L[facility] Department [place] [address] * aPTT (12/03/2024 5:36 PM CDT) aPTT 33 28 - 38 sec Comment: Interpretive Data Heparin therapeutic range: 66.0 - 100.0 seconds. Range based on correlation with therapeutic heparin activity range of 0.3 - 0.7 Units/mL. Current interpretive data was last revised on 2023. Blood 12/03/2024 5:36 PM CDT 12/03/2024 6:12 PM CDT Isabel Queen NP LAB BLOOD ORDERABLES Final R esult Performing Organization Address [facility] de Phone Number [facility] [place] [address] * (ABNORMAL) Protime-INR (12/03/2024 5:36 PM CDT) Pathologist [facility] PT 15.3(H) 9.7 - 13.0 sec INR 1.41(H) 0.90 - 1.20 [facility] Comment: Interpretive data Oral anticoagulant therapeutic ranges: Venous thromboembolism prophylaxis or treatment: 2.0-3.0 CARDIOLOGY Standard range: 2.0-3.0 High-intensity range: 2.5-3.5 Refer to indication-specific guidelines for appropriate target ranges for prosthetic heart valve replacement. Current interpretive data was last revised on 2019. Blood 12/03/2024 5:36 PM CDT 12/03/2024 6:12 PM CDT Isabel Queen NP LAB BLOOD ORDERABLES Final R esult Performing Organization Address City/[facility] Co de Phone Number [facility] Department [place] [address] * (ABNORMAL) CBC without differential (12/03/2024 5:36 PM CDT) WBC 8.54 3.80 - 9.90 K/cumm Hgb 11.8(L) 11.9 - 15.5 g/dL [facility] Hct 36.1 35.6 - 45.5 % [facility] Plt 218 150 - 400 K/cumm [facility] MPV 11.3 9.1 - 12.3 fL [facility] RBC 3.70(L) 3.90 - 5.20 M/cumm [facility] MCV 97.6(H) 81.3 - 96.4 fL [facility] MCH 31.9 27.1 - 33.3 pg [facility] MCHC 32.7 32.3 - 35.7 g/dL [facility] RDW CV 13.8 11.1 - 14.9 % [facility] RDW SD 49.9(H) 35.7 - 48.1 fL [facility] NRBC abs 0.00 0.00 - 0.01 K/cumm [facility] Blood 12/03/2024 5:36 PM CDT 12/03/2024 5:58 PM CDT Isabel Queen NP LAB BLOOD ORDERABLES Final R esult Performing Organization Address City/[facility]/ZIP Co de Phone Number [facility] [place] [address] * Type and screen (12/03/2024 5:36 PM CDT) Nigel, indirect Negative ABO Rh O Positive [facility] Blood 12/03/2024 5:36 PM CDT 12/03/2024 6:00 PM CDT Narrative [facility] - 12/03/2024 6:43 PM CDT Has the patient had Daratumumab or Isatuximab in the past 6 months?->Unknown Isabel Queen NP LAB BLOOD BANK TEST ORDERABL ES Final Result [facility] [email or web address] [address] * (ABNORMAL) Phosphorus (12/03/2024 5:36 PM CDT) Phosphorus, pl 2.0(L) 2.3 - 4.5 mg/dL Blood 12/03/2024 5:36 PM CDT 12/03/2024 5:58 PM CDT Isabel Queen NP LAB BLOOD ORDERABLES Final R esult Performing Organization Address City/[facility]/ZIP Co de Phone Number [facility] [place] [address] * Magnesium (12/03/2024 5:36 PM CDT) Pathologist [facility] Magnesium 1.8 1.4 - 2.5 mg/dL Blood 12/03/2024 5:36 PM CDT 12/03/2024 5:58 PM CDT Isabel Queen NP LAB BLOOD ORDERABLES Final R esult Performing Organization Address [facility] de Phone Number [facility] [place] [address] * (ABNORMAL) Comprehensive metabolic panel (12/03/2024 5:36 PM CDT) [facility] Sodium 142 135 - 145 mmol/L Potassium, pl 4.0 3.3 - 4.9 mmol/L [facility] Comment:Hemolyzed; Potassium value may be falsely elevated by as much as 0.3-0.5 mmol/L. Suggest redraw and reanalysis. Chloride 106 97 - 110 mmol/L [facility] CO2 29 22 - 32 mmol/L [facility] Anion gap 7 2 - 15 mmol/L [facility] BUN 12 6 - 25 mg/dL [facility] Creatinine 0.67 0.60 - 1.10 mg/dL [facility] Glucose 91 70 - 199 mg/dL [facility] Comment: Interpretive Data Fasting glucose >/= 126 mg/dl is diagnostic for diabetes. Fasting is defined as no caloric intake for at least 8 hours. Fasting glucose between 100 mg/dl to 125 mg/dl is diagnostic of prediabetes. In a patient with classic symptoms of hyperglycemia or hyperglycemic crisis, a random glucose >/= 200 mg/dl is diagnostic for diabetes. In the absence of unequivocal hyperglycemia, results should be confirmed by repeat testing. The classification and Diagnosis of Diabetes Diabetes Care 2021; 46: S19-S40. Current interpretive data was last revised 2022. Calcium 11.0(H) 8.5 - 10.3 mg/dL [facility] Bilirubin, total 0.6 0.1 - 1.2 mg/dL [facility] Protein, pl 7.4 6.5 - 8.5 g/dL [facility] Albumin 4.1 3.5 - 5.0 g/dL [facility] Alk phos 98 40 - 130 Units/L [facility] ALT 19 7 - 45 Units/L [facility] AST 32 10 - 45 Units/L [facility] Comment:Hemolyzed; result ma y be falsely elevated Blood 12/03/2024 5:36 PM CDT 12/03/2024 5:58 PM CDT Isabel Queen NP LAB BLOOD ORDERABLES Final R esult [facility] [place] [address] * Neuro CT Outside Consult (12/03/2024 5:29 PM CDT) Anatomical Region Laterality Modality N/A Computed Tomogra phy 12/04/2024 6:30 AM CDT Impressions 12/04/2024 8:33 AM CDT This study was initially nominated as a consult on outside images via Outside Image Sharing Service. However, a consult was not performed because a more recent CT of the head was performed and interpreted at MRI or dated 12/03/2024, 11:02 PM. Accordingly, there will be no separate report of this study generated by a [facility] Radiologist. Dictated by: Олег Bernardo MD The radiology attending physician has personally reviewed this study, and had reviewed and/or edited this written report and agrees with it. Electronically signed by: Leonor Mcneil M.D. Narrative 12/04/2024 8:33 AM CDT EXAMINATION: CHANGE CONSULT ON OUTSIDE IMAGES TO REFERENCE IMAGES Procedure Note Jayce Mcneil, Leonor Koehler MD - 12/04/2024 EXAMINATION: CHANGE CONSULT ON OUTSIDE IMAGES TO REFERENCE IMAGES IMPRESSION: This study was initially nominated as a consult on outside images via Outside Image Sharing Service. However, a consult was not performed because a more recent CT of the head was performed and interpreted at MRI or dated 12/03/2024, 11:02 PM. Accordingly, there will be no separate report of this study generated by a [facility] Radiologist. Dictated by: Олег Bernardo MD The radiology attending physician has personally reviewed this study, and had reviewed and/or edited this written report and agrees with it. Electronically signed by: Leonor Mcneil M.D. us Pb Cook MD IMG CT PROCEDURES Final Re sult * ECG 12 lead (12/03/2024 5:23 PM CDT) [facility] Ventricular Rate EKG/Min 99 BPM [facility] Atrial Rate 141 BPM [facility] QRS-Interval (MSEC) 84 ms [facility] QT-Interval (MSEC) 318 ms [facility] QTc 408 ms [facility] R [place] 23 degrees [facility] T [place] 21 degrees [facility] Diagnosis Atrial fibrillation Abnormal ECG When compared with ECG of 07-FEB-1998 23:01, atial fibrillation is present Confirmed by AURA ALCOCER M.D ([id number]) on 12/06/2024 11:26:59 AM [facility] 12/03/2024 5:23 PM CDT 12/06/2024 11:26 AM CDT Isabel Queen NP ECG ORDERABLES Final Result [facility] * POCT glucose (12/03/2024 5:20 PM CDT) Pathologist [facility] Glucose, POC 84 70 - 199 mg/dL Blood 12/03/2024 5:20 PM CDT 12/03/2024 5:20 PM CDT Result [facility] Pb Cook MD LAB POCT ORDERABLES - TEENA CE Final Result Y[facility] [place] [address] * SCAN - LABS (11/23/2024) Provider Scanning Final Result * (ABNORMAL) Protime-INR (11/23/2024) INR 2.30(A) 0.90 - 1.10 EXTERNAL LAB Blood Result [facility] Historical Provider MD LAB BLOOD ORDERABLES Rosa l Result EXTERNAL LAB * (ABNORMAL) Protime-INR (10/23/2024) INR 2.00(A) 0.90 - 1.10 EXTERNAL LAB Blood 10/23/2024 Result [facility] Historical Provider MD LAB BLOOD ORDERABLES Rosa l Result EXTERNAL LAB * (ABNORMAL) Protime-INR (09/18/2024) INR 2.50(A) 0.90 - 1.10 EXTERNAL LAB Blood Result [facility] Historical Provider MD LAB BLOOD ORDERABLES Rosa l Result EXTERNAL LAB from Last 3 Months Insurance [facility] MEDICARE ADVANTAGE [facility] Address: [address] [address] [place] [address] [employer]HC MEDICARE ADVANTAGE [facility] MED[facility] Address: [address] [address] [place] [address] [facility] MED[facility] Address: [address] [address] [place] [address] Advance Directives For more information, please contact: [phone] * Full Code (Latest Code Status on File) Date Activated Date Inactivated Comments 12/03/2024 5:20 PM 12/05/2024 10:57 PM * Full Code Date Activated Date Inactivated Comments 12/25/2023 7:14 AM 12/25/2023 3:27 PM * Full Code Date Activated Date Inactivated Comments 07/22/2023 10:16 AM 07/22/2023 4:01 PM Care Teams Galley Cook Relationship Specialty Start Date End Date Nate Ocampo MD [address] [address] PCP - General Family Medicine 02/05/19 Fran Roberto MD [address] [id number] Cardiology 11/06/16
--- OUTSIDE RECORDS SUMMARY | 2024-12-18 09:55 | XMS_ITS | Encounter Summary ---
Author Organization [facility] Healthcare Address [address] [place] [address] Care Team Providers Care [employer]en[employer] P8 Developer Name Role Phone Fran Roberto MD Unavailable [phone] Nate Ocampo MD Primary Care Provider Encounter Details Date Type Department Care Team (Late st Contact Info) Description 04/03/[address] 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 Gender Identity Not on file Sexual Orientation Not on file documented as of this encounter Plan of Treatment Not on file documented as of this encounter Procedures Procedure Name Priority Date/Time Associated Diagnosis Comments SCAN - LABS 04/03/2024 documented in this encounter Results * SCAN - LABS (04/03/2024) Provider Scanning Final Result documented in this encounter Visit Diagnoses Not on filedocumented in this encounter Additional Health Concerns Infection Onset Date Last Indicated Resolved Time Ring Surveillance: Shaun will Comment:[id number] 12/04/2024 12/04/2024 12/11/2024 7:27 PM C DT documented as of this encounter Care Teams [employer] P[employer] Developer Relationship Specialty Start Date End Date Nate Ocampo MD [address] [address] PCP - General Family Medicine 02/05/19 Fran Roberto MD [address] [facility] [address] [place], [place] [id number] Cardiology 11/06/16 documented as of this encounter
--- OUTSIDE RECORDS SUMMARY | 2024-12-18 09:55 | XMS_ITS | Referral Summary ---
Author Organization [facility] [place] [address] Address [address] [place] [address] Care Team Providers Care Blindstitch Machine Operator Name Role Phone Fran Roberto MD Unavailable [phone] Nate Ocampo MD Primary Care Provider [phone] Encounters Date Type Department Care Team Description 12/13/2024 12:48 PM CDT - 12/13/2024 11:59 PM CDT Hospital Encounter [facility] ([facility]) [address] [place] [address] Pb Cook MD Brain bleed (HCC) Discharge Disposition: Discharge to home or self care 12/10/2024 [facility] Post Discharge Follow up phone call [address] [phone] Adriel Lee RN 12/03/2024 5:12 PM CDT - 12/05/2024 6:57 PM CDT Hospital Encounter [address] [phone] Pb Cook MD Brain bleed (HCC) (Primary Dx) Discharge Disposition: Discharge to home or self care 11/23/2024 Orders Only [facility] [place] Health Information Management [address] [place] [address] Scanning, Provider 11/23/2024 Anticoagulation Visit [facility] Cardiology [address] [place] [address] Dyan Lacy RN Atrial fibrillation ([facility]/HCC) [I48.91] (Primary Dx) 10/26/2024 Anticoagulation Visit [facility] Cardiology [address] [place] [address] Syed Ochoa RN Atrial fibrillation (CMS/HCC) [I48.91] (Primary Dx) 09/20/2024 Anticoagulation Visit [facility] Cardiology [address] [place] [address] Arely Asencio RN Atrial fibrillation (CMS/HCC) [I48.91] (Primary Dx) from Last 3 Months Allergies No known active allergies Medications cyanocobalamin [...] 1 tablet by mouth daily Active omega 6-wfa-lgb-fish oil 300-1,000 mg capsule Take 2 capsules by mouth daily Active pyridoxine (vitamin B-6) 25 mg tablet 25 mg. 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 Gender Identity Not on file Sexual [...] 12/03/2024 5:18 PM CDT Plan of Treatment Not on file Medical Devices Implanted Type Area Scrapper Device Identifier Shelf Expiration Date Model / Serial / Lot Yasagril Clip 11mm-02/08/1998 Implanted:02/08 (Quantity not on file) Clip Brain [employer] Yasargil 7mm Clip-02/08/1998 Implanted:02/08 by Fran Gomez MD (Quantity not on file) Clip Brain [employer] Yasargil Aneurysm Clip 15mm-02/08/1998 Implanted:02/08 by Fran Gomez MD (Quantity not on file) Brain [employer] Procedures Procedure Name Priority Date/Time [...] NP LAB BLOOD ORDERABLES Final R esult [facility] Department [place] [address] * (ABNORMAL) CBC without differential (12/04/2024 8:10 PM CDT) [facility] WBC 6.59 3.80 - 9.90 K/cumm Hgb 11.1(L) 11.9 - 15.5 g/dL [facility] Hct 34.0(L) 35.6 - 45.5 % [facility] Plt 191 150 - 400 K/cumm [facility] MPV 11.6 9.1 - 12.3 fL [facility] RBC 3.50(L) 3.90 - 5.20 M/cumm [facility] MCV 97.1(H) 81.3 - 96.4 fL [facility] MCH 31.7 27.1 - 33.3 pg [facility] MCHC 32.6 32.3 - 35.7 g/dL [facility] RDW CV 14.1 11.1 - 14.9 % [facility] RDW SD 50.1(H) 35.7 - 48.1 fL [facility] NRBC abs 0.00 0.00 - 0.01 K/cumm [facility] Blood 12/04/2024 8:10 PM CDT 12/04/2024 8:18 PM CDT Pb Cook MD LAB BLOOD ORDERABLES Final Result Performing Organization Address [facility] Co de Phone Number [facility] Department [place] [address] * (ABNORMAL) Phosphorus (12/04/2024 8:10 PM CDT) [facility] Phosphorus, pl 2.1(L) 2.3 - 4.5 mg/dL Blood 12/04/2024 8:10 PM CDT 12/04/2024 8:18 PM CDT Isabel Queen NP LAB BLOOD ORDERABLES Final R esult Performing Organization Address City/[facility]/ZIP Co de Phone Number [facility] Department [place] [address] * Magnesium (12/04/2024 8:10 PM CDT) Pathologist [facility] Magnesium 1.8 1.4 - 2.5 mg/dL Blood 12/04/2024 8:10 PM CDT 12/04/2024 8:18 PM CDT Isabel Queen NP LAB BLOOD ORDERABLES Final R esult [facility] Department [place] [address] * (ABNORMAL) Comprehensive metabolic panel (12/04/2024 8:10 PM CDT) Pathologist [facility] Sodium 143 135 - 145 mmol/L Potassium, pl 3.9 3.3 - 4.9 mmol/L [facility] Chloride 110 97 - 110 mmol/L [facility] CO2 25 22 - 32 mmol/L [facility] Anion gap 8 2 - 15 mmol/L [facility] BUN 16 6 - 25 mg/dL [facility] Creatinine 0.84 0.60 - 1.10 mg/dL [facility] Glucose 200(H) 70 - 199 mg/dL [facility] Comment: Interpretive Data Fasting glucose >/= 126 [...] 2022. Calcium 10.8(H) 8.5 - 10.3 mg/dL [facility] Bilirubin, total 0.4 0.1 - 1.2 mg/dL [facility] Protein, pl 7.0 6.5 - 8.5 g/dL [facility] Albumin 3.9 3.5 - 5.0 g/dL [facility] Alk phos 96 40 - 130 Units/L [facility] ALT 15 7 - 45 Units/L [facility] AST 27 10 - 45 Units/L [facility] Blood 12/04/2024 8:10 PM CDT 12/04/2024 8:18 PM CDT us Isabel Queen NP LAB BLOOD ORDERABLES Final R esult YANI [facility] Department [place] [address] * CTA Head Neck W WO Contrast [...] the CTA were generated on a dedicated workstation/fast food server. Contrast information: 93 mL Optiray-350 IV COMPARISON: [...] the CTA were generated on a dedicated workstation/fast food server. Contrast information: 93 mL Optiray-350 IV COMPARISON: [...] it. Electronically signed by: Jovita Dallas M.D. us Isabel Queen NP IMG CT PROCEDURES Final [...] 8:31 PM CDT 12/03/2024 9:56 PM CDT Isable Queen NP LAB BLOOD ORDERABLES Final R esult Performing Organization Address [facility] de Phone Number [facility] Department [place] [address] * (ABNORMAL) Phosphorus (12/03/2024 8:31 PM CDT) Phosphorus, pl 2.0(L) 2.3 - 4.5 mg/dL Blood 12/03/2024 8:31 PM CDT 12/03/2024 9:56 PM CDT Result [facility] Isabel Queen NP LAB BLOOD ORDERABLES Final R esult Performing Organization Address City/[facility] Co de Phone Number [facility] Department [place] [place] [address] * Magnesium (12/03/2024 8:31 PM CDT) Magnesium 1.7 1.4 - 2.5 mg/dL Blood 12/03/2024 8:31 PM CDT 12/03/2024 9:56 PM CDT Isabel Queen NP LAB BLOOD ORDERABLES Final R esult Performing Organization Address City/[facility]/ZIP Co de Phone Number YANI L[facility] Department [place] [address] * (ABNORMAL) Comprehensive metabolic panel (12/03/2024 8:31 PM CDT) Sodium 143 135 - 145 mmol/L Potassium, pl 3.5 3.3 - 4.9 mmol/L [facility] Chloride 106 97 - 110 mmol/L CERNER [facility] CO2 29 22 - 32 mmol/L [facility] Anion gap 8 2 - 15 mmol/L [facility] BUN 11 6 - 25 mg/dL [facility] Creatinine 0.62 0.60 - 1.10 mg/dL CERNER [facility] Glucose 89 70 - 199 mg/dL [facility] Comment: Interpretive Data Fasting glucose >/= 126 [...] 2022. Calcium 10.6(H) 8.5 - 10.3 mg/dL [facility] Bilirubin, total 0.6 0.1 - 1.2 mg/dL [facility] Protein, pl 7.2 6.5 - 8.5 g/dL [facility] Albumin 3.9 3.5 - 5.0 g/dL [facility] Alk phos 93 40 - 130 Units/L [facility] ALT 18 7 - 45 Units/L CERNER [facility] AST 23 10 - 45 Units/L [facility] Blood 12/03/2024 8:31 PM CDT 12/03/2024 9:56 PM CDT Isabel Queen NP LAB BLOOD ORDERABLES Final R esult YANI [facility] Department [place] [address] * XR chest 1 view (Portable) (12/03/2024 [...] 6:19 PM CDT) ABO Rh O Positive [facility] HCLL OTHER 12/03/2024 6:19 PM CDT 12/03/2024 6:31 PM CDT us Pb Cook MD LAB BLOOD ORDERABLES Final Result YANI [facility] Department [place] [address] [facility] * Troponin I high-sensitivity series (baseline, 2hr, 4hr, 6hr) (12/03/2024 5:36 PM CDT) Trop I hs <4 <=17 ng/L Comment: Interpretive Data For further hscTnI resources including the diagnostic algorithm and an aid in interpretation, copy and paste this link: [email or web address].testcatalog.org/show/[email or web address] Current Interpretive Data last revised 2019. Blood 12/03/2024 5:36 PM CDT 12/03/2024 5:58 PM CDT us Isabel Queen NP LAB BLOOD ORDERABLES Final R esult [facility] Department [place] [address] * eGFR (12/03/2024 5:36 PM CDT) Pathologist [facility] eGFR >90 >=60 mL/min/1. 73 m2 Comment: [...] 5:36 PM CDT 12/03/2024 5:58 PM CDT us Isabel Queen NP LAB BLOOD ORDERABLES Final R esult [facility] [place] [place] [address] * aPTT (12/03/2024 5:36 PM CDT) aPTT [...] ORDERABLES Final R esult Performing Organization Address [facility] [place] [address] * (ABNORMAL) Protime-INR (12/03/2024 5:36 PM CDT) PT 15.3(H) 9.7 - 13.0 sec INR 1.41(H) 0.90 - 1.20 [facility] Comment: Interpretive data Oral anticoagulant therapeutic ranges: Venous thromboembolism prophylaxis or treatment: 2.0-3.0 CARDIOLOGY Standard range: 2.0-3.0 High-intensity range: 2.5-3.5 Refer to indication-specific guidelines for appropriate target ranges for prosthetic heart valve replacement. Current interpretive data was last revised on 2019. Blood 12/03/2024 5:36 PM CDT 12/03/2024 6:12 PM CDT Isabel Queen NP LAB BLOOD ORDERABLES Final R esult Performing Organization Address [facility] Co de Phone Number [facility] [place] [address] * (ABNORMAL) CBC without differential (12/03/2024 5:36 PM CDT) Pathologist [facility] WBC 8.54 3.80 - 9.90 K/cumm Hgb 11.8(L) 11.9 - 15.5 g/dL [facility] Hct 36.1 35.6 - 45.5 % [facility] Plt 218 150 - 400 K/cumm [facility] MPV 11.3 9.1 - 12.3 fL [facility] RBC 3.70(L) 3.90 - 5.20 M/cumm [facility] MCV 97.6(H) 81.3 - 96.4 fL [facility] MCH 31.9 27.1 - 33.3 pg [facility] MCHC 32.7 32.3 - 35.7 g/dL [facility] RDW CV 13.8 11.1 - 14.9 % [facility] RDW SD 49.9(H) 35.7 - 48.1 fL [facility] NRBC abs 0.00 0.00 - 0.01 K/cumm [facility] Blood 12/03/2024 5:36 PM CDT 12/03/2024 5:58 PM CDT Isabel Queen NP LAB BLOOD ORDERABLES Final R esult Performing Organization Address City/[facility] Co de Phone Number [facility] Department [place] [address] * Type and screen (12/03/2024 5:36 PM CDT) Pathologist [facility] Nigel, indirect Negative ABO Rh O Positive [facility] Blood 12/03/2024 5:36 PM CDT 12/03/2024 6:00 PM CDT Narrative [facility] - 12/03/2024 6:43 PM CDT Has the patient had Daratumumab or Isatuximab in the past 6 months?->Unknown Isabel Queen NP LAB BLOOD BANK TEST ORDERABL ES Final Result Performing Organization Address [facility]/ZIP Co de Phone Number [facility] [place] [address] * (ABNORMAL) Phosphorus (12/03/2024 5:36 PM CDT) [facility] Phosphorus, pl 2.0(L) 2.3 - 4.5 mg/dL Blood 12/03/2024 5:36 PM CDT 12/03/2024 5:58 PM CDT Isabel Queen NP LAB BLOOD ORDERABLES Final R esult Performing Organization Address City/[facility]/[place] [address] * Magnesium (12/03/2024 5:36 PM CDT) [facility] Magnesium 1.8 1.4 - 2.5 mg/dL Blood 12/03/2024 5:36 PM CDT 12/03/2024 5:58 PM CDT Isabel Queen NP LAB BLOOD ORDERABLES [facility] Performing Organization Address City/[facility] Co de Phone Number [facility] [place] [address] * (ABNORMAL) Comprehensive metabolic panel (12/03/2024 5:36 PM CDT) [facility] Sodium 142 135 - 145 mmol/L Potassium, pl 4.0 3.3 - 4.9 mmol/L [facility] Comment:Hemolyzed; Potassium value may be falsely elevated by as much as 0.3-0.5 mmol/L. Suggest redraw and reanalysis. Chloride 106 97 - 110 mmol/L [facility] CO2 29 22 - 32 mmol/L [facility] Anion gap 7 2 - 15 mmol/L [facility] BUN 12 6 - 25 mg/dL [facility] Creatinine 0.67 0.60 - 1.10 mg/dL [facility] Glucose 91 70 - 199 mg/dL [facility] Comment: Interpretive Data Fasting glucose >/= 126 [...] 2022. Calcium 11.0(H) 8.5 - 10.3 mg/dL [facility] Bilirubin, total 0.6 0.1 - 1.2 mg/dL [facility] Protein, pl 7.4 6.5 - 8.5 g/dL [facility] Albumin 4.1 3.5 - 5.0 g/dL [facility] Alk phos 98 40 - 130 Units/L [facility] ALT 19 7 - 45 Units/L [facility] AST 32 10 - 45 Units/L [facility] Comment:Hemolyzed; result ma y be falsely elevated Blood 12/03/2024 5:36 PM CDT 12/03/2024 5:58 PM CDT us Isabel Queen NP LAB BLOOD ORDERABLES Final R esult [facility] Department [place] [address] * Neuro CT Outside Consult (12/03/2024 5:29 PM CDT) Anatomical Region Laterality Modality N/A Computed Tomogra phy 12/04/2024 6:30 AM CDT Impressions 12/04/2024 8:33 AM CDT This study was initially nominated as a consult on outside images via Outside Image Sharing Service. However, a consult was not performed because a more recent CT of the head was performed and interpreted at [facility] or dated 12/03/2024, 11:02 PM. Accordingly, there will be no separate report of this study generated by a [facility] Radiologist. Dictated by: Олег Bernardo MD The radiology attending physician has personally reviewed this study, and had reviewed and/or edited this written report and agrees with it. Electronically signed by: Leonor Mcneil M.D. Narrative 12/04/2024 8:33 AM CDT EXAMINATION: CHANGE CONSULT ON OUTSIDE IMAGES TO REFERENCE IMAGES Procedure Note Leonor Aguilera MD - 12/04/2024 EXAMINATION: CHANGE CONSULT ON OUTSIDE IMAGES TO REFERENCE IMAGES IMPRESSION: This study was initially nominated as a consult on outside images via Outside Image Sharing Service. However, a consult was not performed because a more recent CT of the head was performed and interpreted at [facility] or dated 12/03/2024, 11:02 PM. Accordingly, there will be no separate report of this study generated by a [facility] Radiologist. Dictated by: Олег Bernardo MD The radiology attending physician has personally reviewed this study, and had reviewed and/or edited this written report and agrees with it. Electronically signed by: Leonor Mcneil M.D. Pb Cook MD IMG CT PROCEDURES Final Re sult * ECG 12 lead (12/03/2024 5:23 PM CDT) Ventricular Rate EKG/Min 99 BPM [facility] Atrial Rate 141 BPM [facility] QRS-Interval (MSEC) 84 ms [facility] QT-Interval (MSEC) 318 ms [facility] QTc 408 ms [facility] R [place] 23 degrees [facility] T [place] 21 degrees [facility] Diagnosis Atrial fibrillation Abnormal ECG When compared with ECG of 07-FEB-1998 23:01, atial fibrillation is present Confirmed by AURA ALCOCER M.D ([id number]) on 12/06/2024 11:26:59 AM [facility] 12/03/2024 5:23 PM CDT 12/06/2024 11:26 AM CDT Isabel Queen THERMOSTAT MACHINE TENDER ECG ORDERABLES Final Result [facility] * POCT glucose (12/03/2024 5:20 PM CDT) Glucose, POC 84 70 - 199 mg/dL Blood 12/03/2024 5:20 PM CDT 12/03/2024 5:20 PM CDT Pb Cook MD LAB POCT ORDERABLES - TEENA CE Final Result Y[facility] Department [place] [address] * SCAN - LABS (11/23/2024) Provider Scanning Final Result * (ABNORMAL) Protime-INR (11/23/2024) INR 2.30(A) 0.90 - 1.10 EXTERNAL LAB Blood Result [facility] Historical Provider LAB BLOOD ORDERABLES Rosa l Result Performing Organization Address City/[facility]/ZIP Co de Phone Number EXTERNAL LAB * (ABNORMAL) Protime-INR (10/23/2024) INR 2.00(A) 0.90 - 1.10 EXTERNAL LAB Blood 10/23/2024 Result [facility] Historical Provider LAB BLOOD ORDERABLES Rosa l Result EXTERNAL LAB * (ABNORMAL) Protime-INR (09/18/2024) INR 2.50(A) 0.90 - 1.10 EXTERNAL LAB Blood Result [facility] Historical Provider LAB BLOOD ORDERABLES Rosa l Result EXTERNAL LAB from Last 3 Months Insurance [facility] MEDICARE ADVANTAGE [facility] MEDICARE ADVANTAGE [facility] MEDICARE ADVANTAGE Advance Directives For more information, please contact: [phone] * Full Code (Latest Code Status on File) Date Activated Date Inactivated Comments 12/03/2024 5:20 PM 12/05/2024 10:57 PM * Full Code Date Activated Date Inactivated Comments 12/25/2023 7:14 AM 12/25/2023 3:27 PM * Full Code Date Activated Date Inactivated Comments 07/22/2023 10:16 AM 07/22/2023 4:01 PM Care Teams Blindstitch Machine Operator Relationship Specialty Start Date End Date Nate Ocampo MD [address] [address] PCP - General Family Medicine 02/05/19 Fran Roberto MD [address] [address] Cardiology 11/06/16
--- OUTSIDE RECORDS SUMMARY | 2024-12-18 09:55 | XMS_ITS | Encounter Summary ---
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 Gender Identity Not on file Sexual Orientation Not on file documented as of this encounter Plan of Treatment Not on file documented as of this encounter Procedures Procedure Name Priority Date/Time Associated Diagnosis Comments SCAN - LABS 11/23/2024 documented in this encounter Results * SCAN - LABS (11/23/2024) Provider Scanning Final Result documented in this encounter Visit Diagnoses Not on filedocumented in this encounter Additional Health Concerns Infection Onset Date Last Indicated Resolved Time Ring Surveillance: Shaun will Comment:[id number] 12/04/2024 12/04/2024 12/11/2024 7:27 PM C DT documented as of this encounter Care Teams Application Packaging Consultant Relationship Specialty Start Date End Date Nate Ocampo MD [address] [address] PCP - General Family Medicine 02/05/19 Fran Roberto MD [address] [facility] [address] [place], [place] [id number] Cardiology 11/06/16 documented as of this encounter
--- OUTSIDE RECORDS SUMMARY | 2024-12-18 09:56 | XMS_ITS | Data Portability ---
Author Organization [place] [facility], Main Office Address [address] [place] [address] Care Team Providers Care Adjunct Psychology Professor Name Role Phone NATE OCAMPO Primary Care Provider Assessment Encounter Date Assessment Date Assessment LastModified by Organization Details LastModified Time 04/15/2024 04/15/2024 Advised pt to f/ u with her ENT (Dr. Senior) if any concern with her thyroid nodule. [email or web address] Not available 04/15/2024 12:10:34 06/29/2024 06/29/2024 59 [...] per schedule. Cont f/u with ENT at [place] as per schedule. Cont f/u with Endo as per schedule. Cont f/u with Colorectal Surg at [place] as per schedule. Cont f/u with GI as per schedule. Cont f/u with Uro at [place] as per schedule. Cont f/u with Neuro at [place] as per schedule. Cont f/u with Cardio at [facility] as per schedule. Cont f/u with Pulmo at as per schedule. Cont f/u with Ophtho as per schedule. Cont f/u with Gyne at [facility] as per schedule. Cont f/u with Wt loss clinic at [facility] as per schedule. Advised to refer to [...] per schedule. Cont f/u with ENT at [place] as per schedule. Cont f/u with Endo as per schedule. Cont f/u with Colorectal Surg at [place] as per schedule. Cont f/u with GI as per schedule. Cont f/u with Uro at [place] as per schedule. Cont f/u with Neuro at [place] as per schedule. Cont f/u with Cardio at [facility] as per schedule. Cont f/u with Pulmo at as per schedule. Cont f/u with Ophtho as per schedule. Cont f/u with Gyne at [facility] as per schedule. Cont f/u [...] labs, US thyroid in 01/24. Not available 09/29/2024 09:19:21 Plan of Treatment Reminders Order Date Submit Date Provider Last Modified By Organization Details Last Modified Time Details Appointments Physical/ Annual Wellness 2024 08:15A M Nate Ocampo MD Not available Not available Not available Lab None recorded. Referral None recorded. Procedures None recorded. Surgeries None recorded. Imaging MAMMO, screening , bilateral - Please call patient to schedule. 2024 025 [facility], [place] [address] [place] [address], [address], 09/01/2024 16:12:40 XR, knee, 3 view [address] (Imaging), [address] [place] [address] [place] [address], [address], 05/19/2024 08:59:58 XR, tibia + fibula, 2 view [address] (Imaging), [address] [place] [address] [address], [address], 05/19/2024 08:59:58 US, neck, soft tissue - Rt anterior neck cyst for last few days that is getting bigger. 2023 [email or web address] [place] [address] (Imaging), [address], [place], [address], 05/06/2024 08:58:14 Medication Orders lisinopri l 20 mg-hydroc hlorothia zide 25 mg tablet 2024 025 SHIMA [facility], [address], [address], [place], [place], [id number], 09/29/2024 09:20:03 metoprolo l succinate ER 100 mg tablet,ex tended release 24 hr 2024 025 SHIMA [facility], [address], [address], [place], [place], [id number], 09/29/2024 09:20:02 diclofena c sodium 75 mg tablet,de layed release 2024 025 SHIMA [facility], [address], [address], [place], [place], [id number], 09/29/2024 09:20:04 allopurin ol 100 mg tablet 2024 025 [email or web address] [facility], [address], [address], [place], [place], [id number], 09/29/2024 09:20:20 Wegovy 0.25 mg/0.5 mL subcutane ous pen injector 2024 025 [email or web address] [id number], [address] [place], [place], [id number], 09/29/2024 09:10:49 lisinopri l 20 mg-hydroc hlorothia zide 25 mg tablet 2024 025 SHIMA [facility], [address], [address], [place], [place], [id number], 06/29/2024 09:15:49 metoprolo l succinate ER 100 mg tablet,ex tended release 24 hr 2024 025 SHIMA [facility], [address], [address], [place], [place], [id number], 06/29/2024 09:15:49 diclofena c sodium 75 mg tablet,de layed release 2024 025 [email or web address] [facility], [address], [address], [place], [place], [id number], 09/29/2024 09:11:33 allopurin ol 100 mg tablet 2024 025 SHIMA [facility], [address] [place] [address], [address], [place], [place], [id number], 06/29/2024 09:15:52 Patient TargetsNo targets recorded. Patient Instructions Encounter Date Encounter Id Patient Instructions Last Modified By Organization Details Last Modified Time 05/05/2024 [id number] When You Want to Lose Weight: Care Instructions Not available 05/05/2024 10:50:07 09/29/2024 [id number] When You Want to Lose Weight: Care Instructions [email or web address] Not available 09/29/2024 09:27:40 Reason for Referral None Reported. Results Created Date Observation Date Name Description Value Unit Range Abnormal Flag Note LastModifiedBy Organization Detail LastModifiedTime 03/25/2003/23/2024 CPAP compl iance * No observ ation record ed. [email or web address] [facility] [address], [place], [address], 03/25/2024 15:04:05 04/09/2004/09/2024 US, thyro id No observ ation record ed. [email or web address] [facility] [address] [facility] [address], [place], [address], 04/15/2024 11:57:57 05/19/202024 XR, knee, 3 view No observ ation record ed. [address], [place], [address], 06/29/2024 09:17:57 05/19/20 24 05/19/2024 XR, tibia + fibul a, 2 view No observ ation record ed. [address], [place], [address], 06/29/2024 09:17:57 09/02/19 25 09/01/2024 MAMMO , scree kiera, bilat eral No observ ation record ed. [address] [address], [place], [address], 09/29/2024 09:16:50 10/15/19 25 10/14/2024 XR, kidne y + urete r + bladd er No observ ation record ed. [address], [place], [address], 10/14/2024 15:03:05 12/04/19 25 12/03/2024 CT, brain , w/o contr ast No observ ation record ed. [address] [address], [place], [address], 12/10/2024 09:21:46 12/04/19 25 12/03/2024 XR, chest , 1 view No observ ation record ed. [address], [place], [address], 12/10/2024 09:22:17 Result Notes None recorded. Problems Name Problem SNOMED Code Status Onset Date Resolution Date Notes Provider Name and Address Organization Details Recorded Time Cerebrova scular accident 989971174 Active Not Available [facility] 3 11:58:13 Eruption 649766288 Completed Not Available [facility] 3 01:10:15 Rib pain 667725046 Completed Nate Ocampo MD [address], [place], [address] , [facility] 4 16:03:13 Blood in urine 75378016 Completed Not Available [facility] 3 01:10:16 Vitamin D deficienc y 85328361 Active Not Available [facility] 3 11:58:13 Hypertens jada disorder 12818140 Active Not Available [facility] 3 11:58:13 Hordeolum 551332431 Completed Not Available [facility] 3 01:10:16 Hypokalem ia 11219642 Active Not Available [facility] 3 11:58:13 Microcalc ification s of the breast 30558641 Completed Not Available [facility] 3 01:10:17 Low blood pressure 42804520 Completed Not Available [facility] 3 01:10:17 Atrial fibrillat ion 19925606 Active Not Available [facility] 3 11:58:13 Coronary arteriosc lerosis 30821319 Active Not Available [facility] 3 11:58:13 Essential hypertens ion 48659869 Completed Not Available [facility] 3 01:10:18 Hyperpara thyroidis m 17158938 Active Not Available [facility] 3 11:58:13 Obstructi ve sleep apnea syndrome 11346046 Active Not Available [facility] 3 11:58:13 Postgastr ic surgery syndrome 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 Active Not Available [facility] 3 11:58:13 Obesity 549326151 Active 2017 Not Available [facility] 3 11:58:13 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 93195233 Active 2017 Not Available [facility] 3 11:58:13 Ex-smoker 8417279 Active 2017 Not Available [facility] 3 11:58:13 Idiopathi c hypercalc emia 074676644 Active 2017 Not Available [facility] 3 11:58:13 Colorecta l cancer detected by DNA-based stool screening 325645367 Active 2018 Not Available [facility] 3 11:58:13 Persisten t insomnia 231230491 Active 2018 Not Available [facility] 3 11:58:13 Osteoarth ritis of knee 318085128 Active 2018 Not Available [facility] 3 11:58:13 Mass of colon 573559680 Active 2018 Not Available [facility] 3 11:58:13 Kidney stone 50589654 Active 2018 Not Available [facility] 3 11:58:13 Seasonal allergic rhinitis 917437730 Active 2019 Not Available [facility] 3 11:58:13 Thyroid nodule 360618434 Active 2020 Not Available [facility] 3 11:58:13 Chronic back pain 571021648 Active 2021 Not Available [facility] 3 11:58:13 Cataract 083964642 Active 2021 Not Available [facility] 3 11:58:13 Disturban ce in speech 37433254 Active 2021 Not Available [facility] 3 11:58:13 Syncope 538593920 Active 2021 Not Available [facility] 3 11:58:13 Gouty arthropat hy 340957637 Active 2021 Not Available [facility] 3 11:58:13 Bilateral cataracts 66190943 Active 2021 Not Available [facility] 3 11:58:13 Excessive growth of facial hair 303700316 Active 2021 Not Available [facility] 3 11:58:13 Pain of bilateral knee joints 81700413170 4104 Active 2022 Not Available [facility] 3 11:58:13 Microscop ic hematuria 692714625 Active 2022 Not Available [facility] 3 11:58:13 Urinary tract infectiou s disease 85385983 Active 2022 Not Available [facility] 3 11:58:13 Sleep apnea 52146311 Active 2022 Nate Ocampo MD [address], [place], [address] , [employer] 3 15:39:27 Sensation of irritatio n of eye proper 017291973 Active 2022 Nate Ocampo MD [address], [place], [address] , [facility] 3 14:14:40 Blepharit is of left eyelid 87498535513 9102 Active 2022 Nate Ocampo MD [address], [place], [address] , [facility] 3 14:15:05 Chronic thoracic back pain 25840846521 9103 Active 2023 Nate Ocampo MD [address], [place], [address] , [facility] 4 16:02:43 Rib pain 442822652 Active 2023 Nate Ocampo MD [address], [place], [address] , [employer] 4 16:03:12 Osteoporo sis 48203285 Active 2023 Nate Ocampo MD [address], [place], [address] , [employer] 4 09:00:10 Osteopeni a 868681052 Active 2023 Nate Ocampo MD [address], [place], [address] , [employer] 4 09:02:07 Hypersomn ia with sleep apnea 43771341 Active 2023 Niya Egan NP [address], [place], [address] , [facility] 4 13:02:11 Hypersomn ia 66006246 Active 2023 Niya Egan NP [address], [place], [address] , [facility] 4 13:02:11 Cyst of neck 772229236 Active 2023 Nate Ocampo MD [address], [place], [address] , [facility] 4 11:32:29 Pain of right knee joint 37071617275 4100 Active 2023 Nate Ocampo MD [address], [place], [address] , [facility] 4 10:03:24 Pain in right lower limb 382299501 Active 2023 Nate Ocampo MD [address], [place], [address] , [facility] 10:03:39 Problem Notes None recorded. Procedures Surgical History Date Name Laterality Status Provider Name and Address Organization Details Recorded Time 023 Ortho - Cortisone Injection completed Johny Jimenez MD [address], [place], [address], [facility] 12/12/2022 11:08:53 022 Date of Last Colonoscopy completed CHIDI Miller [facility] 08/12/2022 10:13:22 022 Cataract Surgery completed CHIDI Miller [place] [facility] 08/12/2022 10:12:30 Colon Surgery completed Not Available [facility] 07/31/2022 00:55:17 colonoscopy completed Not Available [facility] 07/31/2022 00:55:17 parathyroidectomy completed Not Available [facility] 07/31/2022 00:55:17 Gastric Bypass completed Not Available [facility] 07/31/2022 00:55:17 Kidney Stones completed Not Available [facility] 07/31/2022 00:55:17 Brain Surgery completed Not Available [facility] 07/31/2022 00:55:17 Imaging Results None recorded. Procedure Notes None recorded. Medical Equipment None Reported. Allergies Allergen ID Allergen Name Allergen Category Reaction Reaction Severity Criticality Documentation Date Start Date Code Code System Note Provider Name and Address Organization Details Recorded Time 2656 gabapenti n medicatio n confusion severe Not available 07/31/2022 04388 RxNorm Not Available [facility] 3 01:32:14 Medications Name Sig Start Date Stop [...] mg by injectio n route. 01/20 completed [facility]: [id number] 09-19 Not Available Not Available Not Available baclofen [...] c sodium 75 mg tablet,de layed release TAKE 1 TABLET BY MOUTH EVERY 12 HOURS NEEDED 2024 active Not Available Not Available Not [...] e 50 mcg/actua tion nasal spray,lashonda pension D Lo 2 sprays every day by intranas al route as directed for 30 days. active Use into both nostrils , as needed. Not Available Not Available Not Available enoxapari n 60 mg/0.6 mL subcutane ous syringe INJECT CONTENTS OF SYRINGE SUBCUTAN EOUS BID FOR 5 DAYS.06/02 11/14-06/03 015 08/01 completed Not Available Not Available [...] mg by injectio n route. 02/09 completed [facility] [address]-87 08-31 Not Available Not Available Not Available [...] Updated DateTime 5 167.64 cm 39.1 kg/m2 272570. 35 g 97.5 [degF] 98 % 98 % 73 /min 130/80 mm[Hg] Pippa Zamarripa RN [facility] [employer] [facility] 5 09:10:29 Date Recorded Body height Body mass index (BMI) Body weight Body temperature Heart rate Oxygen saturation Oxygen saturation in Arterial blood by Pulse oximetry Systolic And Diastolic Provider Name and Address Organization Details Last Updated DateTime 5 167.64 cm 39.7 kg/m2 367108. 72 g 97.4 [degF] 90 /min 95 % 95 % 126/80 mm[Hg] Lucrecia Roth [facility] [employer] [facility] 5 09:15:11 Date Recorded Body height Body mass index (BMI) Body weight Body temperature Oxygen saturation Oxygen saturation in Arterial blood by Pulse oximetry Heart rate Systolic And Diastolic Provider Name and Address Organization Details Last Updated DateTime 4 167.64 cm 38.7 kg/m2 759936. 52 g 97.3 [degF] 99 % 99 % 69 /min 130/80 mm[Hg] Pippa Zamarripa RN [facility] [employer] [facility] 4 11:14:41 Date Recorded Body height Body mass index (BMI) Body weight Body temperature Heart rate Oxygen saturation Oxygen saturation in Arterial blood by Pulse oximetry Systolic And Diastolic Provider Name and Address Organization Details Last Updated DateTime 4 167.64 cm 38.8 kg/m2 873002. 25 g 97.5 [degF] 75 /min 96 % 96 % 132/80 mm[Hg] Deb Rodriguez RN [facility] [employer] [facility] 4 11:56:10 Date Recorded Oxygen saturation Oxygen saturation in Arterial blood by Pulse oximetry Heart rate Provider Name and Address Organization Details Last Updated DateTime 05/05/2024 95 % 95 % 90 /min Nate Ocampo MD [address], [place], [address], [employer] 05/05/2024 10:48:13 Date Recorded Body height Body mass index (BMI) Body weight Body temperature Systolic And Diastolic Provider Name and Address Organization Details Last Updated DateTime 05/05/2024 167.64 cm 38.5 kg/m2 738613. 43 g 97.6 [degF] 120/76 mm[Hg] Pippa Zamarripa RN [facility] 09:55:18 Social History Question Answer Notes LastModified by Organization Details LastModified Time Tobacco Smoking Status Former Smoker Quin segura, [employer] 12/12/2022 09:45:18 Do You Have An Advance Directive? Yes Has A Living Will [id number] Information not available 07/31/2022 Do You Wear A Helmet When Biking? No Information not available 12/12/2022 Is Blood Transfusion Acceptable In An Emergency? Yes Information not available 12/12/2022 What Is Your Level Of Caffeine Consumption? Heavy [id number].[id number] [id number] Information not available 07/31/2022 How Much Tobacco Do You Chew? None [id number] [id number] Information not available 07/31/2022 In The 14 [...] CARDIAC Baked Food Instead Of Fried MIGRATION.0301 [id number] Information not available 07/31/2022 Which Illicit Or Recreational Drugs Have You Used? None Information not available 12/12/2022 What Is The Highest Grade Or Level Of School You Have Completed Or The Highest Degree You Have Received? [id number] Information not available 12/12/2022 Do You Have An Electrostatic Air Filter? No [email or web address] Information not available 02/25/2024 Have There Been Any Changes To Your Family Or Social Situation? No Information not available 12/12/2022 What Is The Fluoride Status Of Your Home? Fluoridated Information not available 12/12/2022 Are There Any Guns Present In Your Home? Yes Information not available 12/12/2022 Do You Have A Humidifier? No [email or web address] Information not available 02/25/2024 Do You Use Insect Repellent Routinely? Yes Information not available 12/12/2022 Where Do You Live? SingleLevelHouse Information not available 12/12/2022 Do You Have A Medical Power Of Child Neurologist? No Information not available 12/12/2022 Do You Have Moisture Problems In Your Home? No [email or web address] Information not available 02/25/2024 Have You Ever Been Counseled For Unhealthy Alcohol Use? No Information not available 12/12/2022 Do You Have Any Pets? Yes Information not available 12/12/2022 What Is Your Relationship Status? [id number].0301 [id number] Information not available 07/31/2022 Do You Use [...] Has Tobacco Cessation Counseling Been Provided? No [email or web address] Information not available 02/25/2024 Have You Recently [...] other forms of tobacco or nicotine? No [email or web address] Information not available 02/25/2024 What is your level of alcohol consumption? Occasional [id number] Information not available 07/31/2022 What is your occupation? disabled Information not available 12/12/2022 Do you or have you ever used e-cigarettes or vape? Never used electronic cigarettes Information not available 12/12/2022 What is your exercise level? Occasional [id number] Information not available 07/31/2022 Mental Status Question Answer Note LastModified by Organization D etails LastModified Time Do you feel stressed (tense, restless, nervous, or anxious, or unable to sleep at night)? [id number] Information not available 12/12/2022 Family History Relationship Description Onset Age of this Age Resolved Age Notes LastModified by Organization Details LastModified Time Mother Hypertensive disorder [email or web address] Not available 11/30 10:02:10 Mother Diabetes mellitus [email or web address] Not available 11/30 10:02:20 Medical History Condition Response CANCER: SPECIFY Y ARTHRITIS Y OBESITY Y USE OF BLOOD THINNERS Y ANEMIA/BLOOD DISORDER Y BLOOD CLOTS Y [...] zoster recombinant 3 completed Nate Ocampo MD [address] [facility] [address], [place], [address], [facility] [employer] 05/22/2023 14:18:38 COVID-19, mRNA, LNP-S, PF, alejandro-sucrose, 30 mcg/0.3 mL 3 completed Nate Ocampo MD [address], [place], [address], [facility] [employer] [facility] 05/22/2023 14:18:38 Influenza, split virus, quadrivalent, PF 3 completed Ben Connolly null, [facility] 02/12/2023 08:37:56 pneumococcal polysaccharide PPV23 4 completed Ben Connolly null, [facility] 10/16/2023 12:10:39 COVID-19, mRNA, LNP-S, bivalent, PF, 30 mcg/0.3 mL dose 2 completed Nate Ocampo MD [address], [place], [address], [facility] 05/22/2023 14:18:38 Influenza, split virus, trivalent, preservative 5 completed Nate Ocampo MD [address], [place], [address], [facility] [employer] [facility] 05/22/2023 14:18:38 Influenza, split virus, trivalent, preservative 4 completed Nate Ocampo MD [address], [place], [address], [facility] [employer] [facility] 05/22/2023 14:18:38 DTaP 0 completed Nate Ocampo MD [address], [place], [address], [facility] [employer] [facility] 05/22/2023 14:18:38 Influenza, split virus, quadrivalent, PF 1 completed Nate Ocampo MD [address], [place], [address], [facility] [employer] [facility] 05/22/2023 14:18:38 Influenza, split virus, quadrivalent, PF 0 completed Nate Ocampo MD [address], [place], [address], [facility] [employer] [facility] 05/22/2023 14:18:38 Tdap 0 completed Nate Ocampo MD [address], [place], [address], [employer] [facility] [employer] [facility] 05/22/2023 14:18:38 Influenza, split virus, quadrivalent, PF 9 completed Nate Ocampo MD [address], [place], [address], [employer] [facility] 05/22/2023 14:18:38 pneumococcal polysaccharide PPV23 9 completed Nate Ocampo MD [address], [place], [address], [employer] [facility] 05/22/2023 14:18:38 Influenza, split virus, quadrivalent, PF 8 completed Nate Ocampo MD [address], [place], [address], [employer] [facility] 05/22/2023 14:18:38 Influenza, split virus, quadrivalent, PF 2 completed Nate Ocampo MD [address], [place], [address], [employer] [facility] 05/22/2023 14:18:38 COVID-19 IV Non-US Vaccine (COVAXIN) 1 completed Nate Ocampo MD [address], [place], [address], [employer] [facility] [employer] [facility] 05/22/2023 14:18:38 COVID-19, mRNA, LNP-S, PF, 30 mcg/0.3 mL dose 1 completed Nate Ocampo MD [address], [place], [address], [employer] [facility] [employer] [facility] 05/22/2023 14:18:38 Influenza, split virus, trivalent, PF 4 completed Pippa Zamarripa RN [facility], [place] [facility] [employer] [facility] 04/06/2024 13:48:16 Past Encounters Encounter ID Performer Location Encounter Start Date Encounter Closed Date Diagnosis/Indication Diagnosis SNOMED-CT Code Diagnosis ICD10 Code Diagnosis Note [id number] Nate Ocampo MD [facility] [address] [place] [address] 08/02/2020 00:00:00 08/02/2020 14:46:20 [id number] Sugar Martinez MD [facility] [place] [address] [place] [address] 09/25/2020 00:00:00 09/25/2020 17:38:59 [id number] Nate Ocampo MD [facility] [address] [place] [address] 11/01/2020 00:00:00 11/01/2020 17:58:41 [id number] Nate Ocampo MD [facility] [address] [place] [address] 01/03/2021 00:00:00 01/03/2021 17:59:56 [id number] Nate Ocampo MD [facility] [address] [place] [address] 01/09/2021 00:00:00 01/09/2021 17:47:59 [id number] Nate Ocampo MD [facility] [address] [place] [address] 03/15/2021 00:00:00 03/15/2021 14:08:21 [id number] Nate Ocampo MD [facility] [address] [place] [address] 04/11/2021 00:00:00 04/11/2021 11:07:42 [id number] Nate Ocampo MD [facility] [address] [place] [address] 08/08/2021 00:00:00 08/08/2021 11:00:14 [id number] Nate Ocampo MD [facility] [address] [place] [address] 09/19/2021 00:00:00 09/19/2021 11:10:10 [id number] Nate Ocampo MD [facility] [address] [place] [address] 11/21/2021 00:00:00 11/21/2021 11:04:06 [id number] Nate Ocampo MD [facility] [address] [place] [address] 01/01/2022 00:00:00 01/01/2022 15:03:37 [id number] Nate Ocampo MD [facility] [address] [place] [address] 01/16/2022 00:00:00 01/16/2022 11:02:11 [id number] Nate Ocampo MD [facility] [address] [place] [address] 02/07/2022 00:00:00 02/07/2022 12:43:29 [id number] Nate Ocampo MD [facility] [address] [place] [address] 04/22/2022 00:00:00 04/22/2022 17:46:35 [id number] Nate Ocampo MD [facility] [address] [place] [address] 05/02/2022 00:00:00 05/02/2022 14:04:35 [id number] Nate Ocampo MD [facility] [address] [place] [address] 05/14/2022 00:00:00 05/14/2022 16:18:40 [id number] Nate Ocampo MD [facility] [address] [place] [address] 08/12/2022 10:00:13 08/12/2022 10:32:54 Chronic back pain 437738674 G89.29 Gouty arthropathy 935835 008 M10.09 Hypertensive disorder 38 008642 I10 Obesity 633443630 E66.9 Hypokalemia 23693295 E87 .6 [id number] Nate Ocampo MD [address] [address] 11/11/2022 09:54:09 11/11/2022 10:21:30 Hypertensive disorder 48004899 I10 Chronic back pain 636591 002 G89.29 Gouty arthropathy 080162 008 M10.09 Obesity 073488545 E66.9 Hypokalemia 29312882 E87 .6 Pain of bi lateral knee joints 7397411045 88516 M25.561 Coronary arteriosclerosis 45825337 I25.10 Cerebrovas cular accident 987439632 I63.9 Atrial fibrillation 4943 6004 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 42862543 M47.817 [id number] Nate Ocampo MD [address] [address] 12/04/2022 09:37:02 12/04/2022 10:00:59 Hypertensive disorder 28157590 I10 Chronic back pain 188320 002 G89.29 Gouty arthropathy 791458 008 M10.09 Obesity 831062558 E66.9 Hypokalemia 05900239 E87 .6 Pain of bi lateral knee joints 1000764881 07658 M25.561 Coronary arteriosclerosis 58642966 I25.10 Cerebrovas cular accident 684086132 I63.9 Atrial fibrillation 4943 6004 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 43939472 M47.817 [id number] Johny Jimenez MD [facility] [place] [address] [place] [address] 12/12/2022 09:43:06 12/12/2022 11:07:55 Pain of bilateral knee joints 0426124033 32130 M25.561 M25.562 [id number] Nate Ocampo MD [address] [place] [address] 01/20/2023 09:47:58 01/20/2023 10:19:26 Pain of bilateral knee joints 8692814755 49404 M25.561 Hypertensive disorder 38 570474 I10 Chronic back pain 166049 002 G89.29 Gouty arthropathy 944016 008 M10.09 Obesity 405904347 E66.9 Hypokalemia 94071205 E87 .6 Coronary arteriosclerosis 30151022 I25.10 Cerebrovas cular accident 557533910 I63.9 Atrial fibrillation 4943 6004 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 65933600 M47.817 Vitamin D deficiency 347 10922 E55.9 [id number] Nate Ocampo MD [address] [address] 02/11/2023 09:48:02 02/11/2023 10:30:18 Pain of bilateral knee joints 6487934592 77124 M25.561 Hypertensive disorder 38 944026 I10 Chronic back pain 124233 002 G89.29 Gouty arthropathy 782309 008 M10.09 Obesity 332608549 E66.9 Hypokalemia 78769286 E87 .6 Coronary arteriosclerosis 31071801 I25.10 Cerebrovas cular accident 409174266 I63.9 Atrial fibrillation 4943 6004 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 68925170 M47.817 Vitamin D deficiency 347 18761 E55.9 Microscopic hematuria 19 5617312 R31.29 Administra tion of influenza vaccine 67159244 Z23 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 [id number] Nate Ocampo MD [address] [address] 03/18/2023 10:50:11 03/18/2023 12:22:03 Pain of bilateral knee joints 7970417358 35071 M25.561 Hypertensive disorder 38 206784 I10 Chronic back pain 531259 002 G89.29 Gouty arthropathy 616733 008 M10.09 Obesity 619818968 E66.9 Hypokalemia 91119636 E87 .6 Coronary arteriosclerosis 30147167 I25.10 Cerebrovas cular accident 108579229 I63.9 Atrial fibrillation 4943 6004 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 90562578 M47.817 Microscopic hematuria 19 5413012 R31.29 Idiopathic hypercalcemia 303601563 E83.52 Screening mammography 24 915678 Z12.31 [id number] Nate Ocampo MD [address] [address] 05/22/2023 14:00:29 05/22/2023 14:32:13 Sensation of irritation of eye proper 002659279 H57.89 Lt Blephariti s of left eyelid 5420888803 94465 H01.361 [id number] Nate Ocampo MD [address] [address] 06/18/2023 10:45:06 06/18/2023 11:19:30 Microscopic hematuria 308796282 R31.29 Pain of bi lateral knee joints 7206297040 14968 M25.561 Hypertensive disorder 38 080681 I10 Chronic back pain 846744 002 G89.29 Gouty arthropathy 580178 008 M10.09 Obesity 857855586 E66.9 Hypokalemia 56119649 E87 .6 Coronary arteriosclerosis 42149826 I25.10 Cerebrovas cular accident 235149881 I63.9 Atrial fibrillation 4943 6004 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 26960260 M47.817 Idiopathic hypercalcemia 934918781 E83.52 Sleep apnea 51574034 G47 .30 [id number] Nate Ocampo MD [address] [address] 08/11/2023 15:42:07 08/11/2023 16:10:05 Chronic thoracic back pain 4265825368 54255 M54.6 Rib pain 769146405 R07.8 1 Rt Obesity 831589301 E66.9 [id number] Nate Ocampo MD [address] [address] 10/16/2023 10:44:47 10/16/2023 11:12:38 Hypertensive disorder 72721181 I10 Microscopic hematuria 19 0513093 R31.29 Pain of bi lateral knee joints 0511625123 25871 M25.561 Chronic back pain 041071 002 G89.29 Gouty arthropathy 308966 008 M10.09 Obesity 541175693 E66.9 Hypokalemia 99649794 E87 .6 Coronary arteriosclerosis 21900301 I25.10 Cerebrovas cular accident 213204465 I63.9 Atrial fibrillation 4943 6004 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 28548615 M47.817 Idiopathic hypercalcemia 433990016 E83.52 Sleep apnea 19380993 G47 .30 Screening for osteoporosis 887986261 Z13.820 Active or passive immunization 369332405 Z23 Osteoporosis 94836850 M8 1.0 [id number] Nate Ocampo MD [address] [address] 01/21/2024 08:51:52 01/21/2024 09:42:40 Gouty arthropathy 445053286 M10.09 Pain of bi lateral knee joints 3910162957 30579 M25.561 Hypertensive disorder 38 356411 I10 Microscopic hematuria 19 5785150 R31.29 Chronic back pain 243889 002 G89.29 Obesity 447129549 E66.9 Hypokalemia 29968821 E87 .6 Coronary arteriosclerosis 77540227 I25.10 Cerebrovas cular accident 552493222 I63.9 Atrial fibrillation 4943 6004 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 07126067 M47.817 Idiopathic hypercalcemia 324613739 E83.52 Sleep apnea 42530346 G47 .30 Osteopenia 248335890 M85 .80 Thyroid nodule 635786799 E04.1 [id number] Nate Ocampo MD [address] [address] 02/10/2024 08:46:29 02/10/2024 09:25:42 Hypertensive disorder 32948592 I10 Chronic back pain 431449 002 G89.29 Gouty arthropathy 656148 008 M10.09 Pain of bi lateral knee joints 1814069348 88741 M25.561 Microscopic hematuria 19 8178566 R31.29 Obesity 362056466 E66.9 Hypokalemia 83370471 E87 .6 Coronary arteriosclerosis 35389775 I25.10 Cerebrovas cular accident 003528091 I63.9 Atrial fibrillation 4943 6004 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 59067034 M47.817 Idiopathic hypercalcemia 106154205 E83.52 Sleep apnea 17426392 G47 .30 Osteopenia 210996423 M85 .80 Thyroid nodule 778406797 E04.1 [id number] Nate Ocampo MD [facility]_[address] [address] 02/17/2024 13:59:36 02/17/2024 14:53:09 Gouty arthropathy 160300315 M10.09 Hypertensive disorder 38 807840 I10 Chronic back pain 435230 002 G89.29 Pain of bi lateral knee joints 9651530625 26538 M25.561 Microscopic hematuria 19 2622614 R31.29 Obesity 836536025 E66.9 Hypokalemia 46439324 E87 .6 Coronary arteriosclerosis 71880428 I25.10 Cerebrovas cular accident 003308579 I63.9 Atrial fibrillation 4943 6004 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 46962850 M47.817 Idiopathic hypercalcemia 422515466 E83.52 Sleep apnea 87150099 G47 .30 Osteopenia 057813289 M85 .80 Thyroid nodule 602169318 E04.1 [id number] Niya Egan NP [facility] [place] [facility] [place] [address] [place] [address] 02/25/2024 11:16:31 02/26/2024 14:52:04 Obstructive sleep apnea syndrome 19013775 G47.33 G47.37 Patient has Airsense 11-since 07/2022, will get old sleep study from [facility] shows 99% compliance with use of greater than 4 hoursPAP is set at 7 cm B8RThoj/sl eep study while on PAP reviewed-s he benefits from CPAPAHI was 9.7 with Central apnea of 2.1-will change setting to auto 7 to 15 cm [id number] s made today-will follow-up in 1 monthConti nue 100% compliance with all sleepFollo w with [...] iscussed reportable signs and symptoms of concernRec keegan new machine at 5 year sue, plans to repeat home sleep study as needed with changes in condition. Body mass index 30+ - obesity 549777598 Z68.39 Encourage healthy diet and exercise to improve weightdisc ussed weight effect on sleep and sleep apnea [id number] Niya Egan NP [facility] [address] [address] 03/25/2024 09:10:32 03/25/2024 11:57:00 Obstructive sleep apnea syndrome 81736953 G47.33 G47.37 ESS-2Patie nt has Airsense 11-since 3Down load shows 100% compliance with use of greater than 4 hoursPAP is set at 7-15 cm H2TNxmi/sl eep study while on PAP reviewed-s he benefits from CPAPAHI was 4.9-will continue setting to auto 7 to 15 cm [id number] benefits from CPAPContin ue 100% compliance with [...] iscussed reportable signs and symptoms of concernRec keegan new claire at 5 year sue, plans to repeat home sleep study as needed with changes in condition. Follow-up in one year-soone r if any new concerns or issues discussed [id number] Nate Ocampo MD [address] [address] 04/06/2024 10:57:10 04/06/2024 12:06:57 Cyst of neck 453223669 R22.1 Rt Administra tion of influenza vaccine 36885196 Z23 Thyroid nodule 894990784 E04.1 History of parathyroidectomy 1910629715 60974 Z90.89 Advised pt to contact her ENT about this too. [id number] Nate Ocampo MD [address] [address] 04/15/2024 11:50:10 04/15/2024 12:11:23 Cyst of neck 968993521 R22.1 Rt Thyroid nodule 094186693 E04.1 B/L History of parathyroidectomy 5772405114 56502 Z90.89 [id number] Nate Ocampo MD [address] [place] [address] 05/05/2024 09:44:31 05/05/2024 10:19:52 Pain of right knee joint 0221128934 97051 M25.561 Use OTC knee sleeve as directed prn. 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 23830715 M47.817 Idiopathic hypercalcemia 724299690 E83.52 Osteopenia 097212713 M85 .80 Thyroid nodule 120126098 E04.1 B/L Screening mammography 24 721227 Z12.31 [id number] Nate Ocampo MD [address] [address] 09/29/2024 09:01:45 09/29/2024 09:23:30 Gouty arthropathy 737025468 M10.09 Hypertensive disorder 38 339675 I10 Sleep apnea 39061210 G47 .30 Chronic back pain 416935 002 G89.29 Pain of bi lateral knee joints 9518379190 01930 M25.561 Microscopic hematuria 19 1819047 R31.29 Obesity 861948523 E66.9 Hypokalemia 21184992 E87 .6 Coronary arteriosclerosis 25159778 I25.10 Cerebrovas cular accident 873527585 I63.9 Atrial fibrillation 4943 6004 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 50332252 M47.817 Idiopathic hypercalcemia 579225977 E83.52 Osteopenia 875543425 M85 .80 Thyroid nodule 325248819 E04.1 B/L Health Concerns Section Related Observation LastModified by Organization Detai ls LastModified Time None Recorded Concern Status LastModified by Organization Details LastModified Time None Recorded Advance Directives Directive Y: has a living will Payers Insurance Date Sequence Insurance Name Policy Number Policy Leija Covered Member ID Leija Member ID Guarantor Name 09/30/2024 1 [facility] (MEDICARE REPLACEMENT/ ADVANTAGE - HMO) [id number] Ana Laura Wliliamson [id number] Ana Laura Isaac Clay Notes Date Note Type Note Provider Name [...] No other concern. Nate Ocampo MD [address] [address], [place], [address], [employer] 04/06/2024 11:48:31 4 text/html Pt is here [...] few yrs. Nate Ocampo MD [address], [facility] [address], [place], [address], [employer] 04/15/2024 12:11:08 4 text/html ACV: C/o Rt lower knee area clicking sound when she walks, started couple days ago. Denies any fall/trauma/injury. Denies any pain with walking/wt bearing. No other concern. Nate Ocampo MD [address], [place], [address], [employer] [facility] [employer] 05/05/2024 10:50:49 5 text/html Pt is here for f/u on her x-rays, meds and chronic conditions. Doing overall better. Denies any problem with meds. Denies any new concern. Pt is f/u with Wt loss clinic at [facility] and got the revision surgery done with them in 12/23. Pt is f/u with Pain clinic at [place] for her chronic back pain and got [...] pt.Pt is f/u with colorectal surgeon at [place] and got about 2 feet of her colon removed. Doing overall well with it.Pt says her Insomnia is improved now. She is able to sleep about 6-7 hrs per night.Pt has b/l kidney stones and is f/u with Uro at [place].Pt is on Coumadin by her Cardio and they are managing its dose and f/u on INR results. Nate Ocampo MD [address], [address], [place], [address], [employer] [facility] [employer] 06/29/2024 09:19:32 5 text/html Pt is here for f/u on her meds and chronic conditions. Doing overall well. Denies any problem with meds. Denies any new concern. Pt is f/u with Wt loss clinic at [place] and got the revision surgery done with them in 12/23. Pt is f/u with Pain clinic at [place] for her chronic back pain and got [...] pt.Pt is f/u with colorectal surgeon at [place] and got about 2 feet of her colon removed. Doing overall well with it.Pt says her Insomnia is improved now. She is able to sleep about 6-7 hrs per night.Pt has b/l kidney stones and is f/u with Uro at [place].Pt is on Coumadin by her Cardio and they are managing its dose and f/u on INR results. Nate Ocampo MD [address] [place] [address], [address] [address], [place], [address], [place] [facility] [employer] 09/29/2024 09:28:21 OBGyn Episode No OBEpisode recorded.
== END 2024-12-18 09:52 | disposition home or self-care (01) ==
PROVIDERS: PCP Family Medicine; Visit Provider Urology
DX: N20.0 Calculus of kidney (principal)
CPT/HCPCS: 74018